=== PATIENT | male | born 1960 | race Caucasian/White ===

== ENCOUNTER 2020-02-05 13:59 | Outpatient (CLI) | payer MEDICARE, MEDICAID, SELFPAY | END 2020-02-05 14:00 | disposition home or self-care (01) | PROVIDERS: Family Provider Physician Assistant Medical; PCP Physician Assistant Medical; Visit Provider Nurse Practitioner Family | DX: E11.621 Type 2 diabetes mellitus with foot ulcer (principal); L97.512 Non-pressure chronic ulcer of other part of right foot with fat layer exposed; E11.622 Type 2 diabetes mellitus with other skin ulcer; L97.322 Non-pressure chronic ulcer of left ankle with fat layer exposed | CPT/HCPCS: 11042; 87070; 87077; 87176; 87186; 87205; G0463 ==

== ENCOUNTER 2020-02-12 14:47 | Outpatient (CLI) | payer MEDICARE, MEDICAID, SELFPAY | END 2020-02-12 14:48 | disposition home or self-care (01) | LOC: WOUND 14:48 | PROVIDERS: Family Provider Physician Assistant Medical; PCP Physician Assistant Medical; Visit Provider Nurse Practitioner Family | DX: E11.621 Type 2 diabetes mellitus with foot ulcer (principal); L97.512 Non-pressure chronic ulcer of other part of right foot with fat layer exposed; E11.622 Type 2 diabetes mellitus with other skin ulcer; L97.322 Non-pressure chronic ulcer of left ankle with fat layer exposed | CPT/HCPCS: G0463 ==

== ENCOUNTER 2020-04-06 03:45 | Observation (INO) | payer MEDICARE, MEDICAID, SELFPAY ==
[2020-04-06] VITALS (47 sets, daily range): BP systolic 97–126; BP diastolic 56–72; PULSE 73–113; RESP 11–27; TEMP 36.6–37.1; O2SAT 86–96; BMI 34.9
--- NOTE | 2020-04-06 03:53 | W.ED.SOB ---
HPI - SOB/Dyspnea General: Chief Complaint: Shortness of Breath/Dyspnea Stated Complaint: SOB Time Seen by Provider: 04/06/20 03:47 Source: patient and EMS Mode of arrival: EMS Limitations: no limitations History of Present Illness: HPI Narrative: 59-year-old male who is here from [facility]. Patient accepted by hospitalist does recommend stopping to the ER for screening. Patient has a history of COPD and does have pneumonia. Patient was given breathing treatments there along with antibiotics. Patient states he felt improved after breathing treatments but is still requiring oxygen. He denies any chest pain. Associated symptoms: Deny abdominal pain, chest pain, fever(s), nausea or vomiting Review of Systems Const: Denies: fever(s), chills, body aches or change in appetite Eyes: Denies: blurry vision or eye discomfort ENMT: Denies: throat pain or dental pain Card: Denies: chest pain Resp: Reports: dyspnea and wheezing GI: Denies: abdominal pain, nausea, vomiting or diarrhea : Denies: dysuria Musc: Denies: neck pain or back pain Skin/Breast: Denies: rash Neuro: Denies: headache(s) Psych: Denies: depression Jose C/Lymph: Denies: easy bruising All/Imm: Denies: urticaria PFSH ED PFSH: Medical History (Updated 04/06/20 @ 04:04 by Shila Babin MD) Cervical vertebral fusion COPD (chronic obstructive pulmonary disease) Dyslipidemia Foot drop GERD (gastroesophageal reflux disease) Heart failure with preserved ejection fraction Hypertension Lymphedema Myocardial infarction Status post stent placement Obstructive sleep apnea Osteomyelitis Foot osteomyelitis with cellulitis treated with vancomycin Urethral stricture Surgical History (Updated 04/06/20 @ 03:58 by Jens Vang MD) H/O cardiac catheterization H/O shoulder surgery Previous back surgery S/P cystourethroscopy with dilation of urethral stricture Family History (Updated 04/06/20 @ 03:56 by Jens Vang MD) Other Hypertension Social History (Updated 04/06/20 @ 03:57 by Jens Vang MD) Alcohol intake: current Alcohol intake frequency: holidays/special occasions only Substance/Drug Use: never Household members: spouse Housing: House Physical Exam Const: COMMON NORMALS: no acute distress, patient oriented x3 and healthy appearing HENMT: COMMON NORMALS: normocephalic and atraumatic HEAD & SCALP: normocephalic and atraumatic Eye: COMMON NORMALS: Equal, round and reactive pupils present and EOMs intact bilaterally PUPIL: Yes Equal, round and reactive pupils present Neck/C-Spine: COMMON NORMALS: full ROM and supple Chest: COMMONS NORMALS: normal inspection of the chest and normal palpation of entire chest wall Resp: COMMON NORMALS: normal respiratory effort, No retractions and No use of accessory muscles AUSCULTATION: wheezes Cardio: COMMON NORMALS: regular rate, regular rhythm and No murmurs present (Cardio) RATE: regular rate RHYTHM: regular rhythm GI: COMMON NORMALS: Normal to inspection, nondistended, normoactive bowel sounds present, Soft to palpation, non-tender and no masses PALPATION: Yes Soft to palpation Extremity: COMMON NORMALS: normal to inspection and full ROM Neuro: COMMON NORMALS: patient oriented x3, moves all extremities and no focal motor deficits Psych: COMMON NORMALS: mental status grossly normal, Normal thought process present and cooperative THOUGHT PROCESS: Normal thought process present Skin: COMMON NORMALS: no rashes or lesions noted and no wounds GENERAL SKIN EXAM: no rashes or lesions noted Course Vital Signs: Vital signs: Vital Signs Temperature 97.9 F 04/06/20 03:46 Pulse Rate 84 04/06/20 03:46 Respiratory Rate 22 H 04/06/20 03:46 Blood Pressure 99/58 04/06/20 03:46 Pulse Oximetry 91 04/06/20 03:46 MDM - SOB/Dyspnea MDM Narrative: Medical decision making narrative: Luis E presents here from [facility] with a asthma exacerbation along with pneumonia likely. Patient seen by Dr. Canales down here and will admit. I evaluated patient he was able to wake and answer all my questions. He is on a facemask I will order an ABG at this time. ABG at [facility] done 4 hours ago showed CO2 in the 50s. 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
--- NOTE | 2020-04-06 03:54 | PM.HP ---
Providers/Chief Complaint Primary Care Provider: Eliud Barrera Chief Complaint: SOB History of Present Illness Luis E Mota is a 59 year old male who carries history of paraplegia secondary to spinal injury, chronic indwelling William catheter, COPD non-oxygen dependent, type 2 diabetes, [place], hypertension, presented to [place] [facility] for chief complaint of shortness of breath. Patient is stating that his shortness of breath has been gradually getting worse, at baseline he is wheelchair-bound, does not use oxygen at home, he did not tolerate CPAP which was prescribed for his obstructive sleep apnea, he has been compliant with his medications, no fever, nausea, vomiting, chest pain. His productive cough is chronic, he has not noticed increased frequency or volume of sputum production. He is bringing up white sputum. He has not been exposed to any sick person. Patient is endorsing orthopnea, PND, shortness of breath at rest. He is taking 40 to 60 mg of Lasix daily, he is endorsing constipation. In last 48 hours his shortness of breath has gotten worse. He was given Solu-Medrol by the EMS, diagnostic work-up at other facility revealed leukocytosis white count 27, he was requiring 4 to 5 L of oxygen, he was tachycardic, high d-dimer, hypokalemia, potassium was repleted, I requested CTA when ER physician called me for the transfer, CT result was negative for PE, did not show acute infiltrate, showed granulomas and nodule with emphysematous changes, EKG unremarkable, blood gas 7.30/57/30 2/93% Cloudy urine, patient denying any signs of UTI He was given Solu-Medrol, DuoNeb and was transferred to our facility for setting up home O2 for him At the time of evaluation in the ER at [facility], systolic blood pressure 118 mmHg, saturating well on 5 L nasal cannula, patient refused COVID testing, no active respiratory distress, patient is endorsing feeling better, blood gas reveals normal pH with chronic hypercarbia. Review of Systems Const: Reports: chills, body aches and fatigue; Denies: fever(s) Eyes: Denies: change in vision ENMT: Denies: throat pain Card: Reports: dyspnea on exertion and orthopnea; Denies: chest pain Resp: Reports: dyspnea and productive cough GI: Reports: constipation; Denies: abdominal pain, nausea or diarrhea : Denies: flank pain Musc: Denies: neck pain Skin/Breast: Reports: lesions Neuro: Reports: weakness in extremities; Denies: headache(s) Psych: Denies: anxiety Endo: Denies: polyuria Jose C/Lymph: Denies: easy bruising All/Imm: Denies: urticaria Medications/Allergies Allergies Allergy/AdvReac Type Severity Reaction Status Date / Time Influenza Virus Vaccines Allergy Unknown Verified 04/06/20 03:55 [email or web address] [From Myrbetriq] Allergy Unknown Verified 04/06/20 03:55 niacin Allergy Unknown Verified 04/06/20 03:55 PFSH Acute PFSH: Medical History Cervical vertebral fusion COPD (chronic obstructive pulmonary disease) Dyslipidemia Foot drop GERD (gastroesophageal reflux disease) Heart failure with preserved ejection fraction Hypertension Lymphedema Myocardial infarction Status post stent placement Obstructive sleep apnea Osteomyelitis Foot osteomyelitis with cellulitis treated with vancomycin Urethral stricture Surgical History H/O cardiac catheterization H/O shoulder surgery Previous back surgery S/P cystourethroscopy with dilation of urethral stricture Family History Other Hypertension Social History (Updated 04/06/20 @ 06:04 by Jens Vang MD) Smoking and tobacco status: current every day smoker cigarettes [ Other cigarette details: [id number] smoking history currently smoking half a pack a day ] Alcohol intake: current Alcohol intake frequency: holidays/special occasions only Substance/Drug Use: never Household members: spouse Housing: House Physical Exam Narrative: EXAM NARRATIVE: Patient was sleeping when I entered the room, upon awakening patient was able to give me above-mentioned detail Saturating well on 5 L nasal cannula, systolic blood pressure 118 mmHg No active respiratory distress currently on 5 L facemask S1, S2 no tachycardia Lower extremity nonpitting edema bilaterally Chronic indwelling William catheter draining concentrated yellow urine Abdomen soft nontender bowel sound present Irritable mood Chronic venous stasis dermatitis skin changes of lower extremity EOMI, PERRLA Patient is paraplegic A&P Assessment and plan (1) Shortness of breath: Status: Acute (2) Acute respiratory failure with hypoxia: Status: Acute (3) Hypokalemia: Status: Acute (4) Abnormal finding on urinalysis: Status: Acute (5) D-dimer, elevated: Status: Acute (6) Leukocytosis: Status: Acute Additional A&P Information Acute hypoxic with underlying chronic hypercarbic respiratory failure Patient is not septic His leukocytosis is secondary to Solu-Medrol usage Afebrile Patient refused COVID testing I believe this is gradually worsening of his underlying COPD due to active smoking, he would require oxygen at discharge Patient is noncompliant with his CPAP CTA at outside facility ruled out PE No active respiratory distress, currently saturating well on 5 L facemask, no infiltrate seen on CT imaging of lungs Chronic hypercarbic respiratory failure This is most likely secondary to obesity hypoventilation, patient is not compliant with his CPAP Because of his multiple comorbid condition he is also taking opioids which puts him at risk of decompensation of COPD Hypokalemia: Repleted Chronic indwelling William catheter: Patient is denying signs of UTI or however abnormal UA noted, I would not treat him with antibiotics at this, abnormal UA is due to chronic indwelling William catheter Constipation: Secondary to opioid usage, We will use enema and senna S Full code DVT prophylaxis Lovenox Cardiac/consistent carb diet Sliding scale for type 2 diabetes Attestations Medical Necessity Statement*: Anticipating discharge in less than 48 hours currently need home O2 set up Time Spent in Patient Care: (>than 50% of time spent in counselling and/or direct pt care on unit). 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
--- NOTE | 2020-04-06 04:01 | PC.NURSE ---
Patient refused the covid testing. Notified Dr. Babin.
[2020-04-06 04:39] LABS: ABG PCO2 55.6 mmHg (35-45); ABG PH Result 7.38 (7.35-7.45); Arterial Blood Gas Hematocrit 48.8 % (42-52); Base Excess ABG 5.4 mmol/L (-2.0-2.0); Blood Gas Allen Test Pos; Blood Gas Operator Identificat JB; Blood Gas Sample Site Radial, right; Blood Gas Sample Type Arterial; HCO3 ABG 32.5 mmol/L (22-26); Oxygen Device OXY MASK; PO2 ABG 68.1 mmHg (80.0-100.0)
--- NOTE | 2020-04-06 05:36 | PC.NURSE ---
Report called to Albina AHMADI on CSU. Hospitalist is in the ED room at this time but the patient will be transferred as soon as he finishes his evaluation.
[2020-04-06] MEDS: enoxaparin 40 mg/0.4 mL Syringe SUBCUT (06:38)
--- NOTE | 2020-04-06 06:41 | PC.NURSE ---
Patient arrived to the floor from the ED after report was received via phone. Patient is alert and oriented x4. Patient states that he is not able to walk or move his lower extremities due to a spinal cord injury, however he is able to move his upper extremities. Patient has a William from home. Patient has leg wraps on his lower legs from home that he would not allow me to take off for a skin assessment. Patient has been oriented to his room and has call light within reach. VSS. Patient is on 5 L oxymask currently. Will monitor.
[2020-04-06 07:17] LABS: Glucose Point of Care 217 mg/dL (70-110)
[2020-04-06] MEDS: FUROsemide 40 mg Tablet 60 MG PO ×2 (07:24→15:51)
[2020-04-06] MEDS: buPROPion XL (24 HR) 150 mg Tablet PO (08:36)
[2020-04-06] MEDS: spironolactone 25 mg Tablet PO (08:36)
[2020-04-06] MEDS: aspirin 81 mg EC Tablet PO (08:36)
[2020-04-06] MEDS: sennosides-docusate Tablet 1 TAB PO ×2 (08:36→17:24)
--- NOTE | 2020-04-06 08:40 | PC.NURSE ---
Dr. Delacruz at bedside discussing POC.
--- NOTE | 2020-04-06 09:06 | PC.NURSE ---
Dr. Delacruz gave verbal orders when bedside with the patient to obtain a sputum sample.
[2020-04-06] MEDS: HYDROcodone-acetaminophen 5-325 mg Tablet 1 TAB PO (09:39)
--- NOTE | 2020-04-06 10:36 | PC.NURSE ---
spoke with Dr patel with patient concerns that he wanted his home dose of tramadol for his pain instead of the hydrocondone that he has ordered PRN patient reports he gets constipation bad with the hydrocodone Instructions given to restart home dose of tramodol 50mg PO BID
[2020-04-06 11:10] LABS: Glucose Point of Care 228 mg/dL (70-110)
[2020-04-06] MEDS: TRAMadol 50 mg Tablet PO ×2 (11:17→21:02)
--- NOTE | 2020-04-06 11:41 | PC.NURSE ---
Patient complained of left testicular pain, signee looked at area and testicle is very swollen and hard. Dr. Delacruz notified
--- NOTE | 2020-04-06 12:19 | US_ITS ---
WS: [id number] SCROTAL ULTRASOUND EXAMINATION CLINICAL INFORMATION: Swelling COMPARISON: None. FINDINGS: TESTES Increased vascularity in the left epididymis and left testicle consistent with epididymoorchitis. Normal right testicle. Right testes size: 3.7 cm x 3.9 cm x 2.5 cm. Left testes size: 4.0 cm x 3.2 cm x 3.1 cm. EPIDIDYMIDES Right epididymis size: Not visualized. Left epididymitis size: 1.0 cm x 2.5 cm x 1.4 cm. HYDROCELE Small left hydrocele with septations. VARICOCELE None. OTHER FINDINGS None. US/US scrotum [id number] IMPRESSION: 1. Increased vascularity in the LEFT testicle and epididymis consistent with e pididymitis and orchitis. 2. Normal right testicle. 3. Complex small LEFT hydrocele
[2020-04-06] MEDS: albuterol 8 gm MDI 2 PUFF INHALATION (13:25)
--- NOTE | 2020-04-06 15:42 | P.PN_ITS ---
Subjective Subjective: Interval history: Patient reports that his breathing much improved. Denies chest pain or abdominal pain. Reports left scrotal pain for 3 days. Reports previous history of infection but on the right side long time ago which resolved with antibiotics. Scrotal ultrasound was performed which was suggestive of left-sided epididymitis and orchitis. Reports that he continues to have productive cough which is chronic for many years. He does not think it is worse in quantity or quality. He continues to smoke. He adamantly refused to have COVID-19 test as he thinks it is politically orchestrated event. Vitals/I&O/Wt Last Vital Signs Temp 97.9 F 04/06/20 14:32 Pulse 93 04/06/20 14:32 Resp 20 H 04/06/20 14:32 BP 109/58 04/06/20 14:32 Pulse Ox 94 04/06/20 14:32 04/06/20 04/06/20 04/06/20 06:59 14:59 22:59 Intake Total 600 / 600 Output Total 1600 / 1600 Balance -1000 / -1000 Weight last 48 hrs Weight 101.151 kg Physical Exam Const: COMMON NORMALS: no acute distress and patient oriented x3 Resp: COMMON NORMALS: normal respiratory effort OTHER: Coarse breath sounds throughout mostly upper airway transmitted Cardio: COMMON NORMALS: regular rate, regular rhythm and S2 normal heart sound present RATE: regular rate RHYTHM: regular rhythm HEART SOUNDS: S2 normal heart sound present OTHER: 3+ bilateral lower extremity edema. GI: COMMON NORMALS: Normal to inspection, nondistended, normoactive bowel sounds present, Soft to palpation and non-tender PALPATION: Yes Soft to palpation Neuro: COMMON NORMALS: patient oriented x3 OTHER: Patient has paraplegia. Barely can move his lower extremities. A&P Assessment and plan (1) Shortness of breath: Status: Acute (2) Acute respiratory failure with hypoxia: Status: Acute (3) Hypokalemia: Status: Acute (4) Abnormal finding on urinalysis: Status: Acute (5) D-dimer, elevated: Status: Acute (6) Leukocytosis: Status: Acute (7) Orchitis and epididymitis: Present on admission. Likely related to chronic William catheter. We may need to consider suprapubic catheter down the road. Status: Acute Additional A&P Information Acute hypoxic with underlying chronic hypercarbic respiratory failure Patient is not septic His leukocytosis is secondary to Solu-Medrol usage Afebrile Patient refused COVID testing I believe this is gradually worsening of his underlying COPD due to active smoking, he would require oxygen at discharge Patient is noncompliant with his CPAP CTA at outside facility ruled out PE No active respiratory distress, currently saturating well on 5 L facemask, no infiltrate seen on CT imaging of lungs Chronic hypercarbic respiratory failure This is most likely secondary to obesity hypoventilation, patient is not compliant with his CPAP Because of his multiple comorbid condition he is also taking opioids which puts him at risk of decompensation of COPD Hypokalemia: Repleted Chronic indwelling William catheter: Patient is denying signs of UTI or however abnormal UA noted, I would not treat him with antibiotics at this, abnormal UA is due to chronic indwelling William catheter Constipation: Secondary to opioid usage, We will use enema and senna S Full code DVT prophylaxis Lovenox Cardiac/consistent carb diet Sliding scale for type 2 diabetes PLAN: Continue breathing treatments and add Advair and Levaquin. This should treat orchitis as well as prevent pneumonia. We will obtain sputum culture and Gram stain. Because patient refuses to have COVID-19 checked he will not be treated with nebulizer and he understands that. I had extensive discussion of more than 3 minutes with patient regarding importance of smoking cessation. Patient voiced understanding and reports that he will try quitting. Reports that pharmacologic help does not work. 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
[2020-04-06] MEDS: levofloxacin-dextrose 5 % 750 MG/150 ML PREMIX 100 MG IV (15:51)
[2020-04-06 16:10] LABS: Glucose Point of Care 171 mg/dL (70-110)
[2020-04-06] MEDS: sodium chloride 0.9% 250 ML IV (17:56)
--- NOTE | 2020-04-06 17:57 | PC.NURSE ---
Patient reports episodes of constipation, which is nothing unusual for himself, and states he takes 4 senna at home. Will notify provider.
[2020-04-06 20:11] LABS: Glucose Point of Care 126 mg/dL (70-110)
[2020-04-06] MEDS: atorvastatin 40 mg Tablet 20 MG PO (21:03)
[2020-04-07] VITALS (21 sets, daily range): BP systolic 106–118; BP diastolic 57–69; PULSE 67–88; RESP 1–26; TEMP 36.7–37.2; O2SAT 88–97
[2020-04-07] MEDS: lidocaine 2% viscous 15 ML, aluminum-mag hydrox-simethicon 30 ML, sucralfate oral liq 1 GM PO (02:42)
[2020-04-07 03:57] LABS: Basophils % 0.1 %; Eosinophils % 0.1 %; Hematocrit 43.5 % (42.0-52.0); Hemoglobin 13.9 g/dL (11.7-16.6); Lymphocytes # 1.9 10^3/uL (0.8-4.8); Lymphocytes % 9.5 %; Mean Corpuscular Hemoglobin 29.1 pg (28.0-34.0); Mean Corpuscular Volume 91.2 fL (80-94); Mean Platelet Volume 11.4 fL (7.4-10.4); Monocytes % 9.8 %; Neutrophils # 16.06 10^3/uL (1.8-7.7); Neutrophils % 79.9 %; Nucleated Red Blood Cells % 0 %; Platelet Count 199 10^3/cmm (130-400); Red Blood Count 4.77 10^6/uL (4.1-5.3); Red Cell Distribution Width 15.3 % (12.1-15.1); White Blood Count 20.1 10^3/uL (4.0-10.0)
[2020-04-07 04:22] LABS: Alanine Aminotransferase 38 U/L (0-41); Albumin Level 3.5 g/dL (3.5-5.2); Alkaline Phosphatase 114 IU/L (40-130); Anion Gap 8.6 (5-19); Aspartate Amino Transferase 28 U/L (0-40); Blood Urea Nitrogen 14 mg/dL (8-23); Carbon Dioxide 34 mmol/L (22-29); Chloride 99 mmol/L (98-107); Globulin 3.2 g/dL (1.3-4.6); Glomerular Filtration Rate 114.6 mL/min (90-130); Glucose 139 mg/dL (65-115); Magnesium 2.1 mg/dL (1.7-2.3); Osmolality Calculated 284 mOsm/kg (285-295); Potassium 3.6 mmol/L (3.5-5.1); Sodium 138 mmol/L (136-145); Total Bilirubin 0.3 mg/dL (0.15-1.2); Total Protein 6.7 g/dL (6.6-8.7)
[2020-04-07] MEDS: enoxaparin 40 mg/0.4 mL Syringe SUBCUT (05:41)
[2020-04-07 06:23] LABS: Glucose Point of Care 116 mg/dL (70-110)
--- NOTE | 2020-04-07 06:40 | PC.NURSE ---
Shift Events: Remains in Covid precautions. AO x 4. Complaints of pain x 1. Good urine output. On 5 liters oxymask. VSS.
[2020-04-07] MEDS: FUROsemide 40 mg Tablet 60 MG PO (08:19)
[2020-04-07] MEDS: spironolactone 25 mg Tablet PO (08:19)
[2020-04-07] MEDS: buPROPion XL (24 HR) 150 mg Tablet PO (08:19)
[2020-04-07] MEDS: sennosides-docusate Tablet 1 TAB PO (08:19)
[2020-04-07] MEDS: aspirin 81 mg EC Tablet PO (08:20)
[2020-04-07] MEDS: albuterol 8 gm MDI 2 PUFF INHALATION (09:54)
[2020-04-07 11:27] LABS: Glucose Point of Care 152 mg/dL (70-110)
--- NOTE | 2020-04-07 12:36 | PM.DCS ---
Discharge Providers Date of Admission: 04/06/20 03:59 Date of Discharge: April 07, 2020 Attending Provider at Admission: Jens Vang MD Attending Provider at Discharge: Nikita Delacruz MD Primary Care Provider: Eliud Barrera Diagnoses at Discharge Discharge Diagnosis (1) Shortness of breath: Status: Acute (2) Acute respiratory failure with hypoxia: Status: Acute (3) Hypokalemia: Status: Acute (4) Abnormal finding on urinalysis: Status: Acute (5) D-dimer, elevated: Status: Acute (6) Leukocytosis: Status: Acute (7) Orchitis and epididymitis: Status: Acute (8) COPD (chronic obstructive pulmonary disease): Status: Acute Problem details: Possibly with mild exacerbation. Present on admission Reason for Visit Reason for Visit: SOB Hospital Course Discharge Summary: Patient with lifelong smoking presented with shortness of breath and had evidence of hypoxia. He appears to have chronic CO2 retention due to his advanced underlying COPD. I am suspected that the patient qualified for oxygen previously but was not using. Patient reports that he is why he is on oxygen at home. He was treated with steroids and respiratory treatments and gradually improved and this morning reports that his breathing is at baseline. Patient refused to be checked for COVID-19. He was found to have orchitis/epididymitis and started on Levaquin. This morning he reports that his left scrotal pain improved. He has no overlying erythema. He will be continued on Levaquin for total of 10 days. His white blood cell count is elevated which I think is likely related to steroids as patient clinically much improved. Patient wants to go home and I think it is safe for patient to be dismissed after home O2 evaluation. I had extensive discussion regarding importance of smoking cessation especially with use of oxygen. Patient voiced understanding and reports that he will be able to quit on his own. He thinks he can do without pharmacological help. This morning patient denies any chest pain or abdominal pain. He is on Lasix and this will be continued. Outpatient follow-up with primary care physician and urology service will be requested. I think patient would benefit from suprapubic catheter placement instead of William catheter. Outpatient follow-up with pulmonary service will also be requested. Physical Exam Const: COMMON NORMALS: no acute distress and patient oriented x3 Resp: COMMON NORMALS: normal respiratory effort and clear to auscultation bilaterally (Much improved air movement throughout.) AUSCULTATION: clear to auscultation bilaterally (Much improved air movement throughout.) Cardio: COMMON NORMALS: regular rate, regular rhythm and S2 normal heart sound present RATE: regular rate RHYTHM: regular rhythm HEART SOUNDS: S2 normal heart sound present OTHER: 2-3+ lower extremity edema GI: COMMON NORMALS: Normal to inspection, nondistended, normoactive bowel sounds present, Soft to palpation and non-tender PALPATION: Yes Soft to palpation Neuro: COMMON NORMALS: patient oriented x3 and no focal motor deficits Discharge Data Data Completed and Pending: Completed Studies During Hospitalization Category Date Time Status US scrotum 52304 Stat Ultrasound 04/06/20 12:19 Completed Pending at discharge Category Date Time Status Complete Blood Co unt w/Auto AM LABS Lab 04/08/20 04:00 Ordered Complete Blood Co unt w/Auto AM LABS Lab 04/09/20 04:00 Ordered Comprehensive Met abolic Panel AM LA BS Lab 04/08/20 04:00 Ordered Comprehensive Met abolic Panel AM LA BS Lab 04/09/20 04:00 Ordered Magnesium AM LABS Lab 04/08/20 04:00 Ordered Magnesium AM LABS Lab 04/09/20 04:00 Ordered SARS Covid-2 Anti gen Routine Lab 04/06/20 03:52 Ordered Sputum Culture Ro utine Lab 04/06/20 10:35 Received Sputum Culture an d Gram Stain Noemii ne Lab 04/06/20 15:38 Uncollected Labs from last 24 hours 04/07/20 04/07/20 04/07/20 10:38 06:19 03:40 WBC RBC Hgb Hct MCV MCH MCHC RDW Plt Count MPV Neut % (Auto) Lymph % (Auto) [place] % (Auto) Eos % (Auto) Baso % (Auto) Neut # (Auto) Lymph # (Auto) [place] # (Auto) Eos # (Auto) Baso # (Auto) Nucleated RBC % (a uto) Nucleated RBCs # Sodium 138 Potassium 3.6 Chloride 99 Carbon Dioxide 34 H Anion Gap 8.6 BUN 14 Creatinine 0.7 GFR Calculation 114.6 Glucose 139 H POC Glucose 152 116 Calculated Osmolal ity 284 L Calcium 9.0 Magnesium 2.1 Total Bilirubin 0.3 AST 28 ALT 38 Alkaline Phosphata se 114 Total Protein 6.7 Albumin 3.5 Globulin 3.2 04/07/20 04/06/20 04/06/20 03:40 20:07 16:03 WBC 20.1 H RBC 4.77 Hgb 13.9 Hct 43.5 MCV 91.2 MCH 29.1 MCHC 32.0 RDW 15.3 H Plt Count 199 MPV 11.4 H Neut % (Auto) 79.9 Lymph % (Auto) 9.5 Woodford % (Auto) 9.8 Eos % (Auto) 0.1 Baso % (Auto) 0.1 Neut # (Auto) 16.06 H Lymph # (Auto) 1.9 [place] # (Auto) 2.0 H Eos # (Auto) 0.0 Baso # (Auto) 0.0 Nucleated RBC % (a uto) 0 Nucleated RBCs # 0.0 Sodium Potassium Chloride Carbon Dioxide Anion Gap BUN Creatinine GFR Calculation Glucose POC Glucose 126 171 Calculated Osmolal ity Calcium Magnesium Total Bilirubin AST ALT Alkaline Phosphata se Total Protein Albumin Globulin Vitals: Last Vital Signs Temp 98.0 F 04/07/20 10:42 Pulse 78 04/07/20 10:42 Resp 18 04/07/20 10:42 BP 106/57 04/07/20 10:42 Pulse Ox 93 04/07/20 10:42 Discharge Plan Discharge Patient Disposition: Home Condition: Stable Prescriptions: New sennosides-docusate sodium 8.6-50 mg Tablet 1 tab PO BID PRN (Reason: constipation) Qty: 30 RF: 0 albuterol sulfate 90 mcg/actuation Hfa Aerosol Inhaler 2 puff inhalation Q4H.RESPIRATORY PRN (Reason: Shortness Of Breath) Qty: 1 RF: 0 Spiriva with HandiHaler 18 mcg Capsule, W/Inhalation Device 18 mcg inhalation DAILY.RESPIRATORY Qty: 1 RF: 0 Levaquin 500 mg tablet 500 mg PO Q24H 8 Days Qty: 8 RF: 0 Continued furosemide 40 mg Tablet 60 mg PO BID RF: 0 aspirin 81 mg Tablet,Delayed Release (Dr/Ec) 81 mg PO DAILY RF: 0 tramadol 50 mg Tablet 50 mg PO BID PRN (Reason: Pain) RF: 0 spironolactone 25 mg Tablet 25 mg PO DAILY RF: 0 simvastatin 40 mg Tablet 40 mg PO QPM RF: 0 metformin 1,000 mg Tablet 1,000 mg PO BID RF: 0 ezetimibe 10 mg Tablet 10 mg PO BEDTIME RF: 0 Dulera 100-5 mcg/actuation Hfa Aerosol Inhaler 2 puff INHALATION BID RF: 0 Discharge Orders: Discharge Order (Routine); Ordered 04/07/20 Ordered By: Nikita Delacruz Other Ambulatory Orders: Complete Blood Count w/Auto (Routine) Timeframe: 1 Week Location: Determined by Patient Ordered By: Nikita Delacruz Referrals: Darren Crowe MD [Physician] - 4-7 days Eliud Barrera [Primary Care Provider] - 4-7 days (YOU WILL HAVE A FOLLOW UP APPOINTMENT WITH DADA ANDERSON AT [facility] ON SundayMarch AT 11:00 AM. IF YOU HAVE ANY QUESTIONS PLEASE CALL [phone]) Discharge Diet: Advance as tolerated Discharge Activity: Increase activity as tolerated Patient Instructions: Albuterol (By breathing), Laxative, Stimulant (By mouth), Levofloxacin (By mouth), Tiotropium (By breathing) Activity Restrictions/Additional Instructions: Please call your doctor or present to emergency department if your condition worsens or you develop diarrhea, lightheadedness, fatigue or see blood in your stool or black stool. Please follow-up with your urologist early as possible to follow-up on orchitis/epididymitis and to discuss suprapubic catheter placement instead of William catheter. Please discuss with your doctor if you cannot quit smoking as we have discussed and require pharmacological help. Discharge Attestations Time Spent in Discharge Care*: greater than 30 min Quality Metrics Clinical Quality Measures During this hospital stay, did patient experience: None Coding Level of Care Code Acute Batching Operator for 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 Diagnoses Shortness of breath R06.02 Acute respiratory failure with hypoxia J96.01 Hypokalemia E87.6 Abnormal finding on urinalysis R82.90 D-dimer, elevated R79.89 Leukocytosis D72.829 Orchitis and epididymitis N45.3 COPD (chronic obstructive pulmonary disease) J44.9
[2020-04-07] MEDS: TRAMadol 50 mg Tablet PO (13:16)
--- NOTE | 2020-04-09 09:27 | PC.RESP ---
SMOKING CESSATION AND PULMONARY REHAB INFORMATION SENT TO PATIENT.
== END 2020-04-07 17:10 | disposition home or self-care (01) ==
LOC: ER 04:04 → CSU 07:23
PROVIDERS: Admitting Provider Internal Medicine; Emergency Provider Emergency Medicine; PCP Physician Assistant Medical; Visit Provider Internal Medicine
DX: J96.01 Acute respiratory failure with hypoxia (principal); E87.6 Hypokalemia; R82.90 Unspecified abnormal findings in urine; R79.89 Other specified abnormal findings of blood chemistry; D72.829 Elevated white blood cell count, unspecified; N45.3 Epididymo-orchitis; K59.03 Drug induced constipation; T40.2X5A Adverse effect of other opioids, initial encounter; J44.1 Chronic obstructive pulmonary disease with (acute) exacerbation; J96.12 Chronic respiratory failure with hypercapnia; N43.3 Hydrocele, unspecified; F17.210 Nicotine dependence, cigarettes, uncomplicated; Z82.49 Family history of ischemic heart disease and other diseases of the circulatory system
CPT/HCPCS: 12345; 36415; 36416; 76870; 80053; 82803; 82962; 83735; 85025; 87070; 94640; 96372; 99281; 99285; G0378; J1650; J1815; J1956; J3535; J7050

== ENCOUNTER 2020-05-06 09:28 | Outpatient (CLI) | payer MEDICARE, MEDICAID, SELFPAY ==
--- NOTE | 2020-05-06 09:34 | CT_ITS ---
WS: [id number] LDCT LUNG CANCER SCREENING TECHNIQUE: Noncontrast CT of the chest with coronal and sagittal reformatted images. CLINICAL INFORMATION: HX OF TOBACCO USE COMPARISON: CTA chest November 04, 2019 DLP: 56.65 mGy.cm DIvol: 1.[address] scans at [facility] use at least one of these dose optimization techniques: automat ed exposure control; mA and/or kV adjustment per patient size (includes targeted exams where dose is matched to clinical indication); or iterative reconstruction. FINDINGS: A few calcified granulomas. Mild chronic emphysematous changes. No acute pulmonary infiltrates. Subse gmental atelectasis and fibrosis in the right lower lobe and right middle lobe. Fibrosis in the lingu la. Long-term stability since 2011 of several subcentimeter noncalcified pulmonary nodules in both erik ngs. Several calcified partially calcified granulomas. A few noncalcified pulmonary nodules in the right lower lobe measuring 4-5 mm obscured by pneumonia i n 2011. These are stable since April 05, 2020 Mild aortic calcification. Coronary calcification. No mediastinal or hilar lymphadenopathy. No axilla ry lymphadenopathy. Normal GE junction. Adrenal glands are normal. Normal visualized thoracic spine. CT/CT lung screening [id number] IMPRESSION: LUNG-RADS: 3-Probably Benign FOLLOW UP: 6 Month LDCT
== END 2020-05-06 09:29 | disposition home or self-care (01) ==
LOC: CT 09:30
PROVIDERS: PCP Physician Assistant Medical; Visit Provider Internal Medicine Pulmonary Disease
DX: Z12.2 Encounter for screening for malignant neoplasm of respiratory organs (principal); Z87.891 Personal history of nicotine dependence
CPT/HCPCS: G0297

== ENCOUNTER 2020-07-01 14:16 | Outpatient (CLI) | payer MEDICARE, MEDICAID, SELFPAY | END 2020-07-01 14:17 | disposition home or self-care (01) | LOC: WOUND 14:17 | PROVIDERS: PCP Physician Assistant Medical; Visit Provider Nurse Practitioner Family | DX: E11.622 Type 2 diabetes mellitus with other skin ulcer (principal); L97.812 Non-pressure chronic ulcer of other part of right lower leg with fat layer exposed | CPT/HCPCS: 11042; G0463 ==

== ENCOUNTER 2020-07-07 09:49 | Outpatient (CLI) | payer MEDICARE, MEDICAID, SELFPAY | END 2020-07-07 09:50 | disposition home or self-care (01) | LOC: WOUND 09:50 | PROVIDERS: PCP Physician Assistant Medical; Visit Provider Nurse Practitioner Family | DX: E11.622 Type 2 diabetes mellitus with other skin ulcer (principal); L97.822 Non-pressure chronic ulcer of other part of left lower leg with fat layer exposed; L97.812 Non-pressure chronic ulcer of other part of right lower leg with fat layer exposed | CPT/HCPCS: 11042 ==

== ENCOUNTER 2020-07-15 15:05 | Outpatient (CLI) | payer MEDICARE, MEDICAID, SELFPAY | END 2020-07-15 15:06 | disposition home or self-care (01) | LOC: WOUND 15:06 | PROVIDERS: PCP Physician Assistant Medical; Visit Provider Thoracic Surgery (Cardiothoracic Vascular Surgery) | DX: E11.622 Type 2 diabetes mellitus with other skin ulcer (principal); L97.812 Non-pressure chronic ulcer of other part of right lower leg with fat layer exposed | CPT/HCPCS: 11042 ==

== ENCOUNTER 2020-07-22 15:19 | Outpatient (CLI) | payer MEDICARE, MEDICAID, SELFPAY | END 2020-07-22 15:20 | disposition home or self-care (01) | LOC: WOUND 15:21 | PROVIDERS: PCP Physician Assistant Medical; Visit Provider Nurse Practitioner Family | DX: E11.622 Type 2 diabetes mellitus with other skin ulcer (principal); L97.812 Non-pressure chronic ulcer of other part of right lower leg with fat layer exposed | CPT/HCPCS: 11042 ==

== ENCOUNTER 2020-07-29 14:40 | Outpatient (CLI) | payer MEDICARE, MEDICAID, SELFPAY | END 2020-07-29 14:41 | disposition home or self-care (01) | LOC: WOUND 14:41 | PROVIDERS: PCP Physician Assistant Medical; Visit Provider Thoracic Surgery (Cardiothoracic Vascular Surgery) | DX: E11.622 Type 2 diabetes mellitus with other skin ulcer (principal); L97.812 Non-pressure chronic ulcer of other part of right lower leg with fat layer exposed | CPT/HCPCS: 11042 ==

== ENCOUNTER 2020-08-26 13:49 | Outpatient (CLI) | payer MEDICARE, MEDICAID, SELFPAY | END 2020-08-26 13:50 | disposition home or self-care (01) | LOC: WOUND 13:52 | PROVIDERS: PCP Physician Assistant Medical; Visit Provider Thoracic Surgery (Cardiothoracic Vascular Surgery) | DX: E11.622 Type 2 diabetes mellitus with other skin ulcer (principal); L97.812 Non-pressure chronic ulcer of other part of right lower leg with fat layer exposed | CPT/HCPCS: 11042 ==

== ENCOUNTER 2020-09-06 14:05 | Outpatient (CLI) | payer MEDICARE, MEDICAID, SELFPAY | END 2020-09-06 14:06 | disposition home or self-care (01) | PROVIDERS: PCP Physician Assistant Medical; Visit Provider Thoracic Surgery (Cardiothoracic Vascular Surgery) | DX: E11.622 Type 2 diabetes mellitus with other skin ulcer (principal); L97.912 Non-pressure chronic ulcer of unspecified part of right lower leg with fat layer exposed | CPT/HCPCS: 11042; A6545; L3260 ==

== ENCOUNTER 2020-09-13 14:58 | Outpatient (CLI) | payer MEDICARE, MEDICAID, SELFPAY | END 2020-09-13 14:59 | disposition home or self-care (01) | LOC: WOUND 14:59 | PROVIDERS: PCP Physician Assistant Medical; Visit Provider Thoracic Surgery (Cardiothoracic Vascular Surgery) | DX: E11.622 Type 2 diabetes mellitus with other skin ulcer (principal); L97.812 Non-pressure chronic ulcer of other part of right lower leg with fat layer exposed | CPT/HCPCS: 11042 ==

== ENCOUNTER 2020-10-12 12:00 | Outpatient (CLI) | payer MEDICARE, MEDICAID, SELFPAY | END 2020-10-12 12:01 | disposition home or self-care (01) | LOC: WOUND 12:01 | PROVIDERS: PCP Physician Assistant Medical; Visit Provider Thoracic Surgery (Cardiothoracic Vascular Surgery) | DX: E11.622 Type 2 diabetes mellitus with other skin ulcer (principal); L97.812 Non-pressure chronic ulcer of other part of right lower leg with fat layer exposed | CPT/HCPCS: 11042; 97597 ==

== ENCOUNTER 2020-10-26 10:47 | Outpatient (CLI) | payer MEDICARE, MEDICAID, SELFPAY | END 2020-10-26 10:48 | disposition home or self-care (01) | LOC: WOUND 10:49 | PROVIDERS: PCP Physician Assistant Medical; Visit Provider Thoracic Surgery (Cardiothoracic Vascular Surgery) | DX: E11.622 Type 2 diabetes mellitus with other skin ulcer (principal); L97.812 Non-pressure chronic ulcer of other part of right lower leg with fat layer exposed | CPT/HCPCS: 11042 ==

== ENCOUNTER → 2021-07-12 14:28 | Outpatient (BNVA) | payer MEDICARE, MEDICAID, SELFPAY | PROVIDERS: PCP Registered Nurse; Visit Provider Registered Nurse | DX: H10.9 Unspecified conjunctivitis (principal); J34.89 Other specified disorders of nose and nasal sinuses | CPT/HCPCS: 87070 ==

== ENCOUNTER → 2021-07-13 08:32 | Outpatient (BNVA) | payer MEDICARE, MEDICAID, SELFPAY | PROVIDERS: PCP Registered Nurse; Visit Provider Registered Nurse | DX: I10 Essential (primary) hypertension (principal); R21 Rash and other nonspecific skin eruption | CPT/HCPCS: 85025; 85651; 86038; 86140 ==

== ENCOUNTER → 2021-09-02 00:01 | Outpatient (BNVA) | payer MEDICARE, MEDICAID, SELFPAY | PROVIDERS: PCP Registered Nurse; Visit Provider Registered Nurse | DX: Z11.52 Encounter for screening for COVID-19 (principal) | CPT/HCPCS: 87635 ==

== ENCOUNTER → 2022-05-16 14:42 | Outpatient (BNVA) | payer MEDICARE, MEDICAID, SELFPAY | PROVIDERS: PCP Registered Nurse; Referring Provider Registered Nurse; Visit Provider Physician Assistant | DX: M47.812 Spondylosis without myelopathy or radiculopathy, cervical region (principal); G82.20 Paraplegia, unspecified; Z98.1 Arthrodesis status | CPT/HCPCS: 72040; 99203; 99204 ==

== ENCOUNTER → 2023-04-10 15:20 | Outpatient (BNVA) | payer BC, MEDICAID, SELFPAY | PROVIDERS: PCP Registered Nurse; Visit Provider Registered Nurse | DX: H93.90 Unspecified disorder of ear, unspecified ear (principal); J02.0 Streptococcal pharyngitis | CPT/HCPCS: 87880 ==

== ENCOUNTER 2023-05-08 11:42 | Day surgery (SDC) | payer BC, MEDICAID, SELFPAY ==
[2023-05-07 10:21] VITALS: BMI 36.0
[2023-05-08 12:08] VITALS: BMI 36.0
--- NOTE | 2023-05-08 12:59 | ECG_ITS ---
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 Measurements Intervals Sebastian Rate: 73 P: 67 IL: 156 QRS: -72 QRSD: 165 T: 57 QT: 433 QTc: 479 Interpretive Statements SINUS RHYTHM RIGHT BUNDLE BRANCH BLOCK [120+ ms QRS DURATION, UPRIGHT V1, 40+ ms S IN I/aVL/V4/V5/V6] LEFT ANTERIOR FASCICULAR BLOCK [QRS AXIS <= -45, QR IN I, RS IN II] POSSIBLE ANTERIOR MYOCARDIAL INFARCTION , OF INDETERMINATE AGE [30 ms Q WAVE IN V3/V4, OR R < 0.2 mV IN V4] Compared to ECG 04/17/2017 14:06:00 Right bundle-branch block now present Left anterior fascicular block now present Myocardial infarct finding now present Intraventricular conduction delay no longer present Electronically Signed On 05-08-2023 21:16:28 CDT by Harmony Weber M.D. [id number]
[2023-05-08 13:03] LABS: Basophils # 0.1 10^3/uL (0.0-0.1); Basophils % 0.5 %; Eosinophils # 0.4 10^3/uL (0.0-0.8); Eosinophils % 4.2 %; Hematocrit 47.3 % (37-53); Lymphocytes # 1.7 10^3/uL (0.8-4.8); Lymphocytes % 17.1 %; Mean Corpuscular Hemoglobin 30.7 pg (27-33); Mean Corpuscular Volume 90.1 fl (82-101); Mean Platelet Volume 10.3 fL (7.4-10.4); Monocytes # 1.1 10^3/uL (0.2-0.9); Monocytes % 10.6 %; Neutrophils # 6.68 10^3/uL (1.8-7.7); Neutrophils % 67.4 %; Nucleated Red Blood Cells % 0 %; Platelet Count 264 10^3/cmm (157-399); Red Blood Count 5.25 10^6/uL (3.85-5.65); Red Cell Distribution Width 14.2 % (12.1-15.1); White Blood Count 9.92 10^3/uL (3.29-11.43)
[2023-05-08 13:15] LABS: Alanine Aminotransferase 18 U/L (0-41); Albumin Level 3.9 g/dL (3.5-5.2); Alkaline Phosphatase 110 U/L (40-130); Anion Gap 14.4 (5-19); Aspartate Amino Transferase 14 U/L (0-40); Blood Urea Nitrogen 9 mg/dL (8-23); Calcium 9.1 mg/dL (8.5-10.5); Carbon Dioxide 31 mmol/L (22-29); Chloride 96 mmol/L (98-107); Globulin 3.9 g/dL (1.3-4.6); Glomerular Filtration Rate 97.3 mL/min (90-130); Glucose 115 mg/dL (65-115); Osmolality Calculated 286 mOsm/kg (285-295); Potassium 3.4 mmol/L (3.5-5.1); Sodium 138 mmol/L (136-145); Total Bilirubin 0.4 mg/dL (0.15-1.2); Total Protein 7.8 g/dL (6.6-8.7)
--- NOTE | 2023-05-08 13:39 | ANES.PREANE2 ---
Pre-Anesthetic Assessment Height/Weight: Height 1.7 m Weight 104.326 kg O2 Del Method O2 Flow Rate Nasal Cannula 2 05/08/23 12:08 05/08/23 12:08 Preop Diagnosis: Supraglottic/epiglottis exophytic lesion Operation Date: 05/08/23 13:15 Proposed Procedures p Laryngoscopy,direct,w/biopsy,w/frozen section-98273,J38.7(Not Applicable) - Justin Mcfarland MD Was Beta Marely taken within 24 hours: N/A Was Clonidine taken within 24 hours: N/A Last intake: Intake Last Liquid Date 05/07/23 Last Liquid Time 22:00 Last Solid Date 05/07/23 Last Solid Time 22:00 Social Tobacco Exam alert, oriented x 3 and regular rate & rhythm Diminished lung sounds Airway Submandibular: within normal limits Cervical ROM: Other Mallampati: Class III Comments: Comments: Edentulous History/ROS No significant history except as noted and No significant complaints Pulmonary Chronic Obstructive Pulmonary Disease and Sleep Apnea Home O2 CV/HEM Coronary Artery Disease cardiac stent many years ago - restenosed, but reportedly has sufficient collateral circulation GI Gastroesophageal Reflux Disease [facility] Hx c-spine fusion Neuropsych Paraplegia Anesthetic Plan ASA status: 3 Anesthesia: General Risk of > 500 ml blood loss (7ml/kg in children): No Other Pertinent Information Instructed to bring full O2 tank with him for the ride home following surgery. Medications/Allergies Home Medications Medication Instructions Recorded Confirmed Last Taken Type aspirin 81 mg tablet,delayed 81 mg PO DAILY 04/06/20 05/07/23 Unknown History release furosemide 40 mg tablet 60 mg PO BID 04/06/20 05/08/23 05/08/23 History tramadol 50 mg tablet 50 mg PO BID PRN Pain 04/06/20 05/08/23 05/08/23 History albuterol sulfate 90 mcg/actuation 2 puff inhalation Q4H.RESPIRATORY 04/07/20 05/07/23 05/07/23 Rx aerosol inhaler PRN Shortness Of Breath #1 g budesonide 0.5 mg/2 mL suspension 0.5 mg (2 mL) inhalation BID #60 mL 05/24/20 05/07/23 Unknown Rx for nebulization ipratropium 0.5 mg-albuterol 3 mg 3 ml inhalation Q4H PRN wheezing 05/24/20 05/07/23 Unknown Rx (2.5 mg base)/3 mL nebulization #90 mL soln budesonide 32 mcg/actuation nasal 2 spray intranasal BID #8.43 mL 07/12/21 05/07/23 Unknown Rx spray (Rhinocort Allergy) mupirocin 2 % topical ointment 1 applic topical BID 10 days #15 09/01/21 05/07/23 Unknown Rx grams cyclobenzaprine 5 mg tablet 5 mg PO TID PRN muscle spasm #30 03/30/22 05/07/23 Unknown Rx tabs diclofenac sodium 1 % topical gel 2 g topical QID #100 grams 03/30/22 05/07/23 Unknown Rx (Voltaren Arthritis Pain) diclofenac sodium 75 mg 75 mg PO BID PRN pain #60 tabs 05/16/22 05/07/23 Unknown Rx tablet,delayed release Allergies Allergy/AdvReac Type Severity Reaction Status Date / Time doxycycline Allergy Intermediate RASH/SWELLI Verified 05/07/23 10:16 NG adhesive tape Allergy ALGY-Bliste Verified 05/08/23 12:52 r clindamycin Allergy ALGY-Hives Verified 05/07/23 10:16 Influenza Virus Vaccines Allergy Unknown Verified 05/07/23 10:16 [email or web address] [From Myrbetriq] Allergy Unknown Verified 05/07/23 10:16 niacin Allergy Unknown Verified 05/07/23 10:16 [facility] Anesthesia Medical History Acute non-recurrent pansinusitis Cervical vertebral fusion Chronic hypertrophic rhinitis COPD (chronic obstructive pulmonary disease) COVID-19 Dyslipidemia Foot drop GERD (gastroesophageal reflux disease) Heart failure with preserved ejection fraction Hypertension Hypokalemia Lymphedema Malar rash Myocardial infarction Status post stent placement Obstructive sleep apnea Orchitis and epididymitis Osteomyelitis Foot osteomyelitis with cellulitis treated with vancomycin Urethral stricture Surgical History H/O cardiac catheterization H/O shoulder surgery Previous back surgery S/P cystourethroscopy with dilation of urethral stricture Family History Other Hypertension Social History Smoking and tobacco status: current every day smoker Quit status (tobacco): has quit using tobacco Year quit tobacco: 2020 - 1.5 PPD x 40 Years Second hand smoke exposure: No Smoking risk assessment/counseling performed?: Yes Alcohol intake: current Alcohol intake frequency: holidays/special occasions only Substance/Drug Use: never Caregiver/support person: Yes Lives independently: Yes Household members: spouse Housing: House Marital status: Current occupational status: disabled Do you think of yourself as: Straight/Heterosexual Current gender identity: Male Data Anesthesia 05/08/23 12:30 05/08/23 12:30 Short CBC 05/08/23 Range/Units 12:30 WBC 9.92 (3.29-11.43) 10^3/uL Hgb 16.10 (11.27-16.99) g/dL Hct 47.3 (37-53) % MCV 90.1 (82-101) fl Plt Count 264 (157-399) 10^3/cmm Neut % (Auto) 67.4 % Neut # (Auto) 6.68 (1.8-7.7) 10^3/uL BMP 05/08/23 12:30 Sodium 138 Potassium 3.4 L Chloride 96 L Carbon Dioxide 31 H BUN 9 Creatinine 0.8 Glucose 115 Calcium 9.1 Liver Function 05/08/23 Range/Units 12:30 Total Bilirubin 0.4 (0.15-1.2) mg/dL AST 14 (0-40) U/L ALT 18 (0-41) U/L Alkaline Phosphatase 110 (40-130) U/L Albumin 3.9 (3.5-5.2) g/dL Cardiac Studies: No Data to Display
== END 2023-05-08 13:26 | disposition home or self-care (01) ==
LOC: OR 11:45
PROVIDERS: Student in an Organized Health Care Education/Training Program; PCP Family Medicine; Visit Provider Otolaryngology
PROC: 0CJS8ZZ Inspection of Larynx, Via Natural or Artificial Opening Endoscopic (ICD-10-PCS; principal; 2023-05-08 13:05)
DX: Z01.818 Encounter for other preprocedural examination (principal)
CPT/HCPCS: 36415; 80053; 85025; 93005

== ENCOUNTER 2023-05-24 06:59 | Day surgery (SDC) | payer BC, MEDICAID, SELFPAY ==
[2023-05-23 10:42] VITALS: BMI 34.4
[2023-05-24] VITALS (10 sets, daily range): BP systolic 94–138; BP diastolic 55–92; PULSE 68–90; RESP 12–20; TEMP 36.1–36.2; O2SAT 90–98
[2023-05-24] MEDS: sodium chloride 0.9% 1,000 ML 30 ML IV (07:47)
[2023-05-24] MEDS: ipratropium 0.5 mg/2.5 mL Neb INHALATION (07:53)
[2023-05-24] MEDS: albuterol 2.5 mg/3 mL Neb INHALATION (07:53)
--- NOTE | 2023-05-24 08:00 | ANES.PREANE2 ---
Pre-Anesthetic Assessment Height/Weight: Height 1.7 m Weight 99.79 kg Temp Pulse Resp BP Pulse Ox O2 Del Method O2 Flow Rate 97.1 F L 82 17 94/55 90 Nasal Cannula 2 05/24/23 07:15 05/24/23 07:57 05/24/23 07:45 05/24/23 07:15 05/24/23 07:45 05/24/23 07:45 05/24/23 07:45 Preop Diagnosis: Supraglottic epiglottic lesion Operation Date: 05/24/23 08:35 Proposed Procedures p laryngoscopy,direct,w/biopsy,w/frozen section-76623,J38.7(Not Applicable) - Justin Mcfarland MD Familial anesthetic complications: none Was Beta Marely taken within 24 hours: N/A Was Clonidine taken within 24 hours: N/A Last intake: Intake Last Liquid Date 05/23/23 Last Liquid Time 21:00 Last Solid Date 05/23/23 Last Solid Time 21:00 Social Tobacco and No alcohol Exam alert, oriented x 3 and regular rate & rhythm Rhonchi/wheezing Airway Submandibular: within normal limits Cervical ROM: within normal limits Mallampati: Class II Comments: Comments: edentulous Pulmonary Chronic Obstructive Pulmonary Disease and Sleep Apnea CV/HEM Coronary Artery Disease, Hypertension and Myocardial Infarction GI Gastroesophageal Reflux Disease Neuropsych hemiplegia (wheelchair) Anesthetic Plan ASA status: 3 Anesthesia: General Medications/Allergies Home Medications Medication Instructions Recorded Confirmed Last Taken Type aspirin 81 mg tablet,delayed 81 mg PO DAILY 04/06/20 05/24/23 05/23/23 History release furosemide 40 mg tablet 60 mg PO BID 04/06/20 05/24/23 05/23/23 History tramadol 50 mg tablet 50 mg PO BID PRN Pain 04/06/20 05/24/23 05/23/23 History albuterol sulfate 90 mcg/actuation 2 puff inhalation Q4H.RESPIRATORY 04/07/20 05/24/23 05/24/23 Rx aerosol inhaler PRN Shortness Of Breath #1 g budesonide 0.5 mg/2 mL suspension 0.5 mg (2 mL) inhalation BID #60 mL 05/24/20 05/24/23 05/23/23 Rx for nebulization ipratropium 0.5 mg-albuterol 3 mg 3 ml inhalation Q4H PRN wheezing 05/24/20 05/07/23 Unknown Rx (2.5 mg base)/3 mL nebulization #90 mL soln budesonide 32 mcg/actuation nasal 2 spray intranasal BID #8.43 mL 07/12/21 05/07/23 Unknown Rx spray (Rhinocort Allergy) mupirocin 2 % topical ointment 1 applic topical BID 10 days #15 09/01/21 05/24/23 Unknown Rx grams cyclobenzaprine 5 mg tablet 5 mg PO TID PRN muscle spasm #30 03/30/22 05/24/23 Unknown Rx tabs diclofenac sodium 1 % topical gel 2 g topical QID #100 grams 03/30/22 05/07/23 Unknown Rx (Voltaren Arthritis Pain) diclofenac sodium 75 mg 75 mg PO BID PRN pain #60 tabs 05/16/22 05/07/23 Unknown Rx tablet,delayed release Allergies Allergy/AdvReac Type Severity Reaction Status Date / Time doxycycline Allergy Intermediate RASH/SWELLI Verified 05/07/23 10:16 NG adhesive tape Allergy ALGY-Bliste Verified 05/08/23 12:52 r clindamycin Allergy ALGY-Hives Verified 05/07/23 10:16 Influenza Virus Vaccines Allergy Unknown Verified 05/07/23 10:16 [email or web address] [From Myrbetriq] Allergy Unknown Verified 05/07/23 10:16 niacin Allergy Unknown Verified 05/07/23 10:16 Current Medications Generic Name Dose Route Start Last Admin Trade Name Freq PRN Reason Stop Dose Admin Sodium Chloride 1,000 mls @ 30 mls/hr 05/24/23 07:15 05/24/23 07:47 Sodium Chloride 0.9% IV 05/25/23 07:14 30 mls/hr .Q24H RUPERT Administration PFSH Anesthesia Medical History Acute non-recurrent pansinusitis Cervical vertebral fusion Chronic hypertrophic rhinitis COPD (chronic obstructive pulmonary disease) COVID-19 Dyslipidemia Foot drop GERD (gastroesophageal reflux disease) Heart failure with preserved ejection fraction Hypertension Hypokalemia Lymphedema Malar rash Myocardial infarction Status post stent placement Obstructive sleep apnea Orchitis and epididymitis Osteomyelitis Foot osteomyelitis with cellulitis treated with vancomycin Urethral stricture Surgical History H/O cardiac catheterization H/O shoulder surgery Previous back surgery S/P cystourethroscopy with dilation of urethral stricture Family History Other Hypertension Social History Smoking and tobacco/nicotine status: current every day tobacco/nicotine user Quit status (tobacco/nicotine): has quit using Year quit tobacco: 2020 - 1.5 PPD x 40 Years Second hand smoke exposure: No Alcohol intake: current Alcohol intake frequency: holidays/special occasions only Substance/Drug Use: never Caregiver/support person: Yes Lives independently: Yes Household members: spouse Housing: House Marital status: Current occupational status: disabled Do you think of yourself as: Straight/Heterosexual Current gender identity: Male Data Anesthesia Cardiac Studies: No Data to Display
--- NOTE | 2023-05-24 08:10 | W.PM.OPSUD ---
Surgery/Procedure H&P Update DATE OF PROCEDURE: May 24, 2023 DATE H&P PERFORMED: 04/30/23 H&P UPDATE INFORMATION: I have reviewed H&P completed within last 30 days, I have examined patient prior to procedure and No changes to prior documentation CHANGES TO PREVIOUS DOCUMENTATION: No changes PREOP DIAGNOSIS: Supraglottic epiglottic lesion PRIMARY INDICATION FOR PROCEDURE: Supraglottic laryngeal surface of the epiglottis lesion PLANNED PROCEDURE: Operation Date: 05/24/23 08:35 Proposed Procedures p laryngoscopy,direct,w/biopsy,w/frozen section-54232,J38.7(Not Applicable) - Justin Mcfarland MD
[2023-05-24] MEDS: ceFAZolin 2,000 MG in sodium chloride 0.9% (plus) 50 ML 100 MG IV (08:28)
--- NOTE | 2023-05-24 09:15 | P.OP_ITS ---
Operative Report Date of procedure: May 24, 2023 Pre-op diagnosis: Left laryngeal surface of epiglottis lesion Post-op diagnosis: Same Post-op findings: White appearing lesion with exophytic growth extending from false vocal cord up to near the edge of the AE fold extending from the arytenoid superiorly lesion does not extend to true vocal cord grossly and does not extend to the anterior commissure. It does not cross midline on the epiglottis petiole area. Procedure done: Direct suspension microscopic laryngoscopy with biopsies of laryngeal surface of epiglottic lesions. Implants: Implants Specimens removed/disposition: Multiple small biopsies of left laryngeal surface of epiglottis lesion near false vocal cord. Second specimen laryngeal surface of epiglottic lesion near AE fold. Pathology: Same Surgeon: Justin Mcfarland MD Anesthesia: General Estimated blood loss: 10 mL Complications: No complications encountered Findings: Findings of an exophytic growth extending from the false cords to near the AE fold on the left side of the laryngeal surface of the epiglottis. This exophytic growth showed erythematous irregular tissue underneath and a white thick coating which could represent either eschar or necrotic tissue covering all of the exophytic tissue. Brief History: 62-year-old male patient who is a smoker and with hoarseness and soreness in the throat underwent flexible laryngoscopy which revealed an exophytic growth on the left side of the laryngeal surface of the epiglottis extending above the level of the true cords and extending to near the AE fold superiorly. It did not cross the surface midline at the petiole and the true vocal cords were not affected. Normal movement was noted. No subglottic extension identified. Patient being brought to the operating room at this time to undergo direct suspension microscopic laryngoscopy and biopsies as warranted. The procedure it s risks and complications have been explained in detail. The risks include bleeding infection numbness scarring swelling bruising sore throat voice change need for additional treatment as this is a diagnostic procedure only and more serious risks associated with anesthesia. With these things understood informed consent was granted and witnessed. Procedure: Description of procedure: The patient was placed on the operating table in the supine position. Adequate general endotracheal tube anesthesia was obtained. A timeout was accomplished identifying the patient date of plan procedure allergies fire risk and medications given. With all in agreement the procedure continued. The table was rotated 90 degrees. His eyes were taped shut. A head drape was applied. A tooth guard was placed over his upper dentition. An anterior commissure laryngoscope was then inserted to the base of tongue area. Suctioning was accomplished of thick secretions. Then I advanced this to the area on the laryngeal surface of the epiglottis. Immediately there was a large white mass covering almost the entire left side of the inner surface of the area epiglottic fold. It did not cross the midline. It extended down to the false vocal cord. It did not seem to grossly affect the true cord. It did extend to the arytenoid. Biopsies were taken with small cup forceps of the area around the false cord first. Superficial and deeper biopsies were taken. Then the same was done superiorly at the superiormost aspect of the exophytic growth near the superior aspect of the AE fold. After suctioning the area 2% Xylocaine was sprayed to the larynx to help reduce discomfort and keep coughing down to a minimum. Then excess was suctioned clean after few minutes. The hypopharynx and nasopharynx were suctioned clean as well. Tooth guard was removed. Head drape and tape were removed. Patient was placed into a neutral position and patient was returned to anesthesia for wake-up and extubation. The patient tolerated the procedure well had an estimated blood loss of 10 mL and arrived in recovery in stable condition.
--- NOTE | 2023-05-24 12:49 | ANE.PACU2 ---
Inpatient post-anesthesia follow up: Airway intact: Yes Vital signs: Temperature 97 F Pulse Rate 73 Respiratory Rate 20 Blood Pressure 116/73 Pulse Oximetry 93 Oxygen Delivery Me thod Nasal Cannula Oxygen Flow Rate 4 Fraction of Inspir ed Oxygen Hydration adequate: Yes Nausea and vomiting: No Pain level: 2 Mental status: Baseline
== END 2023-05-24 10:38 | disposition home or self-care (01) ==
PROVIDERS: PCP Family Medicine; Visit Provider Otolaryngology
PROC: 0CJS8ZZ Inspection of Larynx, Via Natural or Artificial Opening Endoscopic (ICD-10-PCS; CPT 31536; principal; 2023-05-24 08:25)
DX: C32.1 Malignant neoplasm of supraglottis (principal); J44.9 Chronic obstructive pulmonary disease, unspecified; G47.30 Sleep apnea, unspecified; I25.10 Atherosclerotic heart disease of native coronary artery without angina pectoris; I25.2 Old myocardial infarction; K21.9 Gastro-esophageal reflux disease without esophagitis; G81.90 Hemiplegia, unspecified affecting unspecified side; Z99.3 Dependence on wheelchair; Z79.82 Long term (current) use of aspirin; E78.5 Hyperlipidemia, unspecified; I11.0 Hypertensive heart disease with heart failure; I50.9 Heart failure, unspecified; F17.210 Nicotine dependence, cigarettes, uncomplicated
CPT/HCPCS: 31536; 88305; 88307; 88342; 94640; J0690; J1100; J2405; J2704; J3010; J7030; J7613; J7644

== ENCOUNTER 2023-06-05 21:04 | Observation (INO) | payer MEDICARE, MEDICAID, SELFPAY ==
[2023-06-05] VITALS (8 sets, daily range): BP systolic 128–140; BP diastolic 62–84; PULSE 85–93; RESP 17–21; TEMP 36.8–36.9; O2SAT 91–94; BMI 34.4
--- NOTE | 2023-06-05 21:10 | XRR_ITS ---
PROCEDURE INFORMATION: Exam: XR Chest Exam date and time: 06/05/2023 9:21 PM Age: 62 years old Clinical indication: Shortness of breath; Prior surgery; Surgery date: 6+ months; Surgery type: Cardiac stents; Additional info: SOB TECHNIQUE: Imaging protocol: Radiologic exam of the chest. Views: 1 view. COMPARISON: CT lung screening [id number] 05/06/2020 9:59 AM FINDINGS: Lungs: Lungs are hyperinflated. Clear parenchyma. Pleural spaces: No pleural effusion. No pneumothorax. Heart/Mediastinum: Cardiac silhouette is normal in size for technique. Bones/joints: Age appropriate. XR/XR chest 1V portable [id number] IMPRESSION: Hyperinflated but clear lungs. No other acute cardiopulmonary abnormality.
--- NOTE | 2023-06-05 21:14 | W.ED.SOB ---
HPI - SOB/Dyspnea General: Chief Complaint: Shortness of Breath/Dyspnea Stated Complaint: SOB Time Seen by Provider: 06/05/23 21:05 Source: patient Mode of arrival: ambulatory Limitations: no limitations History of Present Illness: HPI Narrative: 62-year-old male history of COPD states he had increasing shortness of breath over the last week. States its gotten much worse tonight. He states he typically only has to wear oxygen at night his abdomen wearing it during the day he is currently on 4 L which he states he does not wear any oxygen cary awake typically. He did receive a breathing treatment Solu-Medrol in route by EMS some slight improvement he had increased swelling to his lower extremities no known history of CHF he denies any chest pain or fever Associated symptoms: Deny abdominal pain, chest pain, fever(s), nausea or vomiting Review of Systems Const: Denies: fever(s), chills, body aches or change in appetite ENMT: Denies: throat pain or dental pain Card: Denies: chest pain Resp: Reports: dyspnea GI: Denies: abdominal pain, nausea, vomiting or diarrhea Musc: Reports: extremity swelling; Denies: neck pain or back pain Skin/Breast: Denies: rash Neuro: Denies: headache(s) PFSH ED PFSH: Medical History Acute non-recurrent pansinusitis Cervical vertebral fusion Chronic hypertrophic rhinitis COPD (chronic obstructive pulmonary disease) COVID-19 Dyslipidemia Foot drop GERD (gastroesophageal reflux disease) Heart failure with preserved ejection fraction Hypertension Hypokalemia Lymphedema Malar rash Myocardial infarction Status post stent placement Obstructive sleep apnea Orchitis and epididymitis Osteomyelitis Foot osteomyelitis with cellulitis treated with vancomycin Urethral stricture Surgical History H/O cardiac catheterization H/O shoulder surgery Previous back surgery S/P cystourethroscopy with dilation of urethral stricture Family History Other Hypertension Social History Smoking and tobacco/nicotine status: current every day tobacco/nicotine user Quit status (tobacco/nicotine): has quit using Year quit tobacco: 2020 - 1.5 PPD x 40 Years Second hand smoke exposure: No Alcohol intake: current Alcohol intake frequency: holidays/special occasions only Substance/Drug Use: never Caregiver/support person: Yes Lives independently: Yes Household members: spouse Housing: House Marital status: Current occupational status: disabled Do you think of yourself as: Straight/Heterosexual Current gender identity: Male Physical Exam Const: COMMON NORMALS: patient oriented x3 GENERAL APPEARANCE: in distress and ill appearing HENMT: COMMON NORMALS: normocephalic and atraumatic HEAD & SCALP: normocephalic and atraumatic Eye: COMMON NORMALS: Equal, round and reactive pupils present and EOMs intact bilaterally PUPIL: Yes Equal, round and reactive pupils present Neck/C-Spine: COMMON NORMALS: full ROM and supple Chest: COMMONS NORMALS: normal inspection of the chest and normal palpation of entire chest wall Resp: COMMON NORMALS: No retractions and No use of accessory muscles EFFORT & INSPECTION: Yes tachypneic, Yes respiratory distress and Yes audible wheezes Cardio: COMMON NORMALS: regular rate, regular rhythm and No murmurs present (Cardio) RATE: regular rate RHYTHM: regular rhythm GI: COMMON NORMALS: Normal to inspection, nondistended, normoactive bowel sounds present, Soft to palpation, non-tender and no masses PALPATION: Yes Soft to palpation Extremity: COMMON NORMALS: full ROM NARRATIVE EXTREMITY EXAM: 2+ edema Neuro: COMMON NORMALS: patient oriented x3, moves all extremities and no focal motor deficits Psych: COMMON NORMALS: mental status grossly normal, Normal thought process present and cooperative THOUGHT PROCESS: Normal thought process present Skin: COMMON NORMALS: no rashes or lesions noted and no wounds GENERAL SKIN EXAM: no rashes or lesions noted Course Vital Signs: Vital signs: Vital Signs Temperature 98.2 F 06/05/23 21:05 Pulse Rate 89 06/05/23 21:41 Respiratory Rate 21 H 06/05/23 21:41 Blood Pressure 135/80 06/05/23 21:41 Pulse Oximetry 91 06/05/23 21:41 Oxygen Delivery Me thod Nasal Cannula 06/05/23 21:41 Oxygen Flow Rate 4 06/05/23 21:41 MDM - SOB/Dyspnea Medical Decision Making Patient presents here with COPD exacerbation he has been hypoxic here requiring 4 L oxygen he had some slight improvement after breathing treatments x-ray shows no pneumonia BNP is normal spoke to hospitalist will admit at this time. Medical Records I reviewed the patient's medical records. Lab Data I reviewed the patient's lab results. 06/05/23 21:20 06/05/23 21:20 Labs/Radiology: Radiology Impressions Chest X-Ray 06/05/23 21:10 IMPRESSION: Hyperinflated but clear lungs. No other acute cardiopulmonary abnormality. Laboratory Results WBC 11.41 10^3/uL (3.29-11.43) 06/05/23 21:20 RBC 5.13 10^6/uL (3.85-5.65) 06/05/23 21:20 Hgb 15.40 g/dL (11.27-16.99) 06/05/23 21:20 Hct 48.0 % (37-53) 06/05/23 21:20 MCV 93.6 fl (82-101) 06/05/23 21:20 MCH 30.0 pg (27-33) 06/05/23 21:20 MCHC 32.1 g/dL (30-55) 06/05/23 21:20 RDW 13.7 % (12.1-15.1) 06/05/23 21:20 Plt Count 237 10^3/cmm (157-399) 06/05/23 21:20 MPV 10.8 fL (7.4-10.4) H 06/05/23 21:20 Neut % (Auto) 62.8 % 06/05/23 21:20 Lymph % (Auto) 18.3 % 06/05/23 21:20 [place] % (Auto) 9.9 % 06/05/23 21:20 Eos % (Auto) 8.2 % 06/05/23 21:20 Baso % (Auto) 0.5 % 06/05/23 21:20 Neut # (Auto) 7.17 10^3/uL (1.8-7.7) 06/05/23 21:20 Lymph # (Auto) 2.1 10^3/uL (0.8-4.8) 06/05/23 21:20 [place] # (Auto) 1.1 10^3/uL (0.2-0.9) H 06/05/23 21:20 Eos # (Auto) 0.9 10^3/uL (0.0-0.8) H 06/05/23 21:20 Baso # (Auto) 0.1 10^3/uL (0.0-0.1) 06/05/23 21:20 Nucleated RBC % (auto) 0 % 06/05/23 21:20 Nucleated RBCs # 0.0 /100WBC 06/05/23 21:20 PT 13.10 SECONDS (12.1-14.9) 06/05/23 21:20 INR 0.96 (0.8-1.2) 06/05/23 21:20 Specimen Type Arterial 06/05/23 21:25 Sample Site Radial, left 06/05/23 21:25 ABG pH 7.39 (7.35-7.45) 06/05/23 21:25 ABG pCO2 55.0 mmHg (35-45) H 06/05/23 21:25 ABG pO2 79.5 mmHg (80.0-100.0) L 06/05/23 21:25 ABG HCO3 33.5 mmol/L (22-26) H 06/05/23 21:25 ABG Base Excess 6.6 mmol/L (-2.0-2.0) H 06/05/23 21:25 [place] Test Pos 06/05/23 21:25 Hematocrit 48.1 % (42-52) 06/05/23 21:25 O2 Delivery Device Nc 06/05/23 21:25 O2 Liters/Min 4.0 % 06/05/23 21:25 Mixing Plant Operator ID [email or web address] 06/05/23 21:25 Sodium 140 mmol/L (136-145) 06/05/23 21:20 Potassium 4.0 mmol/L (3.5-5.1) 06/05/23 21:20 Chloride 97 mmol/L (98-107) L 06/05/23 21:20 Carbon Dioxide 34 mmol/L (22-29) H 06/05/23 21:20 Anion Gap 13.0 (5-19) 06/05/23 21:20 BUN 8 mg/dL (8-23) 06/05/23 21:20 Creatinine 0.8 mg/dL (0.7-1.2) 06/05/23 21:20 GFR Calculation 97.3 mL/min (90-130) 06/05/23 21:20 Glucose 104 mg/dL (65-115) 06/05/23 21:20 Calculated Osmolality 289 mOsm/kg (285-295) 06/05/23 21:20 Calcium 9.6 mg/dL (8.5-10.5) 06/05/23 21:20 Total Bilirubin 0.5 mg/dL (0.15-1.2) 06/05/23 21:20 AST 25 U/L (0-40) 06/05/23 21:20 ALT 21 U/L (0-41) 06/05/23 21:20 Alkaline Phosphatase 115 U/L (40-130) 06/05/23 21:20 NT-Pro-B Natriuret Pep 171 pg/mL (0-125) H 06/05/23 21:20 Total Protein 7.9 g/dL (6.6-8.7) 06/05/23 21:20 Albumin 4.3 g/dL (3.5-5.2) 06/05/23 21:20 Globulin 3.6 g/dL (1.3-4.6) 06/05/23 21:20 All radiology interpretation(s) finalized by discharge Discharge Plan Discharge Patient Disposition: Admitted As Inpatient Clinical Impression: Asthma exacerbation in COPD, Hypoxia Condition: Stable Prescriptions: No Action budesonide 0.5 mg/2 mL suspension for nebulization 0.5 mg INHALATION BID Qty: 60 3RF ipratropium-albuterol 0.5 mg-3 mg(2.5 mg base)/3 mL solution for nebulization 3 ml INHALATION Q4H PRN (Reason: wheezing) Qty: 90 3RF mupirocin 2 % ointment 1 applic topical BID 10 Days Qty: 15 0RF budesonide [Rhinocort Allergy] 32 mcg/actuation spray,non-aerosol 2 spray intranasal BID Qty: 8.43 0RF Rx Instructions: administer into each nostril failed flonase cyclobenzaprine 5 mg tablet 5 mg PO TID PRN (Reason: muscle spasm) Qty: 30 2RF diclofenac sodium [Voltaren Arthritis Pain] 1 % gel 2 g topical QID Qty: 100 3RF Rx Instructions: apply to areas of tenderness on neck diclofenac sodium 75 mg tablet,delayed release (DR/EC) 75 mg PO BID PRN (Reason: pain) Qty: 180 1RF furosemide 40 mg Tablet 60 mg PO BID aspirin 81 mg Tablet,Delayed Release (Dr/Ec) 81 mg PO DAILY tramadol 50 mg Tablet 50 mg PO BID PRN (Reason: Pain) albuterol sulfate 90 mcg/actuation Hfa Aerosol Inhaler 2 puff inhalation Q4H.RESPIRATORY PRN (Reason: Shortness Of Breath) Qty: 1 0RF Referrals: Katie Siu MD [Primary Care Provider] - Coding Level of Care Code ED [employer] 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
[2023-06-05] MEDS: albuterol 2.5 mg/3 mL Neb INHALATION (21:26)
[2023-06-05 21:31] LABS: Basophils # 0.1 10^3/uL (0.0-0.1); Basophils % 0.5 %; Eosinophils # 0.9 10^3/uL (0.0-0.8); Eosinophils % 8.2 %; Lymphocytes # 2.1 10^3/uL (0.8-4.8); Lymphocytes % 18.3 %; Mean Corpuscular HGB Conc 32.1 g/dL (30-55); Mean Corpuscular Volume 93.6 fl (82-101); Mean Platelet Volume 10.8 fL (7.4-10.4); Monocytes # 1.1 10^3/uL (0.2-0.9); Monocytes % 9.9 %; Neutrophils # 7.17 10^3/uL (1.8-7.7); Neutrophils % 62.8 %; Nucleated Red Blood Cells % 0 %; Platelet Count 237 10^3/cmm (157-399); Red Blood Count 5.13 10^6/uL (3.85-5.65); Red Cell Distribution Width 13.7 % (12.1-15.1); White Blood Count 11.41 10^3/uL (3.29-11.43)
[2023-06-05 21:38] LABS: INR 0.96 (0.8-1.2)
[2023-06-05 21:39] LABS: ABG PH Result 7.39 (7.35-7.45); Arterial Blood Gas Hematocrit 48.1 % (42-52); Base Excess ABG 6.6 mmol/L (-2.0-2.0); Blood Gas Allen Test Pos; Blood Gas Sample Site Radial, left; Blood Gas Sample Type Arterial; HCO3 ABG 33.5 mmol/L (22-26); Oxygen Device NC; PO2 ABG 79.5 mmHg (80.0-100.0)
--- NOTE | 2023-06-05 21:44 | PC.NURSE ---
Patient refused COVID swab. Provider notified.
[2023-06-05 21:52] LABS: Alanine Aminotransferase 21 U/L (0-41); Albumin Level 4.3 g/dL (3.5-5.2); Alkaline Phosphatase 115 U/L (40-130); Aspartate Amino Transferase 25 U/L (0-40); Blood Urea Nitrogen 8 mg/dL (8-23); Calcium 9.6 mg/dL (8.5-10.5); Carbon Dioxide 34 mmol/L (22-29); Chloride 97 mmol/L (98-107); Creatinine Clr Calc Pharmacy 104.9961; Globulin 3.6 g/dL (1.3-4.6); Glomerular Filtration Rate 97.3 mL/min (90-130); Glucose 104 mg/dL (65-115); NT Pro B Type Natriuretic Pept 171 pg/mL (0-125); Osmolality Calculated 289 mOsm/kg (285-295); Sodium 140 mmol/L (136-145); Total Bilirubin 0.5 mg/dL (0.15-1.2); Total Protein 7.9 g/dL (6.6-8.7)
--- NOTE | 2023-06-05 22:40 | P.HP_ITS ---
Providers/Chief Complaint Admitting Physician: Jaron Mohamud Primary Care Provider: Katie Siu MD Chief Complaint: SOB History of Present Illness Pleasant 62-year-old gentleman with history of COPD, normally on oxygen only at night, has a nebulizer at home which he has been using, but over the last 5-6 days has been progressively getting more short of breath, increased cough productive of clear sputum, his legs have also been swollen. He does have history of congestive heart failure, leg swelling is unchanged. He has been taking his Lasix. He is nonambulatory at baseline, uses a wheelchair. Has a suprapubic catheter. He does have several pressure ulcers on his bottom. In ER on presentation he was found dyspneic, with tachypnea, hypoxic, requiring 4 L of oxygen by nasal cannula. PO2 55 on ABG. Chest x-ray with hyperinflated but clear lungs. NT proBNP 171. She reports she was also recently diagnosed with cancer of his throat after a tissue sample was obtained by ENT on 05/24. He denies choking up on food or drink, although states that his throat gets dry. Review of Systems Const: Denies: fever(s), chills, body aches or malaise ENMT: Denies: throat pain Card: Denies: chest pain, edema, pre-syncope or dyspnea on exertion Resp: Denies: dyspnea, productive cough, change in phlegm color or hemoptysis GI: Denies: abdominal pain, nausea, vomiting, diarrhea, constipation, hematochezia or melena : Denies: flank pain, difficulty urinating, urinary frequency or hematuria Musc: Denies: back pain, joint swelling or joint redness Skin/Breast: Denies: rash or new lesions Neuro: Denies: headache(s), numbness in extremities, weakness in extremities, dizziness, confusion or seizure-like activity Medications/Allergies Home Medications Medication Instructions Recorded Confirmed Last Taken Type aspirin 81 mg tablet,delayed 81 mg PO DAILY 04/06/20 06/04/23 05/23/23 History release furosemide 40 mg tablet 60 mg PO BID 04/06/20 06/04/23 05/23/23 History tramadol 50 mg tablet 50 mg PO BID PRN Pain 04/06/20 06/04/23 05/23/23 History albuterol sulfate 90 mcg/actuation 2 puff inhalation Q4H.RESPIRATORY 04/07/20 06/04/23 05/24/23 Rx aerosol inhaler PRN Shortness Of Breath #1 g budesonide 0.5 mg/2 mL suspension 0.5 mg (2 mL) inhalation BID #60 mL 05/24/20 06/04/23 05/23/23 Rx for nebulization ipratropium 0.5 mg-albuterol 3 mg 3 ml inhalation Q4H PRN wheezing 05/24/20 06/04/23 Unknown Rx (2.5 mg base)/3 mL nebulization #90 mL soln budesonide 32 mcg/actuation nasal 2 spray intranasal BID #8.43 mL 07/12/21 06/04/23 Unknown Rx spray (Rhinocort Allergy) mupirocin 2 % topical ointment 1 applic topical BID 10 days #15 09/01/21 06/04/23 Unknown Rx grams cyclobenzaprine 5 mg tablet 5 mg PO TID PRN muscle spasm #30 03/30/22 06/04/23 Unknown Rx tabs diclofenac sodium 1 % topical gel 2 g topical QID #100 grams 03/30/22 06/04/23 Unknown Rx (Voltaren Arthritis Pain) diclofenac sodium 75 mg 75 mg PO BID PRN pain #180 tabs 05/24/23 06/04/23 Unknown Rx tablet,delayed release Allergies Allergy/AdvReac Type Severity Reaction Status Date / Time doxycycline Allergy Intermediate RASH/SWELLI Verified 06/05/23 21:14 NG adhesive tape Allergy ALGY-Bliste Verified 06/05/23 21:14 r clindamycin Allergy ALGY-Hives Verified 06/05/23 21:14 Influenza Virus Vaccines Allergy Unknown Verified 06/05/23 21:14 [email or web address] [From [email or web address]] Allergy Unknown Verified 06/05/23 21:14 niacin Allergy Unknown Verified 06/05/23 21:14 PFSH Acute PFSH: Medical History Acute non-recurrent pansinusitis Cervical vertebral fusion Chronic hypertrophic rhinitis COPD (chronic obstructive pulmonary disease) COVID-19 Dyslipidemia Foot drop GERD (gastroesophageal reflux disease) Heart failure with preserved ejection fraction Hypertension Hypokalemia Lymphedema Malar rash Myocardial infarction Status post stent placement Obstructive sleep apnea Orchitis and epididymitis Osteomyelitis Foot osteomyelitis with cellulitis treated with vancomycin Urethral stricture Surgical History H/O cardiac catheterization H/O shoulder surgery Previous back surgery S/P cystourethroscopy with dilation of urethral stricture Family History Other Hypertension Social History Smoking and tobacco/nicotine status: current every day tobacco/nicotine user Quit status (tobacco/nicotine): has quit using Year quit tobacco: 2020 - 1.5 PPD x 40 Years Second hand smoke exposure: No Alcohol intake: current Alcohol intake frequency: holidays/special occasions only Substance/Drug Use: never Caregiver/support person: Yes Lives independently: Yes Household members: spouse Housing: House Marital status: Current occupational status: disabled Do you think of yourself as: Straight/Heterosexual Current gender identity: Male Vitals/I&O/Wt Last Vital Signs Temp 98.2 F 06/05/23 21:05 Pulse 89 06/05/23 21:41 Resp 21 H 06/05/23 21:41 BP 135/80 06/05/23 21:41 Pulse Ox 91 06/05/23 21:41 O2 Del Method Nasal Cannula 06/05/23 21:41 O2 Flow Rate 4 06/05/23 21:41 Weight last 48 hrs Weight 99.79 kg Physical Exam Const: COMMON NORMALS: patient oriented x3 and alert GENERAL APPEARANCE: cooperative ORIENTATION/CONSCIOUSNESS: Yes awake HENMT: COMMON NORMALS: oropharynx normal Neck/C-Spine: COMMON NORMALS: no JVD Resp: AUSCULTATION: wheezes and diminished lung sounds Cardio: COMMON NORMALS: no JVD, regular rhythm, S1 normal heart sound present, S2 normal heart sound present and No murmurs present (Cardio) RHYTHM: regular rhythm HEART SOUNDS: S1 normal heart sound present and S2 normal heart sound present GI: COMMON NORMALS: Normal to inspection, nondistended, normoactive bowel sounds present, Soft to palpation and non-tender PALPATION: Yes Soft to palpation : OTHER: SP catheter Extremity: COMMON NORMALS: no joint enlargement GENERAL: Yes edema (3+ BL LE) Neuro: COMMON NORMALS: patient oriented x3 and moves all extremities SENSORIUM/ORIENTATION: Yes alert Skin: COMMON NORMALS: no rashes or lesions noted GENERAL SKIN EXAM: no rashes or lesions noted Data 06/05/23 21:20 06/05/23 21:20 A&P Assessment and plan (1) Respiratory failure with hypoxia: Acute respiratory failure with hypoxia, requiring 4 L of oxygen by nasal cannula normally only uses oxygen as needed at night. Reviewed ABG. With dyspnea, tachypnea, cough productive of clear sputum. No pneumonia on chest x-ray. Hyperinflation noted. Diminished air entry, wheezing on exam. Reviewed CBC, without leukocytosis. Lower extremity edema but appears to be chronic, although does have history of CHF, current symptoms, NT proBNP on review appeared to suggest he does not have concomitant CHF exacerbation. Discussed with ER physician, ER documentation reviewed. Continue oxygen support. Discussed with him we will give empiric antibiotic for now, he will provide a sputum sample for culture. Declines swab for viral testing. Maintain empiric isolation. IV steroid. Continue breathing treatments. Expectorant. Flutter valve. Antitussive as needed. At risk of hyperglycemia, hypertension, PUD with IV steroid. Monitor blood glucose. Continue consistent carbohydrate diet which she has been trying to keep with at home. As she appears to also be on NSAID at home will for now add PPI. She had a recent laryngeal/epiglottic biopsy of a mass which came back as squamous cell cancer, will be referred for radiation treatment on review of ENT notes. She denies dysphagia with food or drink. He is trying to quit smoking. (2) COPD exacerbation: As above. (3) Leg swelling: Reviewed BNP. Symptomatically and with BNP not suggestive of decompensated CHF. Leg swelling appears to be chronic component, although does have history of diastolic CHF. Monitor symptoms. Continue home Lasix. (4) Smoker: Discussed smoking cessation with him for 4 minutes. He states that he is aware of need to quit. Has been trying to cut down. Discussed with him nicotine supplementation, but states that all it does is give him nausea. Declines at this time. Continue to encourage cessation. 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 Status post biopsy on 05/24. On assessment found to rather not a candidate for extensive surgical intervention, will be referred to radiation oncology. Monitor for any signs of aspiration. He denies aspiration with food and drink. Aspiration precautions. (6) Pressure ulcer: Continue wound care for right-sided buttock pressure ulcer. Add protein supplements to meals. Plan HTN: Monitor blood pressures Hx HFpEF: Currently not in exacerbation. Monitor. CAD, status post tenting Suprapubic catheter Nonambulatory at baseline, uses wheelchair Requesting to confirm home medications. Please reconcile once available. Attestations Medical Necessity Statement*: Place in observation for additional assessment and management of acute respiratory failure with hypoxia, COPD exacerbation and gentleman with above comorbidities. Diagnoses Respiratory failure with hypoxia J96.91 COPD exacerbation J44.1 Leg swelling M79.89 Smoker F17.200 Primary squamous cell carcinoma of throat C14.0 Pressure ulcer L89.90
[2023-06-06] VITALS (12 sets, daily range): BP systolic 119–154; BP diastolic 55–78; PULSE 71–94; RESP 16–20; TEMP 36.5–36.9; O2SAT 87–95
[2023-06-06] MEDS: methylPREDNISolone sod succ 40 MG in water for injection-sterile 1 ML 12 MG IVP ×4 (00:44→17:55)
[2023-06-06] MEDS: cefTRIAXone 1,000 MG in sodium chloride 0.9% (plus) 50 ML 100 MG IV (00:45)
--- NOTE | 2023-06-06 01:04 | CTR_ITS ---
PROCEDURE INFORMATION: Exam: CT Pelvis With Contrast Exam date and time: 06/06/2023 2:58 AM Age: 62 years old Clinical indication: Other: Sacral pressure ulcer w possible abscess TECHNIQUE: Imaging protocol: Computed tomography of the pelvis with contrast. Radiation optimization: All CT scans at this facility use at least one of these dose optimization techniques: automated exposure control; mA and/or kV adjustment per patient size (includes targeted exams where dose is matched to clinical indication); or iterative reconstruction. Contrast material: OMNI 350; Contrast volume: 80 ml; Contrast route: INTRAVENOUS (IV); REPORTING DATA: Count of CT and Cardiac NM exams in prior 12 months: This patient has received 0 known CTs and 0 known cardiac nuclear medicine studies in the 12 months prior to the current study. COMPARISON: US scrotum [id number] 04/06/2020 12:54 PM RADIATION DOSE METRICS: Total DLP (mGy-cm): 462.96 FINDINGS: Tubes, catheters and devices: Catheterized urinary bladder. Stomach and bowel: Visualized small bowel and colon are unremarkable. Appendix: No evidence of appendicitis. Intraperitoneal space: Unremarkable. No free air. No significant fluid collection. Vasculature: Partly visualized abdominal aortic ectasia measures up to 2.5 cm AP dimension. Lymph nodes: Unremarkable. No enlarged lymph nodes. Urinary bladder: Catheterized and decompressed. Reproductive: Normal as visualized. Bones/joints: There is sclerosis and remodeling of the coccyx. A discrete fluid collection is not evident, but tiny collection may be beneath the threshold of detection on CT. Lower lumbar degenerative disc and facet disease noted with neural foraminal stenosis on the right at L5-S1. Mild bilateral sacroiliac osteoarthritis. Mild bilateral hip arthropathy. Soft tissues: There is subcutaneous edema in the buttocks. In the midline, there is cutaneous thickening. A tiny subcutaneous gas bubble is noted adjacent to the sacrococcygeal junction. Discrete fluid collection is not appreciated. CT/CT pelvis w con* [id number] IMPRESSION: 1. Exam demonstrates cutaneous thickening overlying the sacrum with a tiny subcutaneous gas bubble compatible with decubitus ulcer. No convincing abscess. No acute appearing bony destructive change. 2. Right neural foraminal stenosis at L5-S1.
[2023-06-06] MEDS: ipratropium-albuterol 3 mL Neb INHALATION ×4 (02:55→20:03)
[2023-06-06] MEDS: iohexol 350 mg/mL 500 mL Btl (per mL) IV (03:45)
[2023-06-06 05:48] LABS: Basophils % 0.1 %; Eosinophils % 0.1 %; Hematocrit 45.9 % (37-53); Lymphocytes # 0.5 10^3/uL (0.8-4.8); Lymphocytes % 5.6 %; Mean Corpuscular HGB Conc 32.5 g/dL (30-55); Mean Corpuscular Hemoglobin 30.3 pg (27-33); Mean Corpuscular Volume 93.5 fl (82-101); Mean Platelet Volume 10.4 fL (7.4-10.4); Monocytes # 0.1 10^3/uL (0.2-0.9); Monocytes % 0.7 %; Neutrophils # 7.68 10^3/uL (1.8-7.7); Neutrophils % 93.1 %; Nucleated Red Blood Cells % 0 %; Platelet Count 232 10^3/cmm (157-399); Red Blood Count 4.91 10^6/uL (3.85-5.65); Red Cell Distribution Width 13.6 % (12.1-15.1); White Blood Count 8.25 10^3/uL (3.29-11.43)
[2023-06-06 06:13] LABS: Anion Gap 13.1 (5-19); Blood Urea Nitrogen 9 mg/dL (8-23); Calcium 9.1 mg/dL (8.5-10.5); Carbon Dioxide 33 mmol/L (22-29); Chloride 97 mmol/L (98-107); Creatinine Clr Calc Pharmacy 104.9961; Glomerular Filtration Rate 97.3 mL/min (90-130); Glucose 172 mg/dL (65-115); Osmolality Calculated 291 mOsm/kg (285-295); Potassium 4.1 mmol/L (3.5-5.1); Sodium 139 mmol/L (136-145)
[2023-06-06] MEDS: aspirin 81 mg EC Tablet PO (08:56)
[2023-06-06] MEDS: pantoprazole DR 40 mg Tablet PO (08:56)
[2023-06-06] MEDS: guaiFENesin 600 mg Tablet PO ×2 (08:56→17:56)
[2023-06-06] MEDS: FUROsemide 40 mg Tablet 60 MG PO ×2 (08:56→17:56)
--- NOTE | 2023-06-06 09:20 | PC.PHAR ---
Addendum entered by Brook Hong 06/06/23 10:54: medications verified by pts son over the phone Original Note: trying to reach pts contacts to complete med rec
--- NOTE | 2023-06-06 11:03 | PC.CHAP ---
Pastoral Care Encounter/Spiritual Assessment Type of Contact [] Declined paid search marketing analyst visit [] Patient/Family/Request visit [] Outpatient visit [] Follow-up visit [] Physician referral [] Code/Alert [x] Routine visit [] Staff referral [] Actively dying [] Patient sleeping [] Family support [] [] Out of room [] Palliative care [] [] Receiving care in room [] Pre-surgical visit [] Trauma [] Long length of stay [] ICU visit [] Other: Relational/Emotional Strength [] Patient feels connected with others/family/visitors/staff [] Distress [] Loneliness/isolation [] Abandonment Spirituality of Patient [] Person of Adry [] Attends Yarsani of their Adry [] Believes in Prayer [] Reads Bible or Catholic materials [] There are Spiritual issues to be addressed Solutions Market Consultant Interventions [x] Prayer [] Active listening [] Non-anxious presence [] Spiritual/emotional support [] Crisis/trauma care [] Spiritual counseling [] Bereavement support [] Provided bereavement packet [] Provided Bible/devotional materials [] Provided toy/stuffed animal, coloring book to patient or family member [] Provided Communion [] Anointing/[place] [] Salvation [] Completed spiritual assessment [] Other: Impact on Illness or Injury [] Angry [] Fearful [] Anxious [] Often cries [] Exhaustion [] Unable to work [] Unable to attend roman catholic [] Unable to walk/stand [] Unable to read [] Unable to drive [] Unable to eat/drink [] Unable to sleep [] Unable to be with family [] Patient intubated [] Other: Summary Time spent with patient 10 min
--- NOTE | 2023-06-06 18:10 | P.PN_ITS ---
Subjective Subjective: Patient states his breathing is better. He is concerned about his wounds on his buttocks. And he has a dry mouth and some discomfort after the biopsy to his throat. Vitals/I&O/Wt Last Vital Signs Temp 98.1 F 06/06/23 12:00 Pulse 78 06/06/23 15:55 Resp 18 06/06/23 15:55 BP 134/63 06/06/23 15:55 Pulse Ox 92 06/06/23 15:55 O2 Del Method Nasal Cannula 06/06/23 15:55 O2 Flow Rate 4 06/06/23 13:28 06/06/23 06/06/23 06/06/23 06:59 14:59 22:59 Intake Total 52 / 52 481 / 481 240 / 721 Output Total 1600 / 1600 800 / 800 550 / 1350 Balance -1548 / -1548 -319 / -319 -310 / -629 Weight last 48 hrs Weight 99.79 kg Physical Exam Narrative: Patient seen lying in bed on his left side. He is wearing oxygen and is in no acute distress although he appears chronically ill. Neuro: Alert and oriented x3 nonfocal. Heart: Regular normal S1-S2 without murmurs clicks gallops or rubs Lungs: Diminished breath sounds throughout with significant expiratory wheezing and prolonged expiratory phase. Abdomen obese soft nontender nondistended positive bowel sounds Extremities bilateral 1-2+ pitting edema to knees with overall erythema and more edema in the feet. As per prior physician this is chronic. Buttocks have bandages covering the wounds today. Data 06/06/23 05:35 06/06/23 05:35 A&P Assessment and plan (1) Respiratory failure with hypoxia: Acute respiratory failure with hypoxia, requiring 4 L of oxygen by nasal cannula normally only uses oxygen as needed at night. No pneumonia on chest x-ray. Most likely acute on chronic respiratory failure. Continue antibiotics as, IV steroid, breathing treatments, Expectorant, Flutter valve. Antitussive as needed. (2) COPD exacerbation: As above. (3) Leg swelling: Reviewed BNP. Symptomatically and with BNP not suggestive of decompensated CHF. Leg swelling appears to be chronic component, although does have history of diastolic CHF. Monitor symptoms. Continue home Lasix. (4) Smoker: Patient tells me that he will not smoke again. 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 Status post biopsy on 05/24. On assessment found to rather not a candidate for extensive surgical intervention, will be referred to radiation oncology. Biotene spray for a dry mouth/throat (6) Pressure ulcer: Continue wound care for right-sided buttock pressure ulcer. Add protein supplements to meals. We will obtained wound care consult. Patient states he is not able to transport frequently to wound care Plan HTN: Monitor blood pressures Hx HFpEF: Currently not in exacerbation. Monitor. CAD, status post tenting Suprapubic catheter Nonambulatory at baseline, uses wheelchair . Attestations Medical Necessity Statement*: Place in observation for additional assessment and management of acute respiratory failure with hypoxia, COPD exacerbation and gentleman with above comorbidities. Coding Level of Care Code Acute Code for [facility] Diagnoses Respiratory failure with hypoxia J96.91 COPD exacerbation J44.1 Leg swelling M79.89 Smoker F17.200 Primary squamous cell carcinoma of throat C14.0 Pressure ulcer L89.90
[2023-06-06] MEDS: TRAMadol 50 mg Tablet PO (21:23)
[2023-06-06] MEDS: azithromycin 500 MG in sodium chloride 0.9% 250 ML 250 MG IV (21:29)
[2023-06-07] VITALS (13 sets, daily range): BP systolic 113–167; BP diastolic 63–73; PULSE 61–92; RESP 16–21; TEMP 36.6–36.8; O2SAT 92–97
[2023-06-07] MEDS: cefTRIAXone 1,000 MG in sodium chloride 0.9% (plus) 50 ML 100 MG IV ×2 (00:01→23:28)
[2023-06-07] MEDS: heparin 5,000 unit/mL INJ 1 mL 5000 UNIT SUBCUT ×3 (00:02→23:18)
[2023-06-07] MEDS: ipratropium-albuterol 3 mL Neb INHALATION ×5 (03:00→21:02)
[2023-06-07] MEDS: methylPREDNISolone sod succ 40 MG in water for injection-sterile 1 ML 12 MG IVP ×3 (03:17→19:42)
[2023-06-07 05:52] LABS: Basophils % 0.1 %; Hematocrit 43.5 % (37-53); Lymphocytes # 0.7 10^3/uL (0.8-4.8); Lymphocytes % 6.7 %; Mean Corpuscular HGB Conc 32.9 g/dL (30-55); Mean Corpuscular Hemoglobin 30.6 pg (27-33); Mean Corpuscular Volume 92.9 fl (82-101); Mean Platelet Volume 10.5 fL (7.4-10.4); Monocytes # 0.6 10^3/uL (0.2-0.9); Monocytes % 6.3 %; Neutrophils # 8.76 10^3/uL (1.8-7.7); Neutrophils % 86.6 %; Nucleated Red Blood Cells % 0 %; Platelet Count 222 10^3/cmm (157-399); Red Blood Count 4.68 10^6/uL (3.85-5.65); Red Cell Distribution Width 13.8 % (12.1-15.1); White Blood Count 10.12 10^3/uL (3.29-11.43)
[2023-06-07 06:10] LABS: Blood Urea Nitrogen 14 mg/dL (8-23); Calcium 9.1 mg/dL (8.5-10.5); Carbon Dioxide 34 mmol/L (22-29); Chloride 99 mmol/L (98-107); Glomerular Filtration Rate 113.5 mL/min (90-130); Glucose 180 mg/dL (65-115); Osmolality Calculated 295 mOsm/kg (285-295); Sodium 140 mmol/L (136-145)
--- NOTE | 2023-06-07 07:40 | PM.CONSULT ---
Providers/Reason For Consult Consulting Physician/Specialty*: Taisha Gallego, APPOINTMENT SETTER-/ Wound Care Reason for Consult*: Gluteal and sacral wound Requesting Physician: Homar Lennon DO Attending Physician: Homar Lennon DO Primary Care Provider: Katie Siu MD History of Present Illness History of Present Illness Luis E Mota is a 62 year old male presents today with wound to the sacrum and right gluteal fold. He was admitted on 06/05/2023 for asthma exacerbation and COPD. Medical history includes primary squamous cell carcinoma of throat, chronic suprapubic catheter, spinal cord injury, nicotine dependence and previous gluteal wounds. Mr. Mota reports he wears 4L NC at baseline. Today he is at 5L NC. Mr. Mota reports he obtained his spinal cord injury after a fall in 2005 which left him wheelchair bound. He reports the sacral and gluteal fold wound have been present for one week. Today he reports pain with his wounds when he is laying directly on them and reports the pressure is relieved with offloading. Assessment of the wounds today revealed a sacral wound measuring 2.0x1.0x0.5cm. There is slight maceration to the periwound. The right gluteal fold wound measures 4.0x2.0x0.2cm. There is a scant amount of slough to the wound beds. No curette debridement performed. There is minimal erythema to the periwounds. I do not appreciate any odor to either wound at this time. I recommend cleansing both wounds with saline daily, with wet to dry BID dressing changes to the sacral wound with quarter inch plain Nu Gauze and saline. I recommend Hydrofera Blue daily dressing changes to the right gluteal fold wound. May cover both wounds with Optifoam/silicone bordered gauze. Mr. Mota's wounds are fairly superficial and stable. I do not feel any wound cultures or imaging is needed at this time, however if the wounds worsen a wound culture would be reasonable. I have encouraged Mr. Mota to offload as much as possible, turning every two hours. We also discussed the importance and link of smoking cessation with wound healing. He verbalized understanding. I appreciate the opportunity to consult with this patient. Review of Systems Const: Denies: fever(s), chills, body aches or malaise ENMT: Denies: throat pain Card: Denies: chest pain, edema, pre-syncope or dyspnea on exertion Resp: Denies: dyspnea, productive cough, change in phlegm color or hemoptysis GI: Denies: abdominal pain, nausea, vomiting, diarrhea, constipation, hematochezia or melena : Denies: flank pain, difficulty urinating, urinary frequency or hematuria Musc: Denies: back pain, joint swelling or joint redness Skin/Breast: Denies: rash or new lesions Neuro: Denies: headache(s), numbness in extremities, weakness in extremities, dizziness, confusion or seizure-like activity Medications/Allergies Home Medications Medication Instructions Recorded Confirmed Last Taken Type aspirin 81 mg tablet,delayed 81 mg PO DAILY 04/06/20 06/06/23 05/23/23 History release furosemide 40 mg tablet 60 mg PO BID 04/06/20 06/06/23 05/23/23 History tramadol 50 mg tablet 50 mg PO BID PRN Pain 04/06/20 06/06/23 05/23/23 History albuterol sulfate 90 mcg/actuation 2 puff inhalation Q4H.RESPIRATORY 04/07/20 06/06/23 05/24/23 Rx aerosol inhaler PRN Shortness Of Breath #1 g budesonide 0.5 mg/2 mL suspension 0.5 mg (2 mL) inhalation BID #60 mL 05/24/20 06/06/23 05/23/23 Rx for nebulization ipratropium 0.5 mg-albuterol 3 mg 3 ml inhalation Q4H PRN wheezing 05/24/20 06/06/23 Unknown Rx (2.5 mg base)/3 mL nebulization #90 mL soln budesonide 32 mcg/actuation nasal 2 spray intranasal BID #8.43 mL 07/12/21 06/06/23 Unknown Rx spray (Rhinocort Allergy) diclofenac sodium 75 mg 75 mg PO BID PRN pain #180 tabs 05/24/23 06/06/23 Unknown Rx tablet,delayed release enalapril maleate 2.5 mg tablet 2.5 mg PO DAILY 06/06/23 06/06/23 Unknown History Allergies Allergy/AdvReac Type Severity Reaction Status Date / Time doxycycline Allergy Intermediate RASH/SWELLI Verified 06/05/23 21:14 NG adhesive tape Allergy ALGY-Bliste Verified 06/05/23 21:14 r clindamycin Allergy ALGY-Hives Verified 06/05/23 21:14 Influenza Virus Vaccines Allergy Unknown Verified 06/05/23 21:14 [email or web address] [From Myrbetriq] Allergy Unknown Verified 06/05/23 21:14 niacin Allergy Unknown Verified 06/05/23 21:14 Current Medications Generic Name Dose Route Start Last Admin Trade Name Freq PRN Reason Stop Dose Admin Albuterol/Ipratropium 3 ml 06/06/23 02:00 06/07/23 03:00 Ipratropium-Albuterol 3 Ml Neb INHALATION 06/07/23 08:00 3 ml Q6H.RESP RUPERT Administration Aspirin 81 mg 06/06/23 09:00 06/06/23 08:56 Aspirin 81 Mg Ec Tablet PO 81 mg DAILY RUPERT Administration Furosemide 60 mg 06/06/23 09:00 06/06/23 17:56 Furosemide 40 Mg Tablet PO 60 mg BID RUPERT Administration Guaifenesin 600 mg 06/06/23 09:00 06/06/23 17:56 Guaifenesin 600 Mg Tablet PO 600 mg BID RUPERT Administration Heparin Sodium (Porcine) 5,000 unit 06/05/23 23:35 06/07/23 00:02 Heparin 5,000 Unit/Ml Inj 1 Ml SUBCUT 5,000 unit Q12H RUPERT Administration Ceftriaxone Sodium 1,000 mg/ 50 mls @ 100 mls/hr 06/06/23 00:00 06/07/23 00:43 Sodium Chloride IV Infused Q24H RUPERT Infusion Protocol Methylprednisolone Sodium 1 mls @ 12 mls/hr 06/07/23 02:00 06/07/23 03:23 Succinate 40 mg/ Sterile Water IVP Infused Q8H RUPERT Infusion Azithromycin 500 mg/ Sodium 250 mls @ 250 mls/hr 06/06/23 18:30 06/07/23 00:01 Chloride IV Infused Q24H RUPERT Infusion Protocol Pantoprazole Sodium 40 mg 06/06/23 09:00 06/06/23 08:[address] 40 Mg Tablet PO 40 mg DAILY RUPERT Administration Tramadol HCl 50 mg 06/06/23 19:22 06/06/23 21:23 Tramadol 50 Mg Tablet PO 50 mg BID PRN Administration MODERATE PAIN PFSH Acute PFSH: Medical History Acute non-recurrent pansinusitis Cervical vertebral fusion Chronic hypertrophic rhinitis COPD (chronic obstructive pulmonary disease) COVID-19 Dyslipidemia Foot drop GERD (gastroesophageal reflux disease) Heart failure with preserved ejection fraction Hypertension Hypokalemia Lymphedema Malar rash Myocardial infarction Status post stent placement Obstructive sleep apnea Orchitis and epididymitis Osteomyelitis Foot osteomyelitis with cellulitis treated with vancomycin Urethral stricture Surgical History H/O cardiac catheterization H/O shoulder surgery Previous back surgery S/P cystourethroscopy with dilation of urethral stricture Family History Other Hypertension Social History Smoking and tobacco/nicotine status: current every day tobacco/nicotine user Quit status (tobacco/nicotine): has quit using Year quit tobacco: 2020 - 1.5 PPD x 40 Years Second hand smoke exposure: No Alcohol intake: current Alcohol intake frequency: holidays/special occasions only Substance/Drug Use: never Caregiver/support person: Yes Lives independently: Yes Household members: spouse Housing: House Marital status: Current occupational status: disabled Do you think of yourself as: Straight/Heterosexual Current gender identity: Male Vitals/I&O/Wt Last Vital Signs Temp 98.3 F 06/07/23 07:17 Pulse 61 06/07/23 07:17 Resp 16 06/07/23 07:17 BP 125/67 06/07/23 07:17 Pulse Ox 93 06/07/23 07:17 O2 Del Method Nasal Cannula 06/07/23 07:17 O2 Flow Rate 5 06/07/23 03:00 06/06/23 06/07/23 06/07/23 22:59 06:59 14:59 Intake Total 241 / 722 301 / 1023 Output Total 2150 / 2950 900 / 3850 Balance -1909 / -2228 -599 / -2827 Weight last 48 hrs Weight 99.79 kg Physical Exam Narrative: Patient seen lying in bed on his left side. 5L NC continuous and is in no acute distress. Neuro: Alert and oriented x3 nonfocal. Heart: Regular normal S1-S2 without murmurs clicks gallops or rubs Lungs: Diminished breath sounds throughout with significant expiratory wheezing and prolonged expiratory phase. Abdomen: obese soft nontender nondistended positive bowel sounds Extremities bilateral 1-2+ pitting edema to knees with overall erythema and more edema in the feet. As per prior physician this is chronic. Stage 3 pressure ulcers to Right gluteal fold and sacrum. Data 06/07/23 05:40 06/07/23 05:40 A&P Assessment and plan (1) Pressure ulcer of right buttock, stage 3: Right gluteal fold pressure ulcer, Stage 3: 4.0x2.0x0.2cm , Scant amount of slough to the wound bed with erythema to the periwound. Daily dressing changes and PRN if soiled: Cleanse with saline. Apply hydrofera blue to the wound bed and cover with 4x4 optifoam (comfort bordered gauze). (2) Gluteal pain: Offloading: Turn every two hours. (3) Pressure ulcer of sacral region, stage 3: Sacrum pressure ulcer, Stage 3: 2.0x1.0x0.5cm, scant amount of slough to the wound bed with mild erythema to the periwound. Daily dressing changes and PRN if soiled: Cleanse with saline. Apply Wet to dry with quarter inch nu gauze and saline to the wound bed and cover with 4x4 optifoam (comfort bordered gauze), twice daily. Consult Attestations Medical Necessity Statement: Requires hospitalization for Asthma exacerbation in COPD. Time Spent in Patient Care: 16 - 35 minutes (>than 50% of time spent in counselling and/or direct pt care on unit). 30 minutes Coding Level of Care Code 85485 Diagnoses Pressure ulcer of right buttock, stage 3 L89.313 Gluteal pain M79.18 Pressure ulcer of sacral region, stage 3 L89.153 Time Spent (min) 30 Wound Orders Wound Number 1: Pressure ulcer to Sacrum, stage 3 Does Wound require Debridement?: No Duration: 14 Days Dressing change frequency: Twice Daily Wound Cleansing: Saline Primary Wound Care Dressing: Wet to dry with Plain Quarter inch Nu gauze Secondary Wound Care Dressing: Optifoam Bathing/Showering/Hygiene: May shower without wound dressing Off-Loading: Turn and reposition every 2 hours Wound Number 2: Pressure ulcer to Right gluteal fold, stage 3 Does Wound require Debridement?: No Duration: 14 Days Dressing change frequency: Daily Wound Cleansing: Saline Primary Wound Care Dressing: Hydrofera Blue Secondary Wound Care Dressing: Optifoam 4x4 Bathing/Showering/Hygiene: May shower without wound dressing Off-Loading: Turn and reposition every 2 hours
[2023-06-07] MEDS: aspirin 81 mg EC Tablet PO (09:56)
[2023-06-07] MEDS: FUROsemide 40 mg Tablet 60 MG PO ×2 (09:56→17:29)
[2023-06-07] MEDS: guaiFENesin 600 mg Tablet PO ×2 (09:56→17:29)
[2023-06-07] MEDS: pantoprazole DR 40 mg Tablet PO (09:56)
[2023-06-07] MEDS: TRAMadol 50 mg Tablet PO (09:58)
--- NOTE | 2023-06-07 13:37 | USCV_ITS ---
Luis E Mota Age: 62 Gender: M : 1960 Exam Date: 06/07/2023 14:29 Ordering Phys: Homar Lennon DO Technologist: Leighton Dos Santos Exam Location: [facility] [place]ication: chest pain BP: 134 / 75 HR: 77 Rhythm: Sinus Technical Quality: Adequate MEASUREMENTS (Male / Female) Normal Values 2D ECHO LV Diastolic Diameter PLAX 4.6 cm 4.2 - 5.9 / 3.9 - 5.3 cm LV Systolic Diameter PLAX 2.6 cm IVS Diastolic Thickness 0.9 cm 0.6 - 1.0 / 0.6 - 0.9 cm IVS Systolic Thickness 1.9 cm LVPW Diastolic Thickness 1.3 cm 0.6 - 1.0 / 0.6 - 0.9 cm LVPW Systolic Thickness 1.5 cm LV Ejection Fraction 2D Teich 73.9 % LV Ejection Fraction MOD 2C 44.0 % LV Ejection Fraction 2C AL 44.7 % LA Diameter 4.0 cm M-MODE Aortic Annulus Diameter 3.6 cm LA Ao Ratio MM 1.1 MV E Point Septal Separation 1.6 cm DOPPLER AV Peak Velocity 129.0 cm/s LVOT Peak Velocity 125.0 cm/s MV Area PHT 3.7 cm squared Mitral E to A Ratio 1.1 MV E' Velocity 70.0 cm/s Mitral E to MV E' Ratio 10.8 Mitral E to LV E' Lateral Ratio 9.9 Mitral E to LV E' Septal Ratio 12.0 TR Peak Velocity 133.3 cm/s TR Peak Gradient 7.1 mmHg TV Peak E Velocity 100.0 cm/s Right Atrial Pressure 3.0 mmHg Pulmonary Artery Systolic Pressu 10.1 mmHg RV Acceleration Time 0.1 s FINDINGS Left Ventricle Normal left ventricular size, systolic function and wall thickness, with no regional wall motion abnormalities. Left ventricular ejection fraction is estimated at 65 %. Normal diastolic function. Right Ventricle Normal right ventricular size and systolic function. Right ventricular systolic pressure 10.3 mmHg. Right Atrium Normal right atrial size. Left Atrium Normal left atrial size. Mitral Valve Structurally normal mitral valve. No mitral valve stenosis. No mitral valve regurgitation. Aortic Valve Probably trileaflet aortic valve. No aortic valve stenosis. No aortic valve regurgitation. Tricuspid Valve Structurally normal tricuspid valve. Trace tricuspid valve regurgitation. Pulmonic Valve Pulmonic valve not well visualized. Pericardium No pericardial effusion. Aorta Normal size aortic root and proximal ascending aorta. IVC Inferior vena cava not visualized. CONCLUSIONS 1. This is a technically difficult study. Optison was used per protocol. 2. Normal left ventricular size, systolic function and wall thickness, with no regional wall motion abnormalities. Left ventricular ejection fraction is estimated at 65 %. Normal diastolic function. 3. No significant valvular abnormality. 4. No prior similar studies to compare. Diamond Serrato MD (Electronically Signed) Final Date: 07 June 2023 17:05 S
--- NOTE | 2023-06-07 17:01 | PM.PN ---
Subjective Subjective: 06/05/2023: Patient admitted for acute on chronic exacerbation of COPD. Patient chronically on 2 L oxygen. He was requiring 5 L in the ED. he was placed on steroids nebs and Rocephin initially. 06/06/2023:. Patient was feeling better. Added Zithromax for atypical coverage and COPD exacerbation. Started to wean IV steroids. Continued pulmonary toilet. He was feeling slightly better. 06/07/2023. Wound care consult for 2 buttock wounds. Patient not feeling much better. Echocardiogram ordered. Very dry mouth due to laryngeal biopsy recently. Vitals/I&O/Wt Last Vital Signs Temp 98.3 F 06/07/23 15:33 Pulse 84 06/07/23 15:33 Resp 21 H 06/07/23 15:33 BP 124/63 06/07/23 15:33 Pulse Ox 96 06/07/23 15:14 O2 Del Method Nasal Cannula 06/07/23 15:14 O2 Flow Rate 4 06/07/23 15:14 06/07/23 06/07/23 06/07/23 06:59 14:59 22:59 Intake Total 301 / 1023 241 / 241 Output Total 900 / 3850 900 / 900 Balance -599 / -2827 -659 / -659 Weight last 48 hrs Weight 99.79 kg Physical Exam Narrative: Patient seen lying in bed on his left side. He is wearing 4 L oxygen and is in no acute distress although he appears chronically ill. Heart: Regular normal S1-S2 without murmurs clicks gallops or rubs Lungs: Diminished breath sounds throughout with less expiratory wheezes and better aeration. Remains with prolonged expiratory phase. Abdomen obese soft nontender nondistended positive bowel sounds Extremities bilateral 1-2+ pitting edema to knees with overall erythema and more edema in the feet. Data 06/07/23 05:40 06/07/23 05:40 A&P Assessment and plan (1) Respiratory failure with hypoxia: Acute respiratory failure with hypoxia, requiring 4 L of oxygen by nasal cannula normally only uses 2 L. Treated as acute on chronic COPD No pneumonia on chest x-ray on admission. Continue Zithromax and ceftriaxone, IV steroids although weaning, breathing treatments, Expectorant, Flutter valve. Antitussive as needed. (2) COPD exacerbation: As above. (3) Leg swelling: Reviewed BNP. Symptomatically and just high BNP not suggestive of decompensated CHF. Leg swelling appears to be chronic component, although does have history of diastolic CHF. Will order echocardiogram no previous exam was found. (4) Smoker: Patient tells me that he will not smoke again. 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 Status post biopsy on 05/24. On assessment found to rather not a candidate for extensive surgical intervention, will be referred to radiation oncology. Biotene spray and throat lozenges for a dry mouth/throat (6) Pressure ulcer: Appreciate wound care consult. Orders per wound care. Plan HTN: Monitor blood pressures Hx HFpEF: Currently not in exacerbation. Monitor. CAD, status post tenting Suprapubic catheter Nonambulatory at baseline, uses wheelchair . Attestations Medical Necessity Statement*: Patient's care is expected to cross 2 midnights. He is a full admission. He requires continued hospitalization due to increased oxygenation requirements and subjective complaints of shortness of breath. A work-up will entail an echocardiogram to check for heart failure. Coding Level of Care Code Acute Code for [facility] Diagnoses Respiratory failure with hypoxia J96.91 COPD exacerbation J44.1 Leg swelling M79.89 Smoker F17.200 Primary squamous cell carcinoma of throat C14.0 Pressure ulcer L89.90
[2023-06-07] MEDS: acetaminophen 325 mg Tablet 650 MG PO (18:03)
[2023-06-07] MEDS: budesonide 0.5 mg/2 mL Neb INHALATION (21:02)
[2023-06-07] MEDS: azithromycin 500 MG in sodium chloride 0.9% 250 ML 250 MG IV (21:18)
[2023-06-08] VITALS (10 sets, daily range): BP systolic 147–153; BP diastolic 68–75; PULSE 68–83; RESP 15–18; TEMP 36.6–37; O2SAT 86–96
[2023-06-08] MEDS: ipratropium-albuterol 3 mL Neb INHALATION ×4 (03:58→10:59)
[2023-06-08] MEDS: budesonide 0.5 mg/2 mL Neb INHALATION (07:30)
--- NOTE | 2023-06-08 07:43 | P.PN_ITS ---
Subjective Subjective: Mr. Mota reports he had no events overnight. He is on 3L NC. He reports today he wears 2L NC at home. Wounds to sacrum and right gluteal fold are stable. Daily dressing changes performed. I discussed with Mr. Mota the benefit of coming to wound care after discharge for weekly debridement to advance his wound healing. Mr. Mota reported he can't afford the cost of transportation. He reports his is capable of helping with wound care and dressing changes as she has in the past with previous pressure ulcers. In the event Mr. Mota is able to find transportation, I do feel he would benefit from visiting the wound care outpatient service to maximize his healing process. Medications: Reviewed: Yes Vitals/I&O/Wt Last Vital Signs Temp 98.6 F 06/08/23 03:19 Pulse 78 06/08/23 04:00 Resp 17 06/08/23 04:00 BP 153/75 06/08/23 03:19 Pulse Ox 96 06/08/23 04:00 O2 Del Method Nasal Cannula 06/08/23 04:00 O2 Flow Rate 3 06/08/23 04:00 06/07/23 06/08/23 06/08/23 22:59 06:59 14:59 Intake Total 241 / 482 540 / 1022 Output Total 1300 / 2200 1200 / 3400 Balance -1059 / -1718 -660 / -2378 Physical Exam Narrative: Patient seen lying in bed on his left side. He is wearing 4 L oxygen and is in no acute distress although he appears chronically ill. Heart: Regular normal S1-S2 without murmurs clicks gallops or rubs Lungs: Diminished breath sounds throughout with less expiratory wheezes and better aeration. Remains with prolonged expiratory phase. Abdomen obese soft nontender nondistended positive bowel sounds Extremities bilateral 1-2+ pitting edema to knees with overall erythema and more edema in the feet. Sacral wound, pressure ulcer stage 3 and right gluteal fold wound, pressure ulcer stage 3 Data 06/07/23 05:40 06/07/23 05:40 A&P Assessment and plan (1) Pressure ulcer of right buttock, stage 3: Right gluteal fold pressure ulcer, Stage 3: 4.0x2.0x0.2cm , Scant amount of slough to the wound bed with erythema to the periwound. Daily dressing changes and PRN if soiled: Cleanse with saline. Apply hydrofera blue to the wound bed and cover with 4x4 optifoam (comfort bordered gauze). (2) Gluteal pain: Offloading: Turn every two hours. (3) Pressure ulcer of sacral region, stage 3: Sacrum pressure ulcer, Stage 3: 2.0x1.0x0.5cm, scant amount of slough to the wound bed with mild erythema to the periwound. Daily dressing changes and PRN if soiled: Cleanse with saline. Apply Wet to dry with quarter inch nu gauze and saline to the wound bed and cover with 4x4 optifoam (comfort bordered gauze), twice daily. Attestations Medical Necessity Statement*: Patient's care is expected to cross 2 midnights. He is a full admission. He requires continued hospitalization due to increased oxygenation requirements and subjective complaints of shortness of breath. A work-up will entail an echocardiogram to check for heart failure. Time Spent in Patient Care: 16 - 35 minutes (>than 50% of time spent in counselling and/or direct pt care on unit) . 16 minutes Coding Level of Care Code 60321 Diagnoses Pressure ulcer of right buttock, stage 3 L89.313 Gluteal pain M79.18 Pressure ulcer of sacral region, stage 3 L89.153 Time Spent (min) 16
[2023-06-08] MEDS: FUROsemide 40 mg Tablet 60 MG PO (08:49)
[2023-06-08] MEDS: lisinopril 5 mg Tablet PO (08:51)
[2023-06-08] MEDS: guaiFENesin 600 mg Tablet PO (08:51)
[2023-06-08] MEDS: methylPREDNISolone sod succ 40 MG in water for injection-sterile 1 ML IVP (08:52)
[2023-06-08] MEDS: aspirin 81 mg EC Tablet PO (08:52)
[2023-06-08] MEDS: pantoprazole DR 40 mg Tablet PO (08:52)
--- NOTE | 2023-06-08 09:31 | PC.NURSE ---
addendum to Yari Castañeda's wound care assessment made on 06/07/23 at 1350. Wound is a stage three on the sacrum and the buttock and was mistakenly documented as a stage 2 in the note section.
[2023-06-08] MEDS: TRAMadol 50 mg Tablet PO (09:44)
--- NOTE | 2023-06-08 09:58 | P.DS_ITS ---
Discharge Providers Date of Admission: 06/05/23 23:23 Date of Discharge: June 08, 2023 Attending Provider at Admission: Jaron Mohamud Attending Provider at Discharge: Homar Lennon DO Primary Care Provider: Katie Siu MD Diagnoses at Discharge Discharge Diagnosis (1) Pressure ulcer of right buttock, stage 3: Status: Acute (2) Gluteal pain: Status: Acute (3) Pressure ulcer of sacral region, stage 3: Status: Acute Reason for Visit Reason for Visit: SOB Brief History: Admitted for acute on chronic exacerbation of COPD. Hospital Course Hospital Course 06/05/2023: Patient admitted for acute on chronic exacerbation of COPD.? Patient chronically on 2 L oxygen.? He was requiring 5 L in the ED. he was placed on steroids nebs and Rocephin initially. 06/06/2023:.? Patient was feeling better.? Added Zithromax for atypical coverage and COPD exacerbation.? Started to wean IV steroids.? Continued pulmonary toilet.? He was feeling slightly better.?06/07/2023.? Wound care consult for 2 buttock wounds.? Patient not feeling much better.? Echocardiogram ordered.? Very dry mouth due to laryngeal biopsy recently.? 06/08/2023. Patient now at 3 L nasal cannula. He is feeling better. He is wheezing however he has better aeration. Long time spent counseling with tobacco cessation and encouraging his and other family members not to smoke around him. Unfortunately he said this probably would not happen. He was also educated on how to clean the house of tobacco residue. He will have home health services for wound care and RN to assist with wound care and assessment of his lungs. Note echocardiogram was done and no congestive heart failure was found. No significant valvular abnormality Physical Exam Narrative: Patient seen lying in bed on his left side. He is wearing 4 L oxygen and is in no acute distress although he appears chronically ill. Heart: Regular normal S1-S2 without murmurs clicks gallops or rubs Lungs: Diminished breath sounds throughout with less expiratory wheezes and better aeration. Remains with prolonged expiratory phase. Abdomen obese soft nontender nondistended positive bowel sounds Extremities bilateral 1-2+ pitting edema to knees with overall erythema and more edema in the feet. Discharge Data Studies Completed and Pending Completed Studies During Hospitalization Category Date Time Status CT pelvis w con* [id number] Routine Cat Scan 06/06/23 01:04 Completed XR chest 1V portable [id number] Stat Exams 06/05/23 21:10 Completed CV. echo wo/w contrast [id number] Routine Ultrasound 06/07/23 13:37 Completed Pending at discharge Category Date Time Status Sputum Culture and Gram Stain Routine Lab 06/05/23 23:35 Uncollected Radiology Impressions Chest X-Ray 06/05/23 21:10 IMPRESSION: Hyperinflated but clear lungs. No other acute cardiopulmonary abnormality. Pelvis CT 06/06/23 01:04 IMPRESSION: 1. Exam demonstrates cutaneous thickening overlying the sacrum with a tiny subcutaneous gas bubble compatible with decubitus ulcer. No convincing abscess. No acute appearing bony destructive change. 2. Right neural foraminal stenosis at L5-S1. Laboratory Results WBC 10.12 10^3/uL (3.29-11.43) 06/07/23 05:40 RBC 4.68 10^6/uL (3.85-5.65) 06/07/23 05:40 Hgb 14.30 g/dL (11.27-16.99) 06/07/23 05:40 Hct 43.5 % (37-53) 06/07/23 05:40 MCV 92.9 fl (82-101) 06/07/23 05:40 MCH 30.6 pg (27-33) 06/07/23 05:40 MCHC 32.9 g/dL (30-55) 06/07/23 05:40 RDW 13.8 % (12.1-15.1) 06/07/23 05:40 Plt Count 222 10^3/cmm (157-399) 06/07/23 05:40 MPV 10.5 fL (7.4-10.4) H 06/07/23 05:40 Neut % (Auto) 86.6 % 06/07/23 05:40 Lymph % (Auto) 6.7 % 06/07/23 05:40 [place] % (Auto) 6.3 % 06/07/23 05:40 Eos % (Auto) 0.0 % 06/07/23 05:40 Baso % (Auto) 0.1 % 06/07/23 05:40 Neut # (Auto) 8.76 10^3/uL (1.8-7.7) H 06/07/23 05:40 Lymph # (Auto) 0.7 10^3/uL (0.8-4.8) L 06/07/23 05:40 [place] # (Auto) 0.6 10^3/uL (0.2-0.9) 06/07/23 05:40 Eos # (Auto) 0.0 10^3/uL (0.0-0.8) 06/07/23 05:40 Baso # (Auto) 0.0 10^3/uL (0.0-0.1) 06/07/23 05:40 Nucleated RBC % (auto) 0 % 06/07/23 05:40 Nucleated RBCs # 0.0 /100WBC 06/07/23 05:40 PT 13.10 SECONDS (12.1-14.9) 06/05/23 21:20 INR 0.96 (0.8-1.2) 06/05/23 21:20 Specimen Type Arterial 06/05/23 21:25 Sample Site Radial, left 06/05/23 21:25 ABG pH 7.39 (7.35-7.45) 06/05/23 21:25 ABG pCO2 55.0 mmHg (35-45) H 06/05/23 21:25 ABG pO2 79.5 mmHg (80.0-100.0) L 06/05/23 21:25 ABG HCO3 33.5 mmol/L (22-26) H 06/05/23 21:25 ABG Base Excess 6.6 mmol/L (-2.0-2.0) H 06/05/23 21:25 Keon Test Pos 06/05/23 21:25 Hematocrit 48.1 % (42-52) 06/05/23 21:25 O2 Delivery Device Nc 06/05/23 21:25 O2 Liters/Min 4.0 % 06/05/23 21:25 Edge Grinder Machine ID [id number] 06/05/23 21:25 Sodium 140 mmol/L (136-145) 06/07/23 05:40 Potassium 4.0 mmol/L (3.5-5.1) 06/07/23 05:40 Chloride 99 mmol/L (98-107) 06/07/23 05:40 Carbon Dioxide 34 mmol/L (22-29) H 06/07/23 05:40 Anion Gap 11.0 (5-19) 06/07/23 05:40 BUN 14 mg/dL (8-23) 06/07/23 05:40 Creatinine 0.7 mg/dL (0.7-1.2) 06/07/23 05:40 GFR Calculation 113.5 mL/min (90-130) 06/07/23 05:40 Glucose 180 mg/dL (65-115) H 06/07/23 05:40 Calculated Osmolality 295 mOsm/kg (285-295) 06/07/23 05:40 Calcium 9.1 mg/dL (8.5-10.5) 06/07/23 05:40 Total Bilirubin 0.5 mg/dL (0.15-1.2) 06/05/23 21:20 AST 25 U/L (0-40) 06/05/23 21:20 ALT 21 U/L (0-41) 06/05/23 21:20 Alkaline Phosphatase 115 U/L (40-130) 06/05/23 21:20 NT-Pro-B Natriuret Pep 171 pg/mL (0-125) H 06/05/23 21:20 Total Protein 7.9 g/dL (6.6-8.7) 06/05/23 21:20 Albumin 4.3 g/dL (3.5-5.2) 06/05/23 21:20 Globulin 3.6 g/dL (1.3-4.6) 06/05/23 21:20 Additional Data from Hospital Stay Echocardiogram.CONCLUSIONS ?1.? This is a technically difficult study.? Optison was used per ?protocol. ?2.? Normal left ventricular size, systolic function and wall ?thickness, with no regional wall motion abnormalities. Left ?ventricular ejection fraction is estimated at 65 %. Normal ?diastolic function. ?3.? No significant valvular abnormality. ?4.? No prior similar studies to compare. Vitals Last Vital Signs Temp 97.9 F 06/08/23 08:00 Pulse 73 06/08/23 08:00 Resp 16 06/08/23 08:00 BP 147/68 06/08/23 08:00 Pulse Ox 95 06/08/23 08:00 O2 Del Method Nasal Cannula 06/08/23 08:00 O2 Flow Rate 3 06/08/23 07:30 Discharge Plan Discharge Patient Disposition: Home Health Service Condition: Stable Prescriptions: New azithromycin [Zithromax] 500 mg tablet 500 mg PO DAILY 5 Days Qty: 5 0RF famotidine [Pepcid] 20 mg tablet 20 mg PO BID Qty: 30 5RF Rx Instructions: due to senior care steroid use prednisone 10 mg tablet See Rx Instructions .ROUTE .COMPLEX Qty: 100 0RF Rx Instructions: 4 tabs qam for 1 week, 2 tabs qam for 1 week, then 1 tab daily bupropion HCl (smoking deter) 150 mg tablet extended release 12 hr 150 mg PO DAILY Qty: 30 5RF Rx Instructions: for smoking cessation Continued budesonide 0.5 mg/2 mL suspension for nebulization 0.5 mg INHALATION BID Qty: 60 3RF ipratropium-albuterol 0.5 mg-3 mg(2.5 mg base)/3 mL solution for nebulization 3 ml INHALATION Q4H PRN (Reason: wheezing) Qty: 90 3RF budesonide [Rhinocort Allergy] 32 mcg/actuation spray,non-aerosol 2 spray intranasal BID Qty: 8.43 0RF Rx Instructions: administer into each nostril failed flonase diclofenac sodium 75 mg tablet,delayed release (DR/EC) 75 mg PO BID PRN (Reason: pain) Qty: 180 1RF furosemide 40 mg Tablet 60 mg PO BID aspirin 81 mg Tablet,Delayed Release (Dr/Ec) 81 mg PO DAILY tramadol 50 mg Tablet 50 mg PO BID PRN (Reason: Pain) albuterol sulfate 90 mcg/actuation Hfa Aerosol Inhaler 2 puff inhalation Q4H.RESPIRATORY PRN (Reason: Shortness Of Breath) Qty: 1 0RF enalapril maleate 2.5 mg tablet 2.5 mg PO DAILY Discharge Orders: Discharge Order (Routine); Ordered 06/08/23 Ordered By: Homar Lennon Referrals: [facility] [Other] (If need assistance w/ transportation or gas reimbursement to doctors visits you can call this number. You do need to contact them 3-5 days in advance to arrange the transportation.) [facility] Care ([facility]) [Outside] Katie Siu MD [Primary Care Provider] - 06/13/23 10:00 am (Please fax d/c summary when available. ) Discharge Diet: Low Salt and Low Cholesterol Discharge Activity: Increase activity as tolerated Patient Instructions: How to Stop Smoking (DC), Cigarette Smoking and Your Health (GEN) Discharge Attestations Time Spent in Discharge Care*: less than 30 min Quality Metrics Clinical Quality Measures [ No reported AMI, CVA or VTE this stay] Coding Level of Care Code Acute Code for Chg Fwd Diagnoses Pressure ulcer of right buttock, stage 3 L89.313 Gluteal pain M79.18 Pressure ulcer of sacral region, stage 3 L89.153
--- NOTE | 2023-06-08 10:13 | PC.SOCIAL ---
IMM Update pg 2 of IMM not updated @ this time as patient is currently in observation status.
== END 2023-06-08 11:45 | disposition home health service (06) ==
LOC: ER 22:26 → MEDSURG 22:51
PROVIDERS: Admitting Provider Internal Medicine; Emergency Provider Emergency Medicine; PCP Family Medicine; Visit Provider Internal Medicine
DX: L89.313 Pressure ulcer of right buttock, stage 3 (principal); M79.18 Myalgia, other site; L89.153 Pressure ulcer of sacral region, stage 3; J44.1 Chronic obstructive pulmonary disease with (acute) exacerbation; Z99.81 Dependence on supplemental oxygen; I11.0 Hypertensive heart disease with heart failure; I50.30 Unspecified diastolic (congestive) heart failure; J96.91 Respiratory failure, unspecified with hypoxia; M79.89 Other specified soft tissue disorders; C14.0 Malignant neoplasm of pharynx, unspecified; Z99.3 Dependence on wheelchair; Z95.5 Presence of coronary angioplasty implant and graft; Z86.16 Personal history of COVID-19; E78.5 Hyperlipidemia, unspecified; G47.33 Obstructive sleep apnea (adult) (pediatric); I25.2 Old myocardial infarction; F17.200 Nicotine dependence, unspecified, uncomplicated; I25.10 Atherosclerotic heart disease of native coronary artery without angina pectoris; Z79.82 Long term (current) use of aspirin
CPT/HCPCS: 36415; 36600; 71045; 72193; 80048; 80053; 82803; 83880; 85025; 85610; 94640; 94664; 94760; 96365; 96372; 96375; 96376; 99232; 99252; 99285; C8929; G0378; J0456; J0696; J1644; J2920; J7050; J7613; J7626; Q9967

== ENCOUNTER 2023-06-19 09:45 | Oncology outpatient (recurring) (ONCR) | payer MEDICARE, MEDICAID, SELFPAY ==
--- NOTE | 2023-06-13 14:07 | N.ONRAD NP_ITS ---
Radiation Oncology New Patient Visit Patient: Luis E Mota MR#: [id number] : 1960> Age: 62> Sex: Male> Dictated by: Dr. Adriana Santamaria Date of Service: 06/13/2023 Referring Physician(s) : Dr Montalvo ENT Diagnosis: C32.1 - malignant neoplasm of larynx, unspecified, Diagnosed 05/24/2023 (active). Radiotherapy to date: Summary > No prior radiation therapy. Chief Complaint / History of Present Illness: Patient is seen today in consultation after dealing with a sore throat for 2 to 3 months. He says that he had tried some home remedies for this and sought medical attention. He was subsequently referred to ear nose and throat who performed a scope on 05/24/2023. At that time he was found to have a mass that was exophytic on the left laryngeal surface of the epiglottis and the false vocal cord as well as the left inner aryepiglottic fold. It did not appear to involve the true vocal cords. Multiple biopsies were taken which were positive for squamous cell carcinoma. Since that time he was referred to radiation oncology but ended up in the hospital with an exacerbation of COPD. He was rescheduled to his appointment today. He is here today to discuss radiation for squamous cell carcinoma of the supraglottic larynx. Work-up and staging are currently pending. Current Medications: albuterol sulfate 90 mcg/actuation 2 puffs inhalation Q4H.RESPIRATORY PRN aspirin 81 mg PO DAILY budesonide 32 mcg/actuation (Rhinocort Allergy) 2 sprays intranasal BID budesonide 0.5 mg (2 mL) inhalation BID cyclobenzaprine 5 mg PO TID PRN diclofenac sodium 1% (Voltaren Arthritis Pain) 2 grams topical QID diclofenac sodium 75 mg PO BID PRN furosemide 60 mg PO Allergies: doxycycline Allergy RASH/SWELLING adhesive tape Allergy ALGY-Blister clindamycin Allergy ALGY-Hives Influenza Virus Vaccines Allergy Unknown mirabegron unknown niacin Allergy Unknown Medical History: No history of collagen vascular disease. No previous radiation therapy. PFSH: Medical History Acute non-recurrent pansinusitis Cervical vertebral fusion Chronic hypertrophic rhinitis COPD (chronic obstructive pulmonary disease) COVID-19 Dyslipidemia Foot drop GERD (gastroesophageal reflux disease) Heart failure with preserved ejection fraction Hypertension Hypokalemia Lymphedema Malar rash Myocardial infarction Status post stent placement Obstructive sleep apnea Orchitis and epididymitis Osteomyelitis Foot osteomyelitis with cellulitis treated with vancomycin Urethral stricture Surgical History H/O cardiac catheterization H/O shoulder surgery Previous back surgery S/P cystourethroscopy with dilation of urethral stricture Family History Other Hypertension Social History Smoking and tobacco/nicotine status: current every day tobacco/nicotine user Quit status (tobacco/nicotine): has quit using Year quit tobacco: 2020 - 1.5 PPD x 40 Years Second hand smoke exposure: No Alcohol intake: current Alcohol intake frequency: holidays/special occasions only Substance/Drug Use: never Caregiver/support person: Yes Lives independently: Yes Household members: spouse Housing: House Marital status: Current occupational status: disabled Vital Signs: Performed on 06/13/2023 1:20 PM Exam: General: Alert and oriented x3. Patient is wheelchair-bound. HEENT: Normocephalic atraumatic. Pupils are equal, sclera clear. Extraocular muscles intact. Oral cavity reveals the tongue to be quite erythematous with no signs of thrush. No lesions or ulcerations were noted in the oral cavity. He is a dentulous. His neck is supple without palpable adenopathy. His sternocleidomastoid muscles are fairly thick and it is possible that he has adenopathy beneath these. Lungs: Respiratory rate was regular nonlabored. Patient is wearing his oxygen currently. Cardiovascular: Regular rate and rhythm Abdomen: Moderately protuberant and android pattern. Extremities: His lower extremities show chronic vascular changes with thickened skin which is erythematous. His toenails are dry and thickened. He has no socks or shoes on. Neurological: Alert and oriented x3. Gait was untested, speech is intact. He has no hoarseness. Skin: As above BMI - 34.457 kg/m2 (high), Height - 67 in, Weight - 220 lbs, Temperature - 97.2 f, Pulse - 69 /min, Respiration - 18 /min, O2 Sat - 89 % (low), Pain - 0, Fatigue - 0 and BP - 94/ 63 mm(hg)(/low). Pathology: Invasive moderately to poorly differentiated squamous of carcinoma involving full-thickness and the majority of the biopsy fragments. Fragments were taken from the left laryngeal surface of the epiglottis and false vocal cord as well as the left inner aryepiglottic fold. Plan: Patient is 63-year-old gentleman with newly diagnosed squamous cell carcinoma of the supraglottic larynx. We spoke today about the findings of the scope and the biopsy. I reviewed with him at this point we need to proceed with additional evaluation. We will order a PET scan and get him an appointment with medical oncology. We talked about until we have the PET scan we really cannot delineate a complete plan. We do know that secondary to his overall clinical status he is not a surgical candidate. We did talk about how the radiation would definitely play a role in his care. I reviewed with him the simulation process, the daily treatment regiment, the risks and side effects both acute and long-term. He verbalized understanding at this point time. He understands that we will meet again and review his PET scan results and he will also meet with medical oncology to discuss whether he is a candidate for combined modality therapy. We reviewed today how if his PET scan does not show significant disease we can perhaps just do the radiation alone. He was hoping for that as apparently he watched his mother go through chemotherapy. At this point I will get his PET scan ordered and a referral made to medical oncology and once these have been completed we will make sure getting back in time to initiate the planning and coordinate his care. Signed by: 06/13/2023 2:05:02 PM <<Signature on File>> Time spent with patient: CPT Code: CPT Code:
== END 2023-07-12 23:59 | disposition home or self-care (01) ==
PROVIDERS: PCP Family Medicine; Referring Provider Otolaryngology; Visit Provider Radiology Radiation Oncology
DX: C32.1 Malignant neoplasm of supraglottis (principal); Z79.899 Other long term (current) drug therapy
CPT/HCPCS: 36415; 99024; 99205

== ENCOUNTER → 2023-06-27 13:02 | Outpatient (BNVA) | payer MEDICARE, MEDICAID, SELFPAY | PROVIDERS: PCP Family Medicine; Visit Provider Thoracic Surgery (Cardiothoracic Vascular Surgery) | DX: I96 Gangrene, not elsewhere classified (principal); L89.153 Pressure ulcer of sacral region, stage 3; L89.312 Pressure ulcer of right buttock, stage 2 | CPT/HCPCS: 11042; 97597; 99213; A6210; A6212; A6251 ==

== ENCOUNTER 2023-07-24 14:15 | Outpatient (CLI) | payer MEDICARE, MEDICAID, SELFPAY ==
--- NOTE | 2023-07-24 11:00 | PETR_ITS ---
PROCEDURE INFORMATION: Exam: PET/CT Skull Base to Mid-thigh Exam date and time: 07/24/2023 11:59 AM Age: 63 years old Clinical indication: Condition or disease; Primary cancer: Cancer of epiglotis; Initial oncological staging assessment; Additional info: Cancer of epiglottis, PT can't lay flat. Need pet in the next week or two LABS AND CLINICAL REPORTS: Glucose: 103 mg/dl Treatment strategy for malignancy (PET staging): Initial Staging (PI) TECHNIQUE: Imaging protocol: Following at least four-hour fasting and following the injection of radiopharmaceutical, low dose CT images were obtained. Then, PET images were obtained. Attenuation corrected images were constructed using the CT scan. Fused images of PET and CT were reviewed. The standardized uptake values (SUV) reported below are maximum values within a region of interest, expressed in gm/ml. Exam includes orbital meatal line to mid-thigh. Radiopharmaceutical: 13.28 mCi F-18 FDG (Fluorodeoxyglucose), IV. Time of imaging post radiopharmaceutical administration: 1 hour Injection site: Right wrist COMPARISON: CT pelvis w con* [id number] 06/06/2023 2:58 AM FINDINGS: Brain: Visualized brain has normal physiologic uptake. Pharynx: No abnormal uptake. Larynx: Focus of increased uptake of 5.4 SUV in the left supraglottic region on axial image 51. Lungs, pleura and trachea: No abnormal uptake. Mild paraseptal emphysema in the upper lobes. Bilateral calcified granulomas in the lungs measuring up to 7 mm in the right lung and 5 mm in the left lung. No pleural effusion. Heart: Normal physiologic uptake. There is no cardiomegaly. Mild coronary artery calcification is present. There is no pericardial effusion. Mediastinal space: No abnormal uptake. Calcification within normal size left hilar lymph node in keeping with exposure to granulomatous disease. Liver: No abnormal uptake. Gallbladder and bile ducts: No abnormal uptake. No calcified gallstones. Pancreas: No abnormal uptake. Spleen: No abnormal uptake. No splenomegaly. Adrenal glands: No abnormal uptake. No nodules. Kidneys and ureters: Normal physiologic uptake. No hydronephrosis. 3.8 cm simple cyst medially in the midpole of the right kidney. Stomach and bowel: No abnormal uptake. Intraperitoneal and retroperitoneal spaces: No abnormal uptake. No ascites. Urinary bladder: Normal physiologic uptake. William catheter is in place. Reproductive: No abnormal uptake. The prostate is mildly enlarged. Vasculature: No abnormal uptake. Lymph nodes: No abnormal uptake. No lymphadenopathy in the head, neck, chest, abdomen, pelvis, and extremities. Bones/joints: No abnormal uptake in the visualized axial and appendicular skeleton. Status post C6-C7 fusion with anterior internal fixation. Soft tissues: Non masslike increased uptake of 5.2 SUV within the right lateral pterygoid muscle on axial image 21 is probably benign. There is benign linear intramuscular uptake posteriorly in the right shoulder. PET/PET skulltothi INITIAL [id number] IMPRESSION: Focus of increased uptake of 5.4 SUV in the left supraglottic region of the larynx for correlation with the known location of the primary malignancy. The epiglottis appears unremarkable. No FDG avid lymphadenopathy in the neck. No evidence of distant FDG avid metastatic disease.
== END 2023-07-24 14:16 | disposition home or self-care (01) ==
LOC: RAD 14:16
PROVIDERS: PCP Nurse Practitioner Family; Visit Provider Internal Medicine
DX: C32.1 Malignant neoplasm of supraglottis (principal)
CPT/HCPCS: 78815; A9552

== ENCOUNTER → 2023-07-26 10:52 | Outpatient (BNVA) | payer MEDICARE, MEDICAID, SELFPAY | PROVIDERS: PCP Nurse Practitioner Family; Visit Provider Nurse Practitioner Family | DX: I96 Gangrene, not elsewhere classified (principal); L89.153 Pressure ulcer of sacral region, stage 3; L89.312 Pressure ulcer of right buttock, stage 2 | CPT/HCPCS: 11042; A6210; A6212 ×2 ==

== ENCOUNTER 2023-08-08 10:12 | Oncology outpatient (recurring) (ONCR) | payer MEDICARE, MEDICAID, SELFPAY ==
--- NOTE | 2023-08-02 14:51 | ONCRAD EPV_ITS ---
Radiation Oncology Established Patient Visit Patient: Nakul Kimbrough [id number] : 1960> Age: 63> Sex: Male> Dictated by: Jose Radford Date of Service: 08/02/2023 Referring Physician(s) : Diagnosis: C32.9 - Malignant neoplasm of larynx, unspecified, Diagnosed 05/24/2023 (Active) St I(T1 N0 M0) squamous cell carcinoma of the left supraglottic larynx. Radiotherapy to Date: none Current History: He returns now to review staging PET/CT done 07/25/2023. Living alone with and son living nearby. Still smoking ??? ppd. In wheelchair due to traumatic paralysis following a fall at home 2005. Has chronic indwelling William PET/CT 07/25/2023 focal uptake in left proximal supraglottic larynx sparing the epiglottis. No adenopathy. No distant metastatic disease. Two tiny indeterminate lung nodules. Current Medications: See initial progress note Vital Signs: Performed on 08/02/2023 2:00 PM BMI - 34.457 kg/m2 (high), Height - 67 in, Weight - 220 lbs, Temperature - 97.6 f, Pulse - 64 /min, Respiration - 16 /min, O2 Sat - 95 % (low), Pain - 4, Fatigue - 0 and BP - 114/ 64 mm(hg)(/low). Physical Exam: alert in NAD. Good voice quality. Elderly appearing for age. Edentuous. In wheelchair. Legs in protective boots. Indwelling catheter in place. Performance Status: 1 - 2 Lab: None pending. Pathology: Primary, c32.9 - malignant neoplasm of larynx, unspecified, Diagnosed 05/24/2023 (active). Imaging: See HPI Impression: St I(T1 N0 M0) squamous cell carcinoma of the left proximal supraglottic larynx. Small volume primary disease. No adenopathy. Patient has significant co-morbidities. Recommend primary radiation alone. As it is in the surpaglottis, I do recommend prophylactic coverage of cervical major regions. Plan in 70 Gy to primary lesion and concurrently 56 Gy to neck regions in 35 fractions of treatment. Discussed critical need of smoking cessation with both patient and his son. Also discussed with Dr. Monroe. Signed by: 08/02/2023 2:50:04 PM <<Signature on File>> Time spent with patient: CPT Code: CPT Code:
== END 2023-08-12 23:59 | disposition home or self-care (01) ==
PROVIDERS: PCP Nurse Practitioner Family; Referring Provider Otolaryngology; Visit Provider Specialist
DX: C32.1 Malignant neoplasm of supraglottis (principal); Z51.0 Encounter for antineoplastic radiation therapy
CPT/HCPCS: 77300; 77301; 77334; 77338; 99024; 99214

== ENCOUNTER 2023-08-09 14:06 | Outpatient (CLI) | payer MEDICARE, MEDICAID, SELFPAY ==
--- NOTE | 2023-08-09 14:10 | XRR_ITS ---
PROCEDURE INFORMATION: Exam: XR Right Foot Exam date and time: 08/09/2023 2:15 PM Age: 63 years old Clinical indication: Condition or disease; Other: Type 2 diabetes mellitus with foot ulcer; Prior surgery; Surgery date: 6+ months; Surgery type: Not specified; Additional info: E11.621 - type 2 diabetes mellitus with foot ulcer TECHNIQUE: Imaging protocol: Radiologic exam of the right foot. Views: 3 or more views. COMPARISON: No relevant prior studies available. FINDINGS: Bones/joints: Bones are diffusely osteopenic. Alignment is normal. Moderate osteoarthritis at the 1st and 5th MTP joints. Mild diffuse interphalangeal osteoarthritis. No discrete bone erosion. There is a nondisplaced, possibly healing fracture of the proximal 5th phalanx. Soft tissues: A dermal ulcer is faintly visible medial to the 1st metatarsophalangeal joint. There is diffuse soft tissue edema in the midfoot and medial forefoot. XR/XR foot RT min 3V* [id number] IMPRESSION: 1. Soft tissue edema and dermal ulcer in the medial forefoot. No bone erosion to suggest osteomyelitis. 2. Severe diffuse osteopenia. 3. Nondisplaced age-indeterminate 5th proximal phalangeal fracture.
== END 2023-08-09 14:07 | disposition home or self-care (01) ==
LOC: RAD 14:07
PROVIDERS: PCP Nurse Practitioner Family; Visit Provider Nurse Practitioner Family
DX: E11.621 Type 2 diabetes mellitus with foot ulcer (principal); E11.52 Type 2 diabetes mellitus with diabetic peripheral angiopathy with gangrene; L97.514 Non-pressure chronic ulcer of other part of right foot with necrosis of bone; L89.312 Pressure ulcer of right buttock, stage 2; L89.153 Pressure ulcer of sacral region, stage 3; M85.871 Other specified disorders of bone density and structure, right ankle and foot; S92.514A Nondisplaced fracture of proximal phalanx of right lesser toe(s), initial encounter for closed fracture; X58.XXXA Exposure to other specified factors, initial encounter
CPT/HCPCS: 11042; 11044; 73630; 97597; 99212; A6210

== ENCOUNTER → 2023-08-16 08:21 | Outpatient (BNVA) | payer MEDICARE, MEDICAID, SELFPAY | PROVIDERS: PCP Nurse Practitioner Family; Visit Provider Nurse Practitioner Family | DX: E11.621 Type 2 diabetes mellitus with foot ulcer (principal); E11.52 Type 2 diabetes mellitus with diabetic peripheral angiopathy with gangrene; L97.511 Non-pressure chronic ulcer of other part of right foot limited to breakdown of skin; L89.153 Pressure ulcer of sacral region, stage 3; L89.312 Pressure ulcer of right buttock, stage 2 | CPT/HCPCS: 87070; 87176; 87205; 97597; 97598; 99213; A6210 ==

== ENCOUNTER 2023-08-31 10:49 | Oncology outpatient (recurring) (ONCR) | payer MEDICARE, MEDICAID, SELFPAY ==
--- NOTE | 2023-08-30 13:50 | ONCRAD TMN_ITS ---
Radiation Oncology Weekly Treatment Management Patient: Luis E Mota MR#: [id number] : 1960 Attending Physician: Dr. Adriana Santamaria Date of Service: 08/30/2023 Fractions: 3 out of 35 Referring Physician(s) : Diagnosis: C32.9 - Malignant neoplasm of larynx, unspecified, Diagnosed 05/24/2023 (Active) Radiotherapy to date: Course: Head Neck 23n24, Treatment Site: HN 70/63/56Gy, Ref. ID: [id number], Energy: 6X, Dose/Fx (cGy): 200, #Fx: 3 / 35, Dose Correction (cGy): 0, Total Dose (cGy): 600, Start Date: 08/22/2023, Elapsed Days: 8 Reason for visit: The patient is being seen today as part of their regularly scheduled weekly on treatment visits to assess for acute toxicities from radiotherapy. Review of Systems: Subjectively today he has noticed no real changes with his throat. He is having increasing difficulty with new and progressive decubitus ulcers. He has an appointment immediately after this 1 with wound care. Vital Signs: Performed on 08/30/2023 1:16 PM BMI - 34.457 kg/m2 (high), Height - 67 in, Weight - 220 lbs, Temperature - 97.3 f, Pulse - 85 /min, Respiration - 20 /min, O2 Sat - 96 %, Pain - 7, Fatigue - 7 and BP - 132/ 88 mm(hg). Physical Exam: Oral cavity is without changes Imaging: Radiation therapy imaging related to accurate target localization (i.e. KV, MV and CBCT) was reviewed. Appropriate changes, if any, were made to ensure treatment accuracy. Plan: Continue with treatments as planned. He did ask for medication today to help with the pain from his ulcers. He also has significant neuropathy. Will try the gabapentin to see if this will help manage all of those symptoms. I have sent a prescription to [facility] for 300 mg twice a day. Signed by: Dr. Adriana Santamaria 08/30/2023 1:49:31 PM
== END 2023-09-12 23:59 | disposition home or self-care (01) ==
PROVIDERS: PCP Nurse Practitioner Family; Referring Provider Otolaryngology; Visit Provider Radiology Radiation Oncology
DX: C32.1 Malignant neoplasm of supraglottis (principal); Z51.0 Encounter for antineoplastic radiation therapy
CPT/HCPCS: 11042; 11045; 77386; 97597; 97602; A6212 ×2; A6220; A6446

== ENCOUNTER 2023-10-05 11:34 | Oncology outpatient (recurring) (ONCR) | payer MEDICARE, MEDICAID, SELFPAY ==
--- NOTE | 2023-09-19 15:10 | ONCRAD TMN_ITS ---
Radiation Oncology Weekly Treatment Management Patient: Luis E Mota MR#: [id number] : 1960 Attending Physician: Dr. Adriana Santamaria Date of Service: 09/19/2023 Fractions: 6 out of planned 35 Referring Physician(s) : Justin Mcfarland Diagnosis: C32.9 - Malignant neoplasm of larynx, unspecified, Diagnosed 05/24/2023 (Active) Radiotherapy to date: Course: Head Neck 23n24, Treatment Site: HN 70/63/56Gy, Ref. ID: [id number], Energy: 6X, Dose/Fx (cGy): 200, #Fx: 6 / 35, Dose Correction (cGy): 0, Total Dose (cGy): 1,200, Start Date: 08/22/2023, Elapsed Days: 28 Reason for visit: The patient is being seen today as part of their regularly scheduled weekly on treatment visits to assess for acute toxicities from radiotherapy. Review of Systems: Patient said his throat has remained sore. He still eating regular foods however Vital Signs: Performed on 09/19/2023 2:15 PM BMI - 34.457 kg/m2 (high), Height - 67 in, Weight - 220 lbs, Temperature - 97.3 f, Pulse - 95 /min, Respiration - 20 /min, O2 Sat - 93 % (low), Pain - 4, Fatigue - 5 and BP - 117/ 59 mm(hg)(/low). Physical Exam: On exam his neck is supple without palpable masses. Skin is without changes Imaging: Radiation therapy imaging related to accurate target localization (i.e. KV, MV and CBCT) was reviewed. Appropriate changes, if any, were made to ensure treatment accuracy. Plan: Will continue with his treatments as planned. He will have wound care tomorrow. I have asked him to continue to come every day until we are finished with his treatment. Signed by: Dr. Adriana Santamaria 09/19/2023 3:09:39 PM
[2023-09-25] MEDS: sodium chloride 0.9% 1,000 ML 999 ML IV (16:32)
[2023-09-25 16:41] LABS: Basophils % 0.3 %; Eosinophils # 0.2 10^3/uL (0.0-0.8); Eosinophils % 1.6 %; Hematocrit 46.4 % (37-53); Lymphocytes # 1.3 10^3/uL (0.8-4.8); Lymphocytes % 14.4 %; Mean Corpuscular HGB Conc 33.4 g/dL (30-55); Mean Corpuscular Hemoglobin 31.6 pg (27-33); Mean Corpuscular Volume 94.5 fl (82-101); Mean Platelet Volume 9.8 fL (7.4-10.4); Monocytes # 0.9 10^3/uL (0.2-0.9); Monocytes % 9.7 %; Neutrophils # 6.83 10^3/uL (1.8-7.7); Neutrophils % 73.6 %; Nucleated Red Blood Cells % 0 %; Platelet Count 320 10^3/cmm (157-399); Red Blood Count 4.91 10^6/uL (3.85-5.65); Red Cell Distribution Width 13.2 % (12.1-15.1); White Blood Count 9.29 10^3/uL (3.29-11.43)
[2023-09-25 17:03] LABS: Alanine Aminotransferase 13 U/L (0-41); Albumin Level 3.7 g/dL (3.5-5.2); Alkaline Phosphatase 101 U/L (40-130); Anion Gap 13.7 (5-19); Aspartate Amino Transferase 15 U/L (0-40); Blood Urea Nitrogen 11 mg/dL (8-23); Calcium 8.9 mg/dL (8.5-10.5); Carbon Dioxide 32 mmol/L (22-29); Chloride 92 mmol/L (98-107); Globulin 4.5 g/dL (1.3-4.6); Glomerular Filtration Rate 113.2 mL/min (90-130); Glucose 130 mg/dL (65-115); Osmolality Calculated 279 mOsm/kg (285-295); Potassium 3.7 mmol/L (3.5-5.1); Sodium 134 mmol/L (136-145); Total Bilirubin 0.2 mg/dL (0.15-1.2); Total Protein 8.2 g/dL (6.6-8.7)
[2023-09-25 17:18] VITALS: BP 129/71; PULSE 88; O2SAT 95
--- NOTE | 2023-09-26 15:54 | ONCRAD TMN_ITS ---
Radiation Oncology Weekly Treatment Management Patient: Nakul Kimbrough> MR#: [id number] : 1960> Attending Physician: Dr. Adriana Santamaria Date of Service: 09/25/2023 Fractions: 8 out of 35 Referring Physician(s) : Justin Mcfarland Diagnosis: C32.9 - Malignant neoplasm of larynx, unspecified, Diagnosed 05/24/2023 (Active) Radiotherapy to date: Course: Head Neck 23n24, Treatment Site: HN 70/63/56Gy, Ref. ID: [id number], Energy: 6X, Dose/Fx (cGy): 200, #Fx: 8 / 35, Dose Correction (cGy): 0, Total Dose Delivered (cGy): 1,600, Start Date: 08/22/2023, Elapsed Days: 34 Reason for visit: The patient is being seen today as part of their regularly scheduled weekly on treatment visits to assess for acute toxicities from radiotherapy. Review of Systems: Patient continues to have a sore throat. He is also feeling quite weak today. His blood pressure was low with 2 different readings. The best was 82/44. He has not been eating or drinking much at all. He is still having quite a bit of pain in the area of his decubitus ulcers. Vital Signs: Performed on 09/25/2023 3:38 PM BMI - 34.457 kg/m2 (high), Height - 67 in, Weight - 220 lbs, Temperature - 97.2 f, Pulse - 82 /min, Respiration - 18 /min, O2 Sat - 98 %, Pain - 7, Fatigue - 0 and BP - 82/ 44 mm(hg)(low). Physical Exam: On exam today he is quite pale and ashen in color. His skin is without changes in the radiated field. Imaging: Radiation therapy imaging related to accurate target localization (i.e. KV, MV and CBCT) was reviewed. Appropriate changes, if any, were made to ensure treatment accuracy. Plan: Secondary to has not eating or drinking very well and the fact that his blood pressure is low and his color is poor I have asked him to stay and get a liter of fluid to see if this will help him feel better. I will also order CBC and CHEM panel. Will otherwise try and continue with his treatments tomorrow. Signed by: Dr. Adriana Santamaria 09/26/2023 8:00:42 AM
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
[2023-10-02] MEDS: sodium chloride 0.9% 1,000 ML 999 ML IV (16:00)
[2023-10-02 16:55] VITALS: BP 103/67; PULSE 66; RESP 16; TEMP 36.2; O2SAT 97
== END 2023-10-05 23:59 | disposition home or self-care (01) ==
PROVIDERS: Radiology Radiation Oncology; PCP Nurse Practitioner Family; Referring Provider Otolaryngology; Visit Provider Radiology Radiation Oncology
DX: Z51.0 Encounter for antineoplastic radiation therapy (principal); C32.1 Malignant neoplasm of supraglottis
CPT/HCPCS: 77336; 77386; 80053; 85025; 96360; 97597; 97598; 99024; A6219; J7030

== ENCOUNTER 2023-10-11 14:02 | Oncology outpatient (recurring) (ONCR) | payer MEDICARE, MEDICAID, SELFPAY ==
--- NOTE | 2023-10-09 15:26 | ONCRAD TMN_ITS ---
Radiation Oncology Weekly Treatment Management Patient: Luis E Mota MR#: [id number] : 1960 Attending Physician: Dr. Adriana Santamaria Date of Service: 10/09/2023 Fractions: 16 out of 35 Referring Physician(s) : Justin Mcfarland M.D. Diagnosis: C32.9 - Malignant neoplasm of larynx, unspecified, Diagnosed 05/24/2023 (Active) Radiotherapy to date: Course: Head Neck 23n24, Treatment Site: HN 70/63/56Gy, Ref. ID: [id number], Energy: 6X, Dose/Fx (cGy): 200, #Fx: 16 / 35, Dose Correction (cGy): 0, Total Dose Delivered (cGy): 3,200, Start Date: 08/22/2023, Elapsed Days: 48 Reason for visit: The patient is being seen today as part of their regularly scheduled weekly on treatment visits to assess for acute toxicities from radiotherapy. Review of Systems: Patient continues to have a sore throat although it is a little bit better today. Vital Signs: Performed on 10/09/2023 2:53 PM BMI - 27.409 kg/m2 (high), Height - 67 in, Weight - 175 lbs, Temperature - 98 f, Pulse - 82 /min, Respiration - 16 /min, O2 Sat - 96 %, Pain - 4, Fatigue - 6 and BP - 83/ 61 mm(hg)(low). Physical Exam: On examination his skin has become hyperpigmented and he has 2 areas that have peeled off and are dry. He has no real complaints in regards to his skin. Imaging: Radiation therapy imaging related to accurate target localization (i.e. KV, MV and CBCT) was reviewed. Appropriate changes, if any, were made to ensure treatment accuracy. Plan: Will continue with his treatments as planned. He did have questions about an x-ray of his foot and according to the computer he was supposed to have an ultrasound of his lower extremity at noon today. I have asked him to call Dr. Jenkins and let him know that he missed that appointment. Signed by: Dr. Adriana Santamaria 10/09/2023 3:25:22 PM
== END 2023-10-11 23:59 | disposition home or self-care (01) ==
PROVIDERS: PCP Nurse Practitioner Family; Referring Provider Otolaryngology; Visit Provider Radiology Radiation Oncology
DX: Z51.0 Encounter for antineoplastic radiation therapy (principal); C32.1 Malignant neoplasm of supraglottis
CPT/HCPCS: 77336; 77386; 97597; 99024

== ENCOUNTER 2023-10-14 18:25 | Emergency (ER) | payer MEDICARE, MEDICAID, SELFPAY ==
[2023-10-14 18:34] VITALS: BP 113/70; PULSE 92; RESP 16; TEMP 37.4; O2SAT 95; BMI 27.3
--- NOTE | 2023-10-14 18:46 | USR_ITS ---
PROCEDURE INFORMATION: Exam: US Duplex Right Lower Extremity Arteries Or Arterial Bypass Grafts Exam date and time: 10/14/2023 6:04 PM Age: 63 years old Clinical indication: Other: Ulcer TECHNIQUE: Imaging protocol: Right Real-time duplex scan of the arteries or arterial bypass grafts of the right lower extremity with 2-D singh scale, color Doppler flow and spectral waveform analysis. Images documented and saved. COMPARISON: US [id number] [id number] 04/06/2020 12:54 PM FINDINGS: Right common femoral artery: Monophasic waveform. No systolic velocity elevation is seen to indicate hemodynamically significant stenosis. No occlusion. Right superficial femoral artery: Monophasic waveform. No systolic velocity elevation is seen to indicate hemodynamically significant stenosis. No occlusion. Right popliteal artery: Monophasic waveform. No systolic velocity elevation is seen to indicate hemodynamically significant stenosis. No occlusion. Decreased systolic velocity or flow otherwise. Right calf/foot arteries: Monophasic arterial waveform noted within the posterior tibial and dorsalis pedis arteries. No systolic velocity elevation is seen to indicate hemodynamically significant stenosis. No occlusion. Decreased systolic velocity or flow posterior tibial artery. Soft tissues: No hematoma or collection. Other findings: JEAN CARLOS on the right is 0.53. US/[place] [id number] IMPRESSION: 1. JEAN CARLOS on the right of 0.53 suggesting severe runoff disease. 2. Diffuse abnormal monophasic waveforms throughout the right lower extremity also suggesting significant or severe runoff disease. 3. No systolic velocity elevation to indicate hemodynamically significant focal stenosis within the femoral or popliteal arteries. No occlusion.
--- NOTE | 2023-10-14 18:46 | XRR_ITS ---
PROCEDURE INFORMATION: Exam: XR Chest Exam date and time: 10/14/2023 7:18 PM Age: 63 years old Clinical indication: Shortness of breath; Patient HX: SOB; Low BP; Ulcerative wounds to buttocks/lower extremities; HX throat cancer TECHNIQUE: Imaging protocol: Radiologic exam of the chest. Views: 1 view. COMPARISON: CR (CHEST, ) 06/05/2023 9:21 PM FINDINGS: Lungs: Hyperinflation without focal infiltrate or consolidation. A few small benign calcified granulomas again noted. Pleural spaces: No pleural effusion or pneumothorax. Heart/Mediastinum: Unremarkable. No cardiomegaly. Bones/joints: Visualized osseous structures show no acute abnormality. Postsurgical hardware lower cervical spine. XR/XR chest 1V portable [id number] IMPRESSION: Hyperinflation, as noted with prior exam. No acute findings.
--- NOTE | 2023-10-14 18:48 | ED_ITS ---
HPI - Wound/Laceration 2 General: Chief Complaint: Wound/Laceration Stated Complaint: sob bp low pressure ulcers on bottom Time Seen by Provider: 10/14/23 18:39 Source: patient Mode of arrival: ambulatory Limitations: no limitations History of Present Illness: 63-year-old male history of COPD is also had history of pressure ulcers to his buttocks and right great toe he states that over the last 2 to 3 days he has been having some shortness of breath he states he is also had low blood pressures at home his blood pressure here is 130/81. He has had a low-grade fever. He denies any fevers at home patient does see wound care but has missed appointments. He is on any antibiotics currently. Associated symptoms: Reports fever(s); Denies chills, nausea or vomiting Review of Systems 2 Const: Reports: fever(s); Denies: chills ENMT: Denies: throat pain or dental pain Card: Denies: chest pain Resp: Reports: dyspnea GI: Denies: abdominal pain, nausea, vomiting or diarrhea Musc: Reports: extremity pain; Denies: neck pain or back pain Skin/Breast: Denies: rash Neuro: Denies: headache(s) PFSH ED 2 PFSH: Medical History Malignant neoplasm of supraglottis Cancer, epiglottis Gluteal pain COPD exacerbation Supraglottic lesion Epiglottic lesion Laryngeal cancer Leg swelling Asthma exacerbation in COPD Pressure ulcer Chronic hypertrophic rhinitis COVID-19 Malar rash Acute non-recurrent pansinusitis Orchitis and epididymitis Hypokalemia Urethral stricture Osteomyelitis Foot osteomyelitis with cellulitis treated with vancomycin GERD (gastroesophageal reflux disease) Obstructive sleep apnea COPD (chronic obstructive pulmonary disease) Cervical vertebral fusion Myocardial infarction Status post stent placement Foot drop Heart failure with preserved ejection fraction Lymphedema Dyslipidemia Hypertension Surgical History S/P cystourethroscopy with dilation of urethral stricture Previous back surgery H/O cardiac catheterization H/O shoulder surgery Family History Other Hypertension Social History Smoking and tobacco/nicotine status: current every day tobacco/nicotine user Quit status (tobacco/nicotine): has quit using Year quit tobacco: 2020 - 1.5 PPD x 40 Years Second hand smoke exposure: No Alcohol intake: current Alcohol intake frequency: holidays/special occasions only Substance/Drug Use: never Caregiver/support person: Yes Lives independently: Yes Household members: spouse Housing: House Marital status: Current occupational status: disabled Do you think of yourself as: Straight/Heterosexual Current gender identity: Male Physical Exam 2 Const: COMMON NORMALS: no acute distress, patient oriented x3 and healthy appearing HENMT: COMMON NORMALS: normocephalic and atraumatic HEAD & SCALP: n ormocephalic and atraumatic Neck/C-Spine: COMMON NORMALS: full ROM and supple Chest: COMMONS NORMALS: normal inspection of the chest Resp: COMMON NORMALS: normal respiratory effort, No retractions, No use of accessory muscles and clear to auscultation bilaterally AUSCULTATION: clear to auscultation bilaterally Cardio: COMMON NORMALS: regular rate, regular rhythm and No murmurs present (Cardio) RATE: regular rate RHYTHM: regular rhythm GI: COMMON NORMALS: Normal to inspection, nondistended, normoactive bowel sounds present, Soft to palpation, non-tender and no masses PALPATION: Yes Soft to palpation Extremity: COMMON NORMALS: negative for normal to inspection NARRATIVE EXTREMITY EXAM: Got a ulcer to right great toe Neuro: COMMON NORMALS: patient oriented x3, moves all extremities and no focal motor deficits Psych: COMMON NORMALS: mental status grossly normal, Normal thought process present and cooperative THOUGHT PROCESS: Normal thought process present Skin: NARRATIVE SKIN EXAM: Decub ulcers to buttocks Course 2 Vital Signs: Vital signs: Vital Signs Temperature 99.3 F 10/14/23 18:34 Pulse Rate 92 10/14/23 18:34 Respiratory Rate 16 10/14/23 18:34 Blood Pressure 113/70 10/14/23 18:34 Pulse Oximetry 95 10/14/23 18:34 Oxygen Delivery Me thod Room Air 10/14/23 18:34 MDM - Wound/Laceration Medical Decision Making Patient presents here does have a ulcer to his right foot no severe cellulitis he had a low-grade fever we will start him on Bactrim he has no foul-smelling no signs of osteo his white count here is normal did get an ultrasound he does have peripheral vascular disease no acute leg occlusion or signs of ischemia currently on he has follow-up with the livestock producer on Sunday and is to follow-up as scheduled return if worsening. Medical Records I reviewed the patient's medical records. Lab Data I reviewed the patient's lab results. 10/14/23 18:50 10/14/23 18:50 Radiology Impressions Chest X-Ray 10/14/23 18:46 IMPRESSION: Hyperinflation, as noted with prior exam. No acute findings. Duplex Scan Lower Extremity Artery 10/14/23 18:46 IMPRESSION: 1. JEAN CARLOS on the right of 0.53 suggesting severe runoff disease. 2. Diffuse abnormal monophasic waveforms throughout the right lower extremity also suggesting significant or severe runoff disease. 3. No systolic velocity elevation to indicate hemodynamically significant focal stenosis within the femoral or popliteal arteries. No occlusion. Laboratory Results WBC 7.78 10^3/uL (3.29-11.43) 10/14/23 18:50 RBC 4.62 10^6/uL (3.85-5.65) 10/14/23 18:50 Hgb 14.50 g/dL (11.27-16.99) 10/14/23 18:50 Hct 43.2 % (37-53) 10/14/23 18:50 MCV 93.5 fl (82-101) 10/14/23 18:50 MCH 31.4 pg (27-33) 10/14/23 18:50 MCHC 33.6 g/dL (30-55) 10/14/23 18:50 RDW 12.8 % (12.1-15.1) 10/14/23 18:50 Plt Count 299 10^3/cmm (157-399) 10/14/23 18:50 MPV 9.7 fL (7.4-10.4) 10/14/23 18:50 Neut % (Auto) 77.1 % 10/14/23 18:50 Lymph % (Auto) 9.8 % 10/14/23 18:50 [place] % (Auto) 10.2 % 10/14/23 18:50 Eos % (Auto) 2.1 % 10/14/23 18:50 Baso % (Auto) 0.5 % 10/14/23 18:50 Neut # (Auto) 6.01 10^3/uL (1.8-7.7) 10/14/23 18:50 Lymph # (Auto) 0.8 10^3/uL (0.8-4.8) 10/14/23 18:50 [place] # (Auto) 0.8 10^3/uL (0.2-0.9) 10/14/23 18:50 Eos # (Auto) 0.2 10^3/uL (0.0-0.8) 10/14/23 18:50 Baso # (Auto) 0.0 10^3/uL (0.0-0.1) 10/14/23 18:50 Nucleated RBC % (auto) 0 % 10/14/23 18:50 Nucleated RBCs # 0.0 /100WBC 10/14/23 18:50 PT 12.80 SECONDS (12.1-14.9) 10/14/23 18:50 INR 0.93 (0.8-1.2) 10/14/23 18:50 Sodium 132 mmol/L (136-145) L 10/14/23 18:50 Potassium 3.6 mmol/L (3.5-5.1) 10/14/23 18:50 Chloride 94 mmol/L (98-107) L 10/14/23 18:50 Carbon Dioxide 29 mmol/L (22-29) 10/14/23 18:50 Anion Gap 12.6 (5-19) 10/14/23 18:50 BUN 12 mg/dL (8-23) 10/14/23 18:50 Creatinine 0.6 mg/dL (0.7-1.2) L 10/14/23 18:50 GFR Calculation 135.2 mL/min (90-130) H 10/14/23 18:50 Glucose 158 mg/dL (65-115) H 10/14/23 18:50 Calculated Osmolality 277 mOsm/kg (285-295) L 10/14/23 18:50 Lactic Acid 2.2 mmol/L (0.5-2.2) 10/14/23 18:50 Calcium 8.6 mg/dL (8.5-10.5) 10/14/23 18:50 Total Bilirubin 0.2 mg/dL (0.15-1.2) 10/14/23 18:50 AST 16 U/L (0-40) 10/14/23 18:50 ALT 13 U/L (0-41) 10/14/23 18:50 Alkaline Phosphatase 98 U/L (40-130) 10/14/23 18:50 NT-Pro-B Natriuret Pep 150 pg/mL (0-125) H 10/14/23 18:50 Total Protein 7.4 g/dL (6.6-8.7) 10/14/23 18:50 Albumin 3.2 g/dL (3.5-5.2) L 10/14/23 18:50 Globulin 4.2 g/dL (1.3-4.6) 10/14/23 18:50 XR interpretation done by ED provider, pending radiology final review EKG Data EKG 1: I personally reviewed and interpreted this EKG as follows: EKG interpretation date: 10/14/23 EKG interpretation time: 18:55 Interpretation: nsr hr [address] elevation qrs 159 qtc 453 Discharge Plan Discharge Patient Disposition: Home Clinical Impression: Pressure ulcer of sacral region, stage 3, Right foot ulcer Condition: Stable Prescriptions: New Bactrim DS 800-160 mg tablet 1 tab PO BID 10 Days Qty: 20 0RF No Action budesonide 0.5 mg/2 mL suspension for nebulization 0.5 mg INHALATION BID Qty: 60 3RF ipratropium-albuterol 0.5 mg-3 mg(2.5 mg base)/3 mL solution for nebulization 3 ml INHALATION Q4H PRN (Reason: wheezing) Qty: 90 3RF budesonide [Rhinocort Allergy] 32 mcg/actuation spray,non-aerosol 2 spray intranasal BID Qty: 8.43 0RF Rx Instructions: administer into each nostril failed flonase turmeric 400 mg capsule PO coenzyme Q10 [CoQ-10] 100 mg capsule 100 mg PO DAILY berberine-herbal comb no.18 Capsule PO HurriCaine 20 % aerosol,spray 1 applic mucous membrane TID PRN (Reason: mouth irritation) Qty: 57 3RF diclofenac sodium 75 mg tablet,delayed release (DR/EC) 75 mg PO BID PRN (Reason: pain) Qty: 180 1RF sodium chloride 0.9 % solution 1 irrig irrigation DAILY Qty: 500 3RF Rx Instructions: dampen gauze twice daily for wet to dry dressing changes as instructed. lidocaine HCl [Lidocaine Viscous] 2 % solution 1 applic mucous membrane QID PRN (Reason: mouth pain) 30 Days Qty: 300 0RF gabapentin 300 mg capsule 300 mg PO BID MDD 900 Qty: 60 0RF furosemide 40 mg Tablet 60 mg PO BID aspirin 81 mg Tablet,Delayed Release (Dr/Ec) 81 mg PO DAILY tramadol 50 mg Tablet 50 mg PO BID PRN (Reason: Pain) albuterol sulfate 90 mcg/actuation Hfa Aerosol Inhaler 2 puff inhalation Q4H.RESPIRATORY PRN (Reason: Shortness Of Breath) Qty: 1 0RF enalapril maleate 2.5 mg tablet 2.5 mg PO DAILY Pepcid 20 mg tablet 20 mg PO BID Qty: 30 5RF Rx Instructions: due to skilled nursing steroid use Discharge Orders: Discharge ED (Routine); Ordered 10/14/23 Ordered By: Shila Babin Referrals: Javier Trinidad DPM [Physician] - 1-3 days Anam Jenkins FNP [Primary Care Provider] - Discharge Diet: Advance as tolerated Discharge Activity: Resume usual activity Patient Instructions: Chronic Wounds (ED), Decubitus Ulcers Coding Level of Care Code ED Culinary Assistant for 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
--- NOTE | 2023-10-14 18:55 | ECG_ITS ---
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 Measurements Intervals [place] Rate: 66 P: 69 RI: 172 QRS: -77 QRSD: 159 T: 83 QT: 440 QTc: 462 Interpretive Statements SINUS RHYTHM LEFT AXIS DEVIATION [QRS AXIS < -30] INTRAVENTRICULAR CONDUCTION DELAY [130+ ms QRS DURATION] Compared to ECG 05/08/2023 12:59:08 Left-axis deviation now present Intraventricular conduction delay now present Right bundle-branch block no longer present Left anterior fascicular block no longer present Myocardial infarct finding no longer present Electronically Signed On 10-15-2023 8:47:38 [employer]ITY [employer] SALES REPRESENTATIVE by Jason Rivera M.D. [id number]
[2023-10-14 19:00] LABS: Basophils % 0.5 %; Eosinophils # 0.2 10^3/uL (0.0-0.8); Eosinophils % 2.1 %; Hematocrit 43.2 % (37-53); Lymphocytes # 0.8 10^3/uL (0.8-4.8); Lymphocytes % 9.8 %; Mean Corpuscular HGB Conc 33.6 g/dL (30-55); Mean Corpuscular Hemoglobin 31.4 pg (27-33); Mean Corpuscular Volume 93.5 fl (82-101); Mean Platelet Volume 9.7 fL (7.4-10.4); Monocytes # 0.8 10^3/uL (0.2-0.9); Monocytes % 10.2 %; Neutrophils # 6.01 10^3/uL (1.8-7.7); Neutrophils % 77.1 %; Nucleated Red Blood Cells % 0 %; Platelet Count 299 10^3/cmm (157-399); Red Blood Count 4.62 10^6/uL (3.85-5.65); Red Cell Distribution Width 12.8 % (12.1-15.1); White Blood Count 7.78 10^3/uL (3.29-11.43)
[2023-10-14 19:21] LABS: INR 0.93 (0.8-1.2)
[2023-10-14 19:28] LABS: Lactic Sepsis W/Reflex 2.2 mmol/L (0.5-2.2)
[2023-10-14 19:39] LABS: Alanine Aminotransferase 13 U/L (0-41); Albumin Level 3.2 g/dL (3.5-5.2); Alkaline Phosphatase 98 U/L (40-130); Anion Gap 12.6 (5-19); Aspartate Amino Transferase 16 U/L (0-40); Blood Urea Nitrogen 12 mg/dL (8-23); Calcium 8.6 mg/dL (8.5-10.5); Carbon Dioxide 29 mmol/L (22-29); Chloride 94 mmol/L (98-107); Creatinine Clr Calc Pharmacy 92.9839; Globulin 4.2 g/dL (1.3-4.6); Glomerular Filtration Rate 135.2 mL/min (90-130); Glucose 158 mg/dL (65-115); NT Pro B Type Natriuretic Pept 150 pg/mL (0-125); Osmolality Calculated 277 mOsm/kg (285-295); Potassium 3.6 mmol/L (3.5-5.1); Sodium 132 mmol/L (136-145); Total Bilirubin 0.2 mg/dL (0.15-1.2); Total Protein 7.4 g/dL (6.6-8.7)
[2023-10-14 20:45] LABS: Reflex Lactate Order REFLEX LACTIC ORDERD
[2023-10-14 21:11] VITALS: BP 113/70; PULSE 92; RESP 16; TEMP 37.4; O2SAT 95
[2023-10-14] MEDS: sulfamethoxazole-trimeth DS 160-800 mg Tablet 1 TAB PO (21:28)
== END 2023-10-14 21:28 | disposition home or self-care (01) ==
PROVIDERS: Emergency Provider Emergency Medicine; PCP Nurse Practitioner Family
DX: L89.153 Pressure ulcer of sacral region, stage 3 (principal); L97.519 Non-pressure chronic ulcer of other part of right foot with unspecified severity; I73.9 Peripheral vascular disease, unspecified; Z79.82 Long term (current) use of aspirin; Z72.0 Tobacco use; Z85.21 Personal history of malignant neoplasm of larynx; J44.9 Chronic obstructive pulmonary disease, unspecified; I25.2 Old myocardial infarction; E78.5 Hyperlipidemia, unspecified; I10 Essential (primary) hypertension
CPT/HCPCS: 36415; 71045; 80053; 83605; 83880; 85025; 85610; 87040; 93005; 93926; 99285

== ENCOUNTER 2023-10-29 09:37 | Outpatient (CLI) | payer MEDICARE, MEDICAID, SELFPAY ==
--- NOTE | 2023-10-29 10:00 | CT_ITS ---
WS: [id number] CT ANGIOGRAPHY OF THE ABDOMINAL AORTA WITH RUNOFF TO THE ANKLES HISTORY: PAD, ischemic ulcer TECHNIQUE: Arterial injection is performed during imaging to evaluate the aorta and runoff vessels to the ankles. MIP and volume rendering imaging has also been performed. All images are reviewed. All C T scans at [facility] use at least one of these dose optimization techniques: automated exposu re control; mA and/or kV adjustment per patient size (includes targeted exams where dose is matched t o clinical indication); or iterative reconstruction. Contrast: Omnipaque 350; 100 mL IV. DLP: 1532.23 mGy.cm COMPARISON: None available. Abdominal aorta: Mild atherosclerotic plaque. Increasing plaque towards the bifurcation. Mildly ectat ic aorta. Not aneurysmal. Normal celiac axis and SMA. Normal renal arteries. ERMA is patent. RIGHT lower extremity arterial evaluation: High-grade stenosis origin RIGHT common iliac artery. Calc ified plaque and thrombus. Slight post stenotic dilatation. Plaque continues into the internal and ex ternal iliac arteries. Femoral artery and the deep profunda are intact. Superficial femoral artery wi th increasing plaque through Asher's canal. There is a focal occlusion distal Asher's canal near th e popliteal artery with reconstitution in the mid popliteal artery. Small caliber three-vessel runoff to the ankle. Very small and intermittently visualized peroneal artery. LEFT lower extremity arterial evaluation: LEFT common iliac artery, internal and external iliac arter ies demonstrate mild atherosclerosis but no high-grade stenosis. Femoral artery, profunda and SFA are patent. 50% stenosis proximal SFA. 50% stenosis in the distal SFA. Small caliber three-vessel runoff to the ankle. Intermittently visualized peroneal artery. Lung bases are clear. Benign calcified granuloma or RIGHT lung base. Small hiatal hernia. Liver and s pleen are negative. Gallbladder is negative. Mild LEFT adrenal hyperplasia. No mass. Normal pancreas. RIGHT renal cyst. No renal obstruction. No solid mass. No GI tract obstruction. No ascites. No adeno massiel. Mild diastases rectus. William catheter present in a nondistended urinary bladder. IMPRESSION: 1. Very high-grade stenosis involving the origin of the RIGHT common iliac artery. 2. Complete occlusion distal RIGHT SFA with reconstitution in the popliteal artery. 3. Small caliber three-vessel runoff to the ankles. The peroneal arteries are poorly visualized in t he mid to distal lower extremities. 4. LEFT SFA multifocal stenoses near 50%.
[2023-10-29] MEDS: iohexol 350 mg/mL 500 mL Btl (per mL) IV (10:33)
== END 2023-10-29 09:38 | disposition home or self-care (01) ==
LOC: RAD 09:37
PROVIDERS: PCP Nurse Practitioner Family; Visit Provider Podiatrist Foot & Ankle Surgery
DX: I70.203 Unspecified atherosclerosis of native arteries of extremities, bilateral legs (principal); I70.92 Chronic total occlusion of artery of the extremities; L98.499 Non-pressure chronic ulcer of skin of other sites with unspecified severity
CPT/HCPCS: 75635; Q9967

== ENCOUNTER 2023-11-08 13:35 | Oncology outpatient (recurring) (ONCR) | payer MEDICARE, MEDICAID, SELFPAY ==
--- NOTE | 2023-10-16 13:36 | ONCRAD TMN_ITS ---
Radiation Oncology Weekly Treatment Management Patient: Nakul Kimbrough> MR#: [id number] : 1960> Attending Physician: Dr. Adriana Santamaria Date of Service: 10/16/2023 Fractions: 20 out of 35 Referring Physician(s) : Justin Mcfarland Diagnosis: C32.9 - Malignant neoplasm of larynx, unspecified, Diagnosed 05/24/2023 (Active) Radiotherapy to date: Course: Head Neck 23n24, Treatment Site: HN 70/63/56Gy, Ref. ID: [id number], Energy: 6X, Dose/Fx (cGy): 200, #Fx: 20 / 35, Dose Correction (cGy): 0, Total Dose Delivered (cGy): 4,000, Start Date: 08/22/2023, Elapsed Days: 55 Reason for visit: The patient is being seen today as part of their regularly scheduled weekly on treatment visits to assess for acute toxicities from radiotherapy. Review of Systems: Patient is doing fairly well today. His throat is still sore. His skin is becoming a little more irritated. He did undergo evaluation today and he will be getting additional studies done for vascular work on his lower extremities Vital Signs: Performed on 10/16/2023 12:44 PM BMI - 27.409 kg/m2 (high), Height - 67 in, Weight - 175 lbs, Temperature - 97.3 f, Pulse - 74 /min, Respiration - 18 /min, O2 Sat - 90 % (low), Pain - 7, Fatigue - 0 and BP - 97/ 58 mm(hg)(/low). Physical Exam: On examination the skin is dry and hyperpigmented areas. He has several small areas that are less than 2 mm in size that have dried and peeled Imaging: Radiation therapy imaging related to accurate target localization (i.e. KV, MV and CBCT) was reviewed. Appropriate changes, if any, were made to ensure treatment accuracy. Plan: At this time of asked him to use cortisone cream during the day and his triple antibiotic ointment at night or he will even try coconut oil. Signed by: Dr. Adriana Santamaria 10/16/2023 1:33:54 PM
--- NOTE | 2023-10-23 12:25 | ONCRAD TMN_ITS ---
Radiation Oncology Weekly Treatment Management Patient: Luis E Mota MR#: [id number] : 1960 Attending Physician: Edy Lindsay Date of Service: 10/23/2023 Referring Physician(s) : Justin Mcfarland Diagnosis: C32.9 - Malignant neoplasm of larynx, unspecified, Diagnosed 05/24/2023 (Active) Radiotherapy to date: Course: Head Neck 23n24, Treatment Site: HN 70/63/56Gy, Ref. ID: [id number], Energy: 6X, Dose/Fx (cGy): 200, #Fx: 23 / 35, Dose Correction (cGy): 0, Total Dose Delivered (cGy): 4,600, Start Date: 08/22/2023, Elapsed Days: 62 Reason for visit: The patient is being seen today as part of their regularly scheduled weekly on treatment visits to assess for acute toxicities from radiotherapy. Review of Systems: Patient has been using Magic mouthwash and reports that his throat is slightly improved. He is using castor oil on the skin of his neck. He reports overall he is sleeping well. He has been receiving wound care to his lower extremities but indicates he has been discharged from the clinic. Vital Signs: Performed on 10/23/2023 11:37 AM BMI - 27.409 kg/m2 (high), Height - 67 in, Weight - 175 lbs, Temperature - 96.5 f, Pulse - 62 /min, Respiration - 18 /min, O2 Sat - 96 %, Pain - 4, Fatigue - 0 and BP - 82/ 36 mm(hg)(low). Physical Exam: Alert and oriented male appearing his stated age. Speech intact. Tongue and uvula midline and mobile. Skin of the neck is intact with erythema but no moist desquamation. He is ambulatory by motorized chair. Imaging: Radiation therapy imaging related to accurate target localization (i.e. KV, MV and CBCT) was reviewed. Appropriate changes, if any, were made to ensure treatment accuracy. Plan: Patient has been instructed to check to see if he has additional refills on his Magic mouth wash. He has been encouraged to continue with his liquid consumption. Plan to continue prescribed treatment. Signed by: Edy Lindsay 10/23/2023 12:25:14 PM
--- NOTE | 2023-10-30 16:28 | ONCRAD TMN_ITS ---
Radiation Oncology Weekly Treatment Management Patient: Luis E Mota MR#: [id number] : 1960 Attending Physician: Jose Radford Date of Service: 10/30/2023 Referring Physician(s) : Justin Mcfarland Diagnosis: C32.9 - Malignant neoplasm of larynx, unspecified, Diagnosed 05/24/2023 (Active) Radiotherapy to date: Course: Head Neck 23n24, Treatment Site: HN 70/63/56Gy, Ref. ID: [id number], Energy: 6X, Dose/Fx (cGy): 200, #Fx: 26 / 35, Dose Correction (cGy): 0, Total Dose Delivered (cGy): 5,200, Start Date: 08/22/2023, Elapsed Days: 69 Reason for visit: The patient is being seen today as part of their regularly scheduled weekly on treatment visits to assess for acute toxicities from radiotherapy. Review of Systems: Swallowing is rough. He uses magic mouthwash. Still smoking 4 cigs a day. No longer going to wound clinic as they were only offering debridement. Now looking forward to stent or surgery to improve peripheral vascular disease which may aid in healing. Vital Signs: Performed on 10/30/2023 1:50 PM BMI - 27.409 kg/m2 (high), Height - 67 in, Weight - 175 lbs, Temperature - 97.0 f, Pulse - 75 /min, Respiration - 16 /min, O2 Sat - 97 %, Pain - 6, Fatigue - 4 and BP - 104/ 61 mm(hg)(/low). Physical Exam: Hoarse voice. Tanning of necks and some erythema without desquamation. Imaging: Radiation therapy imaging related to accurate target localization (i.e. KV, MV and CBCT) was reviewed. Appropriate changes, if any, were made to ensure treatment accuracy. Plan: Signed by: Jose Radford 10/30/2023 4:27:06 PM
[2023-11-07] MEDS: sodium chloride 0.9% 1,000 ML 999 ML IV (15:08)
--- NOTE | 2023-11-07 16:03 | ONCRAD TMN_ITS ---
Radiation Oncology Weekly Treatment Management Patient: Luis E Mota MR#: [id number] : 1960 Attending Physician: Dr. Adriana Santamaria Date of Service: 11/07/2023 Referring Physician(s) : Justin Mcfarland M.D. Diagnosis: C32.9 - Malignant neoplasm of larynx, unspecified, Diagnosed 05/24/2023 (Active) Radiotherapy to date: Course: Head Neck 23n24, Treatment Site: HN 70/63/56Gy, Ref. ID: [id number], Energy: 6X, Dose/Fx (cGy): 200, #Fx: 30 / 35, Dose Correction (cGy): 0, Total Dose Delivered (cGy): 6,000, Start Date: 08/22/2023, Elapsed Days: 77 Reason for visit: The patient is being seen today as part of their regularly scheduled weekly on treatment visits to assess for acute toxicities from radiotherapy. Review of Systems: Patient has continued to have dryness of his skin. He has several areas of scabbed over and peeled. On oral examination he has severe mucositis across his soft palate and tonsillar areas. Vital Signs: Performed on 11/07/2023 3:45 PM BMI - 25.999 kg/m2 (high), Height - 67 in, Weight - 166 lbs, Temperature - 97.1 f, Pulse - 61 /min, Respiration - 16 /min, O2 Sat - 97 %, Pain - 4, Fatigue - 7 and BP - 79/ 50 mm(hg)(low). Physical Exam: He seems weaker today. He is slouching in his wheelchair. 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 His skin tense over his hand when he is pinched. Imaging: Radiation therapy imaging related to accurate target localization (i.e. KV, MV and CBCT) was reviewed. Appropriate changes, if any, were made to ensure treatment accuracy. Plan: He has agreed to have a liter of fluid today. We only have 4 more days of treatment. Will need to support him through the next week with additional IV fluid. Signed by: Dr. Adriana Santamaria 11/07/2023 4:01:54 PM
[2023-11-07 16:52] VITALS: BP 100/54; PULSE 71; RESP 16; TEMP 36.8; O2SAT 95
== END 2023-11-08 23:59 | disposition home or self-care (01) ==
PROVIDERS: PCP Nurse Practitioner Family; Referring Provider Otolaryngology; Visit Provider Radiology Radiation Oncology
DX: Z51.0 Encounter for antineoplastic radiation therapy (principal); C32.1 Malignant neoplasm of supraglottis; E11.621 Type 2 diabetes mellitus with foot ulcer; L97.512 Non-pressure chronic ulcer of other part of right foot with fat layer exposed; I73.9 Peripheral vascular disease, unspecified
CPT/HCPCS: 77336; 77386; 96360; 97597; 99024; 99203; 99213; A6219; A6446; J7030

== ENCOUNTER 2023-11-15 13:50 | Oncology outpatient (recurring) (ONCR) | payer MEDICARE, MEDICAID, SELFPAY ==
--- NOTE | 2023-11-13 14:52 | ONCRAD TMN_ITS ---
Radiation Oncology Weekly Treatment Management Patient: Luis E Mota MR#: [id number] : 1960 Attending Physician: Dr. 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 ID: [id number], Energy: 6X, Dose/Fx (cGy): 200, #Fx: 33 / 35, Dose Correction (cGy): 0, Total Dose Delivered (cGy): 6,600, Start Date: 08/22/2023, Elapsed Days: 83 Reason for visit: The patient is being seen today as part of their regularly scheduled weekly on treatment visits to assess for acute toxicities from radiotherapy. Review of Systems: Patient continues to have a sore throat but he is actually been able to eat soft foods Vital Signs: Performed on 11/13/2023 2:21 PM BMI - 25.999 kg/m2 (high), Height - 67 in, Weight - 166 lbs, Temperature - 96.2 f, Pulse - 65 /min, Respiration - 16 /min, O2 Sat - 96 %, Pain - 6, Fatigue - 8 and BP - 71/ 40 mm(hg)(low). Physical Exam: His skin is very dry and hyperpigmented. Oral cavity reveals mucositis throughout Imaging: Radiation therapy imaging related to accurate target localization (i.e. KV, MV and CBCT) was reviewed. Appropriate changes, if any, were made to ensure treatment accuracy. Plan: Will continue with his treatments. He only has 2 treatments remaining. At that point we will have him come back for at least a month or 2 so that he can continue to heal. Will plan for a PET scan in 12 weeks. Signed by: Dr. Adriana Santamaria 11/13/2023 2:51:03 PM
--- NOTE | 2023-11-20 08:36 | N.ONRD TS_ITS ---
Radiation Oncology Treatment Summary Patient: Luis E Mota MR#: [id number] : 1960 Age: 63 Sex: Male Dictated by: Dr. Adriana Santamaria Date of Service: 11/15/2023 Referring Physician(s) : Justin Mcfarland Diagnosis: C32.9 - Malignant neoplasm of larynx, unspecified, Diagnosed 05/24/2023 (Active) Radiotherapy to Date: Course: Head Neck 23n24, Treatment Site: HN 70/63/56Gy, Ref. ID: [id number], Energy: 6X, Dose/Fx (cGy): 200, #Fx: 35 / 35, Dose Correction (cGy): 0, Total Dose Delivered (cGy): 7,000, Start Date: 08/22/2023, End Date: 11/15/2023, Elapsed Days: 85 Clinical Summary: Patient was able to complete his radiation therapy. His treatment was very protracted with multiple breaks. All of the breaks were due to his other comorbidities. He was dealing with a nonhealing ulcer on his foot during the whole course of his treatment. He essentially had 35 treatments over a total elapsed days of 85. He experienced the normal toxicity with hyperpigmentation and dryness of his skin. He developed mucositis across his palate. The adenopathy in his neck decreased during the course of his treatment. He was told many times during his treatment that he needed to come on a regular basis. Plan: End of treatment today. Continue on the above medication until the skin reaction resolves. Follow up in one month. Signed by: Dr. Adriana Santamaria>11/20/2023 8:34:56 AM <<Signature on File>>
== END 2023-12-11 23:59 | disposition home or self-care (01) ==
PROVIDERS: PCP Nurse Practitioner Family; Referring Provider Otolaryngology; Visit Provider Radiology Radiation Oncology
DX: Z51.0 Encounter for antineoplastic radiation therapy (principal); C32.1 Malignant neoplasm of supraglottis
CPT/HCPCS: 77386; 99024; 99213

== ENCOUNTER → 2023-11-27 13:52 | Outpatient (BNVA) | payer MEDICARE, MEDICAID, SELFPAY | PROVIDERS: PCP Nurse Practitioner Family; Visit Provider Podiatrist Foot & Ankle Surgery | DX: I73.9 Peripheral vascular disease, unspecified (principal); L97.512 Non-pressure chronic ulcer of other part of right foot with fat layer exposed | CPT/HCPCS: 99213 ==

== ENCOUNTER 2023-12-20 14:46 | Oncology outpatient (recurring) (ONCR) | payer MEDICARE, MEDICAID, SELFPAY ==
--- NOTE | 2023-12-20 16:01 | ONCRAD EPV_ITS ---
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 Radiotherapy to Date: Course: Head Neck 23n24, Treatment Site: HN 70/63/56Gy, Ref. ID: [id number], Energy: 6X, Dose/Fx (cGy): 200, #Fx: 35 / 35, Dose Correction (cGy): 0, Total Dose Delivered (cGy): 7,000, Start Date: 08/22/2023, End Date: 11/15/2023, Elapsed Days: 85 Current History: He has no throat pain now. With hard swallowing or cough it rises to 5 on 10 scale of throat pain. Hoarseness improved. On same pain meds. Still smoking ??? ppd. He has CV procedure planned for PVD in [place] 12/26/2023. He just had podiatry look at right foot wound which is bandaged. Nothing yet tastes good. No PEG installed. Still has some dizziness fro low BP. 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 Current Medications: Allergies: Current Complaints / Review of Systems: . Vital Signs: Performed on 12/20/2023 2:53 PM BMI - 25.999 kg/m2 (high), Height - 67 in, Weight - 166 lbs, Temperature - 96.7 f, Pulse - 72 /min, Respiration - 16 /min, O2 Sat - 97 %, Pain - 0, Fatigue - 5 and BP - 96/ 52 mm(hg)(/low). Physical Exam: General: Alert and oriented x 3. No acute distress. Voice good. Oral cavity clear. No cervical adenopathy. Atrophic skin changes in both legs , right distal leg bandaged. Performance Status: 2 - 3 Lab: None pending. Pathology: Primary, c32.9 - malignant neoplasm of larynx, unspecified, Diagnosed 05/24/2023 (active) . Impression: Good partial recovery from acute radiation toxicity. Begged him to quit smoking. FU with neck CT in three months. Signed by: 12/20/2023 4:00:51 PM <<Signature on File>> Time spent with patient: CPT Code: CPT Code:
--- NOTE | 2024-01-17 08:33 | ONCRAD EPV_ITS ---
Radiation Oncology Established Patient Visit Patient: Nakul Kimbrough [id number] : 1960> Age: 63> Sex: Male> Dictated by: Dr. Adriana Santamaria Date of Service: 01/16/2024 Referring Physician(s) : Justin Mcfarland Diagnosis: C32.9 - Malignant neoplasm of larynx, unspecified, Diagnosed 05/24/2023 (Active) Radiotherapy to Date: Course: Head Neck 23n24, Treatment Site: HN 70/63/56Gy, Ref. ID: [id number], Energy: 6X, Dose/Fx (cGy): 200, #Fx: 35 / 35, Dose Correction (cGy): 0, Total Dose Delivered (cGy): 7,000, Start Date: 08/22/2023, End Date: 11/15/2023, Elapsed Days: 85 Current History: Patient stopped by today without an appointment. We have scheduled him for a PET scan next week. Both he and I have suspicions that his cancer has returned. Is been 2 months since we completed treatment and his throat is becoming more sore and his lymph node is swelling again. Current Medications: Allergies: Current Complaints / Review of Systems: . Vital Signs: Performed on 01/16/2024 2:39 PM BMI - 27.409 kg/m2 (high), Height - 67 in, Weight - 175 lbs, Temperature - 97.5 f, Pulse - 90 /min, Respiration - 18 /min, O2 Sat - 93 % (low), Pain - 5, Fatigue - 0 and BP - 120/ 72 mm(hg). . Performance Status: 60 Lab: None pending. Pathology: Primary, c32.9 - malignant neoplasm of larynx, unspecified, Diagnosed 05/24/2023 (active) . Imaging: See HPI Impression: Squamous cell carcinoma of the larynx now 2 months out from treatment Plan: We talked at length today about pain management. I will send oxycodone to her pharmacy use we can pick that up on his way out. We talked about how the pain is getting worse when it should be either getting better or gone. We also talked about what options would be left if the PET scan returns is being positive. They are willing to travel to [place] to visit with a ENT surgeon. We also talked about another option would be chemotherapy which she would have to meet with medical oncology again to discuss this if this would be an option. At this point we will get his pain under control get his PET scan and then have him return so we can go over that and if need be refer him to the appropriate physicians. Signed by: 01/17/2024 8:32:04 AM <<Signature on File>> Time spent with patient: 20 CPT Code: CPT Code:
== END 2024-01-11 23:59 | disposition home or self-care (01) ==
PROVIDERS: PCP Nurse Practitioner Family; Referring Provider Otolaryngology; Visit Provider Radiology Radiation Oncology
DX: Z51.89 Encounter for other specified aftercare; I73.9 Peripheral vascular disease, unspecified; L97.512 Non-pressure chronic ulcer of other part of right foot with fat layer exposed; C32.9 Malignant neoplasm of larynx, unspecified; Z92.3 Personal history of irradiation
CPT/HCPCS: 99024; 99213

== ENCOUNTER → 2023-12-31 14:41 | Outpatient (BNVA) | payer MEDICARE, MEDICAID, SELFPAY | PROVIDERS: PCP Nurse Practitioner Family; Visit Provider Podiatrist Foot & Ankle Surgery | DX: Z51.89 Encounter for other specified aftercare; I73.9 Peripheral vascular disease, unspecified; L97.512 Non-pressure chronic ulcer of other part of right foot with fat layer exposed | CPT/HCPCS: 99214 ==

== ENCOUNTER 2024-01-09 10:01 | Day surgery (SDC) | payer MEDICARE, MEDICAID, SELFPAY ==
[2024-01-09] VITALS (12 sets, daily range): BP systolic 77–157; BP diastolic 47–86; PULSE 57–88; RESP 12–20; TEMP 36.7–37.1; O2SAT 92–98; BMI 27.3
--- NOTE | 2024-01-09 10:50 | P.ANESASSM_ITS ---
Pre-Anesthetic Assessment Height/Weight: Height 1.7 m Preop Diagnosis: Gangrene Operation Date: 01/09/24 11:40 Proposed Procedures p Ray Resection Partial Ray Resection/Right partial first ray resection(Right) - Javier Trinidad DPM s Fillet Toe Flap(Right) - Javier Trinidad DPM Familial anesthetic complications: None Was Beta Marely taken within 24 hours: N/A Was Clonidine taken within 24 hours: N/A Last intake: > 8 hrs Social Tobacco and No alcohol Exam alert, oriented x 3, clear to auscultation bilaterally and regular rate & rhythm Airway Mallampati: Class IV Dentition: other (no teeth) Comments: Comments: ENT operative note 06/04 - White appearing lesion with exophytic growth extending from false vocal cord up to near the edge of the AE fold extending from the arytenoid superiorly lesion does not extend to true vocal cord grossly and does not extend to the anterior commissure. It does not cross midline on the epiglottis petiole area. Anesthesia note - Grade 2 airway with MAC 3.5 hx epiglottic cancer now s/p radiation states he was intubated for peripheral vacular procedure in [place] last week and still has sore throat, wasn't told he was difficult to intubate CV/HEM Peripheral Vascular Disease Anesthetic Plan ASA status: 4 Anesthesia: General Risk of > 500 ml blood loss (7ml/kg in children): No Medications/Allergies Home Medications Medication Instructions Recorded Confirmed Last Taken Type aspirin 81 mg tablet,delayed 81 mg PO DAILY 04/06/20 01/09/24 05/23/23 History release furosemide 40 mg tablet 60 mg PO BID 04/06/20 01/08/24 01/08/24 History albuterol sulfate 90 mcg/actuation 2 puff inhalation Q4H.RESPIRATORY 04/07/20 01/09/24 01/09/24 Rx aerosol inhaler PRN Shortness Of Breath #1 g ipratropium 0.5 mg-albuterol 3 mg 3 ml inhalation Q4H PRN wheezing 05/24/20 01/09/24 01/09/24 Rx (2.5 mg base)/3 mL nebulization #90 mL soln diclofenac sodium 75 mg 75 mg PO BID PRN pain #180 tabs 05/24/23 01/09/24 01/08/24 Rx tablet,delayed release gabapentin 300 mg capsule 300 mg PO BID neuropathy pain #60 10/02/23 01/09/24 01/08/24 Rx caps turmeric 400 mg capsule 400 mg PO DAILY 10/11/23 01/09/24 01/08/24 History prevalon boot #1 ea 10/23/23 12/31/23 Unknown Rx collagenase clostridium histo. 250 1 applic topical DAILY #15 grams 11/08/23 01/09/24 Unknown Rx unit/gram topical ointment (Santyl) 4 x 4 Gauze, Adaptic, Kerlix and #1 ea 11/09/23 12/31/23 Unknown Rx Tape cephalexin 500 mg capsule 500 mg PO TID 7 days #21 caps 11/22/23 01/09/24 01/08/24 Rx tramadol 50 mg tablet 50 mg PO BID PRN Pain #60 tabs 11/28/23 01/09/24 01/08/24 Rx clopidogrel 75 mg tablet 75 mg PO DAILY 01/08/24 01/08/24 01/08/24 History linezolid 600 mg tablet 600 mg PO BID 01/08/24 01/08/24 01/08/24 History rifampin 300 mg capsule 300 mg PO DAILY 01/08/24 01/08/24 01/08/24 History Allergies Allergy/AdvReac Type Severity Reaction Status Date / Time doxycycline Allergy Intermediate RASH/SWELLI Verified 01/09/24 10:33 NG adhesive tape Allergy ALGY-Bliste Verified 01/09/24 10:33 r clindamycin Allergy ALGY-Hives Verified 01/09/24 10:33 Influenza Virus Vaccines Allergy Unknown Verified 01/09/24 10:33 [email or web address] [From Myrbetriq] Allergy Unknown Verified 01/09/24 10:33 niacin Allergy Unknown Verified 01/09/24 10:33 [facility] Anesthesia Medical History Malignant neoplasm of supraglottis Cancer, epiglottis Gluteal pain COPD exacerbation Supraglottic lesion Epiglottic lesion Laryngeal cancer Leg swelling Asthma exacerbation in COPD Pressure ulcer Chronic hypertrophic rhinitis COVID-19 Malar rash Acute non-recurrent pansinusitis Orchitis and epididymitis Hypokalemia Urethral stricture Osteomyelitis Foot osteomyelitis with cellulitis treated with vancomycin GERD (gastroesophageal reflux disease) Obstructive sleep apnea COPD (chronic obstructive pulmonary disease) Cervical vertebral fusion Myocardial infarction Status post stent placement Foot drop Heart failure with preserved ejection fraction Lymphedema Dyslipidemia Hypertension Surgical History S/P cystourethroscopy with dilation of urethral stricture Previous back surgery H/O cardiac catheterization H/O shoulder surgery Family History Other Hypertension Social History Smoking and tobacco/nicotine status: current every day tobacco/nicotine user Quit status (tobacco/nicotine): has quit using Year quit tobacco: 2020 - 1.5 PPD x 40 Years Second hand smoke exposure: No Alcohol intake: current Alcohol intake frequency: holidays/special occasions only Substance/Drug Use: never Caregiver/support person: Yes Lives independently: Yes Household members: spouse Housing: House Marital status: Current occupational status: disabled Do you think of yourself as: Straight/Heterosexual Current gender identity: Male Data Anesthesia Cardiac Studies: Echocardiogram 06/07/23
[2024-01-09] MEDS: sodium chloride 0.9% 1,000 ML 30 ML IV (11:30)
[2024-01-09] MEDS: acetaminophen 1,000 MG/100 ML PIGGYBACK 400 MG IV (11:30)
[2024-01-09] MEDS: gabapentin 300 mg Capsule PO (11:31)
--- NOTE | 2024-01-09 11:46 | P.HPUD_ITS ---
Surgery/Procedure H&P Update DATE OF PROCEDURE: January 09, 2024 DATE H&P PERFORMED: 12/31/23 H&P UPDATE INFORMATION: I have reviewed H&P completed within last 30 days, I have examined patient prior to procedure, No changes to prior documentation and H&P is in [facility] EMR on date indicated PREOP DIAGNOSIS: Gangrene PLANNED PROCEDURE: Operation Date: 01/09/24 11:40 Proposed Procedures p Ray Resection Partial Ray Resection/Right partial first ray resection(Right) - Javier Trinidad DPM s Fillet Toe Flap(Right) - Javier Trinidad DPM
[2024-01-09] MEDS: ceFAZolin 2,000 MG in sodium chloride 0.9% (plus) 50 ML 100 MG IV (12:04)
[2024-01-09] MEDS: BUPivacaine 0.5% INJ 30 mL INJECTION (12:32)
--- NOTE | 2024-01-09 13:10 | W.PM.BPON ---
Date of procedure: 01/09/2024 Surgeon name: Dr. Javier Trinidad D.P.M. Spring Assembler(s) name(s): Ramila Procedure(s) performed: Partial first ray resection right foot and fillet of toe flap Description of findings: Degenerative changes of hallux and first metatarsal head Estimated blood loss: 10 cc Tourniquet time: No tourniquet used Specimen(s) removed: Right hallux Post-operative diagnosis: Osteomyelitis
--- NOTE | 2024-01-09 22:02 | P.OP_ITS ---
Operative Report Date of procedure: January 09, 2024 Pre-op diagnosis: Gangrene, osteomyelitis right foot Post-op diagnosis: Same Post-op findings: Degenerative changes of first metatarsal consistent with osteomyelitis Procedure done: 1. Partial first ray resection right foot CPT 94727 2. Filleted toe flap right foot CPT 92495 Implants: None Specimens removed/disposition: Right first metatarsal and right hallux sent to pathology as surgical specimen. 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 Status post revascularization to right lower extremity.. The patient has had the afor ementioned chief complaint for some time. Conservative treatment measures have been attempted and the patient has opted for surgical intervention at this time. A lengthy discussion regarding the procedure, including risks and complications has been had with the patient and is noted in the recent clinic note. Written and verbal consent have been obtained. All patient questions have been answered to the patient?s satisfaction. No written or verbal guarantees have been given or implied. The patient has been NPO since midnight. The history has been reviewed and the history and physical is current. The signed consent was confirmed and placed in the patient chart. Patient imaging has been reviewed and is consistent with the diagnosis. Under mild sedation, the patient was brought into the operating room and placed on the table in the supine position. IV antibiotics were given by the anesthesia team as preoperative surgical prophylaxis. IV sedation was then performed by the anesthesiateam. A local field block was performed using 0.5% Marcaine plain. No tourniquet was used. Patient underwent standard prep using paint and scrub Betadine. Standard draping was then performed to the right lower extremity. The following procedure was then performed. Attention was directed to the right foot where a large ischemic full-thickness ulceration was noted to be overlying the first metatarsal. #15 blade was used to excise the margins of the wound. This incision was carried down full- thickness to the level of first metatarsal. Dissection was carried out to expose the first metatarsal distally as well as the proximal and distal phalanges of the hallux. The lateral aspect of the hallux was preserved and the phalanges as well as first metatarsal were dissected free from soft tissues. Sagittal bone saw was then used to resect to the first metatarsal. The first metatarsal, proximal phalanx and distal phalanx were dissected free from the operative field and sent as surgical specimen. The site was then irrigated with copious amounts sterile saline. The lateral aspect of the hallux was then flapped down medially to close a portion of the soft tissue defect. This was sutured in using 2-0 Prolene. The remaining tissue appeared healthy and viable in nature. Site was irrigated with copious amounts of sterile saline. No abscess formation was visualized. Remaining metatarsal bone appeared healthy and viable. Using 2-0 Prolene in retention suture fashion the amputation site was closed. Hemostasis was achieved prior to closure as well via electrocautery. The amputation site was then dressed with Xeroform, 4 x 4 gauze, Kerlix, Jorge. Patient was placed in a postop shoe. The patient tolerated the procedure and anesthesia well and without complication. The patient was transported from the operating room to the recovery room with vital signs stable and vascular status intact to all digits of the right foot. The patient was given both written and verbal instructions to remain nonweightbearing to the operative extremity, to keep dressings/splint clean, dry and intact and to take pain medication as directed. The patient will follow-up in the outpatient setting at their scheduled appointment. The patient was discharged with my personal number and was instructed to call if any questions or issues should arise. They were discharged home once anesthesia criteria was met.
== END 2024-01-09 14:29 | disposition home or self-care (01) ==
PROVIDERS: PCP Nurse Practitioner Family; Visit Provider Podiatrist Foot & Ankle Surgery
PROC: (CPT 28810; principal; 2024-01-09 11:30)
PROC: (CPT 14350; 2024-01-09 11:30)
DX: I96 Gangrene, not elsewhere classified (principal); M86.8X7 Other osteomyelitis, ankle and foot; J44.9 Chronic obstructive pulmonary disease, unspecified; K21.9 Gastro-esophageal reflux disease without esophagitis; G47.33 Obstructive sleep apnea (adult) (pediatric); I25.2 Old myocardial infarction; Z98.1 Arthrodesis status; I11.0 Hypertensive heart disease with heart failure; I50.30 Unspecified diastolic (congestive) heart failure; E78.5 Hyperlipidemia, unspecified; F17.200 Nicotine dependence, unspecified, uncomplicated
CPT/HCPCS: 14350; 28810; 87070; 87075; 87077; 87186; 87205; 88305; 88311; J0131; J0690; J2704; J3010; J3490; J7030; L3260

== ENCOUNTER 2024-01-22 11:50 | Oncology outpatient (recurring) (ONCR) | payer MEDICARE, MEDICAID, SELFPAY ==
--- NOTE | 2024-01-22 12:00 | PETR_ITS ---
PROCEDURE INFORMATION: Exam: PET/CT Skull Base to Mid-thigh Exam date and time: 01/22/2024 12:17 PM Age: 63 years old Clinical indication: Pain: New throat pain; Prior surgery; Surgery date: 6+ months; Surgery type: Heart sent; Patient HX: Malignant neoplasm of supraglottis, ; additional info: PT has new throat pain LABS AND CLINICAL REPORTS: Glucose: 91 mg/dl Treatment strategy for malignancy (PET staging): Restaging (PS) TECHNIQUE: Imaging protocol: Following at least four-hour fasting and following the injection of radiopharmaceutical, low dose CT images were obtained. Then, PET images were obtained. Attenuation corrected images were constructed using the CT scan. Fused images of PET and CT were reviewed. The standardized uptake values (SUV) reported below are maximum values within a region of interest, expressed in gm/ml. Exam includes orbital meatal line to mid-thigh. Radiopharmaceutical: 13 mCi F-18 FDG (Fluorodeoxyglucose), IV. Time of imaging post radiopharmaceutical administration: 1 hour Injection site: Left hand COMPARISON: PT PET skulltothigh INITIAL [id number] 07/24/2023 11:59 AM FINDINGS: Brain: Visualized brain has normal physiologic uptake. Pharynx: No abnormal uptake. Larynx: Diffusely increased uptake of 5.2 SUV in the supraglottic area is more prominent on the left side where there is soft tissue fullness, mild thickening of the left aryepiglottic fold, obliteration of the left pyriform sinus. On the prior exam this area measured 5.4 SUV. Lungs, pleura and trachea: No abnormal uptake. Stable calcified and noncalcified lung nodule suggestive of benign granulomas with no new findings. Stable mild paraseptal emphysema in the upper lungs. No pleural effusion. Heart: Normal physiologic uptake. There is no cardiomegaly. Mild coronary artery calcification is present. There is no pericardial effusion. Mediastinal space: No abnormal uptake. Liver: No abnormal uptake. Gallbladder and bile ducts: No abnormal uptake. No calcified gallstones. Pancreas: No abnormal uptake. Spleen: No abnormal uptake. The spleen is normal in size with punctate calcified granulomas. Adrenal glands: No abnormal uptake. No nodules. Kidneys and ureters: Normal physiologic uptake. No hydronephrosis. Stable 3.7 cm simple cyst medially in the midpole of the right kidney. Stomach and bowel: No abnormal uptake. No abnormal dilatation of the bowel to suggest obstruction. Moderate amount of stool in the entire length of the colon for clinical correlation with constipation. Intraperitoneal and retroperitoneal spaces: No abnormal uptake. No ascites. Urinary bladder: Normal physiologic uptake. The bladder is empty drained by William catheter. Reproductive: No abnormal uptake. Vasculature: No abnormal uptake. No aortic aneurysm. New stents in bilateral common iliac arteries. Lymph nodes: No abnormal uptake. No lymphadenopathy in the head, neck, chest, abdomen, pelvis, and extremities. Skeleton: No abnormal uptake in the visualized axial and appendicular skeleton. Soft tissues: New air containing elongated wound in place of coccyx with peripheral intense uptake of 7.9 SUV suggestive of benign inflammatory finding for correlation with history of decubitus ulcer/debridement intervention. [id number] IMPRESSION: In comparison with prior exam on 07/24/2023: 1. Increased uptake in the left supraglottic area persists currently measuring 5.2 SUV, previously 5.4 SUV. Persistent malignancy cannot be excluded. Again there is no FDG avid lymphadenopathy in the neck and no evidence of distant FDG avid metastatic disease. 2. There is new absence of coccyx with peripherally FDG avid air- containing wound suggestive of benign inflammatory finding for correlation with history of decubitus ulcer/debridement.
== END 2024-02-10 23:59 | disposition home or self-care (01) ==
LOC: RAD 11:50 → ONCMED 01-23 06:40
PROVIDERS: PCP Nurse Practitioner Family; Referring Provider Otolaryngology; Visit Provider Radiology Radiation Oncology
DX: C32.1 Malignant neoplasm of supraglottis
CPT/HCPCS: 78815; 99024; A9552

== ENCOUNTER → 2024-01-23 14:09 | Outpatient (BNVA) | payer MEDICARE, MEDICAID, SELFPAY | PROVIDERS: PCP Nurse Practitioner Family; Visit Provider Podiatrist Foot & Ankle Surgery | DX: Z98.890 Other specified postprocedural states (principal); Z51.89 Encounter for other specified aftercare; I73.9 Peripheral vascular disease, unspecified; L98.499 Non-pressure chronic ulcer of skin of other sites with unspecified severity | CPT/HCPCS: 99024 ==

== ENCOUNTER → 2024-01-30 14:00 | Outpatient (BNVA) | payer MEDICARE, MEDICAID, SELFPAY | PROVIDERS: PCP Nurse Practitioner Family; Visit Provider Podiatrist Foot & Ankle Surgery | DX: Z98.890 Other specified postprocedural states (principal); I73.9 Peripheral vascular disease, unspecified; Z51.89 Encounter for other specified aftercare; L97.319 Non-pressure chronic ulcer of right ankle with unspecified severity | CPT/HCPCS: 99024 ==

== ENCOUNTER → 2024-03-04 08:00 | Outpatient (BNVA) | payer MEDICARE, MEDICAID, SELFPAY | PROVIDERS: PCP Nurse Practitioner Family; Visit Provider Podiatrist Foot & Ankle Surgery | DX: Z51.89 Encounter for other specified aftercare (principal); Z98.890 Other specified postprocedural states; I73.9 Peripheral vascular disease, unspecified; L97.412 Non-pressure chronic ulcer of right heel and midfoot with fat layer exposed | CPT/HCPCS: 11042 ==

== ENCOUNTER 2024-03-09 17:23 | Emergency (ER) | payer MEDICARE, MEDICAID, SELFPAY ==
[2024-03-09] VITALS (8 sets, daily range): BP systolic 83–147; BP diastolic 58–88; PULSE 63–93; RESP 18–20; TEMP 37.1; O2SAT 93–98
--- NOTE | 2024-03-09 18:32 | ED_ITS ---
HPI - Male Genitourinary 2 General: Chief complaint: Urogenital-Male Stated complaint: clogged bueno Time Seen by Provider: 03/09/24 18:31 History of Present Illness: 63-year-old male patient with chronic in dwelling Bueno catheter comes in tonight due to cloudy urine from his catheter bag. Patient also reports some discomfort and chills. Patient appears nontoxic. Patient appears chronically ill. Patient has a history of throat cancer, prostate issues, COPD, peripheral neuropathy, chronic back pain. Review of Systems 2 General: Reports: 10 or more systems reviewed and unremarkable except in HPI and below PFSH ED 2 PFSH: Medical History Malignant neoplasm of supraglottis Cancer, epiglottis Gluteal pain COPD exacerbation Supraglottic lesion Epiglottic lesion Laryngeal cancer Leg swelling Asthma exacerbation in COPD Pressure ulcer Chronic hypertrophic rhinitis COVID-19 Malar rash Acute non-recurrent pansinusitis Orchitis and epididymitis Hypokalemia Urethral stricture Osteomyelitis Foot osteomyelitis with cellulitis treated with vancomycin GERD (gastroesophageal reflux disease) Obstructive sleep apnea COPD (chronic obstructive pulmonary disease) Cervical vertebral fusion Myocardial infarction Status post stent placement Foot drop Heart failure with preserved ejection fraction Lymphedema Dyslipidemia Hypertension Surgical History S/P cystourethroscopy with dilation of urethral stricture Previous back surgery H/O cardiac catheterization H/O shoulder surgery Family History Other Hypertension Social History Smoking and tobacco/nicotine status: never used tobacco/nicotine Quit status (tobacco/nicotine): has quit using Year quit tobacco: 2020 - 1.5 PPD x 40 Years Second hand smoke exposure: No Alcohol intake: current Alcohol intake frequency: holidays/special occasions only Substance/Drug Use: never Caregiver/support person: Yes Lives independently: Yes Household members: spouse Housing: House Marital status: Current occupational status: disabled Do you think of yourself as: Straight/Heterosexual Current gender identity: Male Physical Exam 2 Const: COMMON NORMALS: alert HENMT: COMMON NORMALS: normocephalic HEAD & SCALP: normocephalic Neck/C-Spine: COMMON NORMALS: full ROM Resp: COMMON NORMALS: normal respiratory effort and clear to auscultation bilaterally AUSCULTATION: clear to auscultation bilaterally Cardio: COMMON NORMALS: regular rate and regular rhythm RATE: regular rate RHYTHM: regular rhythm GI: COMMON NORMALS: non-tender Back/Pelvis: COMMON NORMALS: thoracic and lumbar spine normal to inspection Extremity: NARRATIVE EXTREMITY EXAM: Missing great toe right foot Neuro: SENSORIUM/ORIENTATION: Yes alert Skin: COMMON NORMALS: turgor normal GENERAL SKIN EXAM: turgor normal Course 2 Vital Signs: Vital signs: Vital Signs Temperature 98.7 F 03/09/24 17:56 Pulse Rate 93 03/09/24 19:29 Respiratory Rate 20 H 03/09/24 19:29 Blood Pressure 83/58 03/09/24 19:29 Pulse Oximetry 98 03/09/24 19:29 Oxygen Delivery Me thod Room Air 03/09/24 19:29 MDM - Male Medical Decision Making 63-year-old male patient comes in today for concerns of abnormal urine draining from Bueno catheter. Patient appears nontoxic. Patient appears no acute distress. Respirations are even lungs are clear to auscultation. Skin is warm and dry. Abdomen soft nontender. Differential diagnosis includes but not limited to malingering, urinary tract infection, Bueno catheter obstruction, dehydration. CBC was unremarkable. CMP was unremarkable. Urinalysis noted some leukocyte esterases, elevated white blood cell, and increased sediment and urine bacteria. This was collected on the fresh cath. Will send for culture. Patient be started on Macrobid with recommendations to drink plenty of water and fluids. Urine cleared after a 500 bolus of fluids. Patient reports understanding of care plan need for follow-up or return to the ER for worsening symptoms. Lab Data 03/09/24 19:04 03/09/24 19:04 Laboratory Results WBC 9.14 10^3/uL (3.29-11.43) 03/09/24 19:04 RBC 4.87 10^6/uL (3.85-5.65) 03/09/24 19:04 Hgb 15.60 g/dL (11.27-16.99) 03/09/24 19:04 Hct 47.4 % (37-53) 03/09/24 19:04 MCV 97.3 fl (82-101) 03/09/24 19:04 MCH 32.0 pg (27-33) 03/09/24 19:04 MCHC 32.9 g/dL (30-55) 03/09/24 19:04 RDW 14.6 % (12.1-15.1) 03/09/24 19:04 Plt Count 265 10^3/cmm (157-399) 03/09/24 19:04 MPV 10.6 fL (7.4-10.4) H 03/09/24 19:04 Neut % (Auto) 71.7 % 03/09/24 19:04 Lymph % (Auto) 12.6 % 03/09/24 19:04 [place] % (Auto) 11.1 % 03/09/24 19:04 Eos % (Auto) 3.9 % 03/09/24 19:04 Baso % (Auto) 0.5 % 03/09/24 19:04 Neut # (Auto) 6.55 10^3/uL (1.8-7.7) 03/09/24 19:04 Lymph # (Auto) 1.2 10^3/uL (0.8-4.8) 03/09/24 19:04 [place] # (Auto) 1.0 10^3/uL (0.2-0.9) H 03/09/24 19:04 Eos # (Auto) 0.4 10^3/uL (0.0-0.8) 03/09/24 19:04 Baso # (Auto) 0.1 10^3/uL (0.0-0.1) 03/09/24 19:04 Nucleated RBC % (auto) 0 % 03/09/24 19:04 Nucleated RBCs # 0.0 /100WBC 03/09/24 19:04 Sodium 135 mmol/L (136-145) L 03/09/24 19:04 Potassium 3.7 mmol/L (3.5-5.1) 03/09/24 19:04 Chloride 94 mmol/L (98-107) L 03/09/24 19:04 Carbon Dioxide 26 mmol/L (22-29) 03/09/24 19:04 Anion Gap 18.7 (5-19) 03/09/24 19:04 BUN 14 mg/dL (8-23) 03/09/24 19:04 Creatinine 0.6 mg/dL (0.7-1.2) L 03/09/24 19:04 GFR Calculation 135.2 mL/min (90-130) H 03/09/24 19:04 Glucose 103 mg/dL (65-115) 03/09/24 19:04 Calculated Osmolality 281 mOsm/kg (285-295) L 03/09/24 19:04 Calcium 9.5 mg/dL (8.5-10.5) 03/09/24 19:04 Urine Color Yellow (Yellow) 03/09/24 19:30 Urine Appearance Cloudy (CLEAR) A 03/09/24 19:30 Urine pH 9 (5-7) H 03/09/24 19:30 Ur Specific [place] 1.010 (1.005-1.030) 03/09/24 19:30 Urine Protein Trace (Negative) 03/09/24 19:30 Urine Glucose (UA) Norm (Normal) 03/09/24 19:30 Urine Ketones Negative (Negative) 03/09/24 19:30 Urine Blood 2+ (Negative) H 03/09/24 19:30 Urine Nitrate Negative (Negative) 03/09/24 19:30 Urine Bilirubin Neg (Negative) 03/09/24 19:30 Urine Urobilinogen Neg mg/dL (Negative) 03/09/24 19:30 Ur Leukocyte Esterase 2+ (Negative) H 03/09/24 19:30 Urine RBC 5-10 /hpf (0-2) H 03/09/24 19:30 Urine WBC 25-40 /hpf (0-5) H 03/09/24 19:30 Ur Squamous Epith Cells 3-5 /hpf (0-5) 03/09/24 19:30 Triple Phos Crystals 5-10 /hpf H 03/09/24 19:30 Amorphous Sediment Not Reportable 03/09/24 19:30 Urine Bacteria 3+ /hpf (NONE) H 03/09/24 19:30 Hyaline Casts 0-4 /lpf H 03/09/24 19:30 No radiology studies performed this visit Discharge Plan Discharge Patient Disposition: Home Clinical Impression: Catheter-associated urinary tract infection Qualifiers: Indwelling urinary catheter type: indwelling urethral catheter Encounter type: initial encounter Qualified Code(s): T83.511A - Infection and inflammatory reaction due to indwelling urethral catheter, initial encounter Condition: Stable Prescriptions: New Macrobid 100 mg capsule 100 mg PO BID 7 Days Qty: 14 0RF Rx Instructions: must administer with a meal/food No Action ipratropium-albuterol 0.5 mg-3 mg(2.5 mg base)/3 mL solution for nebulization 3 ml INHALATION Q4H PRN (Reason: wheezing) Qty: 90 3RF turmeric 400 mg capsule 400 mg PO DAILY alprazolam 0.25 mg tablet 0.25 mg PO BID PRN (Reason: anxiety) Qty: 45 2RF cyclobenzaprine 5 mg tablet 5 mg PO TID PRN (Reason: muscle spasm) Qty: 30 2RF diclofenac sodium 75 mg tablet,delayed release (DR/EC) 75 mg PO BID PRN (Reason: pain) Qty: 180 1RF (DME) prevalon boot See Rx Instructions .Route .MEDSUPPLY Qty: 1 0RF Rx Instructions: As directed to HOME gabapentin 300 mg capsule 300 mg PO BID MDD 900 Qty: 60 0RF Santyl 250 unit/gram ointment 1 applic topical DAILY Qty: 15 0RF (DME) 4 x 4 Gauze, Adaptic, Kerlix and Tape See Rx Instructions .Route .MEDSUPPLY Qty: 1 0RF Rx Instructions: As directed by Home: Need medical supplies listed above for daily dressing changes need 30 day supply for up to 6 months tramadol 50 mg tablet 50 mg PO BID PRN (Reason: Pain) Qty: 60 3RF (DME) electric w/c See Rx Instructions .Route .MEDSUPPLY Qty: 1 0RF Rx Instructions: [facility] oxycodone 10 mg tablet 10 mg PO TID PRN (Reason: pain/recurrent cancer) 21 Days Qty: 60 0RF lidocaine HCl [Lidocaine Viscous] 2 % solution 5 ml mucous membrane QID PRN (Reason: pain) Qty: 100 3RF Rx Instructions: add Maalox 100ml and benadryl 100ml to make mouthwash, swish and swallow furosemide 40 mg Tablet 60 mg PO BID aspirin 81 mg Tablet,Delayed Release (Dr/Ec) 81 mg PO DAILY albuterol sulfate 90 mcg/actuation Hfa Aerosol Inhaler 2 puff inhalation Q4H.RESPIRATORY PRN (Reason: Shortness Of Breath) Qty: 1 0RF clopidogrel 75 mg tablet 75 mg PO DAILY rifampin 300 mg capsule 300 mg PO DAILY linezolid 600 mg tablet 600 mg PO BID hydrocodone-acetaminophen 5-325 mg tablet 1 tab PO Q6H PRN (Reason: pain) Qty: 20 0RF Discharge Orders: Discharge ED (Routine); Ordered 03/09/24 Ordered By: Michael Gore Referrals: Anam Jenkins FNP [Primary Care Provider] - Discharge Diet: Usual diet Discharge Activity: Increase activity as tolerated Patient Instructions: Catheter-associated Urinary Tract Infection (ED) Activity Restrictions/Additional Instructions: Take antibiotics as directed. Drink plenty of water and fluids. Follow-up with primary care in 3 to 5 days for recheck Coding Level of Care Code ED Complaint Investigations Officer for 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
[2024-03-09] MEDS: sodium chloride 0.9% 500 ML 999 ML IV (19:25)
[2024-03-09 19:34] LABS: Basophils # 0.1 10^3/uL (0.0-0.1); Basophils % 0.5 %; Eosinophils # 0.4 10^3/uL (0.0-0.8); Eosinophils % 3.9 %; Hematocrit 47.4 % (37-53); Lymphocytes # 1.2 10^3/uL (0.8-4.8); Lymphocytes % 12.6 %; Mean Corpuscular HGB Conc 32.9 g/dL (30-55); Mean Corpuscular Volume 97.3 fl (82-101); Mean Platelet Volume 10.6 fL (7.4-10.4); Monocytes % 11.1 %; Neutrophils # 6.55 10^3/uL (1.8-7.7); Neutrophils % 71.7 %; Nucleated Red Blood Cells % 0 %; Platelet Count 265 10^3/cmm (157-399); Red Blood Count 4.87 10^6/uL (3.85-5.65); Red Cell Distribution Width 14.6 % (12.1-15.1); White Blood Count 9.14 10^3/uL (3.29-11.43)
[2024-03-09 19:52] LABS: Anion Gap 18.7 (5-19); Blood Urea Nitrogen 14 mg/dL (8-23); Calcium 9.5 mg/dL (8.5-10.5); Carbon Dioxide 26 mmol/L (22-29); Chloride 94 mmol/L (98-107); Creatinine Clr Calc Pharmacy 92.9839; Glomerular Filtration Rate 135.2 mL/min (90-130); Glucose 103 mg/dL (65-115); Osmolality Calculated 281 mOsm/kg (285-295); Potassium 3.7 mmol/L (3.5-5.1); Sodium 135 mmol/L (136-145)
[2024-03-09 20:24] LABS: Bacteria Urine 3+ /hpf; Hyaline Casts Urine 0-4 /lpf; WBC Urine 25-40 /hpf (0-5)
[2024-03-09 20:25] LABS: Add Urine Culture? Yes
[2024-03-09] MEDS: nitrofurantoin SR (BID) 100 mg Capsule PO (22:45)
[2024-03-12 14:17] LABS: Bilirubin Urine Neg (Negative); Blood Urine Neg (Negative); Glucose Urine UA Norm (Normal); Ketones Urine Negative (Negative); Nitrate Urine Positive (Negative); Protein Urine Neg (Negative); Urine Appearance Cloudy (CLEAR); Urine Color Yellow (Yellow); Urobilinogen Urine Norm (Negative); pH Urine 9 (5-7)
[2024-03-12 14:18] LABS: Add Urine Microscopic? YES; Leukocyte Esterase Urine 2+ (Negative)
== END 2024-03-09 22:52 | disposition home or self-care (01) ==
PROVIDERS: Emergency Provider Nurse Practitioner Family; PCP Nurse Practitioner Family
DX: T83.511A Infection and inflammatory reaction due to indwelling urethral catheter, initial encounter (principal); Y73.1 Therapeutic (nonsurgical) and rehabilitative gastroenterology and urology devices associated with adverse incidents; Z79.02 Long term (current) use of antithrombotics/antiplatelets; Z79.82 Long term (current) use of aspirin; Z87.891 Personal history of nicotine dependence; Z85.21 Personal history of malignant neoplasm of larynx; Z85.810 Personal history of malignant neoplasm of tongue; J44.9 Chronic obstructive pulmonary disease, unspecified; I25.2 Old myocardial infarction; E78.5 Hyperlipidemia, unspecified; I11.0 Hypertensive heart disease with heart failure; I50.30 Unspecified diastolic (congestive) heart failure
CPT/HCPCS: 36415; 80048; 81001; 85025; 87077; 87086; 87186; 99284; J7040

== ENCOUNTER 2024-03-21 12:18 | Oncology outpatient (recurring) (ONCR) | payer MEDICARE, MEDICAID, SELFPAY ==
--- NOTE | 2024-03-21 12:30 | CTR_ITS ---
PROCEDURE INFORMATION: Exam: CT Neck With Contrast Exam date and time: 03/21/2024 1:06 PM Age: 63 years old Clinical indication: Condition or disease; Prior surgery; Surgery date: 6+ months; Surgery type: Cervical fusion; Patient HX: Throat cancer, 4 month radiation f/u; Additional info: 4 months post treatment TECHNIQUE: Imaging protocol: Computed tomography of the neck with contrast. Radiation optimization: All CT scans at this facility use at least one of these dose optimization techniques: automated exposure control; mA and/or kV adjustment per patient size (includes targeted exams where dose is matched to clinical indication); or iterative reconstruction. Contrast material: OMNI 350; Contrast volume: 80 ml; Contrast route: INTRAVENOUS (IV); COMPARISON: PT PET skull to thigh SUBS [id number] 01/22/2024 12:17 PM RADIATION DOSE METRICS: Total DLP (mGy-cm): 186.55 FINDINGS: Salivary glands: Normal. Glands are normal in size. Pharynx: Unremarkable. No significant tonsillar enlargement. Prevertebral and retropharyngeal spaces: Unremarkable. Larynx: There is asymmetric increased thickness of the left side of the epiglottis (series 3, image 79) with contiguous asymmetric left-sided soft tissue thickening along the left supraglottis and glottis (series 3, images 86 through 98). There is contiguous thickening of the left epiglottis. Compared with the prior PET scan, there is soft tissue thickening of the right glottis and supraglottic region as well to a lesser degree. Thyroid: No significant thyroid pathology. Trachea: Visualized trachea is unremarkable. Lungs: Paraseptal emphysema is present in the visualized upper lungs. Evidence of old granulomatous disease also seen. Lymph nodes: No evidence of lymphadenopathy. Vasculature: Major vascular structures are widely patent. Bones/joints: Marked degenerative change present in the spine. Prior ACDF at C6-C7. Soft tissues: Unremarkable. No significant soft tissue swelling. CT/CT neck w con* [id number] IMPRESSION: Asymmetric soft tissue thickening of the left glottic, supraglottic and epiglottic region as described above lesser degree of thickening on the right. No evidence of lymphadenopathy.
[2024-03-21] MEDS: iohexol 350 mg/mL 500 mL Btl (per mL) IV (13:45)
== END 2024-04-12 23:59 | disposition home or self-care (01) ==
LOC: RAD 12:19 → ONCMED 03-27 10:54
PROVIDERS: PCP Nurse Practitioner Family; Referring Provider Otolaryngology; Visit Provider Radiology Radiation Oncology
DX: I73.9 Peripheral vascular disease, unspecified (principal); L97.312 Non-pressure chronic ulcer of right ankle with fat layer exposed; Z98.890 Other specified postprocedural states
CPT/HCPCS: 11042; 70491; Q9967

== ENCOUNTER → 2024-03-28 09:30 | Outpatient (BNVA) | payer MEDICARE, MEDICAID, SELFPAY | PROVIDERS: PCP Nurse Practitioner Family; Visit Provider Podiatrist Foot & Ankle Surgery | DX: Z51.89 Encounter for other specified aftercare (principal); Z98.890 Other specified postprocedural states; I73.9 Peripheral vascular disease, unspecified; L97.312 Non-pressure chronic ulcer of right ankle with fat layer exposed | CPT/HCPCS: 11042 ==

== ENCOUNTER 2024-11-09 11:54 | Emergency (ER) | payer MEDICARE, MEDICAID, SELFPAY ==
[2024-11-09 11:56] VITALS: BP 142/75; PULSE 78; RESP 17; TEMP 36.6; O2SAT 95; BMI 24.3
--- NOTE | 2024-11-09 12:05 | W.ED.GENADLT ---
HPI - General Adult General: Chief complaint: General Medical Stated complaint: dislodged peg tube Time Seen by Provider: 11/09/24 11:56 History of Present Illness: 64-year-old man who has PEG tube dependence who presents to the emergency room by [facility] ambulance with concerns for his PEG tube leaking around the tube. [facility] reports that the [facility] stated that they want him brought here because they have been to [place] the previous 2 days and nothing was done. They claim to have no knowledge that we do not have gastroenterology and that we are currently on surgical divert. Tube is in place and appears functional but does have significant leakage around it. Related Data Home Medications ?Medication ?Instructions ?Recorded ?Confirmed aspirin 81 mg tablet,delayed 81 mg PO DAILY 04/06/20 03/28/24 release furosemide 40 mg tablet 60 mg PO BID 04/06/20 03/28/24 turmeric 400 mg capsule 400 mg PO DAILY 10/11/23 03/28/24 clopidogrel 75 mg tablet 75 mg PO DAILY 01/08/24 03/28/24 linezolid 600 mg tablet 600 mg PO BID 01/08/24 03/28/24 rifampin 300 mg capsule 300 mg PO DAILY 01/08/24 03/28/24 Previous Rx's ?Medication ?Instructions ?Recorded albuterol sulfate 90 mcg/actuation 2 puff inhalation Q4H.RESPIRATORY 04/07/20 aerosol inhaler PRN Shortness Of Breath #1 g ipratropium 0.5 mg-albuterol 3 mg 3 ml inhalation Q4H PRN wheezing 05/24/20 (2.5 mg base)/3 mL nebulization #90 mL soln diclofenac sodium 75 mg 75 mg PO BID PRN pain #180 tabs 05/24/23 tablet,delayed release gabapentin 300 mg capsule 300 mg PO BID neuropathy pain #60 10/02/23 caps prevalon boot #1 ea 10/23/23 collagenase clostridium histo. 250 1 applic topical DAILY #15 grams 11/08/23 unit/gram topical ointment (Santyl) 4 x 4 Gauze, Adaptic, Kerlix and #1 ea 11/09/23 Tape hydrocodone 5 mg-acetaminophen 325 1 tab PO Q6H PRN pain #20 tabs 01/09/24 mg tablet alprazolam 0.25 mg tablet 0.25 mg PO BID PRN anxiety #45 tabs 01/10/24 cyclobenzaprine 5 mg tablet 5 mg PO TID PRN muscle spasm #30 01/10/24 tabs electric w/c #1 ea 01/15/24 oxycodone 10 mg tablet 10 mg PO TID PRN pain/recurrent 01/16/24 cancer 3 weeks #60 tabs lidocaine HCl 2 % mucosal solution 5 ml mucous membrane QID PRN pain 02/18/24 (Lidocaine Viscous) #100 mL cephalexin 500 mg capsule 500 mg PO TID 7 days #21 caps 03/20/24 lidocaine HCl 4 % laryngotracheal 2.5 ml Transtracheal Q2H PRN 03/20/24 solution gargle and spit #100 mL miscellaneous medical supply 1 ea miscellaneous ONCE #100 ea 03/20/24 (Hurricaine [place] Extension Tube) tramadol 50 mg tablet 50 mg PO BID PRN Pain #60 tabs 03/24/24 Allergies Allergy/AdvReac Type Severity Reaction Status Date / Time doxycycline Allergy Intermediate RASH/SWELLI Verified 03/28/24 09:31 NG adhesive tape Allergy ALGY-Bliste Verified 03/28/24 09:31 r clindamycin Allergy ALGY-Hives Verified 03/28/24 09:31 Influenza Virus Vaccines Allergy Unknown Verified 03/28/24 09:31 [email or web address] (From Myrbetriq) Allergy Unknown Verified 03/28/24 09:31 niacin Allergy Unknown Verified 03/28/24 09:31 Review of Systems General: Reports: ROS unobtainable due to medical condition PFSH ED PFSH: Medical History Malignant neoplasm of supraglottis Cancer, epiglottis Gluteal pain COPD exacerbation Supraglottic lesion Epiglottic lesion Laryngeal cancer Leg swelling Asthma exacerbation in COPD Pressure ulcer Chronic hypertrophic rhinitis COVID-19 Malar rash Acute non-recurrent pansinusitis Orchitis and epididymitis Hypokalemia Urethral stricture Osteomyelitis Foot osteomyelitis with cellulitis treated with vancomycin GERD (gastroesophageal reflux disease) Obstructive sleep apnea COPD (chronic obstructive pulmonary disease) Cervical vertebral fusion Myocardial infarction Status post stent placement Foot drop Heart failure with preserved ejection fraction Lymphedema Dyslipidemia Hypertension Surgical History S/P cystourethroscopy with dilation of urethral stricture Previous back surgery H/O cardiac catheterization H/O shoulder surgery Family History Other Hypertension Social History Smoking and tobacco/nicotine status: never used tobacco/nicotine Quit status (tobacco/nicotine): has quit using Year quit tobacco: 2020 - 1.5 PPD x 40 Years Second hand smoke exposure: No Alcohol intake: current Alcohol intake frequency: holidays/special occasions only Substance/Drug Use: never Caregiver/support person: Yes Lives independently: Yes Household members: spouse Housing: House Marital status: Current occupational status: disabled Do you think of yourself as: Straight/Heterosexual Current gender identity: Male Physical Exam Narrative: EXAM NARRATIVE: General: Alert, no acute distress. Skin: warm and dry Head: Normocephalic Neck: Trachea midline Eye: Extraocular movements are intact. Ears, nose, mouth and throat: Oral mucosa moist Respiratory: Respirations are non-labored Gastrointestinal: There is a PEG tube in place. It does have some leakage around it but appears functional. Neurological: Alert Psychiatric: Cooperative Course Vital Signs: Vital signs: Vital Signs Temperature 97.9 F 11/09/24 11:56 Pulse Rate 78 11/09/24 11:56 Respiratory Rate 17 11/09/24 11:56 Blood Pressure 142/75 11/09/24 11:56 Pulse Oximetry 95 11/09/24 11:56 Oxygen Delivery Me thod Room Air 11/09/24 11:56 MDM - General Adult Medical Decision Making This problem does need dealt with in the next day or so but tube appears functional. We do not have subspecialties necessary to deal with a malfunctioning tube. It is in place and so I am not going to take it out and replace it. He needs evaluation either by gastroenterology or surgery or whoever placed the tube originally. Assessment and plan: PEG tube malfunction - Discharged home - Discussed plan with patient. Answered any questions. - Evaluation and treatment of this problem were appropriate in the emergency setting. No radiology studies performed this visit Discharge Plan Discharge Patient Disposition: Home Clinical Impression: Leaking PEG tube Condition: Stable Prescriptions: No Action ipratropium-albuterol 0.5 mg-3 mg(2.5 mg base)/3 mL solution for nebulization 3 ml INHALATION Q4H PRN (Reason: wheezing) Qty: 90 3RF turmeric 400 mg capsule 400 mg PO DAILY alprazolam 0.25 mg tablet 0.25 mg PO BID PRN (Reason: anxiety) Qty: 45 2RF cyclobenzaprine 5 mg tablet 5 mg PO TID PRN (Reason: muscle spasm) Qty: 30 2RF diclofenac sodium 75 mg tablet,delayed release (DR/EC) 75 mg PO BID PRN (Reason: pain) Qty: 180 1RF (DME) prevalon boot See Rx Instructions .Route .MEDSUPPLY Qty: 1 0RF Rx Instructions: As directed to HOME cephalexin 500 mg capsule 500 mg PO TID 7 Days Qty: 21 0RF Hurricaine [place] Misc 1 ea miscellaneous ONCE Qty: 100 0RF lidocaine HCl 4 % solution 2.5 ml Transtracheal Q2H PRN (Reason: gargle and spit) Qty: 100 3RF Rx Instructions: gargle and spit gabapentin 300 mg capsule 300 mg PO BID MDD 900 Qty: 60 0RF Santyl 250 unit/gram ointment 1 applic topical DAILY Qty: 15 0RF (DME) 4 x 4 Gauze, Adaptic, Kerlix and Tape See Rx Instructions .Route .MEDSUPPLY Qty: 1 0RF Rx Instructions: As directed by Home: Need medical supplies listed above for daily dressing changes need 30 day supply for up to 6 months (DME) electric w/c See Rx Instructions .Route .MEDSUPPLY Qty: 1 0RF Rx Instructions: [facility] oxycodone 10 mg tablet 10 mg PO TID PRN (Reason: pain/recurrent cancer) 21 Days Qty: 60 0RF lidocaine HCl [Lidocaine Viscous] 2 % solution 5 ml mucous membrane QID PRN (Reason: pain) Qty: 100 3RF Rx Instructions: add Maalox 100ml and benadryl 100ml to make mouthwash, swish and swallow tramadol 50 mg tablet 50 mg PO BID PRN (Reason: Pain) Qty: 60 3RF furosemide 40 mg Tablet 60 mg PO BID aspirin 81 mg Tablet,Delayed Release (Dr/Ec) 81 mg PO DAILY albuterol sulfate 90 mcg/actuation Hfa Aerosol Inhaler 2 puff inhalation Q4H.RESPIRATORY PRN (Reason: Shortness Of Breath) Qty: 1 0RF clopidogrel 75 mg tablet 75 mg PO DAILY rifampin 300 mg capsule 300 mg PO DAILY linezolid 600 mg tablet 600 mg PO BID hydrocodone-acetaminophen 5-325 mg tablet 1 tab PO Q6H PRN (Reason: pain) Qty: 20 0RF Discharge Orders: Discharge ED (Routine); Ordered 11/09/24 Ordered By: Khalida Boswell Referrals: Eliud Jenkins FNP [Primary Care Provider] - Discharge Activity: Increase activity as tolerated Patient Instructions: How to Use and Care for Your PEG Tube (DC), Opioid Safety, Pain Management Activity Restrictions/Additional Instructions: [facility] for general surgery or gastroenterology. This problem of leaking needs to be addressed by either a surgeon or stone carriage operator. It does not need done emergently but urgently. Please seek care at another facility that has the appropriate subspecialties to assist with this problem. [facility]. Please realize this is an emergency room and that we are providing you with a medical screening exam and this may not be complete and all inclusive of all the testing and or work up that you may need to determine your ailment or severity of your illness. You have been screened and evaluated and felt safe for discharge. Health conditions do change or evolve sometimes and as such it is important that you follow up with your Primary Doctor to be re checked, 3-5 days is a general good time frame for follow up. You are always welcome to return to the ED for re assessment if your symptoms are worsening or you have new concerns Print Language: Tristanian Coding Level of Care Code ED Marketing Proposal Specialist for 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
--- NOTE | 2024-11-09 12:18 | PC.NURSE ---
PT DAUGHTER AND ALF NOTIFIED OF NOT HAVING GI OR GENERAL SURGERY HERE AT THIS TIME. FACILITY AND DAUGHTER NOTIFIED THAT THE ER HAS DONE EVERYTHING THEY CAN AT THIS TIME AND THAT HE WOULD NEED TO FOLLOW UP WITH A GI SPECIALIST OR GENERAL SURGERY BUT THAT THE TRANSFER WAS NOT DEEMED EMERGENT AT THIS TIME. BOTH FAMILY AND ALF VERBALIZED UNDERSTANDING OF INFORMATION.
--- NOTE | 2024-11-09 12:33 | XRR_ITS ---
PROCEDURE INFORMATION: Exam: XR Abdomen Exam date and time: 11/09/2024 12:46 PM Age: 64 years old Clinical indication: Device placement; Gi device; Peg tube; Peg/j-tube placement confirmation; Additional info: J-tube placement confirmation; 15ml gastro via j tube followed by 15ml normal saline to clear line alg TECHNIQUE: Imaging protocol: Radiologic exam of the abdomen. Views: Frontal supine view of the abdomen. 1 View. COMPARISON: PT PET skull to thigh [id number] [id number] 01/22/2024 12:17 PM FINDINGS: Tubes, catheters and devices: 15 mL of Gastrografin were administered via the J-tube and AP supine abdomen was obtained. Contrast is seen within the J-tube and duodenal bulb and 2nd portion of the duodenum. No extravasation is seen. Note is made of oral contrast throughout the colon from a previous study. Nonspecific bowel gas pattern. Gastrointestinal tract: See Tubes, catheters and devices finding. Intraperitoneal space: No indication of free air. Vasculature: Vascular stents within the bilateral proximal common iliac arteries around the aortic bifurcation. Bones/joints: Visualized osseous structures show no acute abnormality. XR/XR abdomen 1V* [id number] IMPRESSION: 1. Peg tube/J-tube tip appears at the level of the duodenal bulb post 15 mL Gastrografin administration through the tube, with demonstration of Gastrografin contrast within the duodenal bulb and 2nd portion of the duodenum. No extravasation is seen. 2. Old residual oral contrast throughout the colon from a prior study.
--- NOTE | 2024-11-09 12:50 | PC.PHAR ---
Addendum entered by Gayathri Headley 11/09/24 13:29: Transition to [facility] Removed from chart : Albuterol HFA 2puffs q4h prn, Alprazsolam 0.25mg bid prn Aspirin 81mg daily Clopidogrel 75mg daily, Diclofenac Sod. 75mg bid prn Furosemide 40mg bid Crete 5-325 1q6h prn Ipratropium-albuterol 0.5mg-3mg 3ml q4h prn Lidocaine 4% Abby Lidocaine 2% Abby Linezolind 600mg bid Rifampin 300mg daily Santyl Oint Tramadol 50mg bid prn Turmeric 400mg daily Original Note: Pt is from [facility] [phone].
--- NOTE | 2024-11-09 13:05 | PC.NURSE ---
PEG TUBE REDRESSED AND SECURED BY THIS NURSE AND DR. SUN.
[2024-11-09 13:25] VITALS: BP 118/70; PULSE 75; O2SAT 92
[2024-11-09 19:00] VITALS: BP 126/56; PULSE 77; O2SAT 94
[2024-11-09] MEDS: morphine 10 mg/0.5 mL oral liq UD 5 MG J-TUBE (20:15)
[2024-11-09] MEDS: cyclobenzaprine 10 mg Tablet J-TUBE (20:15)
[2024-11-09 20:25] VITALS: BP 117/65; PULSE 80; O2SAT 93
[2024-11-09 22:00] VITALS: BP 138/63; PULSE 78; RESP 18; O2SAT 93
[2024-11-10 00:38] VITALS: BP 123/73; PULSE 76; RESP 16; O2SAT 92
== END 2024-11-10 00:41 | disposition home or self-care (01) ==
PROVIDERS: Emergency Provider Emergency Medicine; PCP Nurse Practitioner Family
DX: T85.638A Leakage of other specified internal prosthetic devices, implants and grafts, initial encounter (principal); Z79.82 Long term (current) use of aspirin; Z79.02 Long term (current) use of antithrombotics/antiplatelets; Z87.891 Personal history of nicotine dependence; J44.9 Chronic obstructive pulmonary disease, unspecified; E78.5 Hyperlipidemia, unspecified; I11.0 Hypertensive heart disease with heart failure; I50.30 Unspecified diastolic (congestive) heart failure; C32.1 Malignant neoplasm of supraglottis; X58.XXXA Exposure to other specified factors, initial encounter
CPT/HCPCS: 74018; 94799; 99283; J9999; Q9963

== ENCOUNTER 2024-11-13 14:06 | Emergency (ER) | payer MEDICARE, MEDICAID, SELFPAY ==
[2024-11-13] VITALS (12 sets, daily range): BP systolic 81–187; BP diastolic 52–120; PULSE 80–113; RESP 16–21; TEMP 36.7; O2SAT 90–99; BMI 24.1
--- NOTE | 2024-11-13 14:29 | W.ED.WOUNDLC ---
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 Patient has a PEG tube in place as well there is been some drainage around the PEG tube there is a concern for infection he has a chronic indwelling William and has multiple chronic decubiti of the sacrum and of the right hip. These are tunneling he has been being seen by wound care clinic evidently had a wound VAC on up until he was sent here today. The intermediate was concerned that he had an infection around his PEG tube. Patient communicates by typing answers on his phone. Related Data Home Medications ?Medication ?Instructions ?Recorded ?Confirmed acetaminophen 325 mg tablet 650 mg PO QID PRN Pain 11/09/24 11/13/24 bisacodyl 10 mg rectal suppository 10 mg MN DAILY PRN Constipation 11/09/24 11/13/24 budesonide 0.5 mg/2 mL suspension 0.5 mg inhalation BID PRN Wheezing 11/09/24 11/13/24 for nebulization chlorhexidine gluconate 0.12 % 15 ml buccal TID 11/09/24 11/13/24 mouthwash cyclobenzaprine 10 mg tablet 10 mg PO Q8H PRN Muscle Spasm 11/09/24 11/13/24 enoxaparin 40 mg/0.4 mL 40 mg SUBCUT DAILY 11/09/24 11/13/24 subcutaneous syringe olopatadine 0.1 % eye drops 1 drp ophthalmic (eye) BID PRN 11/09/24 11/13/24 allergic conjunctivitis polyethylene glycol 3350 17 17 g PO DAILY 11/09/24 11/13/24 gram/dose oral powder (Miralax) polyvinyl alcohol-povidone (PF) 2 drp ophthalmic (eye) QID PRN Dry 11/09/24 11/13/24 1.4 %-0.6 % eye drops in a Eyes dropperette gabapentin 600 mg tablet 600 mg PO Q6H 11/13/24 11/13/24 oxycodone 10 mg tablet 10 mg PO Q6H PRN Pain 11/13/24 11/13/24 simethicone 40 mg/0.6 mL oral See Rx Instructions .Route .COMPLEX 11/13/24 11/13/24 drops,suspension Previous Rx's ?Medication ?Instructions ?Recorded levofloxacin 750 mg tablet 750 mg PO DAILY 7 days #7 tabs 11/13/24 Allergies Allergy/AdvReac Type Severity Reaction Status Date / Time doxycycline Allergy Intermediate RASH/SWELLI Verified 03/28/24 09:31 NG adhesive tape Allergy ALGY-Bliste Verified 03/28/24 09:31 r clindamycin Allergy ALGY-Hives Verified 03/28/24 09:31 Influenza Virus Vaccines Allergy Unknown Verified 03/28/24 09:31 [email or web address] (From Myrbetriq) Allergy Unknown Verified 03/28/24 09:31 niacin Allergy Unknown Verified 03/28/24 09:31 [facility] PFSH: Medical History Malignant neoplasm of supraglottis Cancer, epiglottis Gluteal pain COPD exacerbation Supraglottic lesion Epiglottic lesion Laryngeal cancer Leg swelling Asthma exacerbation in COPD Pressure ulcer Chronic hypertrophic rhinitis COVID-19 Malar rash Acute non-recurrent pansinusitis Orchitis and epididymitis Hypokalemia Urethral stricture Osteomyelitis Foot osteomyelitis with cellulitis treated with vancomycin GERD (gastroesophageal reflux disease) Obstructive sleep apnea COPD (chronic obstructive pulmonary disease) Cervical vertebral fusion Myocardial infarction Status post stent placement Foot drop Heart failure with preserved ejection fraction Lymphedema Dyslipidemia Hypertension Surgical History S/P cystourethroscopy with dilation of urethral stricture Previous back surgery H/O cardiac catheterization H/O shoulder surgery Family History Other Hypertension Social History Smoking and tobacco/nicotine status: never used tobacco/nicotine Quit status (tobacco/nicotine): has quit using Year quit tobacco: 2020 - 1.5 PPD x 40 Years Second hand smoke exposure: No Alcohol intake: current Alcohol intake frequency: holidays/special occasions only Substance/Drug Use: never Caregiver/support person: Yes Lives independently: Yes Household members: spouse Housing: House Marital status: Current occupational status: disabled Do you think of yourself as: Straight/Heterosexual Current gender identity: Male Physical Exam Const: GENERAL APPEARANCE: cooperative ORIENTATION/CONSCIOUSNESS: Yes awake HENMT: COMMON NORMALS: normocephalic, atraumatic and hearing grossly normal bilaterally HEAD & SCALP: normocephalic and atraumatic Resp: COMMON NORMALS: normal respiratory effort, No retractions, No use of accessory muscles and clear to auscultation bilaterally AUSCULTATION: clear to auscultation bilaterally Cardio: COMMON NORMALS: regular rate, regular rhythm and No murmurs present (Cardio) RATE: regular rate RHYTHM: regular rhythm GI: COMMON NORMALS: Soft to palpation and No hepatosplenomegaly present AUSCULTATION: Yes normoactive bowel sounds PALPATION: Yes Soft to palpation, No Tenderness to palpation present (GI), No Guarding due to palpation present (GI) and Yes No hepatosplenomegaly present OTHER: The stoma of the PEG tube does not appear to be infected there is no purulent drainage there is some mucousy white drainage around it that appears to be gastric contents I suspect it may be is Jevity it is not purulent in nature with palpation and not able to express any purulence. The tube itself is quite loose the bulb is within the stomach but is not tight against the gastric portion of the stoma. Extremity: COMMON NORMALS: normal to inspection, capillary refill normal, no clubbing, cyanosis or edema, no calf tenderness and no pedal edema Skin: COMMON NORMALS: no rashes or lesions noted GENERAL SKIN EXAM: no rashes or lesions noted Course Vital Signs: Vital signs: Vital Signs Temperature 98.0 F 11/13/24 14:09 Pulse Rate 82 11/13/24 16:24 Respiratory Rate 16 11/13/24 16:40 Blood Pressure 122/77 11/13/24 16:24 Pulse Oximetry 97 11/13/24 16:40 Oxygen Delivery Me thod Trach Collar 11/13/24 15:30 Oxygen Flow Rate 6 11/13/24 15:30 MDM - Wound/Laceration Medical Decision Making Does not believe he has not infection around the stoma. The material around the stoma appears to have been gastric contents leaking out. There is no sign of infection on the CT his white count is slightly elevated but we did note a left lower lobe pneumonia as well as a cystitis. His vital signs are otherwise stable and his oxygen is normal on his usual 6 L. There is a potential that some of these changes at the left base are chronic. We are culturing the urine. Will start him on Levaquin 750 daily he should have a follow-up chest x-ray in approximately 10 days. Will adjust antibiotics based on urine culture results. At this time he has no emergent condition can safely be return to the intermediate. Lab Data 11/13/24 14:56 11/13/24 14:56 Radiology Impressions Abdomen/Pelvis CT 11/13/24 14:39 IMPRESSION: 1. Gastric wall thickening is likely exaggerated by underdistention. Mild gastritis not excluded. 2. Percutaneous gastrostomy tube well positioned within the distal stomach. 3. Sacral decubitus ulcer with erosion of portions of the sacrum and coccyx, likely chronic osteomyelitis. 4. Left basilar consolidation worrisome for pneumonia. Recommend imaging follow-up after clinical treatment to document resolution as neoplasm is also not excluded. 5. Additional ancillary findings as above. COMMENTS: Consistent with the [place] [employer]'s Incidental Findings Committee white paper (J Am Jyoti Radiol 2018): Any incidental renal lesion less than 1 cm or classified as too small to characterize, or any incidental cystic renal lesion characterized as simple-appearing, is likely benign. No follow-up imaging is recommended for these lesions per consensus recommendations based on imaging criteria. Laboratory Results WBC 13.34 10^3/uL (3.29-11.43) H 11/13/24 14:56 RBC 4.38 10^6/uL (3.85-5.65) 11/13/24 14:56 Hgb 12.60 g/dL (11.27-16.99) 11/13/24 14:56 Hct 40.3 % (37-53) 11/13/24 14:56 MCV 92.0 fl (82-101) 11/13/24 14:56 MCH 28.8 pg (27-33) 11/13/24 14:56 MCHC 31.3 g/dL (30-55) 11/13/24 14:56 RDW 14.6 % (12.1-15.1) 11/13/24 14:56 Plt Count 401 10^3/cmm (157-399) H 11/13/24 14:56 MPV 9.7 fL (7.4-10.4) 11/13/24 14:56 Neut % (Auto) 79.8 % 11/13/24 14:56 Lymph % (Auto) 5.7 % 11/13/24 14:56 Whitfield % (Auto) 9.1 % 11/13/24 14:56 Eos % (Auto) 4.7 % 11/13/24 14:56 Baso % (Auto) 0.4 % 11/13/24 14:56 Neut # (Auto) 10.64 10^3/uL (1.8-7.7) H 11/13/24 14:56 Lymph # (Auto) 0.8 10^3/uL (0.8-4.8) 11/13/24 14:56 Whitfield # (Auto) 1.2 10^3/uL (0.2-0.9) H 11/13/24 14:56 Eos # (Auto) 0.6 10^3/uL (0.0-0.8) 11/13/24 14:56 Baso # (Auto) 0.1 10^3/uL (0.0-0.1) 11/13/24 14:56 Nucleated RBC % (auto) 0 % 11/13/24 14:56 Nucleated RBCs # 0.0 /100WBC 11/13/24 14:56 Specimen Type Arterial 11/13/24 14:27 Sample Site Brachial, left 11/13/24 14:27 ABG pH 7.41 (7.35-7.45) 11/13/24 14:27 ABG pCO2 48.6 mmHg (35-45) H 11/13/24 14:27 ABG pO2 74.9 mmHg (80.0-100.0) L 11/13/24 14:27 ABG HCO3 31.0 mmol/L (22-26) H 11/13/24 14:27 ABG O2 Saturation 95.0 11/13/24 14:27 ABG Base Excess 5.4 mmol/L (-2.0-2.0) H 11/13/24 14:27 Keon Test Pos 11/13/24 14:27 A-a O2 Gradient 1.9 mmHg (5-10) L 11/13/24 14:27 Hematocrit 37.3 % (42-52) L 11/13/24 14:27 Hgb O2 Saturation 93.1 % (95-100) L 11/13/24 14:27 Carboxyhemoglobin 1.4 %THgb (0.4-20.1) 11/13/24 14:27 Methemoglobin 0.6 % (0.4-1.5) 11/13/24 14:27 Total Hemoglobin 12.2 g/dL (14-18) L 11/13/24 14:27 Sodium 138.0 mmol/L (131-143) 11/13/24 14:27 Potassium 3.7 mmol/L (3.5-5.0) 11/13/24 14:27 Glucose 121.0 mg/dL (70-115) H 11/13/24 14:27 Ionized Calcium 1.2 mmol/L (1.1-1.4) 11/13/24 14:27 O2 Delivery Device Trach collar 11/13/24 14:27 O2 Liters/Min 6.0 % 11/13/24 14:27 Associate Director Finance ID [employer] 11/13/24 14:27 Sodium 136 mmol/L (136-145) 11/13/24 14:56 Potassium 3.9 mmol/L (3.5-5.1) 11/13/24 14:56 Chloride 97 mmol/L (98-107) L 11/13/24 14:56 Carbon Dioxide 30 mmol/L (22-29) H 11/13/24 14:56 Anion Gap 12.9 (5-19) 11/13/24 14:56 BUN 14 mg/dL (8-23) 11/13/24 14:56 Creatinine 0.6 mg/dL (0.7-1.2) L 11/13/24 14:56 GFR Calculation 134.8 mL/min (90-130) H 11/13/24 14:56 Glucose 101 mg/dL (65-115) 11/13/24 14:56 Calculated Osmolality 283 mOsm/kg (285-295) L 11/13/24 14:56 Lactic Acid 1.1 mmol/L (0.5-2.2) 11/13/24 14:56 Calcium 9.2 mg/dL (8.5-10.5) 11/13/24 14:56 Total Bilirubin 0.2 mg/dL (0.15-1.2) 11/13/24 14:56 AST 9 U/L (0-40) 11/13/24 14:56 ALT 10 U/L (0-41) 11/13/24 14:56 Alkaline Phosphatase 159 U/L (40-130) H 11/13/24 14:56 Creatine Kinase 56 U/L (39-308) 11/13/24 14:56 Total Protein 8.2 g/dL (6.6-8.7) 11/13/24 14:56 Albumin 3.3 g/dL (3.5-5.2) L 11/13/24 14:56 Globulin 4.9 g/dL (1.3-4.6) H 11/13/24 14:56 Urine Color Dark yellow (Yellow) A 11/13/24 15:52 Urine Appearance Cloudy (CLEAR) A 11/13/24 15:52 Urine pH 5 (5-7) 11/13/24 15:52 Ur Specific Warren 1.020 (1.005-1.030) 11/13/24 15:52 Urine Protein 2+ (Negative) H 11/13/24 15:52 Urine Glucose (UA) Norm (Normal) 11/13/24 15:52 Urine Ketones Negative (Negative) 11/13/24 15:52 Urine Blood 3+ (Negative) H 11/13/24 15:52 Urine Nitrate Positive (Negative) A 11/13/24 15:52 Urine Bilirubin Neg (Negative) 11/13/24 15:52 Urine Urobilinogen 1 mg/dL (Negative) H 11/13/24 15:52 Ur Leukocyte Esterase 2+ (Negative) H 11/13/24 15:52 Urine RBC >100 /hpf (0-2) H 11/13/24 15:52 Urine WBC >100 /hpf (0-5) H 11/13/24 15:52 Ur Squamous Epith Cells 6-10 /hpf (0-5) 11/13/24 15:52 Amorphous Sediment Not Reportable 11/13/24 15:52 Urine Bacteria 4+ /hpf (NONE) H 11/13/24 15:52 Hyaline Casts 18.27 /lpf 11/13/24 15:52 All radiology interpretation(s) finalized by discharge Discharge Plan Discharge Patient Disposition: Home Clinical Impression: Left lower lobe pneumonia, Decubitus ulcer Condition: Stable Prescriptions: New levofloxacin 750 mg tablet 750 mg PO DAILY 7 Days Qty: 7 0RF No Action gabapentin 600 mg tablet 600 mg PO Q6H simethicone 40 mg/0.6 mL Drops,Suspension See Rx Instructions .ROUTE .COMPLEX Rx Instructions: TAKE 1.2 ML BY MOUTH 4 TIMES DAILY FOR GAS oxycodone 10 mg Tablet 10 mg PO Q6H PRN (Reason: Pain) cyclobenzaprine 10 mg tablet 10 mg PO Q8H PRN (Reason: Muscle Spasm) acetaminophen 325 mg Tablet 650 mg PO QID PRN (Reason: Pain) bisacodyl 10 mg Suppository 10 mg MN DAILY PRN (Reason: Constipation) olopatadine 0.1 % drops 1 drp ophthalmic (eye) BID PRN (Reason: allergic conjunctivitis) budesonide 0.5 mg/2 mL suspension for nebulization 0.5 mg inhalation BID PRN (Reason: Wheezing) polyethylene glycol 3350 [Miralax] 17 gram/dose Powder 17 g PO DAILY enoxaparin 40 mg/0.4 mL Syringe 40 mg SUBCUT DAILY polyvinyl alcohol-povidon(PF) 1.4-0.6 % Dropperette 2 drp OPHTHALMIC (EYE) QID PRN (Reason: Dry Eyes) chlorhexidine gluconate 0.12 % Mouthwash 15 ml BUCCAL TID Discharge Orders: Discharge ED (Routine); Ordered 11/13/24 Ordered By: Agus Blair Referrals: Eliud Jenkins FNP [Primary Care Provider] - Discharge Diet: Usual diet Discharge Activity: Resume usual activity Patient Instructions: Opioid Safety, Pain Management Activity Restrictions/Additional Instructions: Thank you for choosing [facility] for your healthcare needs today. It is very important that you follow up as instructed or that you return to the Emergency Department should you have concerns or if your condition changes or worsens in any way. You were seen in the emergency room for concerns regarding your PEG tube. There is no sign of infection on your PEG tube on the CAT scan that was done. No abscess or signs of cellulitis around the PEG tube either on physical exam or on the CAT scan. The PEG tube was loose and allowing gastric contents to come back around to the tube itself. On imaging there was signs of a left lower lobe pneumonia as well as a bladder infection. Recommend you start oral antibiotics the urine will be cultured. You should have a follow-up chest x-ray in 2 weeks. Print Language: Liberian Coding Level of Care Code ED Switch Engineer for 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
[2024-11-13 14:37] LABS: ABG PCO2 48.6 mmHg (35-45); ABG PH Result 7.41 (7.35-7.45); Alveolar-Arterial Oxygen Gradi 1.9 mmHg (5-10); Arterial Blood Gas Hematocrit 37.3 % (42-52); Base Excess ABG 5.4 mmol/L (-2.0-2.0); Blood Gas Allen Test Pos; Blood Gas Operator Identificat WALCI; Blood Gas Sample Site Brachial, left; Blood Gas Sample Type Arterial; Carboxyhemoglobin 1.4 %THgb (0.4-20.1); HGB O2 Sat 93.1 % (95-100); Ionized Calcium Level - ABG 1.2 mmol/L (1.1-1.4); Methemoglobin 0.6 % (0.4-1.5); Oxygen Device TRACH COLLAR; PO2 ABG 74.9 mmHg (80.0-100.0); Potassium Level - ABG 3.7 mmol/L (3.5-5.0); Total Hemoglobin 12.2 g/dL (14-18)
--- NOTE | 2024-11-13 14:39 | CTR_ITS ---
PROCEDURE INFORMATION: Exam: CT Abdomen And Pelvis With Contrast Exam date and time: 11/13/2024 4:03 PM Age: 64 years old Clinical indication: Abdominal pain; Generalized; Prior surgery; Surgery date: 6+ months; Surgery type: Peg tube; Additional info: Abd pain TECHNIQUE: Imaging protocol: Computed tomography of the abdomen and pelvis with contrast. Radiation optimization: All CT scans at this facility use at least one of these dose optimization techniques: automated exposure control; mA and/or kV adjustment per patient size (includes targeted exams where dose is matched to clinical indication); or iterative reconstruction. Contrast material: OMNI 350; Contrast volume: 100 ml; Contrast route: INTRAVENOUS (IV); COMPARISON: PT PET skull to thigh SUBS [id number] 01/22/2024 12:17 PM RADIATION DOSE METRICS: Total DLP (mGy-cm): 550.65 FINDINGS: Tubes, catheters and devices: Percutaneous gastrostomy tube positioned within the distal gastric body. Lungs: Ill-defined consolidation partially imaged within the left lower lobe. Liver: Normal. No mass. Gallbladder and biliary ducts: Normal. No calcified stones. No ductal dilation. Pancreas: Normal. No ductal dilation. Spleen: Punctate splenic granulomas. Adrenal glands: Normal. No mass. Kidneys and ureters: Similar 3.8 cm right renal cortical cyst. Subcentimeter hypodensity in the left kidney is too small to characterize but likely represents a cyst. No hydronephrosis. Stomach and bowel: Hyperdense material throughout the colon may be from prior contrast administration or medication use. No evidence of bowel obstruction. Gastric wall thickening is likely exaggerated by underdistention. Appendix: No evidence of appendicitis. Intraperitoneal space: Unremarkable. No free air. No significant fluid collection. Vasculature: Small aorto bi-iliac stent graft appears patent. Mildly ectatic distal abdominal aorta measuring up to 2.7 cm in caliber. [id number] aortoiliac calcifications. Lymph nodes: Unremarkable. No enlarged lymph nodes. Urinary bladder: The urinary bladder is decompressed with a William catheter in place. Bladder wall thickening is likely exaggerated by underdistention. Reproductive: Unremarkable as visualized. Bones/joints: Mild osseous erosion along the distal aspect of the sacrum and coccyx. Degenerative changes of the visualized spine. Soft tissues: Sacral decubitus ulcer. Likely post-injection changes in the anterior abdominal wall. CT/CT abdomen pelvis w con* [id number] IMPRESSION: 1. Gastric wall thickening is likely exaggerated by underdistention. Mild gastritis not excluded. 2. Percutaneous gastrostomy tube well positioned within the distal stomach. 3. Sacral decubitus ulcer with erosion of portions of the sacrum and coccyx, likely chronic osteomyelitis. 4. Left basilar consolidation worrisome for pneumonia. Recommend imaging follow-up after clinical treatment to document resolution as neoplasm is also not excluded. 5. Additional ancillary findings as above. COMMENTS: Consistent with the [place] [employer]'s Incidental Findings Committee white paper (J Am Jyoti Radiol 2018): Any incidental renal lesion less than 1 cm or classified as too small to characterize, or any incidental cystic renal lesion characterized as simple-appearing, is likely benign. No follow-up imaging is recommended for these lesions per consensus recommendations based on imaging criteria.
--- NOTE | 2024-11-13 14:48 | PC.PHAR ---
PATIENT IS FROM [facility]
[2024-11-13 15:27] LABS: Basophils # 0.1 10^3/uL (0.0-0.1); Basophils % 0.4 %; Eosinophils # 0.6 10^3/uL (0.0-0.8); Eosinophils % 4.7 %; Hematocrit 40.3 % (37-53); Lymphocytes # 0.8 10^3/uL (0.8-4.8); Lymphocytes % 5.7 %; Mean Corpuscular HGB Conc 31.3 g/dL (30-55); Mean Corpuscular Hemoglobin 28.8 pg (27-33); Mean Platelet Volume 9.7 fL (7.4-10.4); Monocytes # 1.2 10^3/uL (0.2-0.9); Monocytes % 9.1 %; Neutrophils # 10.64 10^3/uL (1.8-7.7); Neutrophils % 79.8 %; Nucleated Red Blood Cells % 0 %; Platelet Count 401 10^3/cmm (157-399); Red Blood Count 4.38 10^6/uL (3.85-5.65); Red Cell Distribution Width 14.6 % (12.1-15.1); White Blood Count 13.34 10^3/uL (3.29-11.43)
[2024-11-13 15:45] LABS: Lactic Sepsis W/Reflex 1.1 mmol/L (0.5-2.2)
[2024-11-13 15:49] LABS: Alanine Aminotransferase 10 U/L (0-41); Albumin Level 3.3 g/dL (3.5-5.2); Alkaline Phosphatase 159 U/L (40-130); Anion Gap 12.9 (5-19); Aspartate Amino Transferase 9 U/L (0-40); Blood Urea Nitrogen 14 mg/dL (8-23); Calcium 9.2 mg/dL (8.5-10.5); Carbon Dioxide 30 mmol/L (22-29); Chloride 97 mmol/L (98-107); Creatine Phosphokinase 56 U/L (39-308); Creatinine Clr Calc Pharmacy 86.8488; Globulin 4.9 g/dL (1.3-4.6); Glomerular Filtration Rate 134.8 mL/min (90-130); Glucose 101 mg/dL (65-115); Osmolality Calculated 283 mOsm/kg (285-295); Potassium 3.9 mmol/L (3.5-5.1); Sodium 136 mmol/L (136-145); Total Bilirubin 0.2 mg/dL (0.15-1.2); Total Protein 8.2 g/dL (6.6-8.7)
[2024-11-13] MEDS: morphine 4 mg/mL SDV 1 mL IVP (16:40)
[2024-11-13] MEDS: orphenadrine 30 mg/mL Inj 2 mL 60 MG IVP (16:43)
[2024-11-13 17:18] LABS: Add Urine Microscopic? YES; Bacteria Urine 4+ /hpf; Bilirubin Urine Neg (Negative); Blood Urine 3+ (Negative); Glucose Urine UA Norm (Normal); Hyaline Casts Urine 18.27 /lpf; Ketones Urine Negative (Negative); Leukocyte Esterase Urine 2+ (Negative); Nitrate Urine Positive (Negative); Protein Urine 2+ (Negative); RBC Urine >100 /hpf (0-2); Urine Appearance Cloudy (CLEAR); Urine Color Dark Yellow (Yellow); Urobilinogen Urine 1 mg/dL (Negative); WBC Urine >100 /hpf (0-5); pH Urine 5 (5-7)
[2024-11-13 17:19] LABS: Add Urine Culture? Yes
--- NOTE | 2024-11-13 17:36 | XRR_ITS ---
PROCEDURE INFORMATION: Exam: XR Chest Exam date and time: 11/13/2024 5:39 PM Age: 64 years old Clinical indication: Cough; Prior surgery; Surgery date: 6+ months; Surgery type: Cardiac cath peg tube; Additional info: Dyspnea/cough TECHNIQUE: Imaging protocol: Radiologic exam of the chest. Views: 1 view. COMPARISON: 1. CR XR chest 1V portable [id number] 10/14/2023 7:[address] abdomen pelvis w con* [id number] 11/13/2024 4:03 PM FINDINGS: Tubes, catheters and devices: Surgical clips overlie the base of the neck bilaterally. Lungs: Patchy left basilar airspace disease, new from the prior radiograph. Calcified right lung granulomas. Pleural spaces: Unremarkable. No pleural effusion. No pneumothorax. Heart/Mediastinum: Unremarkable. No cardiomegaly. Bones/joints: ACDF hardware is noted. XR/XR chest 1V portable [id number] IMPRESSION: Left basilar airspace disease.
--- NOTE | 2024-11-13 18:41 | PC.NURSE ---
report called to [place] with kera hernández at 1815. pt made aware of dc plan and report. awaiting transport at this time.
[2024-11-13] MEDS: cloNIDine 0.1 mg Tablet PO (19:44)
--- NOTE | 2024-11-13 19:46 | PC.NURSE ---
Patient's blood pressure continued to trend upward. Patient denied symptoms such as chest pain, dizziness, or shortness of breath. Dr Boswell was notified of last charted vitals and verbal order for clonidine was given.
== END 2024-11-13 20:38 | disposition home or self-care (01) ==
PROVIDERS: Emergency Provider Family Medicine; PCP Nurse Practitioner Family
DX: J18.1 Lobar pneumonia, unspecified organism (principal); L89.219 Pressure ulcer of right hip, unspecified stage; Z85.89 Personal history of malignant neoplasm of other organs and systems; Z85.21 Personal history of malignant neoplasm of larynx; J44.9 Chronic obstructive pulmonary disease, unspecified; E78.5 Hyperlipidemia, unspecified; I11.0 Hypertensive heart disease with heart failure; I50.30 Unspecified diastolic (congestive) heart failure; Z93.1 Gastrostomy status
CPT/HCPCS: 36415; 36600; 71045; 74177; 80051; 80053; 81001; 82330; 82550; 82805; 83605; 85025; 87040; 87077; 87086; 87186; 94799; 96374; 96375; 99285; J2270; J2360; J9999

== ENCOUNTER 2024-11-14 16:55 | Emergency (ER) | payer MEDICARE, MEDICAID, SELFPAY ==
[2024-11-14] VITALS (16 sets, daily range): BP systolic 70–148; BP diastolic 48–95; PULSE 67–98; RESP 12–93; TEMP 36.6–36.7; O2SAT 90–98; BMI 24.1
--- NOTE | 2024-11-14 17:17 | XRR_ITS ---
PROCEDURE INFORMATION: Exam: XR Chest Exam date and time: 11/14/2024 6:05 PM Age: 64 years old Clinical indication: Other: Sepsis TECHNIQUE: Imaging protocol: Radiologic exam of the chest. Views: 1 view. COMPARISON: CR (CHEST, ) 10/14/2024 17:39 FINDINGS: Tubes, catheters and devices: Support devices: A tracheostomy tube is present and unchanged in relative positioning. Lungs: Monitoring leads overlie the chest. Hazy left central and lower lung infiltrate suspected. Calcified granuloma unchanged on the right. Pleural spaces: Unremarkable. No pleural effusion. No pneumothorax. Heart/Mediastinum: Unremarkable. No cardiomegaly. Bones/joints: Unremarkable. Other findings: Contrast is seen at the splenic flexure. Surgical clips are seen over the lower bilateral neck areas as well as a plate with screws over the C6-C7 level. XR/XR chest 1V portable [id number] IMPRESSION: 1. Significant improvement with respect to the left central and lower lung hazy infiltrate. 2. Clearing of the trace right central and lower lung infiltrate.
--- NOTE | 2024-11-14 17:18 | ED_ITS ---
HPI - General Adult 2 General: Chief complaint: General Medical Stated complaint: possible sepsis Source: patient Mode of arrival: EMS History of Present Illness: This patient who communicates by typing on his mobile phone presents to the emergency department from long-term care facility. There is a question whether he had symptoms suggested sepsis and therefore he was transported to the emergency department for further evaluation. He was in the emergency department yesterday and evaluated for drainage around his PEG tube and found to not have any evidence of significant infection although there was some concern whether he might have a pulmonary infection yesterday. 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 He also is nonambulatory. According to EMS records he apparently had low blood pressure prior to arrival. He denies any fevers or chills personally. He states he has not any body aches shortness of breath or other constitutional symptoms. Associated symptoms: Deny dyspnea, headache(s), rash, palpitations or vomiting Related Data Home Medications ?Medication ?Instructions ?Recorded ?Confirmed acetaminophen 325 mg tablet 650 mg PO QID PRN Pain 11/13/24 bisacodyl 10 mg rectal suppository 10 mg MN DAILY PRN Constipation 11/09/24 11/13/24 budesonide 0.5 mg/2 mL suspension 0.5 mg inhalation BI D PRN Wheezing 11/09/24 11/13/24 for nebulization chlorhexidine gluconate 0.12 % 15 ml buccal TID 11/13/24 mouthwash cyclobenzaprine 10 mg tablet 10 mg PO Q8H PRN Muscle S pasm 11/09/24 11/13/24 enoxaparin 40 mg/0.4 mL 40 mg SUBCUT DAILY 11/09/24 11/13/24 subcutaneous syringe olopatadine 0.1 % eye drops 1 drp ophthalmic (eye) BID PRN 11/09/24 11/13/24 allergic conjunctivitis polyethylene glycol 3350 17 17 g PO DAILY 11/09/2411/04 gram/dose oral powder (Miralax) polyvinyl alcohol-povidone (PF) 2 drp ophthalmic (eye) QID PRN Dry 11/09/24 11/13/24 1.4 %-0.6 % eye drops in a Eyes dropperette gabapentin 600 mg tablet 600 mg PO Q6H 11/13/2411/13 oxycodone 10 mg tablet 10 mg PO Q6H PRN Pain 11/13/24 simethicone 40 mg/0.6 mL oral See Rx Instructions .Rou te .COMPLEX 11/13/24 11/13/24 drops,suspension Previous Rx's ?Medication ?Instructions ?Recorded levofloxacin 750 mg tablet 750 mg PO DAILY 7 days #7 t abs 11/13/24 Allergies Allergy/AdvReac Type Severity Reaction Status Date / Time doxycycline Allergy Intermediate RASH/SWELLI Verified 03/28/24 09:31 NG adhesive tape Allergy ALGY-Bliste Verified 03/28/24 09:31 r clindamycin Allergy ALGY-Hives Verified 03/28/24 09:31 Influenza Virus Vaccines Allergy Unknown Verified 03/28/24 09:31 mirabegron (From Myrbetriq) Allergy Unknown Verified 03/28/24 09:31 niacin Allergy Unknown Verified 03/28/24 09:31 Review of Systems 2 Const: Denies: fever(s) or chills Eyes: Denies: change in vision Card: Denies: palpitations Resp: Denies: dyspnea GI: Denies: vomiting or diarrhea Musc: Reports: extremity pain Skin/Breast: Denies: rash Neuro: Denies: headache(s) PFSH ED 2 PFSH: Medical History Malignant neoplasm of supraglottis Cancer, epiglottis Gluteal pain COPD exacerbation Supraglottic lesion Epiglottic lesion Laryngeal cancer Leg swelling Asthma exacerbation in COPD Pressure ulcer Chronic hypertrophic rhinitis COVID-19 Malar rash Acute non-recurrent pansinusitis Orchitis and epididymitis Hypokalemia Urethral stricture Osteomyelitis Foot osteomyelitis with cellulitis treated with vancomycin GERD (gastroesophageal reflux disease) Obstructive sleep apnea COPD (chronic obstructive pulmonary disease) Cervical vertebral fusion Myocardial infarction Status post stent placement Foot drop Heart failure with preserved ejection fraction Lymphedema Dyslipidemia Hypertension Surgical History S/P cystourethroscopy with dilation of urethral stricture Previous back surgery H/O cardiac catheterization H/O shoulder surgery Family History Other Hypertension Social History Smoking and tobacco/nicotine status: never used tobacco/nicotine Quit status (tobacco/nicotine): has quit using Year quit tobacco: 2020 - 1.5 PPD x 40 Years Second hand smoke exposure: No Alcohol intake: current Alcohol intake frequency: holidays/special occasions only Substance/Drug Use: never Caregiver/support person: Yes Lives independently: Yes Household members: spouse Housing: House Marital status: Current occupational status: disabled Do you think of yourself as: Straight/Heterosexual Current gender identity: Male Physical Exam 2 Narrative: EXAM NARRATIVE: The patient appears to be alert and comfortable. He is noted to be interacting on his mobile phone prior to my communication and continue to communicate via his mobile phone by texting. Const: COMMON NORMALS: patient oriented x3 and alert GENERAL APPEARANCE: c ooperative and comfortable ORIENTATION/CONSCIOUSNESS: Yes oriented to person and Yes oriented to place HENMT: COMMON NORMALS: Normal nasal mucous membranes and turbinates present, moist oral mucous membranes and oropharynx normal NOSE: Normal nasal mucous membranes and turbinates present Eye: COMMON NORMALS: Equal, round and reactive pupils present, conjunctivae normal and no scleral icterus CONJUNCTIVA: Yes conjunctivae normal PUPIL: Yes Equal, round and reactive pupils present Neck/C-Spine: OTHER: Tracheostomy is present. There is no bleeding, drainage or erythema around his stoma. Chest: COMMONS NORMALS: normal inspection of the chest Resp: COMMON NORMALS: normal respiratory effort and No retractions A USCULTATION: crackles Cardio: COMMON NORMALS: regular rate, regular rhythm, No murmurs present (Cardio) and Peripheral pulses 2+ throughout RATE: regular rate RHYTHM: r egular rhythm PERIPHERAL PULSES: Peripheral pulses 2+ throughout GI: COMMON NORMALS: Soft to palpation and non-tender PALPATION: Yes Soft to palpation OTHER: He has a feeding tube present left upper quadrant. There is no drainage or erythema noted at this time. : BLADDER/KIDNEY EXAM: Yes catheter in place Back/Pelvis: COMMON NORMALS: no thoracic nor lumbar tenderness Extremity: NARRATIVE EXTREMITY EXAM: He has decreased muscle mass to both lower extremities. Neuro: COMMON NORMALS: patient oriented x3 and moves all extremities S ENSORIUM/ORIENTATION: Yes alert, Yes oriented to person and Yes oriented to place Psych: COMMON NORMALS: mental status grossly normal Skin: NARRATIVE SKIN EXAM: Skin breakdown noted over the sacral region. OTHER: He has a wound VAC over his right inferior gluteus sacral area. There is some surrounding erythema but no evidence of abscess etc. at this time. Course 2 Reevaluation(s): Reevaluation #1: Patient was reevaluated. He is up pressure when taken when I was in the room was 97 systolic and repeated again it was 105 systolic. His heart rate is in the 90s. His O2 sat is in the 95% range with his usual 4 L via Ventimask over his tracheostomy. Chest x-ray shows interval clearing. His urinalysis is still grossly abnormal however his lactate is 1.5. His white count slightly elevated from what it was 24 hours ago. He has received approximately 1500 mL of lactated Ringer's since departure from the [facility] and has had only approximately 200 mL of urine output as far as we can tell since arrival here. He received 2 g Rocephin IV piggyback and I think even though I do not feel that he is overwhelmingly septic at this time I think he is probably volume depleted and has some evidence of ongoing urinary tract infection and given the fact this is his second ED visit in the last 24 hours and gets reasonable for us to continue IV fluids can and monitor his response. Time: 19:19 Consultations: Consultation #1: Discussed with Dr. Guadarrama the hospitalist and we reviewed his his evaluation both yesterday and today and she agreed to place him in an inpatient status for further care. Time: 20:00 Vital Signs: Vital signs: Vital Signs Temperature 97.9 F 11/14/24 16:46 Pulse Rate 94 11/14/24 19:50 Respiratory Rate 14 11/14/24 19:50 Blood Pressure 148/81 11/14/24 19:50 Pulse Oximetry 98 11/14/24 19:50 Oxygen Delivery Me thod Room Air 11/14/24 18:25 MDM - General Adult Medical Decision Making This patient was transported to the emergency department as noted in the HPI from the [facility]. This is a second visit within 24 hours. He presents with concerns about sepsis expressed by the [facility] staff. His initial blood pressures by EMS were noted to be in the 70s and he received IV fluids and route. Upon arrival here his blood pressure was reevaluated. He was alert and interactive texting on his mobile device due to his tracheostomy. His clinical exam revealed some crackles at the lung bases a gastrostomy tube which did not appear to have any redness or drainage as well as a sacral pressure ulcer with a wound VAC that that has some mild erythema around the region. Workup ensued to ensure that there was no evidence of other potential causes of infection at the same time he was receiving IV fluids as well as monitoring. His laboratories did show a persistent leukocytosis but a lactate of 1.5 which was reassuring. His pressures did respond to IV fluids although his urine output did not match his intake there for likely reflecting a intravascular volume deficit. He was given empiric 2 g of Rocephin. He had cultures pending from his prior visit and additional cultures were obtained as well as COVID flu and RSV studies. He responded to IV fluids regarding his improvement in pressure and therefore pressors were not indicated at the time he was in the emergency department. He will be placed in an inpatient status as requested by the hospitalist team for additional IV fluids and additional monitoring and evaluation. Medical Records I reviewed the patient's medical records. Emergency department visit on 11/13/2024 records reviewed. Did have evidence of an abnormal urinalysis as well as potentially a pulmonary infiltrate. CT scan from yesterday was also reviewed. Lab Data I reviewed the patient's lab results. 11/14/24 17:55 11/14/24 17:55 Radiology Impressions Chest X-Ray 11/14/24 17:17 IMPRESSION: 1. Significant improvement with respect to the left central and lower lung hazy infiltrate. 2. Clearing of the trace right central and lower lung infiltrate. Laboratory Results WBC 15.06 10^3/uL (3.29-11.43) H 11/14/24 17:55 RBC 4.03 10^6/uL (3.85-5.65) 11/14/24 17:55 Hgb 11.60 g/dL (11.27-16.99) 11/14/24 17:55 Hct 36.2 % (37-53) L 11/14/24 17:55 MCV 89.8 fl (82-101) 11/14/24 17:55 MCH 28.8 pg (27-33) 11/14/24 17:55 MCHC 32.0 g/dL (30-55) 11/14/24 17:55 RDW 14.6 % (12.1-15.1) 11/14/24 17:55 Plt Count 412 10^3/cmm (157-399) H 11/14/24 17:55 MPV 9.3 fL (7.4-10.4) 11/14/24 17:55 Neut % (Auto) 85.4 % 11/14/24 17:55 Lymph % (Auto) 4.2 % 11/14/24 17:55 Shackelford % (Auto) 9.3 % 11/14/24 17:55 Eos % (Auto) 0.3 % 11/14/24 17:55 Baso % (Auto) 0.2 % 11/14/24 17:55 Neut # (Auto) 12.86 10^3/uL (1.8-7.7) H 11/14/24 17:55 Lymph # (Auto) 0.6 10^3/uL (0.8-4.8) L 11/14/24 17:55 Shackelford # (Auto) 1.4 10^3/uL (0.2-0.9) H 11/14/24 17:55 Eos # (Auto) 0.1 10^3/uL (0.0-0.8) 11/14/24 17:55 Baso # (Auto) 0.0 10^3/uL (0.0-0.1) 11/14/24 17:55 Nucleated RBC % (auto) 0 % 11/14/24 17:55 Nucleated RBCs # 0.0 /100WBC 11/14/24 17:55 Sodium 135 mmol/L (136-145) L 11/14/24 17:55 Potassium 4.6 mmol/L (3.5-5.1) 11/14/24 17:55 Chloride 98 mmol/L (98-107) 11/14/24 17:55 Carbon Dioxide 26 mmol/L (22-29) 11/14/24 17:55 Anion Gap 15.6 (5-19) 11/14/24 17:55 BUN 21 mg/dL (8-23) 11/14/24 17:55 Creatinine 0.9 mg/dL (0.7-1.2) 11/14/24 17:55 GFR Calculation 84.4 mL/min (90-130) L 11/14/24 17:55 Glucose 99 mg/dL (65-115) 11/14/24 17:55 Calculated Osmolality 283 mOsm/kg (285-295) L 11/14/24 17:55 Lactic Acid 1.5 mmol/L (0.5-2.2) 11/14/24 17:55 Calcium 8.7 mg/dL (8.5-10.5) 11/14/24 17:55 Magnesium 1.9 mg/dL (1.7-2.3) 11/14/24 17:55 Total Bilirubin 0.2 mg/dL (0.15-1.2) 11/14/24 17:55 AST 13 U/L (0-40) 11/14/24 17:55 ALT 9 U/L (0-41) 11/14/24 17:55 Alkaline Phosphatase 136 U/L (40-130) H 11/14/24 17:55 Total Protein 6.8 g/dL (6.6-8.7) 11/14/24 17:55 Albumin 2.6 g/dL (3.5-5.2) L 11/14/24 17:55 Globulin 4.2 g/dL (1.3-4.6) 11/14/24 17:55 TSH 1.80 uIU/mL (0.27-4.20) 11/14/24 17:55 Urine Color Yellow (Yellow) 11/14/24 17:35 Urine Appearance Cloudy (CLEAR) A 11/14/24 17:35 Urine pH 6 (5-7) 11/14/24 17:35 Ur Specific [place] 1.005 (1.005-1.030) 11/14/24 17:35 Urine Protein 2+ (Negative) A 11/14/24 17:35 Urine Glucose (UA) Norm (Normal) 11/14/24 17:35 Urine Ketones 1+ (Negative) H 11/14/24 17:35 Urine Blood 3+ (Negative) A 11/14/24 17:35 Urine Nitrate Negative (Negative) 11/14/24 17:35 Urine Bilirubin Neg (Negative) 11/14/24 17:35 Urine Urobilinogen Norm mg/dL (Negative) 11/14/24 17:35 Ur Leukocyte Esterase 2+ (Negative) A 11/14/24 17:35 Urine RBC >100 /hpf (0-2) H 11/14/24 17:35 Urine WBC >100 /hpf (0-5) H 11/14/24 17:35 Ur Squamous Epith Cells 0-5 /hpf (0-5) 11/14/24 17:35 Amorphous Sediment Not Reportable 11/14/24 17:35 Urine Bacteria 4+ /hpf (NONE) H 11/14/24 17:35 Hyaline Casts 2.46 /lpf 11/14/24 17:35 All radiology interpretation(s) finalized by discharge Discharge Plan Discharge Patient Disposition: Placed in Observation Clinical Impression: Urinary tract infection Qualifiers: Urinary tract infection type: catheter-associated UTI Indwelling urinary catheter type: indwelling urethral catheter Encounter type: sequela Qualified Code(s): T83.511S - Infection and inflammatory reaction due to indwelling urethral catheter, sequela Coding Level of Care Code ED [employer] for 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
[2024-11-14] MEDS: lactated ringers 1,000 ML 999 ML IV (17:21)
--- NOTE | 2024-11-14 17:42 | PC.NURSE ---
pt blood pressure 62/40 pt placedin trend. and iv bolis initated b/p up to 92/65 MD notified and request for US guided iv in a higher and larger vein. RN at bed side attempting at this time.
[2024-11-14 18:05] LABS: Basophils % 0.2 %; Eosinophils # 0.1 10^3/uL (0.0-0.8); Eosinophils % 0.3 %; Hematocrit 36.2 % (37-53); Lymphocytes # 0.6 10^3/uL (0.8-4.8); Lymphocytes % 4.2 %; Mean Corpuscular Hemoglobin 28.8 pg (27-33); Mean Corpuscular Volume 89.8 fl (82-101); Mean Platelet Volume 9.3 fL (7.4-10.4); Monocytes # 1.4 10^3/uL (0.2-0.9); Monocytes % 9.3 %; Neutrophils # 12.86 10^3/uL (1.8-7.7); Neutrophils % 85.4 %; Nucleated Red Blood Cells % 0 %; Platelet Count 412 10^3/cmm (157-399); Red Blood Count 4.03 10^6/uL (3.85-5.65); Red Cell Distribution Width 14.6 % (12.1-15.1); White Blood Count 15.06 10^3/uL (3.29-11.43)
[2024-11-14 18:30] LABS: Lactic Sepsis W/Reflex 1.5 mmol/L (0.5-2.2)
[2024-11-14 18:39] LABS: Bacteria Urine 4+ /hpf; Hyaline Casts Urine 2.46 /lpf; RBC Urine >100 /hpf (0-2); Squamous Epithelial Cell Urine 0-5 /hpf (0-5); WBC Urine >100 /hpf (0-5)
[2024-11-14 18:41] LABS: Alanine Aminotransferase 9 U/L (0-41); Albumin Level 2.6 g/dL (3.5-5.2); Alkaline Phosphatase 136 U/L (40-130); Anion Gap 15.6 (5-19); Aspartate Amino Transferase 13 U/L (0-40); Blood Urea Nitrogen 21 mg/dL (8-23); Calcium 8.7 mg/dL (8.5-10.5); Carbon Dioxide 26 mmol/L (22-29); Chloride 98 mmol/L (98-107); Creatinine Clr Calc Pharmacy 77.1989; Globulin 4.2 g/dL (1.3-4.6); Glomerular Filtration Rate 84.4 mL/min (90-130); Glucose 99 mg/dL (65-115); Magnesium 1.9 mg/dL (1.7-2.3); Osmolality Calculated 283 mOsm/kg (285-295); Potassium 4.6 mmol/L (3.5-5.1); Sodium 135 mmol/L (136-145); Total Bilirubin 0.2 mg/dL (0.15-1.2); Total Protein 6.8 g/dL (6.6-8.7)
[2024-11-14 18:48] LABS: Add Urine Culture? Yes; Add Urine Microscopic? YES; Bilirubin Urine Neg (Negative); Blood Urine 3+ (Negative); Glucose Urine UA Norm (Normal); Ketones Urine 1+ (Negative); Leukocyte Esterase Urine 2+ (Negative); Nitrate Urine Negative (Negative); Protein Urine 2+ (Negative); Specific Gravity, Urine 1.005 (1.005-1.030); Urine Appearance Cloudy (CLEAR); Urine Color Yellow (Yellow); Urobilinogen Urine Norm (Negative); pH Urine 6 (5-7)
[2024-11-14] MEDS: cefTRIAXone 2,000 mg SDV 2000 MG IVP (19:25)
--- NOTE | 2024-11-14 20:03 | P.HP_ITS ---
Providers/Chief Complaint 2 Admitting Physician: Antonette Calvo Primary Care Provider: Eliud Jenkins Chief Complaint: possible sepsis History of Present Illness Niece - Delores Andrade - [phone] Jose Koch (daughter) is the medical POA. 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 Johnston, hx of a C- spine fusion years before the spinal cord injury, COPD, MACIE not on CPAP since laryngectomy, CAD s/p stent >20yrs ago, who presents to the ED, on 11/14/2024, from [facility], for hypotension. Per patient's niece, patient was discharged to [place], but developed a pneumonia and was sent back to [facility] in [place] and discharged approximately 2 months ago to [facility] with a wound vac over his sacrum and R. gluteus. Patient's niece states that the patient's PEG tube has either been leaking or dislodged. Per anat the patient went to [facility] in [place], [place] on 11/07 for dislocation of the PEG tube on 11/07/2024. When he returned to the half-way, the tube feeds and meds leaked so he was sent back to [facility] that evening of 11/07. The tube dislodged again on 11/08, so he was sent back to [facility]. He returned back to the half-way at 2:33am on 11/09. He presented to [facility] ED on 11/09 with concern of leakage around the PEG tube, which was noted on exam. The ED physician communicated with surgery on-call at [facility], who said to expect some leakage. A gastrografin Xray was done which showed the PEG tube in place. The fluid from the bulb was then removed and the tube was advanced and the bulb re-inflated. The dressing was redone to decrease likelihood of dislodgement again. Per anat, the patient was sent here on 11/13/2024 from the half-way due to concerns for an infection because his PEG tube had green residue. He was noted to have a L. LL pneumonia on CXR. His CT abd/pelvis confirmed the LLL opacity concerning for a pneumonia vs neoplasm, sacrococcygeal chronic osteomyelitis, an a UA concerning for a UTI although the bueno catheter was not changed. He was given Levofloxacin and discharged to the half-way. He was sent back today for hypotension. He endorses low fever, malaise, wheezing at times. He denies chills, fatigue, CP, palpitations, SOB, coughing, GI sxs. In the ED, patient's vital signs were significant for a BP of 70/50s. He was given 2L NS bolus and 2g of IV Rocephin w/ minimal improvement. The night Hospitalist was called for admission. With SBP in the 70s, the patient was given another 2L NS bolus for a total of 4L and started on Vanc/Meropenem. With BP unimproving, Levophed was initiated. The patient's niece initially expressed her wishes for the patient to be transferred to [facility] before I admitted the patient. Furthermore, there were no ICU beds available at this time. I contacted [facility] and the patient was accepted, but placed on the waiting list. Review of Systems 2 Const: Reports: fever(s), fatigue and malaise; Denies: chills Eyes: Denies: change in vision ENMT: Denies: throat pain, ear or mastoid pain, ear discharge, nasal discharge or nasal congestion Card: Denies: chest pain, palpitations, lightheadedness, syncope or pre- syncope Resp: Reports: wheezing; Denies: dyspnea or productive cough GI: Reports: constipation (chronic ); Denies: abdominal pain, nausea, vomiting, diarrhea, hematochezia or melena : Reports: other (bueno catheter in place. ); Denies: hematuria Musc: Reports: joint pain (R. shoulder pain due to arthritis) and muscle cramps (legs and shoulder) Skin/Breast: Reports: sores (sacral and gluteal soreness) Psych: Denies: anxiety, depression, suicidal ideation or homicidal ideation Endo: Denies: cold intolerance or heat intolerance All/Imm: Denies: food intolerance Medications/Allergies Home Medications ?Medication ?Instructions ?Recorded ?Confirmed ?Last Taken ?Type acetaminophen 325 mg tablet 650 mg PO QID PRN Pain 11/13/24 11/13/24 History bisacodyl 10 mg rectal suppository 10 mg OH DAILY PRN Constipation 11/09/24 11/13/24 11/13/24 History budesonide 0.5 mg/2 mL suspension 0.5 mg inhalation BI D PRN Wheezing 11/09/24 11/13/24 11/13/24 History for nebulization chlorhexidine gluconate 0.12 % 15 ml buccal TID 11/13/24 11/13/24 History mouthwash cyclobenzaprine 10 mg tablet 10 mg PO Q8H PRN Muscle S pasm 11/09/24 11/13/24 11/13/24 History enoxaparin 40 mg/0.4 mL 40 mg SUBCUT DAILY 11/09/24 11/13/24 11/13/24 History subcutaneous syringe olopatadine 0.1 % eye drops 1 drp ophthalmic (eye) BID PRN 11/09/24 11/13/24 11/13/24 History allergic conjunctivitis polyethylene glycol 3350 17 17 g PO DAILY 11/09/2411/0411/13/24 History gram/dose oral powder (Miralax) polyvinyl alcohol-povidone (PF) 2 drp ophthalmic (eye) QID PRN Dry 11/09/24 11/13/24 11/13/24 History 1.4 %-0.6 % eye drops in a Eyes dropperette gabapentin 600 mg tablet 600 mg PO Q6H 11/13/2411/1311/13/24 History levofloxacin 750 mg tablet 750 mg PO DAILY 7 days #7 t abs 11/13/24 Unknown Rx oxycodone 10 mg tablet 10 mg PO Q6H PRN Pain 11/13/24 11/13/24 History simethicone 40 mg/0.6 mL oral See Rx Instructions .Rou te .COMPLEX 11/13/24 11/13/24 Unknown History drops,suspension Allergies Allergy/AdvReac Type Severity Reaction Status Date / Time doxycycline Allergy Intermediate RASH/SWELLI Verified 03/28/24 09:31 NG adhesive tape Allergy ALGY-Bliste Verified 03/28/24 09:31 r clindamycin Allergy ALGY-Hives Verified 03/28/24 09:31 Influenza Virus Vaccines Allergy Unknown Verified 03/28/24 09:31 [email or web address] (From Myrbetriq) Allergy Unknown Verified 03/28/24 09:31 niacin Allergy Unknown Verified 03/28/24 09:31 PFSH Acute 2 PFSH: Medical History Malignant neoplasm of supraglottis Cancer, epiglottis Gluteal pain COPD exacerbation Supraglottic lesion Epiglottic lesion Laryngeal cancer Leg swelling Asthma exacerbation in COPD Pressure ulcer Chronic hypertrophic rhinitis COVID-19 Malar rash Acute non-recurrent pansinusitis Orchitis and epididymitis Hypokalemia Urethral stricture Osteomyelitis Foot osteomyelitis with cellulitis treated with vancomycin GERD (gastroesophageal reflux disease) Obstructive sleep apnea COPD (chronic obstructive pulmonary disease) Cervical vertebral fusion Myocardial infarction Status post stent placement Foot drop Heart failure with preserved ejection fraction Lymphedema Dyslipidemia Hypertension Surgical History S/P cystourethroscopy with dilation of urethral stricture Previous back surgery H/O cardiac catheterization H/O shoulder surgery Family History Other Hypertension Social History Smoking and tobacco/nicotine status: never used tobacco/nicotine Quit status (tobacco/nicotine): has quit using Year quit tobacco: 2020 - 1.5 PPD x 40 Years Second hand smoke exposure: No Alcohol intake: current Alcohol intake frequency: holidays/special occasions only Substance/Drug Use: never Caregiver/support person: Yes Lives independently: Yes Household members: spouse Housing: House Marital status: Current occupational status: disabled Do you think of yourself as: Straight/Heterosexual Current gender identity: Male Vitals/I&O/Wt Last Vital Signs Temp 97.9 F 11/14/24 16:46 Pulse 94 11/14/24 19:50 Resp 14 11/14/24 19:50 BP 148/81 11/14/24 19:50 Pulse Ox 98 11/14/24 19:50 O2 Del Method Room Air 11/14/24 18:25 11/14/24 11/14/24 11/14/24 06:59 14:59 22:59 Intake Total 1000 / 1000 Balance 1000 / 1000 Weight last 48 hrs Weight 69.853 kg Data 11/14/24 17:55 11/14/24 17:55 Micro: Microbiology 11/14/24 17:55 Blood Culture - Preliminary Blood SPECIMEN COLLECTED A&P PDMP PDMP Reviewed: Not Reviewed Coding Level of Care Code Acute Code for Chg Fwd
[2024-11-14 20:17] LABS: Influenza A NEGATIVE (Negative); Influenza B NEGATIVE (Negative); Respiratory Syncytial Virus Ce NEGATIVE (Negative); SARS-CoV-2 PCR NEGATIVE (Negative)
--- NOTE | 2024-11-14 20:41 | PC.NURSE ---
Patient has been cleaned, sheets and gown changed, as well as William catheter changed per instruction of Dr Abernathy.
[2024-11-14] MEDS: sodium chloride 0.9% 1,000 ML 999 ML IV ×2 (20:56→21:58)
[2024-11-14 21:13] LABS: Bilirubin Urine Neg (Negative); Blood Urine 3+ (Negative); Glucose Urine UA Norm (Normal); Ketones Urine Negative (Negative); Leukocyte Esterase Urine 2+ (Negative); Nitrate Urine Positive (Negative); Protein Urine 1+ (Negative); Specific Gravity, Urine 1.005 (1.005-1.030); Urine Appearance Cloudy (CLEAR); Urine Color Yellow (Yellow); Urobilinogen Urine Norm (Negative); pH Urine 5 (5-7)
--- NOTE | 2024-11-14 21:13 | PHA.VACGOAL ---
Vancomycin Goal - Goal Vancomycin Indication:: Other - Therapy Day of therpy:: Day []of [] . Actual body weight (kg): 154 lb - Data Labs: WBC 15.06 10^3/uL (3.29-11.43) H 11/14/24 17:55 RBC 4.03 10^6/uL (3.85-5.65) 11/14/24 17:55 Hgb 11.60 g/dL (11.27-16.99) 11/14/24 17:55 Hct 36.2 % (37-53) L 11/14/24 17:55 MCV 89.8 fl (82-101) 11/14/24 17:55 MCH 28.8 pg (27-33) 11/14/24 17:55 MCHC 32.0 g/dL (30-55) 11/14/24 17:55 RDW 14.6 % (12.1-15.1) 11/14/24 17:55 Sodium 135 mmol/L (136-145) L 11/14/24 17:55 Potassium 4.6 mmol/L (3.5-5.1) 11/14/24 17:55 Chloride 98 mmol/L (98-107) 11/14/24 17:55 Carbon Dioxide 26 mmol/L (22-29) 11/14/24 17:55 Anion Gap 15.6 (5-19) 11/14/24 17:55 BUN 21 mg/dL (8-23) 11/14/24 17:55 Creatinine 0.9 mg/dL (0.7-1.2) 11/14/24 17:55 GFR Calculation 84.4 mL/min (90-130) L 11/14/24 17:55 Treatment plan:: new consult Regimen:: 1500 MG ONCE ORDERED BY PROVIDER 1000 MG Q12H FROM PHARMACY DOSING PROTOCOL TO START 12 HOURS AFTER 1500 MG DOSE POSSIBLE PEG TUBE INFECTION PHARMACY WILL MONITOR DAILY
[2024-11-14 21:14] LABS: Add Urine Microscopic? YES; Bacteria Urine 4+ /hpf; Hyaline Casts Urine 5.77 /lpf; RBC Urine 51-100 /hpf (0-2); Squamous Epithelial Cell Urine 0-5 /hpf (0-5); Universal Test for UA Present (0); WBC Urine >100 /hpf (0-5)
[2024-11-14 21:17] LABS: INR 1.08 (0.8-1.2)
[2024-11-14] MEDS: MEROPENEM 2,000 MG in sodium chloride 0.9% (plus) 50 ML 100 MG IV (21:17)
[2024-11-14] MEDS: vancomycin 1,500 MG/300 ML PIGGYBACK 200 MG IV (21:55)
--- NOTE | 2024-11-14 21:58 | PC.NURSE ---
Patient requested pain medication, muscle relaxers, and water. Patient at this time cannot have medication due to low blood pressure as seen in trending vitals. Patient is giving water at this time.
--- NOTE | 2024-11-14 21:59 | PC.NURSE ---
Range of motion exercises performed per request of patient due to muscle aching and spasms in his legs.
[2024-11-14] MEDS: norepinephrine 4 MG/250 ML BAG 30 MG IV (22:17)
--- NOTE | 2024-11-14 22:48 | P.CONIM_ITS ---
Providers/Reason For Consult 2 Consulting Physician/Specialty*: Antonette Calvo MD, Internal Medicine Reason for Consult*: Hypotension Requesting Physician: Dr. Abernathy Attending Physician: Antonette Calvo MD Primary Care Provider: Eliud Jenkins History of Present Illness History of Present Illness Nikam Andrade - [phone] Jose Koch (daughter) is the medical POA. History obtained from Niece Luis E Mota is a 64 year old male w/ paraplegic from the [facility] due to a spinal cord injury from a fall in 2005 w/ a chronic indwelling bueno catheter, laryngeal cancer s/p tracheostomy & PEG in 04/2024 at [facility], s/p radiation then laryngectomy in 05/2024 at [facility] by Dr. Johnston, hx of a C- spine fusion years before the spinal cord injury, COPD, MACIE not on CPAP since laryngectomy, CAD s/p stent >20yrs ago, who presents to the ED, on 11/14/2024, from [facility], for hypotension. Per patient's niece, patient was discharged to [place], but developed a pneumonia and was sent back to [facility] in [place] and discharged approximately 2 months ago to [facility] with a wound vac over his sacrum and R. gluteus. Patient's niece states that the patient's PEG tube has either been leaking or dislodged. Per niece the patient went to [facility] in [place], [place] on 11/07 for dislocation of the PEG tube on 11/07/2024. When he returned to the skilled nursing, the tube feeds and meds leaked so he was sent back to [facility] that evening of 11/07. The tube dislodged again on 11/08, so he was sent back to [facility]. He returned back to the skilled nursing at 2:33am on 11/09. He presented to [facility] ED on 11/09 with concern of leakage around the PEG tube, which was noted on exam. The ED physician communicated with surgery on-call at [facility], who said to expect some leakage. A gastrografin Xray was done which showed the PEG tube in place. The fluid from the bulb was then removed and the tube was advanced and the bulb re-inflated. The dressing was redone to decrease likelihood of dislodgement again. Per niece, the patient was sent here on 11/13/2024 from the skilled nursing due to concerns for an infection because his PEG tube had green residue. He was noted to have a L. LL pneumonia on CXR. His CT abd/pelvis confirmed the LLL opacity concerning for a pneumonia vs neoplasm, sacrococcygeal chronic osteomyelitis, an a UA concerning for a UTI although the bueno catheter was not changed. He was given Levofloxacin and discharged to the skilled nursing. He was sent back today for hypotension. He endorses low fever, malaise, wheezing at times. He denies chills, fatigue, CP, palpitations, SOB, coughing, GI sxs. In the ED, patient's vital signs were significant for a BP of 70/50s. He was given 2L NS bolus and 2g of IV Rocephin w/ minimal improvement. The night Hospitalist was called for admission. With SBP in the 70s, the patient was given another 2L NS bolus for a total of 4L and started on Vanc/Meropenem. With BP unimproving, Levophed was initiated. The patient's niece initially expressed her wishes for the patient to be transferred to [facility] before I admitted the patient. Furthermore, there were no ICU beds available at this time. I contacted [facility] and the patient was accepted, but placed on the waiting list. The patient has been accepted to [facility] under Dr. Bowden. Review of Systems 2 Const: Reports: fever(s), change in appetite and malaise; Denies: chills Eyes: Denies: change in vision ENMT: Denies: throat pain, ear or mastoid pain, ear discharge, nasal discharge or nasal congestion Resp: Denies: dyspnea, productive cough or wheezing GI: Reports: constipation; Denies: abdominal pain, nausea, vomiting, diarrhea, hematochezia or melena : Reports: other (chronic bueno); Denies: hematuria Musc: Reports: joint pain (chronic R. shoulde rpain due to arthritis. ) and muscle cramps (legs. ) Skin/Breast: Reports: sores (sacral and gluteus with wound vac in place) Neuro: Denies: headache(s) or dizziness Psych: Denies: anxiety, depression, suicidal ideation or homicidal ideation Endo: Denies: cold intolerance or heat intolerance Jose C/Lymph: Denies: easy bleeding All/Imm: Denies: food intolerance Medications/Allergies Home Medications ?Medication ?Instructions ?Recorded ?Confirmed ?Last Taken ?Type acetaminophen 325 mg tablet 650 mg PO QID PRN Pain 11/13/24 11/13/24 History bisacodyl 10 mg rectal suppository 10 mg SD DAILY PRN Constipation 11/09/24 11/13/24 11/13/24 History budesonide 0.5 mg/2 mL suspension 0.5 mg inhalation BI D PRN Wheezing 11/09/24 11/13/24 11/13/24 History for nebulization chlorhexidine gluconate 0.12 % 15 ml buccal TID 11/13/24 11/13/24 History mouthwash cyclobenzaprine 10 mg tablet 10 mg PO Q8H PRN Muscle S pasm 11/09/24 11/13/24 11/13/24 History enoxaparin 40 mg/0.4 mL 40 mg SUBCUT DAILY 11/09/24 11/13/24 11/13/24 History subcutaneous syringe olopatadine 0.1 % eye drops 1 drp ophthalmic (eye) BID PRN 11/09/24 11/13/24 11/13/24 History allergic conjunctivitis polyethylene glycol 3350 17 17 g PO DAILY 11/09/2411/0411/13/24 History gram/dose oral powder (Miralax) polyvinyl alcohol-povidone (PF) 2 drp ophthalmic (eye) QID PRN Dry 11/09/24 11/13/24 11/13/24 History 1.4 %-0.6 % eye drops in a Eyes dropperette gabapentin 600 mg tablet 600 mg PO Q6H 11/13/2411/1311/13/24 History levofloxacin 750 mg tablet 750 mg PO DAILY 7 days #7 t abs 11/13/24 Unknown Rx oxycodone 10 mg tablet 10 mg PO Q6H PRN Pain 11/13/24 11/13/24 History simethicone 40 mg/0.6 mL oral See Rx Instructions .Rou te .COMPLEX 11/13/24 11/13/24 Unknown History drops,suspension Allergies Allergy/AdvReac Type Severity Reaction Status Date / Time doxycycline Allergy Intermediate RASH/SWELLI Verified 03/28/24 09:31 NG adhesive tape Allergy ALGY-Bliste Verified 03/28/24 09:31 r clindamycin Allergy ALGY-Hives Verified 03/28/24 09:31 Influenza Virus Vaccines Allergy Unknown Verified 03/28/24 09:31 [email or web address] (From Myrbetriq) Allergy Unknown Verified 03/28/24 09:31 niacin Allergy Unknown Verified 03/28/24 09:31 Current Medications Generic Name Dose Route Start Last Admin Trade Name Freq PRN Reason Stop Dose Admin Meropenem 2,000 mg/ Sodium 50 mls @ 100 mls/hr 11/14/24 21:30 11/14/24 21:56 Chloride IV Infused Q8H RUPERT Infusion Norepinephrine Bitartrate 4 mg in 250 mls @ 0 mls/hr 11/14/24 22:15 11/14/24 22:26 Levophed IV 4 mcg/min .Q0M RUPERT 15 mls/hr Titration Protocol Per Protocol PFSH Acute 2 PFSH: Medical History Malignant neoplasm of supraglottis Cancer, epiglottis Gluteal pain COPD exacerbation Supraglottic lesion Epiglottic lesion Laryngeal cancer Leg swelling Asthma exacerbation in COPD Pressure ulcer Chronic hypertrophic rhinitis COVID-19 Malar rash Acute non-recurrent pansinusitis Orchitis and epididymitis Hypokalemia Urethral stricture Osteomyelitis Foot osteomyelitis with cellulitis treated with vancomycin GERD (gastroesophageal reflux disease) Obstructive sleep apnea COPD (chronic obstructive pulmonary disease) Cervical vertebral fusion Myocardial infarction Status post stent placement Foot drop Heart failure with preserved ejection fraction Lymphedema Dyslipidemia Hypertension Surgical History S/P cystourethroscopy with dilation of urethral stricture Previous back surgery H/O cardiac catheterization H/O shoulder surgery Family History Other Hypertension Social History Smoking and tobacco/nicotine status: never used tobacco/nicotine Quit status (tobacco/nicotine): has quit using Year quit tobacco: 2020 - 1.5 PPD x 40 Years Second hand smoke exposure: No Alcohol intake: current Alcohol intake frequency: holidays/special occasions only Substance/Drug Use: never Caregiver/support person: Yes Lives independently: Yes Household members: spouse Housing: House Marital status: Current occupational status: disabled Do you think of yourself as: Straight/Heterosexual Current gender identity: Male Vitals/I&O/Wt Last Vital Signs Temp 97.9 F 11/14/24 16:46 Pulse 88 11/14/24 22:31 Resp 17 11/14/24 22:31 BP 134/95 11/14/24 22:31 Pulse Ox 92 11/14/24 22:31 O2 Del Method Trach Collar 11/14/24 22:25 O2 Flow Rate 4 11/14/24 22:25 11/14/24 11/14/24 11/14/24 06:59 14:59 22:59 Intake Total 1054.0 / 1054.0 Balance 1054.0 / 1054.0 Weight last 48 hrs Weight 69.853 kg Physical Exam 2 Const: GENERAL APPEARANCE: cooperative, comfortable and ill appearing O RIENTATION/CONSCIOUSNESS: Yes awake, Yes oriented to person, Yes oriented to place and Yes oriented to time HENMT: COMMON NORMALS: normocephalic, atraumatic, external ears normal and Normal external nose present HEAD & SCALP: normocephalic and atraumatic N OSE: Normal external nose present EXTERNAL EAR: Yes external ears normal T HROAT: other Neck/C-Spine: GENERAL: Yes normal visual inspection and Yes tracheostomy present CAROTIDS: No normal carotid upstroke CERVICAL SPINE: Yes cervical ROM normal OTHER: Skin on L. cheek and mandible open. Lymph: OTHER: no cervical or supraclavicular LAD. Resp: OTHER: L. mid to lower lung field crackles. GI: OTHER: BS+, NT, ND, no guarding, no rebound tenderness, no hepatosplenomegaly. Extremity: GENERAL: No clubbing, No cyanosis and No edema Neuro: SENSORIUM/ORIENTATION: Yes oriented to person, Yes oriented to place and Yes oriented to time CRANIAL NERVES: No CN IX and CN X (glossopharyngeal/vagus) SENSORY EXAM: No sensory level loss detected M OTOR EXAM: Abnormal muscle tone present flaccid: right lower extremity and left lower extremity Psych: COMMON NORMALS: Normal thought process present APPEARANCE: Yes grossly normal ATTITUDE: Yes calm and Yes engaged ACTIVITY/MOTOR BEHAVIOR: Yes appropriate eye contact SPEECH: Yes Other speech symptoms (tracheostomy in place) MOOD & AFFECT: Yes euthymic mood THOUGHT PROCESS: Normal thought process present THOUGHT CONTENT: Yes Normal thought content present A TTENTION/CONCENTRATION: Yes attention grossly intact Skin: NARRATIVE SKIN EXAM: wound vac in place over sacrum and r. gluteus. Data 11/14/24 17:55 11/14/24 17:55 Micro: Microbiology 11/14/24 17:55 Blood Culture - Preliminary Blood SPECIMEN COLLECTED A&P Assessment and plan (1) Septic shock: (2) Catheter-associated urinary tract infection: Qualifiers: Encounter type: initial encounter Indwelling urinary catheter type: i ndwelling urethral catheter Qualified Code(s): T83.511A - Infection and inflammatory reaction due to indwelling urethral catheter, initial encounter; N39.0 - Urinary tract infection, site not specified (3) Chronic indwelling Bueno catheter: (4) Left lower lobe pneumonia: Plan Luis E Mota is a 64 year old male w/ [facility] due to a spinal cord injury from a fall in 2005 w/ a chronic indwelling bueno catheter, laryngeal cancer s/p tracheostomy & PEG in 04/2024 at [facility], s/p radiation then laryngectomy in 05/2024 at [facility] by Dr. Johnston, hx of a C- spine fusion years before the spinal cord injury, COPD, MACIE not on CPAP since laryngectomy, CAD s/p stent >20yrs ago, who presents to the ED, on 11/14/2024, from [facility], for hypotension. #Septic shock: Multiple sources of infection including L. lower lobe pneumonia vs neoplasm, PEG tube site, CAUTI, and chronic sacrococcygeal Osteomyelitis - s/p 4L total. On Levophed. On Meropenem and Vancomycin - F/u BCx done on 11/13/2024 and 11/14/2024. - F/u Sputum cx & UCx done on 11/14/2024 # L. lower lobe pneumonia vs neoplasm - See Septic shock section. #CAUTI - due to chronic indwelling bueno - See Septic shock section #Possible chronic sacrococcygeal Osteomyelitis - F/u ESR/CRP. Consider MRI. - See Septic Shock section #hx of Tracheostomy: #COPD: Not in exacerbation - on chronic 4L trach collar - continue # PEG leakage and a 1wk hx of dislocation - Consider Gen Surgery consult to evaluate PEG tube. - Consider Emission Specialist consult for tube feed recs. Chronic issues #COPD #MACIE not on CPAP since laryngectomy #CAD s/p1 stent >20yrs ago #HTN #HLD #hx of a C-spine fusion years before the spinal cord injury DVT ppx: Will need Lovenox GI ppx: Will need PPI Diet: NPO at this time. PDMP PDMP Reviewed: Not Reviewed Consult Attestations 2 Medical Necessity Statement: The patient is critically ill and needs admission to an ICU Critical Care Time: >90mins was spent at bedside obtaining a history from patient and family, examining the patient, reviewing labs, images, formulating a plan, actively managing patient and coordinating care. Actively managing patient includes being at bedside and ordering administration of fluid boluses, ordering vasopressors and broad spectrum antibiotics, calling multiple hospitals including, [facility] in [facility], [facility] and [facility] in [place], [place] Critical Care Time (min): 90 Coding Level of Care Code Critical Care >/= 30 minutes Critical care time (in minutes): 90 The high probability of a clinically significant, sudden or life threatening deterioration, as referenced in this documentation, required my full and direct attention, intervention and personal management. The critical care time shown is in addition to time spent performing any reported separately billable procedures and includes the following: [x] Data and vital sign review and interpretation [x ] Patient assessment, examination and intervention [x] Medication orders and management [x] Patient/Family updates as able [x] Care Coordination and Documentation. Diagnoses Septic shock A41.9; R65.21 Catheter-associated urinary tract infection T83.511A; N39.0 Encounter type: initial encounter Indwelling urinary catheter type: indwelling urethral catheter Chronic indwelling Bueno catheter Z97.8 Left lower lobe pneumonia J18.9
[2024-11-15] VITALS (9 sets, daily range): BP systolic 109–147; BP diastolic 60–89; PULSE 82–101; RESP 12–18; O2SAT 92–97
[2024-11-15 00:51] LABS: Erythrocyte Sedimentation Rate 128 mm/hr (0-10)
[2024-11-15 01:02] LABS: C Reactive Protein 305.8 mg/L (0.0-4.9)
--- NOTE | 2024-11-15 01:17 | PC.NURSE ---
Report called to Sharlene Mojica RN at [facility]. All questions and concerns were addressed at time of report.
[2024-11-15] MEDS: sodium chloride 0.9% 1,000 ML 75 ML IV (01:46)
--- NOTE | 2024-11-15 03:45 | PC.NURSE ---
Daughter Delores updated that patient left facility via [facility].
--- NOTE | 2024-11-17 12:03 | PC.NURSE ---
CALLED [facility] AND SPOKE WITH NURSE BRITTNEE, GAVE CRITICAL MRSA SPUTUM RESULT. VERBALIZED UNDERSTANDING.
== END 2024-11-15 03:49 | disposition still patient (30) ==
LOC: ER 20:38 → MEDSURG 20:49
PROVIDERS: Internal Medicine; Emergency Provider Emergency Medicine; PCP Nurse Practitioner Family
DX: T83.511S Infection and inflammatory reaction due to indwelling urethral catheter, sequela (principal); N39.0 Urinary tract infection, site not specified; X58.XXXS Exposure to other specified factors, sequela; Z87.891 Personal history of nicotine dependence; E78.5 Hyperlipidemia, unspecified; J44.9 Chronic obstructive pulmonary disease, unspecified; Z85.21 Personal history of malignant neoplasm of larynx; I11.0 Hypertensive heart disease with heart failure; I50.30 Unspecified diastolic (congestive) heart failure
CPT/HCPCS: 36415; 71045; 80053; 81001; 83605; 83735; 84443; 85025; 85610; 85651; 86140; 87040; 87070; 87077; 87086; 87186; 87205; 87637; 96365; 96366; 96367; 96375; 99285; J0696; J2185; J3370; J7030; J7120; J9999

== ENCOUNTER 2024-12-31 23:13 | Inpatient (IN) | payer MEDICARE, MEDICAID, SELFPAY ==
[2024-12-31 23:15] VITALS: BP 119/81; PULSE 115; RESP 20; O2SAT 97; BMI 25.0
[2024-12-31 23:22] VITALS: TEMP 37.6
--- NOTE | 2024-12-31 23:27 | ECG_ITS ---
[facility] Test Date: 2024-12-31 Pat Name: Luis E Mota Department: Room: Gender: Male Acting Manager: : 1960 Requested By: Moses Joshi Order Number: [id number] Chavez MD: Harmony Weber M.D. Measurements Intervals [place] Rate: 114 P: 71 OK: 160 QRS: -78 QRSD: 132 T: 38 QT: 343 QTc: 472 Interpretive Statements SINUS TACHYCARDIA POSSIBLE LEFT ATRIAL ENLARGEMENT [-0.1mV P-WAVE IN V1/V2] RIGHT BUNDLE BRANCH BLOCK [120+ ms QRS DURATION, UPRIGHT V1, 40+ ms S IN I/aVL/V4/V5/V6] LEFT ANTERIOR FASCICULAR BLOCK [QRS AXIS <= -45, QR IN I, RS IN II] POSSIBLE ANTEROSEPTAL MYOCARDIAL INFARCTION , OF INDETERMINATE AGE [30 ms Q WAVE IN V1-V4] Compared to ECG 10/14/2023 18:55:44 Right bundle-branch block now present Left anterior fascicular block now present.Myocardial infarct finding now present.Sinus rhythm no longer present.Left-axis deviation no longer present Intraventricular conduction delay no longer present Electronically Signed On 01-01-2025 18:07:01 CDT by Harmony Weber M.D. [email or web address]
[2024-12-31 23:32] VITALS: BP 82/50; PULSE 90; RESP 16; O2SAT 94
--- NOTE | 2024-12-31 23:32 | XRR_ITS ---
PROCEDURE INFORMATION: Exam: XR Chest Exam date and time: 01/01/2025 12:08 AM Age: 64 years old Clinical indication: Shortness of breath; Additional info: SOB TECHNIQUE: Imaging protocol: Radiologic exam of the chest. Views: 1 view. COMPARISON: CR XR chest 1V portable [id number] 11/14/2024 6:05 PM FINDINGS: Lungs: Stable subcentimeter calcified granulomas in the lateral right lung. No focal consolidation. Pleural spaces: No large pleural effusion. No distinct pneumothorax. Heart/Mediastinum: Cardiomediastinal silhouette is midline and stable in size. Bones/joints: Osseous structures are unchanged. Stable postprocedural changes of the neck and cervical spine. XR/XR chest 1V portable [id number] IMPRESSION: No acute cardiopulmonary findings.
[2024-12-31 23:42] VITALS: RESP 18; O2SAT 97
[2025-01-01] VITALS (11 sets, daily range): BP systolic 89–128; BP diastolic 59–99; PULSE 84–102; RESP 17–20; TEMP 36.8–37.2; O2SAT 92–97
--- NOTE | 2025-01-01 01:21 | ECG_ITS ---
[facility] Test Date: 2025-01-01 Pat Name: Luis E Mota Department: Room: Gender: Male Dentist Attendant: : 1960 Requested By: Moses Joshi Order Number: [id number] Scott MD: Harmony Weber M.D. Measurements Intervals [place] Rate: 101 P: 69 MD: 136 QRS: -77 QRSD: 140 T: 9 QT: 365 QTc: 474 Interpretive Statements SINUS TACHYCARDIA RIGHT BUNDLE BRANCH BLOCK [120+ ms QRS DURATION, UPRIGHT V1, 40+ ms S IN I/aVL/V4/V5/V6] LEFT ANTERIOR FASCICULAR BLOCK [QRS AXIS <= -45, QR IN I, RS IN II] POSSIBLE ANTEROSEPTAL MYOCARDIAL INFARCTION , OF INDETERMINATE AGE [30 ms Q WAVE IN V1-V4] Compared to ECG 12/31/2024 23:27:09 No significant changes Electronically Signed On 01-01-2025 18:20:47 CDT by Harmony eWber M.D. [email or web address]
--- NOTE | 2025-01-01 04:32 | W.ED.SOB ---
Documented by User: Moses Joshi DO 01/01/25 20:00 HPI - SOB/Dyspnea General: Chief Complaint: Shortness of Breath/Dyspnea Stated Complaint: SOB Time Seen by Provider: 12/31/24 23:31 History of Present Illness: HPI Narrative: 64-year-old male presents to the emergency department via EMS from his alf for evaluation of shortness of breath. Patient has been experiencing shortness of breath since yesterday morning. Per the alf he was in the low 80s on his 5 L baseline O2. He came to the emergency department on 10 L via simple mask over his trach. He did receive an albuterol treatment and route. He does not have any other major complaints at this time. Communication is difficult with him as a trach patient Related Data Home Medications ?Medication ?Instructions ?Recorded ?Confirmed acetaminophen 325 mg tablet 650 mg PO QID PRN Pain 11/09/24 01/01/25 bisacodyl 10 mg rectal suppository 10 mg CA DAILY PRN Constipation 11/09/24 01/01/25 budesonide 0.5 mg/2 mL suspension 0.5 mg inhalation BID PRN Wheezing 11/09/24 01/01/25 for nebulization chlorhexidine gluconate 0.12 % 15 ml buccal TID 11/09/24 01/01/25 mouthwash cyclobenzaprine 10 mg tablet 10 mg PO Q8H PRN Muscle Spasm 11/09/24 01/01/25 enoxaparin 40 mg/0.4 mL 40 mg SUBCUT DAILY 11/09/24 01/01/25 subcutaneous syringe olopatadine 0.1 % eye drops 1 drp ophthalmic (eye) BID PRN 11/09/24 01/01/25 allergic conjunctivitis polyethylene glycol 3350 17 17 g PO DAILY 11/09/24 01/01/25 gram/dose oral powder (Miralax) polyvinyl alcohol-povidone (PF) 2 drp ophthalmic (eye) QID PRN Dry 11/09/24 01/01/25 1.4 %-0.6 % eye drops in a Eyes dropperette gabapentin 600 mg tablet 600 mg PO Q6H 11/13/24 01/01/25 oxycodone 10 mg tablet 10 mg PO Q6H PRN Pain 11/13/24 01/01/25 simethicone 40 mg/0.6 mL oral See Rx Instructions .Route .COMPLEX 11/13/24 01/01/25 drops,suspension amino acids-protein 30 ea PO DAILY 01/01/25 01/01/25 hydrolysate-fiber 15 gram-100 kcal/30 mL liquid (Pro-Stat Renal Care) multivitamin with minerals-folic 1 tab PO DAILY 01/01/25 01/01/25 acid 400 mcg-lycopene 370 mcg tablet (One-A-Day Men's 50 Plus) nystatin 100,000 unit/gram topical 1 applic topical BID 01/01/25 01/01/25 cream ondansetron HCl 4 mg tablet 4 mg PO Q6H PRN Nausea And Vomiting 01/01/25 01/01/25 Allergies Allergy/AdvReac Type Severity Reaction Status Date / Time doxycycline Allergy Intermediate RASH/SWELLI Verified 03/28/24 09:31 NG adhesive tape Allergy ALGY-Bliste Verified 03/28/24 09:31 r clindamycin Allergy ALGY-Hives Verified 03/28/24 09:31 Influenza Virus Vaccines Allergy Unknown Verified 03/28/24 09:31 mirabegron (From Myrbetriq) Allergy Unknown Verified 03/28/24 09:31 niacin Allergy Unknown Verified 03/28/24 09:31 Review of Systems General: Reports: ROS unobtainable due to medical condition PFSH ED PFSH: Medical History Spinal cord injury After a fall Malignant neoplasm of supraglottis Cancer, epiglottis Gluteal pain COPD exacerbation Supraglottic lesion Epiglottic lesion Laryngeal cancer Leg swelling Asthma exacerbation in COPD Pressure ulcer Chronic hypertrophic rhinitis COVID-19 Malar rash Acute non-recurrent pansinusitis Orchitis and epididymitis Hypokalemia Urethral stricture Osteomyelitis Foot osteomyelitis with cellulitis treated with vancomycin GERD (gastroesophageal reflux disease) Obstructive sleep apnea COPD (chronic obstructive pulmonary disease) Cervical vertebral fusion Myocardial infarction Status post stent placement Foot drop Heart failure with preserved ejection fraction Lymphedema Dyslipidemia Hypertension Surgical History S/P cystourethroscopy with dilation of urethral stricture Previous back surgery H/O cardiac catheterization H/O shoulder surgery Family History Other Hypertension Social History Smoking and tobacco/nicotine status: former use of tobacco/nicotine Quit status (tobacco/nicotine): has quit using Year quit tobacco: 2020 - 1.5 PPD x 40 Years Second hand smoke exposure: No Alcohol intake: current Alcohol intake frequency: holidays/special occasions only Substance/Drug Use: never Caregiver/support person: Yes Lives independently: Yes Household members: spouse Housing: House Marital status: Current occupational status: disabled Do you think of yourself as: Straight/Heterosexual Current gender identity: Male Physical Exam Const: COMMON NORMALS: no acute distress, patient oriented x3, healthy appearing, alert and well nourished HENMT: COMMON NORMALS: normocephalic HEAD & SCALP: normocephalic Eye: COMMON NORMALS: EOMs intact bilaterally Neck/C-Spine: COMMON NORMALS: full ROM and supple Resp: COMMON NORMALS: normal respiratory effort, No retractions and clear to auscultation bilaterally AUSCULTATION: clear to auscultation bilaterally OTHER: Trach is in place and appears normal. Cardio: COMMON NORMALS: regular rate, regular rhythm, No gallops present (Cardio) and No murmurs present (Cardio) RATE: regular rate RHYTHM: regular rhythm GI: COMMON NORMALS: Soft to palpation and non-tender PALPATION: Yes Soft to palpation Extremity: GENERAL: Yes normal exam except as noted Neuro: COMMON NORMALS: patient oriented x3 SENSORIUM/ORIENTATION: Yes alert Skin: COMMON NORMALS: no rashes or lesions noted GENERAL SKIN EXAM: no rashes or lesions noted Course Vital Signs: Vital signs: Vital Signs Temperature 99.0 F 01/01/25 19:45 Pulse Rate 102 H 01/01/25 19:45 Respiratory Rate 17 01/01/25 19:45 Blood Pressure 101/62 01/01/25 19:45 Pulse Oximetry 92 01/01/25 19:45 Oxygen Delivery Me thod Trach Collar 01/01/25 19:45 Oxygen Flow Rate 3 01/01/25 16:00 MDM - SOB/Dyspnea Medical Decision Making 64-year-old male presents emergency department from nursing facility for evaluation of shortness of breath. Patient's physical exam was only significant for stage IV sacral ulcer and stage III gluteal ulcer. Patient did have a slightly elevated pulse rate while he was here. His pulmonary exam was globally normal. Elevated white count likely secondary to chronic pressure ulcers. Chest x-ray was negative for acute pulmonary findings. Turnover was given to Dr. Blair. Please see other document. Lab Data 01/01/25 04:26 01/01/25 11:18 Labs/Radiology: Radiology Impressions Chest X-Ray 12/31/24 23:32 IMPRESSION: No acute cardiopulmonary findings. Chest/Abdomen/Pelvis CT 01/01/25 10:46 IMPRESSION: 1. No evidence of pulmonary embolus. 2. Tracheostomy. 3. Sacral decubitus ulcer with evidence of prior partial sacral and coccyx resection. Chronic osteomyelitis in the distal tip of the underlying sacrum with sclerosis. No drainable fluid collections. This is stable in appearance compared to previous. 4. Diffuse bladder wall thickening with enhancement suspicious for cystitis. William catheter. 5. Mild bilateral hydronephrosis with pyelonephritis. Diffuse enhancement involving the renal pelvis and ureters bilaterally compatible with UTI/infection. 6. Mild thickening and enhancement of the sigmoid colon and rectum suspicious for colitis. 7. Trace pleural fluid. Laboratory Results WBC 14.27 10^3/uL (3.29-11.43) H 01/01/25 04:26 RBC 4.50 10^6/uL (3.85-5.65) 01/01/25 04:26 Hgb 12.80 g/dL (11.27-16.99) 01/01/25 04:26 Hct 40.7 % (37-53) 01/01/25 04:26 MCV 90.4 fl (82-101) 01/01/25 04:26 MCH 28.4 pg (27-33) 01/01/25 04:26 MCHC 31.4 g/dL (30-55) 01/01/25 04:26 RDW 15.9 % (12.1-15.1) H 01/01/25 04:26 Plt Count 384 10^3/cmm (157-399) 01/01/25 04:26 MPV 9.9 fL (7.4-10.4) 01/01/25 04:26 Neut % (Auto) 82.9 % 01/01/25 04:26 Lymph % (Auto) 5.9 % 01/01/25 04:26 [place] % (Auto) 10.4 % 01/01/25 04: Eos % (Auto) 0.1 % 01/01/25 04: Baso % (Auto) 0.4 % 01/01/25 04: Neut # (Auto) 11.83 10^3/uL (1.8-7.7) H 01/01/25 04: Lymph # (Auto) 0.8 10^3/uL (0.8-4.8) 01/01/25 04: [place] # (Auto) 1.5 10^3/uL (0.2-0.9) H 01/01/25 04: Eos # (Auto) 0.0 10^3/uL (0.0-0.8) 01/01/25 04: Baso # (Auto) 0.1 10^3/uL (0.0-0.1) 01/01/25 04: Nucleated RBC % (auto) 0 % 01/01/25 04: Nucleated RBCs # 0.0 /100WBC 01/01/25 04:26 Specimen Type Arterial 01/01/25 09:32 Sample Site Brachial, left 01/01/25 09:32 ABG pH 7.41 (7.35-7.45) 01/01/25 09:32 ABG pCO2 51.0 mmHg (35-45) H 01/01/25 09:32 ABG pO2 81.1 mmHg (80.0-100.0) 01/01/25 09:32 ABG PO2/FiO2 Ratio 225 01/01/25 09:32 ABG HCO3 32.0 mmol/L (22-26) H 01/01/25 09:32 ABG O2 Saturation 95.9 01/01/25 09:32 ABG Base Excess 6.0 mmol/L (-2.0-2.0) H 01/01/25 09:32 [place] Test N/a 01/01/25 09:32 A-a O2 Gradient 14.8 mmHg (5-10) H 01/01/25 09:32 Hematocrit 39.9 % (42-52) L 01/01/25 09:32 Hgb O2 Saturation 94.7 % (95-100) L 01/01/25 09:32 Carboxyhemoglobin 1.2 %THgb (0.4-20.1) 01/01/25 09:32 Methemoglobin 0.0 % (0.4-1.5) L 01/01/25 09:32 Total Hemoglobin 13.0 g/dL (14-18) L 01/01/25 09:32 Sodium 138.0 mmol/L (131-143) 01/01/25 09:32 Potassium 4.9 mmol/L (3.5-5.0) 01/01/25 09:32 Glucose 113.0 mg/dL (70-115) 01/01/25 09:32 Ionized Calcium 1.2 mmol/L (1.1-1.4) 01/01/25 09:32 O2 Delivery Device Oxy mask 01/01/25 09:32 O2 Liters/Min 4.0 % 01/01/25 09:32 FiO2 36.0 % 01/01/25 09:32 Merchandise Executive ID glc 01/01/25 09:32 Sodium 135 mmol/L (136-145) L 01/01/25 11:18 Potassium 4.4 mmol/L (3.5-5.1) 01/01/25 11:18 Chloride 96 mmol/L (98-107) L 01/01/25 11:18 Carbon Dioxide 30 mmol/L (22-29) H 01/01/25 11:18 Anion Gap 13.4 (5-19) 01/01/25 11:18 BUN 32 mg/dL (8-23) H 01/01/25 11:18 Creatinine 1.1 mg/dL (0.7-1.2) 01/01/25 11:18 GFR Calculation 67.0 mL/min (90-130) L 01/01/25 11:18 Glucose 109 mg/dL (65-115) 01/01/25 11:18 Calculated Osmolality 287 mOsm/kg (285-295) 01/01/25 11:18 Lactic Acid 1.6 mmol/L (0.5-2.2) 01/01/25 09:59 Calcium 8.6 mg/dL (8.5-10.5) 01/01/25 11:18 Total Bilirubin 0.5 mg/dL (0.15-1.2) 01/01/25 11:18 AST 15 U/L (0-40) 01/01/25 11:18 ALT 14 U/L (0-41) 01/01/25 11:18 Alkaline Phosphatase 162 U/L (40-130) H 01/01/25 11:18 Creatine Kinase 29 U/L (39-308) L 01/01/25 09:59 Troponin T Baseline 134 ng/L (0-15) H* 01/01/25 09:59 Troponin T 120 Minute 110.4 ng/L (0-15) H 01/01/25 11:18 Delta Troponin T -23.6 ABS# (0-10) L 01/01/25 11:18 Total Protein 7.3 g/dL (6.6-8.7) 01/01/25 11:18 Albumin 2.8 g/dL (3.5-5.2) L 01/01/25 11:18 Globulin 4.5 g/dL (1.3-4.6) 01/01/25 11:18 Urine Color [place] (Yellow) A 01/01/25 09:55 Urine Appearance Turbid (CLEAR) A 01/01/25 09:55 Urine pH 7.5 (5-7) 01/01/25 09:55 Ur Specific [place] 1.020 (1.005-1.030) 01/01/25 09:55 Urine Protein 3+ (Negative) A 01/01/25 09:55 Urine Glucose (UA) Negative (Normal) 01/01/25 09:55 Urine Ketones Negative (Negative) 01/01/25 09:55 Urine Blood 3+ (Negative) A 01/01/25 09:55 Urine Nitrate Positive (Negative) A 01/01/25 09:55 Urine Bilirubin 1+ (Negative) H 01/01/25 09:55 Urine Urobilinogen 1.0 mg/dL (Negative) 01/01/25 09:55 Ur Leukocyte Esterase 3+ (Negative) A 01/01/25 09:55 Urine RBC >100 /hpf (0-2) H 01/01/25 09:55 Urine WBC >100 /hpf (0-5) H 01/01/25 09:55 Ur Squamous Epith Cells 11-20 /hpf (0-5) H 01/01/25 09:55 Amorphous Sediment Not Reportable 01/01/25 09:55 Urine Bacteria 4+ /hpf (NONE) H 01/01/25 09:55 Hyaline Casts 111.73 /lpf 01/01/25 09:55 Influenza A (PCR) Negative (Negative) 01/01/25 05:50 Influenza Type B (PCR) Negative (Negative) 01/01/25 05:50 RSV (PCR) Negative (Negative) 01/01/25 05:50 SARS-CoV-2 (PCR) Negative (Negative) 01/01/25 05:50 Discharge Plan Discharge Patient Disposition: Admitted As Inpatient Admit Provider: Jaron Mohamud Clinical Impression: Shortness of breath, Pressure ulcer of sacral region, stage 3 Condition: Stable Discharge Diet: Advance as tolerated Discharge Activity: Resume usual activity Coding Level of Care Code ED Campus Director for Chg Fwd Documented by User: Agus Blair DO 01/01/25 12:39 HPI - SOB/Dyspnea General: Chief Complaint: Shortness of Breath/Dyspnea Stated Complaint: SOB Time Seen by Provider: 12/31/24 23:31 Related Data Home Medications ?Medication ?Instructions ?Recorded ?Confirmed acetaminophen 325 mg tablet 650 mg PO QID PRN Pain 11/09/24 01/01/25 bisacodyl 10 mg rectal suppository 10 mg CA DAILY PRN Constipation 11/09/24 01/01/25 budesonide 0.5 mg/2 mL suspension 0.5 mg inhalation BID PRN Wheezing 11/09/24 01/01/25 for nebulization chlorhexidine gluconate 0.12 % 15 ml buccal TID 11/09/24 01/01/25 mouthwash cyclobenzaprine 10 mg tablet 10 mg PO Q8H PRN Muscle Spasm 11/09/24 01/01/25 enoxaparin 40 mg/0.4 mL 40 mg SUBCUT DAILY 11/09/24 01/01/25 subcutaneous syringe olopatadine 0.1 % eye drops 1 drp ophthalmic (eye) BID PRN 11/09/24 01/01/25 allergic conjunctivitis polyethylene glycol 3350 17 17 g PO DAILY 11/09/24 01/01/25 gram/dose oral powder (Miralax) polyvinyl alcohol-povidone (PF) 2 drp ophthalmic (eye) QID PRN Dry 11/09/24 01/01/25 1.4 %-0.6 % eye drops in a Eyes dropperette gabapentin 600 mg tablet 600 mg PO Q6H 11/13/24 01/01/25 oxycodone 10 mg tablet 10 mg PO Q6H PRN Pain 11/13/24 01/01/25 simethicone 40 mg/0.6 mL oral See Rx Instructions .Route .COMPLEX 11/13/24 01/01/25 drops,suspension amino acids-protein 30 ea PO DAILY 01/01/25 01/01/25 hydrolysate-fiber 15 gram-100 kcal/30 mL liquid (Pro-Stat Renal Care) multivitamin with minerals-folic 1 tab PO DAILY 01/01/25 01/01/25 acid 400 mcg-lycopene 370 mcg tablet (One-A-Day Men's 50 Plus) nystatin 100,000 unit/gram topical 1 applic topical BID 01/01/25 01/01/25 cream ondansetron HCl 4 mg tablet 4 mg PO Q6H PRN Nausea And Vomiting 01/01/25 01/01/25 Allergies Allergy/AdvReac Type Severity Reaction Status Date / Time doxycycline Allergy Intermediate RASH/SWELLI Verified 03/28/24 09:31 NG adhesive tape Allergy ALGY-Bliste Verified 03/28/24 09:31 r clindamycin Allergy ALGY-Hives Verified 03/28/24 09:31 Influenza Virus Vaccines Allergy Unknown Verified 03/28/24 09:31 mirabegron (From Myrbetriq) Allergy Unknown Verified 03/28/24 09:31 niacin Allergy Unknown Verified 03/28/24 09:31 PFS ED PFSH: Medical History Spinal cord injury After a fall Malignant neoplasm of supraglottis Cancer, epiglottis Gluteal pain COPD exacerbation Supraglottic lesion Epiglottic lesion Laryngeal cancer Leg swelling Asthma exacerbation in COPD Pressure ulcer Chronic hypertrophic rhinitis COVID-19 Malar rash Acute non-recurrent pansinusitis Orchitis and epididymitis Hypokalemia Urethral stricture Osteomyelitis Foot osteomyelitis with cellulitis treated with vancomycin GERD (gastroesophageal reflux disease) Obstructive sleep apnea COPD (chronic obstructive pulmonary disease) Cervical vertebral fusion Myocardial infarction Status post stent placement Foot drop Heart failure with preserved ejection fraction Lymphedema Dyslipidemia Hypertension Surgical History S/P cystourethroscopy with dilation of urethral stricture Previous back surgery H/O cardiac catheterization H/O shoulder surgery Family History Other Hypertension Social History Smoking and tobacco/nicotine status: former use of tobacco/nicotine Quit status (tobacco/nicotine): has quit using Year quit tobacco: 2020 - 1.5 PPD x 40 Years Second hand smoke exposure: No Alcohol intake: current Alcohol intake frequency: holidays/special occasions only Substance/Drug Use: never Caregiver/support person: Yes Lives independently: Yes Household members: spouse Housing: House Marital status: Current occupational status: disabled Do you think of yourself as: Straight/Heterosexual Current gender identity: Male Physical Exam Skin: OTHER: Course Vital Signs: Vital signs: Vital Signs Temperature 99.0 F 01/01/25 19:45 Pulse Rate 102 H 01/01/25 19:45 Respiratory Rate 17 01/01/25 19:45 Blood Pressure 101/62 01/01/25 19:45 Pulse Oximetry 92 01/01/25 19:45 Oxygen Delivery Me thod Trach Collar 01/01/25 19:45 Oxygen Flow Rate 3 01/01/25 16:00 MDM - SOB/Dyspnea Medical Decision Making See other note same date. Note that pictures that I took are on this note the rest of my documentation is on the other note of the same date Lab Data 01/01/25 04:26 01/01/25 11:18 Labs/Radiology: Radiology Impressions Chest X-Ray 12/31/24 23:32 IMPRESSION: No acute cardiopulmonary findings. Chest/Abdomen/Pelvis CT 01/01/25 10:46 IMPRESSION: 1. No evidence of pulmonary embolus. 2. Tracheostomy. 3. Sacral decubitus ulcer with evidence of prior partial sacral and coccyx resection. Chronic osteomyelitis in the distal tip of the underlying sacrum with sclerosis. No drainable fluid collections. This is stable in appearance compared to previous. 4. Diffuse bladder wall thickening with enhancement suspicious for cystitis. William catheter. 5. Mild bilateral hydronephrosis with pyelonephritis. Diffuse enhancement involving the renal pelvis and ureters bilaterally compatible with UTI/infection. 6. Mild thickening and enhancement of the sigmoid colon and rectum suspicious for colitis. 7. Trace pleural fluid. Laboratory Results WBC 14.27 10^3/uL (3.29-11.43) H 01/01/25 04:26 RBC 4.50 10^6/uL (3.85-5.65) 01/01/25 04:26 Hgb 12.80 g/dL (11.27-16.99) 01/01/25 04: Hct 40.7 % (37-53) 01/01/25 04: MCV 90.4 fl (82-101) 01/01/25 04: MCH 28.4 pg (27-33) 01/01/25 04: MCHC 31.4 g/dL (30-55) 01/01/25 04: RDW 15.9 % (12.1-15.1) H 01/01/25 04:26 Plt Count 384 10^3/cmm (157-399) 01/01/25 04:26 MPV 9.9 fL (7.4-10.4) 01/01/25 04: Neut % (Auto) 82.9 % 01/01/25 04:26 Lymph % (Auto) 5.9 % 01/01/25 04:26 [place] % (Auto) 10.4 % 01/01/25 04:26 Eos % (Auto) 0.1 % 01/01/25 04:26 Baso % (Auto) 0.4 % 01/01/25 04:26 Neut # (Auto) 11.83 10^3/uL (1.8-7.7) H 01/01/25 04:26 Lymph # (Auto) 0.8 10^3/uL (0.8-4.8) 01/01/25 04:26 [place] # (Auto) 1.5 10^3/uL (0.2-0.9) H 01/01/25 04:26 Eos # (Auto) 0.0 10^3/uL (0.0-0.8) 01/01/25 04:26 Baso # (Auto) 0.1 10^3/uL (0.0-0.1) 01/01/25 04: Nucleated RBC % (auto) 0 % 01/01/25 04: Nucleated RBCs # 0.0 /100WBC 01/01/25 04:26 Specimen Type Arterial 01/01/25 09:32 Sample Site Brachial, left 01/01/25 09:32 ABG pH 7.41 (7.35-7.45) 01/01/25 09:32 ABG pCO2 51.0 mmHg (35-45) H 01/01/25 09:32 ABG pO2 81.1 mmHg (80.0-100.0) 01/01/25 09:32 ABG PO2/FiO2 Ratio 225 01/01/25 09:32 ABG HCO3 32.0 mmol/L (22-26) H 01/01/25 09:32 ABG O2 Saturation 95.9 01/01/25 09:32 ABG Base Excess 6.0 mmol/L (-2.0-2.0) H 01/01/25 09:32 [place] Test N/a 01/01/25 09:32 A-a O2 Gradient 14.8 mmHg (5-10) H 01/01/25 09:32 Hematocrit 39.9 % (42-52) L 01/01/25 09:32 Hgb O2 Saturation 94.7 % (95-100) L 01/01/25 09:32 Carboxyhemoglobin 1.2 %THgb (0.4-20.1) 01/01/25 09:32 Methemoglobin 0.0 % (0.4-1.5) L 01/01/25 09:32 Total Hemoglobin 13.0 g/dL (14-18) L 01/01/25 09:32 Sodium 138.0 mmol/L (131-143) 01/01/25 09:32 Potassium 4.9 mmol/L (3.5-5.0) 01/01/25 09:32 Glucose 113.0 mg/dL (70-115) 01/01/25 09:32 Ionized Calcium 1.2 mmol/L (1.1-1.4) 01/01/25 09:32 O2 Delivery Device Oxy mask 01/01/25 09:32 O2 Liters/Min 4.0 % 01/01/25 09:32 FiO2 36.0 % 01/01/25 09:32 Merchandise Executive ID glc 01/01/25 09:32 Sodium 135 mmol/L (136-145) L 01/01/25 11:18 Potassium 4.4 mmol/L (3.5-5.1) 01/01/25 11:18 Chloride 96 mmol/L (98-107) L 01/01/25 11:18 Carbon Dioxide 30 mmol/L (22-29) H 01/01/25 11:18 Anion Gap 13.4 (5-19) 01/01/25 11:18 BUN 32 mg/dL (8-23) H 01/01/25 11:18 Creatinine 1.1 mg/dL (0.7-1.2) 01/01/25 11:18 GFR Calculation 67.0 mL/min (90-130) L 01/01/25 11:18 Glucose 109 mg/dL (65-115) 01/01/25 11:18 Calculated Osmolality 287 mOsm/kg (285-295) 01/01/25 11:18 Lactic Acid 1.6 mmol/L (0.5-2.2) 01/01/25 09:59 Calcium 8.6 mg/dL (8.5-10.5) 01/01/25 11:18 Total Bilirubin 0.5 mg/dL (0.15-1.2) 01/01/25 11:18 AST 15 U/L (0-40) 01/01/25 11:18 ALT 14 U/L (0-41) 01/01/25 11:18 Alkaline Phosphatase 162 U/L (40-130) H 01/01/25 11:18 Creatine Kinase 29 U/L (39-308) L 01/01/25 09:59 Troponin T Baseline 134 ng/L (0-15) H* 01/01/25 09:59 Troponin T 120 Minute 110.4 ng/L (0-15) H 01/01/25 11:18 Delta Troponin T -23.6 ABS# (0-10) L 01/01/25 11:18 Total Protein 7.3 g/dL (6.6-8.7) 01/01/25 11:18 Albumin 2.8 g/dL (3.5-5.2) L 01/01/25 11:18 Globulin 4.5 g/dL (1.3-4.6) 01/01/25 11:18 Urine Color [place] (Yellow) A 01/01/25 09:55 Urine Appearance Turbid (CLEAR) A 01/01/25 09:55 Urine pH 7.5 (5-7) 01/01/25 09:55 Ur Specific [place] 1.020 (1.005-1.030) 01/01/25 09:55 Urine Protein 3+ (Negative) A 01/01/25 09:55 Urine Glucose (UA) Negative (Normal) 01/01/25 09:55 Urine Ketones Negative (Negative) 01/01/25 09:55 Urine Blood 3+ (Negative) A 01/01/25 09:55 Urine Nitrate Positive (Negative) A 01/01/25 09:55 Urine Bilirubin 1+ (Negative) H 01/01/25 09:55 Urine Urobilinogen 1.0 mg/dL (Negative) 01/01/25 09:55 Ur Leukocyte Esterase 3+ (Negative) A 01/01/25 09:55 Urine RBC >100 /hpf (0-2) H 01/01/25 09:55 Urine WBC >100 /hpf (0-5) H 01/01/25 09:55 Ur Squamous Epith Cells 11-20 /hpf (0-5) H 01/01/25 09:55 Amorphous Sediment Not Reportable 01/01/25 09:55 Urine Bacteria 4+ /hpf (NONE) H 01/01/25 09:55 Hyaline Casts 111.73 /lpf 01/01/25 09:55 Influenza A (PCR) Negative (Negative) 01/01/25 05:50 Influenza Type B (PCR) Negative (Negative) 01/01/25 05:50 RSV (PCR) Negative (Negative) 01/01/25 05:50 SARS-CoV-2 (PCR) Negative (Negative) 01/01/25 05:50 All radiology interpretation(s) finalized by discharge Discharge Plan Discharge Patient Disposition: Admitted As Inpatient Admit Provider: Jaron Mohamud Clinical Impression: Shortness of breath, Pressure ulcer of sacral region, stage 3 Condition: Stable Discharge Diet: Advance as tolerated Discharge Activity: Resume usual activity Coding Level of Care Code ED Campus Director for g Fwd
[2025-01-01 04:47] LABS: Basophils # 0.1 10^3/uL (0.0-0.1); Basophils % 0.4 %; Eosinophils % 0.1 %; Hematocrit 40.7 % (37-53); Lymphocytes # 0.8 10^3/uL (0.8-4.8); Lymphocytes % 5.9 %; Mean Corpuscular HGB Conc 31.4 g/dL (30-55); Mean Corpuscular Hemoglobin 28.4 pg (27-33); Mean Corpuscular Volume 90.4 fl (82-101); Mean Platelet Volume 9.9 fL (7.4-10.4); Monocytes # 1.5 10^3/uL (0.2-0.9); Monocytes % 10.4 %; Neutrophils # 11.83 10^3/uL (1.8-7.7); Neutrophils % 82.9 %; Nucleated Red Blood Cells % 0 %; Platelet Count 384 10^3/cmm (157-399); Red Cell Distribution Width 15.9 % (12.1-15.1); White Blood Count 14.27 10^3/uL (3.29-11.43)
[2025-01-01 05:04] LABS: Troponin(5th) Baseline 98 ng/L (0-15)
[2025-01-01 05:05] LABS: Alanine Aminotransferase 18 U/L (0-41); Albumin Level 2.8 g/dL (3.5-5.2); Alkaline Phosphatase 179 U/L (40-130); Aspartate Amino Transferase 19 U/L (0-40); Blood Urea Nitrogen 31 mg/dL (8-23); Calcium 9.3 mg/dL (8.5-10.5); Carbon Dioxide 26 mmol/L (22-29); Chloride 94 mmol/L (98-107); Creatinine Clr Calc Pharmacy 64.1801; Globulin 5.2 g/dL (1.3-4.6); Glucose 114 mg/dL (65-115); Osmolality Calculated 281 mOsm/kg (285-295); Sodium 132 mmol/L (136-145); Total Bilirubin 0.5 mg/dL (0.15-1.2)
[2025-01-01 05:06] LABS: Lactic Sepsis W/Reflex 1.1 mmol/L (0.5-2.2)
[2025-01-01 05:07] LABS: Anion Gap 17.2 (5-19); Potassium 5.2 mmol/L (3.5-5.1)
--- NOTE | 2025-01-01 05:33 | ECG_ITS ---
[employer] Test Date: 2025-01-01 Pat Name: Luis E Mota Department: Room: Gender: Male Sap Basis Consultant: : [id number] Requested By: Moses Joshi Order Number: [id number] Scott MD: Harmony Weber M.D. Measurements Intervals [place] Rate: 88 P: 67 NE: 160 QRS: -74 QRSD: 141 T: -18 QT: 393 QTc: 477 Interpretive Statements SINUS RHYTHM RIGHT BUNDLE BRANCH BLOCK [120+ ms QRS DURATION, UPRIGHT V1, 40+ ms S IN I/aVL/V4/V5/V6] LEFT ANTERIOR FASCICULAR BLOCK [QRS AXIS <= -45, QR IN I, RS IN II] POSSIBLE ANTEROSEPTAL MYOCARDIAL INFARCTION , OF INDETERMINATE AGE [30 ms Q WAVE IN V1-V4] Compared to ECG 01/01/2025 01:21:35 Sinus tachycardia no longer present Myocardial infarct finding still present Electronically Signed On 01-01-2025 18:19:31 CDT by Harmony Weber M.D. [email or web address]
[2025-01-01 06:31] LABS: Influenza A NEGATIVE (Negative); Influenza B NEGATIVE (Negative); Respiratory Syncytial Virus Ce NEGATIVE (Negative); SARS-CoV-2 PCR NEGATIVE (Negative)
--- NOTE | 2025-01-01 07:00 | PC.NURSE ---
ASSUMED CARE OF PT AT 0700 FROM [facility]URRIET[facility].
--- NOTE | 2025-01-01 09:25 | ECG_ITS ---
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 Measurements Intervals [place] Rate: 93 P: 73 [place]: 163 QRS: -75 QRSD: 136 T: 1 QT: 384 QTc: 479 Interpretive Statements SINUS RHYTHM POSSIBLE LEFT ATRIAL ENLARGEMENT [-0.1mV P-WAVE IN V1/V2] RIGHT BUNDLE BRANCH BLOCK [120+ ms QRS DURATION, UPRIGHT V1, 40+ ms S IN I/aVL/V4/V5/V6] LEFT ANTERIOR FASCICULAR BLOCK [QRS AXIS <= -45, QR IN I, RS IN II] POSSIBLE LEFT VENTRICULAR HYPERTROPHY [VOLTAGE CRITERIA PLUS LAE OR QRS WIDENING] POSSIBLE ANTERIOR MYOCARDIAL INFARCTION , OF INDETERMINATE AGE [30 ms Q WAVE IN V3/V4, OR R < 0.2 mV IN V4] Compared to ECG 01/01/2025 05:27:49 No significant changes Electronically Signed On 01-01-2025 18:03:33 CDT by Harmony Weber M.D. [email or web address]
[2025-01-01 09:44] LABS: ABG PH Result 7.41 (7.35-7.45); Alveolar-Arterial Oxygen Gradi 14.8 mmHg (5-10); Arterial Blood Gas Hematocrit 39.9 % (42-52); Blood Gas Operator Identificat glc; Blood Gas Sample Site Brachial, left; Blood Gas Sample Type Arterial; Carboxyhemoglobin 1.2 %THgb (0.4-20.1); HGB O2 Sat 94.7 % (95-100); Ionized Calcium Level - ABG 1.2 mmol/L (1.1-1.4); Oxygen Device OXY MASK; Oxygen Saturation ABG 95.9; PO2 ABG 81.1 mmHg (80.0-100.0); PO2 FiO2 Ratio Arterial Blood 225; Potassium Level - ABG 4.9 mmol/L (3.5-5.0)
[2025-01-01 10:10] LABS: Bilirubin Urine 1+ (Negative); Blood Urine 3+ (Negative); Glucose Urine UA Negative (Normal); Ketones Urine Negative (Negative); Leukocyte Esterase Urine 3+ (Negative); Nitrate Urine Positive (Negative); Protein Urine 3+ (Negative); Urine Appearance Turbid (CLEAR); pH Urine 7.5 (5-7)
[2025-01-01 10:13] LABS: Add Urine Microscopic? YES; Bacteria Urine 4+ /hpf; Hyaline Casts Urine 111.73 /lpf; RBC Urine >100 /hpf (0-2); WBC Urine >100 /hpf (0-5)
--- NOTE | 2025-01-01 10:19 | W.ED.SOB ---
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 When EMS arrived there is notified me that his blood pressure had decreased. Reviewing the chart we made the decision to reevaluate and canceled his discharge. EKG repeated does not show any acute changes similar to previous EKGs done earlier this year on 1. Reviewing his previous lab work he does have some leukocytosis he also had some very mild elevation in his potassium. Imaging done previously included chest x-ray which was read as not showing any acute changes. He denies any chest pain. Patient is unable to speak because of his previous laryngectomy. He is a mouth his words out or writes them. Initial troponin was 98-second troponin being drawn. Associated symptoms: Deny abdominal pain or chest pain Related Data Home Medications ?Medication ?Instructions ?Recorded ?Confirmed acetaminophen 325 mg tablet 650 mg PO QID PRN Pain 11/09/24 11/13/24 bisacodyl 10 mg rectal suppository 10 mg [place] DAILY PRN Constipation 11/09/24 11/13/24 budesonide 0.5 mg/2 mL suspension 0.5 mg inhalation BID PRN Wheezing 11/09/24 11/13/24 for nebulization chlorhexidine gluconate 0.12 % 15 ml buccal TID 11/09/24 11/13/24 mouthwash cyclobenzaprine 10 mg tablet 10 mg PO Q8H PRN Muscle Spasm 11/09/24 11/13/24 enoxaparin 40 mg/0.4 mL 40 mg SUBCUT DAILY 11/09/24 11/13/24 subcutaneous syringe olopatadine 0.1 % eye drops 1 drp ophthalmic (eye) BID PRN 11/09/24 11/13/24 allergic conjunctivitis polyethylene glycol 3350 17 17 g PO DAILY 11/09/24 11/13/24 gram/dose oral powder (Miralax) polyvinyl alcohol-povidone (PF) 2 drp ophthalmic (eye) QID PRN Dry 11/09/24 11/13/24 1.4 %-0.6 % eye drops in a Eyes dropperette gabapentin 600 mg tablet 600 mg PO Q6H 11/13/24 11/13/24 oxycodone 10 mg tablet 10 mg PO Q6H PRN Pain 11/13/24 11/13/24 simethicone 40 mg/0.6 mL oral See Rx Instructions .Route .COMPLEX 11/13/24 11/13/24 drops,suspension Allergies Allergy/AdvReac Type Severity Reaction Status Date / Time doxycycline Allergy Intermediate RASH/SWELLI Verified 03/28/24 09:31 NG adhesive tape Allergy ALGY-Bliste Verified 03/28/24 09:31 r clindamycin Allergy ALGY-Hives Verified 03/28/24 09:31 Influenza Virus Vaccines Allergy Unknown Verified 03/28/24 09:31 mirabegron (From Myrbetriq) Allergy Unknown Verified 03/28/24 09:31 niacin Allergy Unknown Verified 03/28/24 09:31 Review of Systems Card: Denies: chest pain GI: Denies: abdominal pain PFSH ED PFSH: Medical History Malignant neoplasm of supraglottis Cancer, epiglottis Gluteal pain COPD exacerbation Supraglottic lesion Epiglottic lesion Laryngeal cancer Leg swelling Asthma exacerbation in COPD Pressure ulcer Chronic hypertrophic rhinitis COVID-19 Malar rash Acute non-recurrent pansinusitis Orchitis and epididymitis Hypokalemia Urethral stricture Osteomyelitis Foot osteomyelitis with cellulitis treated with vancomycin GERD (gastroesophageal reflux disease) Obstructive sleep apnea COPD (chronic obstructive pulmonary disease) Cervical vertebral fusion Myocardial infarction Status post stent placement Foot drop Heart failure with preserved ejection fraction Lymphedema Dyslipidemia Hypertension Surgical History S/P cystourethroscopy with dilation of urethral stricture Previous back surgery H/O cardiac catheterization H/O shoulder surgery Family History Other Hypertension Social History Smoking and tobacco/nicotine status: never used tobacco/nicotine Quit status (tobacco/nicotine): has quit using Year quit tobacco: 2020 - 1.5 PPD x 40 Years Second hand smoke exposure: No Alcohol intake: current Alcohol intake frequency: holidays/special occasions only Substance/Drug Use: never Caregiver/support person: Yes Lives independently: Yes Household members: spouse Housing: House Marital status: Current occupational status: disabled Do you think of yourself as: Straight/Heterosexual Current gender identity: Male Physical Exam Const: GENERAL APPEARANCE: cooperative ORIENTATION/CONSCIOUSNESS: Yes awake HENMT: COMMON NORMALS: normocephalic, atraumatic and hearing grossly normal bilaterally HEAD & SCALP: normocephalic and atraumatic OTHER: Tracheostomy in place Resp: OTHER: Coarse breath sounds slight expiratory wheeze Cardio: COMMON NORMALS: regular rate, regular rhythm and No murmurs present (Cardio) RATE: regular rate RHYTHM: regular rhythm GI: COMMON NORMALS: Soft to palpation and No hepatosplenomegaly present AUSCULTATION: Yes normoactive bowel sounds PALPATION: Yes Soft to palpation, No Tenderness to palpation present (GI), No Guarding due to palpation present (GI) and Yes No hepatosplenomegaly present Extremity: COMMON NORMALS: normal to inspection, capillary refill normal, no clubbing, cyanosis or edema, no calf tenderness and no pedal edema Course Vital Signs: Vital signs: Vital Signs Temperature 99.7 F H 12/31/24 23:22 Pulse Rate 93 01/01/25 12:30 Respiratory Rate 18 12/31/24 23:42 Blood Pressure 115/71 01/01/25 12:30 Pulse Oximetry 95 01/01/25 12:30 Oxygen Delivery Me thod Room Air 01/01/25 12:30 Oxygen Flow Rate 5 01/01/25 08:56 MDM - SOB/Dyspnea Medical Decision Making White count with low-grade fever. He said chronic osteomyelitis in the sacrum. He has grown out MRSA in his sputum as well as resistant bacteria in his bladder. This likely due to the chronic William. Will admit start him on cefepime and vancomycin which should cover both of his issues with the bladder and with possible superinfection of the sacral wound. Pictures of the wound placed on chart there is no active drainage or signs of gangrenous tissue at this time vascular bed is debrided and appears good there is quite a bit of undermining. CTA done does not show pneumonia or PE does show signs of chronic osteomyelitis. Troponin trended up with a positive delta of 36 COVID prior to initial troponin done on the same day concerning for NSTEMI. (Initial troponin today was 98 at 426 AM. The second troponin had been canceled because the patient was discharged a second troponin was ordered when we reevaluated the patient and at 9:59 AM was 134 (patient has been started on heparin discussed with hospitalist orders written Medical Records I reviewed the patient's medical records. Lab Data I reviewed the patient's lab results. 01/01/25 04:26 01/01/25 11:18 Labs/Radiology: Radiology Impressions Chest X-Ray 12/31/24 23:32 IMPRESSION: No acute cardiopulmonary findings. Chest/Abdomen/Pelvis CT 01/01/25 10:46 IMPRESSION: 1. No evidence of pulmonary embolus. 2. Tracheostomy. 3. Sacral decubitus ulcer with evidence of prior partial sacral and coccyx resection. Chronic osteomyelitis in the distal tip of the underlying sacrum with sclerosis. No drainable fluid collections. This is stable in appearance compared to previous. 4. Diffuse bladder wall thickening with enhancement suspicious for cystitis. William catheter. 5. Mild bilateral hydronephrosis with pyelonephritis. Diffuse enhancement involving the renal pelvis and ureters bilaterally compatible with UTI/infection. 6. Mild thickening and enhancement of the sigmoid colon and rectum suspicious for colitis. 7. Trace pleural fluid. Laboratory Results WBC 14.27 10^3/uL (3.29-11.43) H 01/01/25 04:26 RBC 4.50 10^6/uL (3.85-5.65) 01/01/25 04:26 Hgb 12.80 g/dL (11.27-16.99) 01/01/25 04:26 Hct 40.7 % (37-53) 01/01/25 04:26 MCV 90.4 fl (82-101) 01/01/25 04:26 MCH 28.4 pg (27-33) 01/01/25 04:26 MCHC 31.4 g/dL (30-55) 01/01/25 04: RDW 15.9 % (12.1-15.1) H 01/01/25 04:26 Plt Count 384 10^3/cmm (157-399) 01/01/25 04:26 MPV 9.9 fL (7.4-10.4) 01/01/25 04:26 Neut % (Auto) 82.9 % 01/01/25 04:26 Lymph % (Auto) 5.9 % 01/01/25 04: [place] % (Auto) 10.4 % 01/01/25 04: Eos % (Auto) 0.1 % 01/01/25 04: Baso % (Auto) 0.4 % 01/01/25 04: Neut # (Auto) 11.83 10^3/uL (1.8-7.7) H 01/01/25 04: Lymph # (Auto) 0.8 10^3/uL (0.8-4.8) 01/01/25 04: [place] # (Auto) 1.5 10^3/uL (0.2-0.9) H 01/01/25 04: Eos # (Auto) 0.0 10^3/uL (0.0-0.8) 01/01/25 04: Baso # (Auto) 0.1 10^3/uL (0.0-0.1) 01/01/25 04: Nucleated RBC % (auto) 0 % 01/01/25 04: Nucleated RBCs # 0.0 /100WBC 01/01/25 04:26 Specimen Type Arterial 01/01/25 09:32 Sample Site Brachial, left 01/01/25 09:32 ABG pH 7.41 (7.35-7.45) 01/01/25 09:32 ABG pCO2 51.0 mmHg (35-45) H 01/01/25 09:32 ABG pO2 81.1 mmHg (80.0-100.0) 01/01/25 09:32 ABG PO2/FiO2 Ratio 225 01/01/25 09:32 ABG HCO3 32.0 mmol/L (22-26) H 01/01/25 09:32 ABG O2 Saturation 95.9 01/01/25 09:32 ABG Base Excess 6.0 mmol/L (-2.0-2.0) H 01/01/25 09:32 [place] Test N/a 01/01/25 09:32 A-a O2 Gradient 14.8 mmHg (5-10) H 01/01/25 09:32 Hematocrit 39.9 % (42-52) L 01/01/25 09:32 Hgb O2 Saturation 94.7 % (95-100) L 01/01/25 09:32 Carboxyhemoglobin 1.2 %THgb (0.4-20.1) 01/01/25 09:32 Methemoglobin 0.0 % (0.4-1.5) L 01/01/25 09:32 Total Hemoglobin 13.0 g/dL (14-18) L 01/01/25 09:32 Sodium 138.0 mmol/L (131-143) 01/01/25 09:32 Potassium 4.9 mmol/L (3.5-5.0) 01/01/25 09:32 Glucose 113.0 mg/dL (70-115) 01/01/25 09:32 Ionized Calcium 1.2 mmol/L (1.1-1.4) 01/01/25 09:32 O2 Delivery Device Oxy mask 01/01/25 09:32 O2 Liters/Min 4.0 % 01/01/25 09:32 FiO2 36.0 % 01/01/25 09:32 Pasteurizer ID glc 01/01/25 09:32 Sodium 135 mmol/L (136-145) L 01/01/25 11:18 Potassium 4.4 mmol/L (3.5-5.1) 01/01/25 11:18 Chloride 96 mmol/L (98-107) L 01/01/25 11:18 Carbon Dioxide 30 mmol/L (22-29) H 01/01/25 11:18 Anion Gap 13.4 (5-19) 01/01/25 11:18 BUN 32 mg/dL (8-23) H 01/01/25 11:18 Creatinine 1.1 mg/dL (0.7-1.2) 01/01/25 11:18 GFR Calculation 67.0 mL/min (90-130) L 01/01/25 11:18 Glucose 109 mg/dL (65-115) 01/01/25 11:18 Calculated Osmolality 287 mOsm/kg (285-295) 01/01/25 11:18 Lactic Acid 1.6 mmol/L (0.5-2.2) 01/01/25 09:59 Calcium 8.6 mg/dL (8.5-10.5) 01/01/25 11:18 Total Bilirubin 0.5 mg/dL (0.15-1.2) 01/01/25 11:18 AST 15 U/L (0-40) 01/01/25 11:18 ALT 14 U/L (0-41) 01/01/25 11:18 Alkaline Phosphatase 162 U/L (40-130) H 01/01/25 11:18 Creatine Kinase 29 U/L (39-308) L 01/01/25 09:59 Troponin T Baseline 134 ng/L (0-15) H* 01/01/25 09:59 Total Protein 7.3 g/dL (6.6-8.7) 01/01/25 11:18 Albumin 2.8 g/dL (3.5-5.2) L 01/01/25 11:18 Globulin 4.5 g/dL (1.3-4.6) 01/01/25 11:18 Urine Color [place] (Yellow) A 01/01/25 09:55 Urine Appearance Turbid (CLEAR) A 01/01/25 09:55 Urine pH 7.5 (5-7) 01/01/25 09:55 Ur Specific [place] 1.020 (1.005-1.030) 01/01/25 09:55 Urine Protein 3+ (Negative) A 01/01/25 09:55 Urine Glucose (UA) Negative (Normal) 01/01/25 09:55 Urine Ketones Negative (Negative) 01/01/25 09:55 Urine Blood 3+ (Negative) A 01/01/25 09:55 Urine Nitrate Positive (Negative) A 01/01/25 09:55 Urine Bilirubin 1+ (Negative) H 01/01/25 09:55 Urine Urobilinogen 1.0 mg/dL (Negative) 01/01/25 09:55 Ur Leukocyte Esterase 3+ (Negative) A 01/01/25 09:55 Urine RBC >100 /hpf (0-2) H 01/01/25 09:55 Urine WBC >100 /hpf (0-5) H 01/01/25 09:55 Ur Squamous Epith Cells 11-20 /hpf (0-5) H 01/01/25 09:55 Amorphous Sediment Not Reportable 01/01/25 09:55 Urine Bacteria 4+ /hpf (NONE) H 01/01/25 09:55 Hyaline Casts 111.73 /lpf 01/01/25 09:55 Influenza A (PCR) Negative (Negative) 01/01/25 05:50 Influenza Type B (PCR) Negative (Negative) 01/01/25 05:50 RSV (PCR) Negative (Negative) 01/01/25 05:50 SARS-CoV-2 (PCR) Negative (Negative) 01/01/25 05:50 All radiology interpretation(s) finalized by discharge Discharge Plan Discharge Patient Disposition: Admitted As Inpatient Clinical Impression: Shortness of breath, Pressure ulcer of sacral region, stage 3 Condition: Stable Discharge Diet: Advance as tolerated Discharge Activity: Resume usual activity Coding Level of Care Code ED Pocket Cutter for 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
[2025-01-01 10:27] LABS: Urine Color Orange (Yellow)
[2025-01-01 10:30] LABS: Add Urine Culture? Yes; UA Slide Review UA Slide Review Perf
[2025-01-01 10:36] LABS: Creatine Phosphokinase 29 U/L (39-308); Lactic Sepsis W/Reflex 1.6 mmol/L (0.5-2.2)
[2025-01-01 10:42] LABS: Troponin(5th) Baseline 134 ng/L (0-15)
--- NOTE | 2025-01-01 10:46 | CT_ITS ---
WS: [id number] CTA CHEST FOLLOWED BY ABDOMEN AND PELVIS TECHNIQUE: Noncontrast plus contrast enhanced CTA of the chest, abdomen, and pelvis with coronal and sagittal reformatted images and additional MIP Images. CLINICAL INFORMATION: dyspnea/hypotension - sacral ulcer COMPARISON: CT abdomen pelvis 11/13/2024 Jayce DLP: 1136.[address] scans at [facility] use at least one of these dose optimization techniques: automated exposure control; mA and/or kV adjustment per patient size (includes targeted exams where dose is matched to clinical indication); or iterative reconstruction. FINDINGS: Tracheostomy. Trace pleural fluid with subsegmental atelectasis in the lung bases. Chronic emphysematous changes. Small amount of pleural fluid along the LEFT fissure. Normal caliber thoracic aorta. Moderate aortic atheromatous disease. Small esophageal hiatal hernia. Proximal main pulmonary arteries are normal. Normal segmental and subsegmental pulmonary arteries. No evidence of pulmonary embolus. Fatty liver. Normal portal vein and splenic vein. Normal pancreatic parenchymal enhancement. Normal spleen. Small esophageal hiatal hernia. Gastric wall thickening compatible with gastritis and duodenitis. Duodenal wall thickening with enhancement. Gastrostomy tube. Celiac and SMA are patent. Bilateral iliac stents. William catheter. Diffuse bladder wall thickening with enhancement and surrounding induration suspicious for cystitis. Mild enhancement involving the sigmoid colon and rectum. Recommend correlation for colitis. Dense transverse colon and hepatic flexure constipation. Adrenal glands are normal. Stable RIGHT renal cyst. Bilateral urothelial enhancement involving the renal pelvis sees and ureters with heterogeneous renal parenchymal enhancement compatible with pyelonephritis. Mild bilateral hydronephrosis RIGHT greater than LEFT. Osteopenia. Sacral decubitus ulcer appears unchanged. No drainable abscess. CT/CT angio chest w abd pel w con IMPRESSION: 1. No evidence of pulmonary embolus. 2. Tracheostomy. 3. Sacral decubitus ulcer with evidence of prior partial sacral and coccyx res ection. Chronic osteomyelitis in the distal tip of the underlying sacrum with s clerosis. No drainable fluid collections. This is stable in appearance compared to previous. 4. Diffuse bladder wall thickening with enhancement suspicious for cystitis. F oley catheter. 5. Mild bilateral hydronephrosis with pyelonephritis. Diffuse enhancement invo lving the renal pelvis and ureters bilaterally compatible with UTI/infection. 6. Mild thickening and enhancement of the sigmoid colon and rectum suspicious for colitis. 7. Trace pleural fluid.
[2025-01-01] MEDS: sodium chloride 0.9% 2,177.25 ML 2177.25 ML IV (11:11)
--- NOTE | 2025-01-01 11:16 | PC.NURSE ---
patients sacral wound redressed with wet to dry dressing and covered with ABD dressing.
--- NOTE | 2025-01-01 11:17 | PC.NURSE ---
patients suicide assessment completed on this shift by this nurse.
--- NOTE | 2025-01-01 11:25 | ECG_ITS ---
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 Measurements Intervals [place] Rate: 91 P: 80 NV: 179 QRS: -69 QRSD: 150 T: 61 QT: 411 QTc: 508 Interpretive Statements SINUS RHYTHM POSSIBLE LEFT ATRIAL ENLARGEMENT [-0.1mV P-WAVE IN V1/V2] RIGHT BUNDLE BRANCH BLOCK [120+ ms QRS DURATION, UPRIGHT V1, 40+ ms S IN I/aVL/V4/V5/V6] LEFT ANTERIOR FASCICULAR BLOCK [QRS AXIS <= -45, QR IN I, RS IN II] POSSIBLE ANTEROSEPTAL MYOCARDIAL INFARCTION , OF INDETERMINATE AGE [30 ms Q WAVE IN V1-V4] Compared to ECG 01/01/2025 09:40:09 No significant changes Electronically Signed On 01-01-2025 18:18:31 CDT by Harmony Weber M.D. [email or web address] [id number]
[2025-01-01] MEDS: iohexol 350 mg/mL 500 mL Btl (per mL) IV (11:30)
[2025-01-01] MEDS: heparin 5,000 unit/mL INJ 1 mL IVP ×2 (12:06→21:23)
[2025-01-01] MEDS: heparin drip 25,000 UNIT/500 ML PREMIX 21 UNIT IV (12:07)
[2025-01-01 12:27] LABS: Alanine Aminotransferase 14 U/L (0-41); Albumin Level 2.8 g/dL (3.5-5.2); Alkaline Phosphatase 162 U/L (40-130); Anion Gap 13.4 (5-19); Aspartate Amino Transferase 15 U/L (0-40); Blood Urea Nitrogen 32 mg/dL (8-23); Calcium 8.6 mg/dL (8.5-10.5); Carbon Dioxide 30 mmol/L (22-29); Chloride 96 mmol/L (98-107); Creatinine Clr Calc Pharmacy 64.1801; Globulin 4.5 g/dL (1.3-4.6); Glucose 109 mg/dL (65-115); Osmolality Calculated 287 mOsm/kg (285-295); Potassium 4.4 mmol/L (3.5-5.1); Sodium 135 mmol/L (136-145); Total Bilirubin 0.5 mg/dL (0.15-1.2); Total Protein 7.3 g/dL (6.6-8.7)
[2025-01-01 12:38] LABS: Troponin 5 2HR 110.4 ng/L (0-15); Troponin 5 2HR Delta -23.6 ABS# (0-10)
[2025-01-01] MEDS: VANCOMYCIN ADD-Vantage 1,000 MG in 0.9% NaCl ADD-Vantage 250 ML 250 MG IV (14:01)
[2025-01-01] MEDS: cefepime 1,000 mg SDV 1000 MG IVP (14:04)
--- NOTE | 2025-01-01 14:09 | PC.NURSE ---
MEROPENUM CANCELLED, NOT ADMINISTERED (MAR WILL NOT ALLOW DOCUMENTATION OF NOT GIVEN)
--- NOTE | 2025-01-01 15:12 | ECG_ITS ---
[employer] Test Date: 2025-01-01 Pat Name: Luis E Mota Department: Room: 267 Gender: Male [employer]: : 1960 Requested By: Agus Martinez Order Number: [id number] Scott MD: Harmony Weber M.D. Measurements Intervals [place] Rate: 97 P: 79 SC: 178 QRS: -72 QRSD: 130 T: 30 QT: 383 QTc: 489 Interpretive Statements SINUS RHYTHM LEFT AXIS DEVIATION [QRS AXIS < -30] RIGHT BUNDLE BRANCH BLOCK [120+ ms QRS DURATION, UPRIGHT V1, 40+ ms S IN I/aVL/V4/V5/V6] MINIMAL VOLTAGE CRITERIA FOR LVH, CONSIDER NORMAL VARIANT [MEETS CRITERIA IN ONE OF: R(aVL), S(V1), R(V5), R(V5/V6)+S(V1)] ANTERIOR MYOCARDIAL INFARCTION , PROBABLY RECENT [40+ ms Q WAVE AND/OR ST/T ABNORMALITY IN V3/V4] ACUTE [place] Compared to ECG 01/01/2025 11:47:10 Left-axis deviation now present. Left anterior fascicular block no longer present. Myocardial infarct finding still present Electronically Signed On 01-01-2025 18:15:58 CDT by Harmony Weber M.D. [email or web address]
--- NOTE | 2025-01-01 15:25 | PM.HP ---
Providers/Chief Complaint Admitting Physician: Jaron Mohamud Primary Care Provider: Eliud Jenkins Chief Complaint: SOB History of Present Illness Luis E Mota is a 64 year old male with a history of laryngeal cancer, tracheostomy, bed-bound status with a large decubitus ulcer and sacral osteomyelitis, chronic indwelling urinary catheter, history of multidrug-resistant urinary tract infections, MRSA infection, COPD, MACIE, GERD, heart failure with preserved ejection fraction, hypertension, and hyperlipidemia. The patient initially presented for evaluation of shortness of breath and was found to be hypotensive (blood pressure down to 89/59 mmHg) with a low-grade fever (99.7?F). Laboratory findings included leukocytosis (14.27), urinalysis with >100 RBCs and >100 WBCs suggestive of urinary tract infection, and elevated troponin (up to 134). The patient is unable to speak due to tracheostomy and communicates by typing. The patient reported feeling very cold and requested a blanket, as well as suctioning and cleaning of the tracheostomy. The patient denied chest pain or pressure. There is a chronic wound on the sacrum, with dressing changes performed by the patient's and regular wound care clinic visits. CT abdomen pelvis in the ER with urinary bladder wall thickening suggestive of cystitis, mild bilateral hydronephrosis and pyelonephritis. Mild thickening of sigmoid colon and rectum suspicious for colitis. He does report having diarrhea. Denies ever having C. difficile. Review of Systems Const: Denies: fever(s), chills, body aches or malaise ENMT: Denies: throat pain Card: Denies: chest pain, edema, pre-syncope or dyspnea on exertion Resp: Reports: other (Needs tracheostomy cannula and stoma cleaned); Denies: dyspnea, productive cough, change in phlegm color or hemoptysis GI: Reports: diarrhea; Denies: abdominal pain, nausea, vomiting, constipation, hematochezia or melena : Denies: flank pain, difficulty urinating, urinary frequency or hematuria Musc: Denies: back pain, joint swelling or joint redness Skin/Breast: Denies: rash or new lesions Neuro: Denies: headache(s) or confusion Medications/Allergies Home Medications ?Medication ?Instructions ?Recorded ?Confirmed ?Last Taken ?Type acetaminophen 325 mg tablet 650 mg PO QID PRN Pain 11/09/24 01/01/25 11/13/24 History bisacodyl 10 mg rectal suppository 10 mg [place] DAILY PRN Constipation 11/09/24 01/01/25 11/13/24 History budesonide 0.5 mg/2 mL suspension 0.5 mg inhalation BID PRN Wheezing 11/09/24 01/01/25 11/13/24 History for nebulization chlorhexidine gluconate 0.12 % 15 ml buccal TID 11/09/24 01/01/25 12/31/24 History mouthwash cyclobenzaprine 10 mg tablet 10 mg PO Q8H PRN Muscle Spasm 11/09/24 01/01/25 12/31/24 History enoxaparin 40 mg/0.4 mL 40 mg SUBCUT DAILY 11/09/24 01/01/25 11/13/24 History subcutaneous syringe olopatadine 0.1 % eye drops 1 drp ophthalmic (eye) BID PRN 11/09/24 01/01/25 12/31/24 History allergic conjunctivitis polyethylene glycol 3350 17 17 g PO DAILY 11/09/24 01/01/25 11/13/24 History gram/dose oral powder (Miralax) polyvinyl alcohol-povidone (PF) 2 drp ophthalmic (eye) QID PRN Dry 11/09/24 01/01/25 12/31/24 History 1.4 %-0.6 % eye drops in a Eyes dropperette gabapentin 600 mg tablet 600 mg PO Q6H 11/13/24 01/01/25 12/31/24 History oxycodone 10 mg tablet 10 mg PO Q6H PRN Pain 11/13/24 01/01/25 12/31/24 History simethicone 40 mg/0.6 mL oral See Rx Instructions .Route .COMPLEX 11/13/24 01/01/25 12/31/24 History drops,suspension amino acids-protein 30 ea PO DAILY 01/01/25 01/01/25 12/31/24 History hydrolysate-fiber 15 gram-100 kcal/30 mL liquid (Pro-Stat Renal Care) multivitamin with minerals-folic 1 tab PO DAILY 01/01/25 01/01/25 12/31/24 History acid 400 mcg-lycopene 370 mcg tablet (One-A-Day Men's 50 Plus) nystatin 100,000 unit/gram topical 1 applic topical BID 01/01/25 01/01/25 12/31/24 History cream ondansetron HCl 4 mg tablet 4 mg PO Q6H PRN Nausea And Vomiting 01/01/25 01/01/25 12/31/24 12:30 History Allergies Allergy/AdvReac Type Severity Reaction Status Date / Time doxycycline Allergy Intermediate RASH/SWELLI Verified 03/28/24 09:31 NG adhesive tape Allergy ALGY-Bliste Verified 03/28/24 09:31 r clindamycin Allergy ALGY-Hives Verified 03/28/24 09:31 Influenza Virus Vaccines Allergy Unknown Verified 03/28/24 09:31 [email or web address] (From Myrbetriq) Allergy Unknown Verified 03/28/24 09:31 niacin Allergy Unknown Verified 03/28/24 09:31 PFSH Acute PFSH: Medical History Spinal cord injury After a fall Malignant neoplasm of supraglottis Cancer, epiglottis Gluteal pain COPD exacerbation Supraglottic lesion Epiglottic lesion Laryngeal cancer Leg swelling Asthma exacerbation in COPD Pressure ulcer Chronic hypertrophic rhinitis COVID-19 Malar rash Acute non-recurrent pansinusitis Orchitis and epididymitis Hypokalemia Urethral stricture Osteomyelitis Foot osteomyelitis with cellulitis treated with vancomycin GERD (gastroesophageal reflux disease) Obstructive sleep apnea COPD (chronic obstructive pulmonary disease) Cervical vertebral fusion Myocardial infarction Status post stent placement Foot drop Heart failure with preserved ejection fraction Lymphedema Dyslipidemia Hypertension Surgical History S/P cystourethroscopy with dilation of urethral stricture Previous back surgery H/O cardiac catheterization H/O shoulder surgery Family History Other Hypertension Social History Smoking and tobacco/nicotine status: former use of tobacco/nicotine Quit status (tobacco/nicotine): has quit using Year quit tobacco: 2020 - 1.5 PPD x 40 Years Second hand smoke exposure: No Alcohol intake: current Alcohol intake frequency: holidays/special occasions only Substance/Drug Use: never Caregiver/support person: Yes Lives independently: Yes Household members: spouse Housing: House Marital status: Current occupational status: disabled Do you think of yourself as: Straight/Heterosexual Current gender identity: Male Vitals/I&O/Wt Last Vital Signs Temp 99.7 F H 12/31/24 23:22 Pulse 101 H 01/01/25 15:04 Resp 18 12/31/24 23:42 BP 128/99 01/01/25 15:04 Pulse Ox 95 01/01/25 15:04 O2 Del Method Trach Collar 01/01/25 15:04 O2 Flow Rate 3 01/01/25 15:04 01/01/25 01/01/25 01/01/25 06:59 14:59 22:59 Intake Total 2176. / Balance / Weight last 48 hrs Weight 72.575 kg Physical Exam Const: COMMON NORMALS: alert GENERAL APPEARANCE: cooperative ORIENTATION/CONSCIOUSNESS: Yes awake HENMT: COMMON NORMALS: oropharynx normal OTHER: Tracheostomy Neck/C-Spine: COMMON NORMALS: no JVD Resp: COMMON NORMALS: normal respiratory effort and clear to auscultation bilaterally AUSCULTATION: clear to auscultation bilaterally Cardio: COMMON NORMALS: no JVD, regular rhythm, S1 normal heart sound present, S2 normal heart sound present and No murmurs present (Cardio) RHYTHM: regular rhythm HEART SOUNDS: S1 normal heart sound present and S2 normal heart sound present GI: COMMON NORMALS: Normal to inspection, nondistended, normoactive bowel sounds present, Soft to palpation and non-tender PALPATION: Yes Soft to palpation : OTHER: William catheter with sediment. No hematuria Extremity: COMMON NORMALS: no joint enlargement and no pedal edema Neuro: COMMON NORMALS: patient oriented x3; negative for moves all extremities SENSORIUM/ORIENTATION: Yes alert OTHER: Paraplegic Skin: COMMON NORMALS: no rashes or lesions noted GENERAL SKIN EXAM: no rashes or lesions noted OTHER: Deep large sacral decubitus ulcer down to bone without purulent discharge Quick SOFA Score: Respiratory Rate: 20 Blood Pressure: 105/69 [place] Coma Scale: 15 qSOFA Score: 0 If qSOFA score 2 or greater, continue: PaO2/FiO2 Ratio (mmHg): 225 Blood Pressure Mean: 81 Bilirubin (mg/dl): 0.5 Platelets (x10?/ml): 384 Creatinine (mg/dl): 1.1 SOFA Score: 2 Evaluation: Current stage of sepsis: sepsis Sepsis stage criteria used: [facility] Sep-1 and Sepsis-3 Focused Exam: Vital signs: Temp Pulse Resp BP Pulse Ox O2 Del Method O2 Flow Rate 01/01/25 16:00 HAG 01/01/25 16:00 98.3 F 102 H 20 H 105/69 97 HAG 3 01/01/25 15:04 101 H 128/99 95 Trach Collar 3 01/01/25 12:30 93 115/71 95 Room Air 01/01/25 10:03 87 89/59 95 Room Air 01/01/25 08:56 88 101/77 97 Trach Collar 5 01/01/25 08:00 91 105/59 97 Trach Collar 5 01/01/25 07:30 89 100/72 97 Trach Collar 5 01/01/25 07:01 93 95/66 97 Trach Collar 5 Details: He is awake and alert, keenly responsive. Without encephalopathy. Without mottling or cyanosis. Good capillary refill. Date exam was performed: 01/01/25 Time exam was performed: 15:30 Sepsis Screen No Definite Risk Today, 15:04 Respiratory Rate, (12 - 18) 20 breaths/min H Today, 16:00 Blood Pressure 105/69 mmHg Today, 16:00 [place] Coma Scale Score 15 Today, 16:00 Quick SOFA Score 0 Today, 15:04 SOFA Score: ABG PO2/FiO2 Ratio 225 Today, 09:32 [place] Coma Scale Score 15 Today, 16:00 Blood Pressure Mean 81 mmHg Today, 16:00 Total Bilirubin, (0.15-1.2) 0.5 mg/dL Today, 11:18 Platelet Count, (157-399) 384 10^3/cmm Today, 04:26 Creatinine, (0.7-1.2) 1.1 mg/dL Today, 11:18 Data 01/01/25 04:26 01/01/25 11:18 Micro: Microbiology 01/01/25 10:07 Blood Culture - Preliminary Blood SPECIMEN COLLECTED 01/01/25 09:59 Blood Culture - Preliminary Blood SPECIMEN COLLECTED A&P Assessment and plan (1) Hypotension: Patient was found to be hypotensive (BP 89/59 mmHg) on presentation. The provider noted that the heart may have been stressed, possibly due to low blood pressure. No chest pain or pressure was reported. Troponin was elevated (up to 134). Reviewed vitals, CBC, ABG, CMP, UA, influenza, COVID, RSV swab, chest x-ray, CT chest abdomen pelvis, ER provider note, discussed with ER provider. - Monitor blood pressure closely. - Evaluate for causes of hypotension, including infection and cardiac stress. Hold gabapentin for now. Possible hypovolemic hypotension, with diarrhea, hold Miralax and Dulcolax. If liquid diarrhea, assess C. difficile, requested. With leukocytosis 14.27, sinus tachycardia 102, low-grade temp 99.7, possible sepsis secondary to urinary tract infection with pyelonephritis. Complicated by hypotension, possible cardiac demand ischemia with troponin elevation. Reviewed CT, without nephrolithiasis, the source of obstruction. Possibly hydronephrosis due to sediment in the urine. Requested William to be exchanged. (2) Urinary tract infection: Suspected urinary tract infection, noted more than 100 RBC and WBC in urine. Diffuse urinary bladder wall thickening on CT. History of multidrug-resistant infections in the past. On review of prior cultures seem to be sensitive to cefepime as per discussion with ER provider. Started on cefepime. (3) Colitis: Possible colitis of sigmoid colon and rectum on CT. He reports some diarrhea although family not aware of it. Cefepime and Flagyl for now empirically. Requested C. difficile in case liquid stool. Consider colonoscopy after recovery in 4 to 6 weeks. (4) NSTEMI (non-ST elevated myocardial infarction): Troponin elevation, up to 134, about 2 hours without further rise, with decreased to 110. She denies chest pain or pressure. EKG reviewed, RBBB, I am not seeing a real Q wave in V3 V4, pending official read. Complete troponin EKG series. He is on anticoagulation with heparin, and risk of bleeding, monitor PTT. Start aspirin. Monitor on telemetry. Obtain TTE. Plan Tracheostomy care : Patient has a tracheostomy and is unable to speak. Requested suctioning and cleaning of the tracheostomy and stoma. Respiratory therapy or nursing staff to assist with tracheostomy care. - Request respiratory therapy or nursing staff to clean and suction tracheostomy as needed and daily. Sacral decubitus ulcer with osteomyelitis : Patient is bed-bound with a large sacral decubitus ulcer and underlying osteomyelitis. Dressing changes are performed by the patient's , and the patient attends wound care clinic regularly. - Continue regular wound care and dressing changes. Frequent repositioning. - Coordinate with wound care for ongoing management. Appreciate consultation. History of laryngeal cancer : History of laryngeal cancer with tracheostomy. Heart failure with preserved ejection fraction : History of heart failure with preserved ejection fraction. Troponin elevated, possibly due to cardiac stress from hypotension. No chest pain or pressure reported. - Monitor cardiac status and troponin levels. PDMP PDMP Reviewed: Not Reviewed Attestations Medical Necessity Statement*: Admission of over 2 midnights anticipated for assessment management of possible sepsis, UTI, pyelonephritis, with history of MDRO UTI, possible colitis, NSTEMI in a gentleman with spinal cord injury, paraplegia, large sacral ulcer with chronic osteomyelitis, tracheostomy with laryngeal cancer, additional comorbidities as above. and High MDM includes amount and/or complexity of data reviewed/ordered [ previous or external records, resulted lab(s)/test(s), ordered lab(s)/test(s), independent historian and other healthcare professional discussion] and described risk of complication, morbidity or mortality of management as documented Diagnoses Hypotension I95.9 Urinary tract infection T83.511S; N39.0 Encounter type: sequela Indwelling urinary catheter type: indwelling urethral catheter Urinary tract infection type: catheter-associated UTI Colitis K52.9 NSTEMI (non-ST elevated myocardial infarction) I21.4
--- NOTE | 2025-01-01 16:12 | USCV_ITS ---
Luis E Mota Age: 64 Gender: M : 1960 Exam Date: 01/01/2025 20:10 Ordering Phys: Jaron Mohamud MD Technologist: TAN [place] [facility] [place]: nstemi, hx MRSA, COPD, MACIE, HTN, HL, SOB, patient has tracheostomy and is basically unresponsive in 267-1 BP: 105 / 69 HR: 97 Rhythm: Sinus Technical Quality: Adequate MEASUREMENTS (Male / Female) Normal Values 2D ECHO LV Diastolic Diameter PLAX 4.5 cm 4.2 - 5.9 / 3.9 - 5.3 cm IVS Diastolic Thickness 1.5 cm 0.6 - 1.0 / 0.6 - 0.9 cm IVS Systolic Thickness 1.3 cm LVPW Diastolic Thickness 1.4 cm 0.6 - 1.0 / 0.6 - 0.9 cm LVPW Systolic Thickness 1.8 cm LVOT Diameter 2.2 cm LV Ejection Fraction 2D Teich 50.3 % LV Ejection Fraction MOD 4C 51.5 % LV Ejection Fraction MOD 2C 63.5 % LV Ejection Fraction 2C AL 62.0 % LA Diameter 3.0 cm Aorta at Sinotubular Diameter 2.7 cm IVC Diameter 1.4 cm M-MODE LA Ao Ratio MM 1.3 AV Cusp Separation MM 1.6 cm DOPPLER AV Peak Velocity 108.0 cm/s LVOT Peak Velocity 80.0 cm/s AV Area Cont Eq vti 3.0 cm squared AV Area Cont Eq pk 2.9 cm squared MV Peak Velocity 102.0 cm/s MV Area PHT 4.5 cm squared Mitral E to A Ratio 0.8 TV Peak E Velocity 39.0 cm/s PV Peak Velocity 101.0 cm/s FINDINGS Left Ventricle Mild left ventricular hypertrophy. Abnormal septal motion consistent with conduction abnormality. Mild hypokinesia of the basal inferolateral wall segment. Normal LV size with slightly diminished ejection fraction of 50% Right Ventricle Possibly normal size and ejection fraction Right Atrium Possibly of normal size Left Atrium Normal left atrial size. Mitral Valve No gross abnormalities noted Aortic Valve Thickened noncoronary cusp of the aortic valve Tricuspid Valve The tricuspid valve leaflets could not be visualized well. Pulmonic Valve Pulmonic valve not well visualized. Pericardium No pericardial effusion. Aorta Normal aortic annulus size. IVC Normal inferior vena cava. CONCLUSIONS Mild left ventricular hypertrophy. Abnormal septal motion consistent with conduction abnormality. Mild hypokinesia of the basal inferolateral wall segment. Normal LV size with slightly diminished ejection fraction of 50%. Thickened noncoronary cusp of the aortic valve. There is no pericardial effusion. Technically difficult study because of poor ultrasonic window Consider MIRACLE, if clinically indicated, to rule out any vegetations Dr Harmony Weber MD FACC (Electronically Signed) Final Date: 02 Jan 2025 09:10 S
--- NOTE | 2025-01-01 16:13 | PHA.VACGOAL ---
Vancomycin Goal - Goal Vancomycin Goal:: 15-20 mg/L Vancomycin Indication:: Osteo - Therapy Current therapy:: Cefepime Day of therpy:: Day []of [] . Actual body weight (kg): 155 lb 3 oz - Data Labs: WBC 14.27 10^3/uL (3.29-11.43) H 01/01/25 04:26 RBC 4.50 10^6/uL (3.85-5.65) 01/01/25 04:26 Hgb 12.80 g/dL (11.27-16.99) 01/01/25 04:26 Hct 40.7 % (37-53) 01/01/25 04:26 MCV 90.4 fl (82-101) 01/01/25 04:26 MCH 28.4 pg (27-33) 01/01/25 04:26 MCHC 31.4 g/dL (30-55) 01/01/25 04:26 RDW 15.9 % (12.1-15.1) H 01/01/25 04:26 Sodium 135 mmol/L (136-145) L 01/01/25 11:18 Potassium 4.4 mmol/L (3.5-5.1) 01/01/25 11:18 Chloride 96 mmol/L (98-107) L 01/01/25 11:18 Carbon Dioxide 30 mmol/L (22-29) H 01/01/25 11:18 Anion Gap 13.4 (5-19) 01/01/25 11:18 BUN 32 mg/dL (8-23) H 01/01/25 11:18 Creatinine 1.1 mg/dL (0.7-1.2) 01/01/25 11:18 GFR Calculation 67.0 mL/min (90-130) L 01/01/25 11:18 Treatment plan:: new consult Regimen:: 1000MG GIVEN IN ER EARLIER, GIVE 750 MG Q12H STARTING NOW
[2025-01-01] MEDS: aspirin 81 mg EC Tablet 162 MG PO (16:55)
[2025-01-01] MEDS: gabapentin 300 mg Capsule 600 MG PO ×2 (16:55→22:14)
[2025-01-01] MEDS: metroNIDAZOLE IV 500 MG/100 ML PREMIX 100 MG IV ×2 (16:57→23:48)
[2025-01-01] MEDS: VANCOMYCIN ADD-Vantage 750 MG in 0.9% NaCl ADD-Vantage 250 ML 250 MG IV (16:57)
[2025-01-01] MEDS: olopatadine 0.1% Op Soln 5 mL Btl 1 DROP EYE-BOTH (16:57)
[2025-01-01] MEDS: nystatin cream 30 gm 1 APPLIC TOPICAL (16:58)
--- NOTE | 2025-01-01 18:32 | PM.CONSULT ---
Providers/Reason For Consult Consulting Physician/Specialty*: KEMAR Weber MD/cardiology Reason for Consult*: Patient with elevated troponin T Requesting Physician: Dr. Mohamud Attending Physician: Jaron Mohamud Primary Care Provider: Eliud Jenkins History of Present Illness History of Present Illness Luis E Mota is a 64 year old male Medications/Allergies Home Medications ?Medication ?Instructions ?Recorded ?Confirmed ?Last Taken ?Type acetaminophen 325 mg tablet 650 mg PO QID PRN Pain 11/09/24 01/01/25 11/13/24 History bisacodyl 10 mg rectal suppository 10 mg [place] DAILY PRN Constipation 11/09/24 01/01/25 11/13/24 History budesonide 0.5 mg/2 mL suspension 0.5 mg inhalation BID PRN Wheezing 11/09/24 01/01/25 11/13/24 History for nebulization chlorhexidine gluconate 0.12 % 15 ml buccal TID 11/09/24 01/01/25 12/31/24 History mouthwash cyclobenzaprine 10 mg tablet 10 mg PO Q8H PRN Muscle Spasm 11/09/24 01/01/25 12/31/24 History enoxaparin 40 mg/0.4 mL 40 mg SUBCUT DAILY 11/09/24 01/01/25 11/13/24 History subcutaneous syringe olopatadine 0.1 % eye drops 1 drp ophthalmic (eye) BID PRN 11/09/24 01/01/25 12/31/24 History allergic conjunctivitis polyethylene glycol 3350 17 17 g PO DAILY 11/09/24 01/01/25 11/13/24 History gram/dose oral powder (Miralax) polyvinyl alcohol-povidone (PF) 2 drp ophthalmic (eye) QID PRN Dry 11/09/24 01/01/25 12/31/24 History 1.4 %-0.6 % eye drops in a Eyes dropperette gabapentin 600 mg tablet 600 mg PO Q6H 11/13/24 01/01/25 12/31/24 History oxycodone 10 mg tablet 10 mg PO Q6H PRN Pain 11/13/24 01/01/25 12/31/24 History simethicone 40 mg/0.6 mL oral See Rx Instructions .Route .COMPLEX 11/13/24 01/01/25 12/31/24 History drops,suspension amino acids-protein 30 ea PO DAILY 01/01/25 01/01/25 12/31/24 History hydrolysate-fiber 15 gram-100 kcal/30 mL liquid (Pro-Stat Renal Care) multivitamin with minerals-folic 1 tab PO DAILY 01/01/25 01/01/25 12/31/24 History acid 400 mcg-lycopene 370 mcg tablet (One-A-Day Men's 50 Plus) nystatin 100,000 unit/gram topical 1 applic topical BID 01/01/25 01/01/25 12/31/24 History cream ondansetron HCl 4 mg tablet 4 mg PO Q6H PRN Nausea And Vomiting 01/01/25 01/01/25 12/31/24 12:30 History Allergies Allergy/AdvReac Type Severity Reaction Status Date / Time doxycycline Allergy Intermediate RASH/SWELLI Verified 03/28/24 09:31 NG adhesive tape Allergy ALGY-Bliste Verified 03/28/24 09:31 r clindamycin Allergy ALGY-Hives Verified 03/28/24 09:31 Influenza Virus Vaccines Allergy Unknown Verified 03/28/24 09:31 [email or web address] (From Myrbetriq) Allergy Unknown Verified 03/28/24 09:31 niacin Allergy Unknown Verified 03/28/24 09:31 Current Medications Generic Name Dose Route Start Last Admin Trade Name Freq PRN Reason Stop Dose Admin Aspirin 162 mg 01/01/25 16:15 01/01/25 16:55 Aspirin 81 Mg Ec Tablet PO 162 mg DAILY RUPERT Administration Gabapentin 600 mg 01/01/25 16:15 01/01/25 16:55 Gabapentin 300 Mg Capsule PO 600 mg Q6H RUPERT Administration Heparin Sodium/Sodium Chloride 25,000 unit in 500 mls @ 0 mls/hr 01/01/25 11:00 01/01/25 12:07 Heparin Drip IV 14.47 unit/kg/hr CONT RUPERT 21 mls/hr Protocol Administration Per Protocol Metronidazole 500 mg in 100 mls @ 100 mls/hr 01/01/25 16:15 01/01/25 16:57 Flagyl Iv IV 100 mls/hr Q8H RUPERT Administration Protocol Vancomycin HCl 750 mg/ Sodium 250 mls @ 250 mls/hr 01/01/25 16:15 01/01/25 16:57 Chloride IV 250 mls/hr Q12H RUPERT Administration Nystatin 1 applic 01/01/25 18:00 01/01/25 16:58 Nystatin Cream 30 Gm TOPICAL 1 applic BID RUPERT Administration Olopatadine HCl 1 drop 01/01/25 15:59 01/01/25 16:57 Olopatadine 0.1% Op Soln 5 Ml Btl EYE-BOTH 1 drop BID PRN Administration allergic conjunctivitis Simethicone 80 mg 01/01/25 17:00 01/01/25 16:58 Simethicone 40 Mg/0.6 Ml Bottle 30ml PEG-TUBE Not Given QID RUPERT PFSH Acute PFSH: Medical History Spinal cord injury After a fall Malignant neoplasm of supraglottis Cancer, epiglottis Gluteal pain COPD exacerbation Supraglottic lesion Epiglottic lesion Laryngeal cancer Leg swelling Asthma exacerbation in COPD Pressure ulcer Chronic hypertrophic rhinitis COVID-19 Malar rash Acute non-recurrent pansinusitis Orchitis and epididymitis Hypokalemia Urethral stricture Osteomyelitis Foot osteomyelitis with cellulitis treated with vancomycin GERD (gastroesophageal reflux disease) Obstructive sleep apnea COPD (chronic obstructive pulmonary disease) Cervical vertebral fusion Myocardial infarction Status post stent placement Foot drop Heart failure with preserved ejection fraction Lymphedema Dyslipidemia Hypertension Surgical History S/P cystourethroscopy with dilation of urethral stricture Previous back surgery H/O cardiac catheterization H/O shoulder surgery Family History Other Hypertension Social History Smoking and tobacco/nicotine status: former use of tobacco/nicotine Quit status (tobacco/nicotine): has quit using Year quit tobacco: 2020 - 1.5 PPD x 40 Years Second hand smoke exposure: No Alcohol intake: current Alcohol intake frequency: holidays/special occasions only Substance/Drug Use: never Caregiver/support person: Yes Lives independently: Yes Household members: spouse Housing: House Marital status: Current occupational status: disabled Do you think of yourself as: Straight/Heterosexual Current gender identity: Male Vitals/I&O/Wt Last Vital Signs Temp 98.3 F 01/01/25 16:00 Pulse 102 H 01/01/25 16:00 Resp 20 H 01/01/25 16:00 BP 105/69 01/01/25 16:00 Pulse Ox 97 01/01/25 16:00 O2 Del Method HAG 01/01/25 16:00 O2 Flow Rate 3 01/01/25 16:00 01/01/25 01/01/25 01/01/25 06:59 14:59 22:59 Intake Total 2177.25 / 2177.25 Output Total 1000 / 1000 Balance 1177.25 / 1177.25 Weight last 48 hrs Weight 155 lb 3 oz Weight 160 lb Physical Exam Urinary Catheter Management: William: Cath Placed During This Visit: no Reason for Continuing Indwelling Catheter: Chronic Indwelling Urinary Catheter on Admission Data 01/01/25 04:26 01/01/25 11:18 Other Labs: Laboratory Last Values WBC 14.27 10^3/uL (3.29-11.43) H 01/01/25 04:26 RBC 4.50 10^6/uL (3.85-5.65) 01/01/25 04:26 Hgb 12.80 g/dL (11.27-16.99) 01/01/25 04:26 Hct 40.7 % (37-53) 01/01/25 04:26 MCV 90.4 fl (82-101) 01/01/25 04:26 MCH 28.4 pg (27-33) 01/01/25 04:26 MCHC 31.4 g/dL (30-55) 01/01/25 04:26 RDW 15.9 % (12.1-15.1) H 01/01/25 04:26 Plt Count 384 10^3/cmm (157-399) 01/01/25 04:26 MPV 9.9 fL (7.4-10.4) 01/01/25 04:26 Neut % (Auto) 82.9 % 01/01/25 04:26 Lymph % (Auto) 5.9 % 01/01/25 04:26 [place] % (Auto) 10.4 % 01/01/25 04:26 Eos % (Auto) 0.1 % 01/01/25 04:26 Baso % (Auto) 0.4 % 01/01/25 04: Neut # (Auto) 11.83 10^3/uL (1.8-7.7) H 01/01/25 04: Lymph # (Auto) 0.8 10^3/uL (0.8-4.8) 01/01/25 04: [place] # (Auto) 1.5 10^3/uL (0.2-0.9) H 01/01/25 04: Eos # (Auto) 0.0 10^3/uL (0.0-0.8) 01/01/25 04: Baso # (Auto) 0.1 10^3/uL (0.0-0.1) 01/01/25 04: Nucleated RBC % (auto) 0 % 01/01/25 04: Nucleated RBCs # 0.0 /100WBC 01/01/25 04: Specimen Type Arterial 01/01/25 09:32 Sample Site Brachial, left 01/01/25 09:32 ABG pH 7.41 (7.35-7.45) 01/01/25 09:32 ABG pCO2 51.0 mmHg (35-45) H 01/01/25 09:32 ABG pO2 81.1 mmHg (80.0-100.0) 01/01/25 09:32 ABG PO2/FiO2 Ratio 225 01/01/25 09:32 ABG HCO3 32.0 mmol/L (22-26) H 01/01/25 09:32 ABG O2 Saturation 95.9 01/01/25 09:32 ABG Base Excess 6.0 mmol/L (-2.0-2.0) H 01/01/25 09:32 [place] Test N/a 01/01/25 09:32 A-a O2 Gradient 14.8 mmHg (5-10) H 01/01/25 09:32 Hematocrit 39.9 % (42-52) L 01/01/25 09:32 Hgb O2 Saturation 94.7 % (95-100) L 01/01/25 09:32 Carboxyhemoglobin 1.2 %THgb (0.4-20.1) 01/01/25 09:32 Methemoglobin 0.0 % (0.4-1.5) L 01/01/25 09:32 Total Hemoglobin 13.0 g/dL (14-18) L 01/01/25 09:32 Sodium 138.0 mmol/L (131-143) 01/01/25 09:32 Potassium 4.9 mmol/L (3.5-5.0) 01/01/25 09:32 Glucose 113.0 mg/dL (70-115) 01/01/25 09:32 Ionized Calcium 1.2 mmol/L (1.1-1.4) 01/01/25 09:32 O2 Delivery Device Oxy mask 01/01/25 09:32 O2 Liters/Min 4.0 % 01/01/25 09:32 FiO2 36.0 % 01/01/25 09:32 [employer] ID glc 01/01/25 09:32 Sodium 135 mmol/L (136-145) L 01/01/25 11:18 Potassium 4.4 mmol/L (3.5-5.1) 01/01/25 11:18 Chloride 96 mmol/L (98-107) L 01/01/25 11:18 Carbon Dioxide 30 mmol/L (22-29) H 01/01/25 11:18 Anion Gap 13.4 (5-19) 01/01/25 11:18 BUN 32 mg/dL (8-23) H 01/01/25 11:18 Creatinine 1.1 mg/dL (0.7-1.2) 01/01/25 11:18 GFR Calculation 67.0 mL/min (90-130) L 01/01/25 11:18 Glucose 109 mg/dL (65-115) 01/01/25 11:18 Calculated Osmolality 287 mOsm/kg (285-295) 01/01/25 11:18 Lactic Acid 1.6 mmol/L (0.5-2.2) 01/01/25 09:59 Calcium 8.6 mg/dL (8.5-10.5) 01/01/25 11:18 Total Bilirubin 0.5 mg/dL (0.15-1.2) 01/01/25 11:18 AST 15 U/L (0-40) 01/01/25 11:18 ALT 14 U/L (0-41) 01/01/25 11:18 Alkaline Phosphatase 162 U/L (40-130) H 01/01/25 11:18 Creatine Kinase 29 U/L (39-308) L 01/01/25 09:59 Troponin T Baseline 134 ng/L (0-15) H* 01/01/25 09:59 Troponin T 120 Minute 110.4 ng/L (0-15) H 01/01/25 11:18 Delta Troponin T -23.6 ABS# (0-10) L 01/01/25 11:18 Total Protein 7.3 g/dL (6.6-8.7) 01/01/25 11:18 Albumin 2.8 g/dL (3.5-5.2) L 01/01/25 11:18 Globulin 4.5 g/dL (1.3-4.6) 01/01/25 11:18 Urine Color [place] (Yellow) A 01/01/25 09:55 Urine Appearance Turbid (CLEAR) A 01/01/25 09:55 Urine pH 7.5 (5-7) 01/01/25 09:55 Ur Specific [place] 1.020 (1.005-1.030) 01/01/25 09:55 Urine Protein 3+ (Negative) A 01/01/25 09:55 Urine Glucose (UA) Negative (Normal) 01/01/25 09:55 Urine Ketones Negative (Negative) 01/01/25 09:55 Urine Blood 3+ (Negative) A 01/01/25 09:55 Urine Nitrate Positive (Negative) A 01/01/25 09:55 Urine Bilirubin 1+ (Negative) H 01/01/25 09:55 Urine Urobilinogen 1.0 mg/dL (Negative) 01/01/25 09:55 Ur Leukocyte Esterase 3+ (Negative) A 01/01/25 09:55 Urine RBC >100 /hpf (0-2) H 01/01/25 09:55 Urine WBC >100 /hpf (0-5) H 01/01/25 09:55 Ur Squamous Epith Cells 11-20 /hpf (0-5) H 01/01/25 09:55 Amorphous Sediment Not Reportable 01/01/25 09:55 Urine Bacteria 4+ /hpf (NONE) H 01/01/25 09:55 Hyaline Casts 111.73 /lpf 01/01/25 09:55 Influenza A (PCR) Negative (Negative) 01/01/25 05:50 Influenza Type B (PCR) Negative (Negative) 01/01/25 05:50 RSV (PCR) Negative (Negative) 01/01/25 05:50 SARS-CoV-2 (PCR) Negative (Negative) 01/01/25 05:50 Micro: Microbiology 01/01/25 10:07 Blood Culture - Preliminary Blood SPECIMEN COLLECTED 01/01/25 09:59 Blood Culture - Preliminary Blood SPECIMEN COLLECTED A&P PDMP PDMP Reviewed: Not Reviewed Coding Level of Care Code Acute Code for Chg Stephanie
--- NOTE | 2025-01-01 18:35 | P.PCN_ITS ---
Procedure/Consent Consent: Consent for Procedure: Consent obtained from patient Additional Consent Information: Nurse present Procedure Narrative: After obtaining consent, the site of the previous gastrostomy tube was clean with Betadine. A 20 [place] gastrostomy tube was introduced easily. The balloon was insufflated using 10 cc of sterile water. I was able to draw back gastric contents. Tube is ready for immediate use.
--- NOTE | 2025-01-01 18:35 | PM.CONSULT ---
Providers/Reason For Consult Consulting Physician/Specialty*: Dr. Pulido general surgery Reason for Consult*: Gastrostomy tube replacement Attending Physician: Jaron Mohamud Primary Care Provider: Eliud Jenkins History of Present Illness History of Present Illness Luis E Mota is a 64 year old male whom surgery was consulted for gastrostomy tube replacement. Patient has had a gastrostomy tube for several months. It has had to be replaced a couple times. Today it was pulled. Medications/Allergies Home Medications ?Medication ?Instructions ?Recorded ?Confirmed ?Last Taken ?Type acetaminophen 325 mg tablet 650 mg PO QID PRN Pain 11/09/24 01/01/25 11/13/24 History bisacodyl 10 mg rectal suppository 10 mg [place] DAILY PRN Constipation 11/09/24 01/01/25 11/13/24 History budesonide 0.5 mg/2 mL suspension 0.5 mg inhalation BID PRN Wheezing 11/09/24 01/01/25 11/13/24 History for nebulization chlorhexidine gluconate 0.12 % 15 ml buccal TID 11/09/24 01/01/25 12/31/24 History mouthwash cyclobenzaprine 10 mg tablet 10 mg PO Q8H PRN Muscle Spasm 11/09/24 01/01/25 12/31/24 History enoxaparin 40 mg/0.4 mL 40 mg SUBCUT DAILY 11/09/24 01/01/25 11/13/24 History subcutaneous syringe olopatadine 0.1 % eye drops 1 drp ophthalmic (eye) BID PRN 11/09/24 01/01/25 12/31/24 History allergic conjunctivitis polyethylene glycol 3350 17 17 g PO DAILY 11/09/24 01/01/25 11/13/24 History gram/dose oral powder (Miralax) polyvinyl alcohol-povidone (PF) 2 drp ophthalmic (eye) QID PRN Dry 11/09/24 01/01/25 12/31/24 History 1.4 %-0.6 % eye drops in a Eyes dropperette gabapentin 600 mg tablet 600 mg PO Q6H 11/13/24 01/01/25 12/31/24 History oxycodone 10 mg tablet 10 mg PO Q6H PRN Pain 11/13/24 01/01/2525 History simethicone 40 mg/0.6 mL oral See Rx Instructions .Route .COMPLEX 11/13/24 01/01/25 12/31/24 History drops,suspension amino acids-protein 30 ea PO DAILY 01/01/25 01/01/25 12/31/24 History hydrolysate-fiber 15 gram-100 kcal/30 mL liquid (Pro-Stat Renal Care) multivitamin with minerals-folic 1 tab PO DAILY 01/01/25 01/01/25 12/31/24 History acid 400 mcg-lycopene 370 mcg tablet (One-A-Day Men's 50 Plus) nystatin 100,000 unit/gram topical 1 applic topical BID 01/01/25 01/01/25 12/31/24 History cream ondansetron HCl 4 mg tablet 4 mg PO Q6H PRN Nausea And Vomiting 01/01/25 01/01/25 12/31/24 12:30 History Allergies Allergy/AdvReac Type Severity Reaction Status Date / Time doxycycline Allergy Intermediate RASH/SWELLI Verified 03/28/24 09:31 NG adhesive tape Allergy ALGY-Bliste Verified 03/28/24 09:31 r clindamycin Allergy ALGY-Hives Verified 03/28/24 09:31 Influenza Virus Vaccines Allergy Unknown Verified 03/28/24 09:31 [email or web address] (From Myrbetriq) Allergy Unknown Verified 03/28/24 09:31 niacin Allergy Unknown Verified 03/28/24 09:31 Current Medications Generic Name Dose Route Start Last Admin Trade Name Freq PRN Reason Stop Dose Admin Aspirin 162 mg 01/01/25 16:15 01/01/25 16:55 Aspirin 81 Mg Ec Tablet PO 162 mg DAILY RUPERT Administration Gabapentin 600 mg 01/01/25 16:15 01/01/25 16:55 Gabapentin 300 Mg Capsule PO 600 mg Q6H RUPERT Administration Heparin Sodium/Sodium Chloride 25,000 unit in 500 mls @ 0 mls/hr 01/01/25 11:00 01/01/25 12:07 Heparin Drip IV 14.47 unit/kg/hr CONT RUPERT 21 mls/hr Protocol Administration Per Protocol Metronidazole 500 mg in 100 mls @ 100 mls/hr 01/01/25 16:15 01/01/25 16:57 Flagyl Iv IV 100 mls/hr Q8H RUPERT Administration Protocol Vancomycin HCl 750 mg/ Sodium 250 mls @ 250 mls/hr 01/01/25 16:15 01/01/25 16:57 Chloride IV 250 mls/hr Q12H RUPERT Administration Nystatin 1 applic 01/01/25 18:00 01/01/25 16:58 Nystatin Cream 30 Gm TOPICAL 1 applic BID RUPERT Administration Olopatadine HCl 1 drop 01/01/25 15:59 01/01/25 16:57 Olopatadine 0.1% Op Soln 5 Ml Btl EYE-BOTH 1 drop BID PRN Administration allergic conjunctivitis Simethicone 80 mg 01/01/25 17:00 01/01/25 16:58 Simethicone 40 Mg/0.6 Ml Bottle 30ml PEG-TUBE Not Given QID RUPERT PFSH Acute PFSH: Medical History Spinal cord injury After a fall Malignant neoplasm of supraglottis Cancer, epiglottis Gluteal pain COPD exacerbation Supraglottic lesion Epiglottic lesion Laryngeal cancer Leg swelling Asthma exacerbation in COPD Pressure ulcer Chronic hypertrophic rhinitis COVID-19 Malar rash Acute non-recurrent pansinusitis Orchitis and epididymitis Hypokalemia Urethral stricture Osteomyelitis Foot osteomyelitis with cellulitis treated with vancomycin GERD (gastroesophageal reflux disease) Obstructive sleep apnea COPD (chronic obstructive pulmonary disease) Cervical vertebral fusion Myocardial infarction Status post stent placement Foot drop Heart failure with preserved ejection fraction Lymphedema Dyslipidemia Hypertension Surgical History S/P cystourethroscopy with dilation of urethral stricture Previous back surgery H/O cardiac catheterization H/O shoulder surgery Family History Other Hypertension Social History Smoking and tobacco/nicotine status: former use of tobacco/nicotine Quit status (tobacco/nicotine): has quit using Year quit tobacco: 2020 - 1.5 PPD x 40 Years Second hand smoke exposure: No Alcohol intake: current Alcohol intake frequency: holidays/special occasions only Substance/Drug Use: never Caregiver/support person: Yes Lives independently: Yes Household members: spouse Housing: House Marital status: Current occupational status: disabled Do you think of yourself as: Straight/Heterosexual Current gender identity: Male Vitals/I&O/Wt Last Vital Signs Temp 98.3 F 01/01/25 16:00 Pulse 102 H 01/01/25 16:00 Resp 20 H 01/01/25 16:00 BP 105/69 01/01/25 16:00 Pulse Ox 97 01/01/25 16:00 O2 Del Method HAG 01/01/25 16:00 O2 Flow Rate 3 01/01/25 16:00 01/01/25 01/01/25 01/01/25 06:59 14:59 22:59 Intake Total 2177.25 / 2177.25 Output Total 1000 / 1000 Balance 1177.25 / 1177.25 Weight last 48 hrs Weight 155 lb 3 oz Weight 160 lb Physical Exam Narrative: Chest: Unlabored breathing on trach mask no lymphadenopathy. Heart: Regular rate and rhythm. Abdomen: Soft, nontender, nondistended. No masses or lymphadenopathy. Gastrostomy tube has been dislodged. Urinary Catheter Management: William: Cath Placed During This Visit: no Reason for Continuing Indwelling Catheter: Chronic Indwelling Urinary Catheter on Admission Data 01/03/25 01:48 01/03/25 01:48 Micro: Microbiology 01/01/25 10:07 Blood Culture - Preliminary Blood SPECIMEN COLLECTED 01/01/25 09:59 Blood Culture - Preliminary Blood SPECIMEN COLLECTED A&P Assessment and plan (1) Attention to gastrostomy tube: Plan 64-year-old male whom surgery was consulted for gastrostomy tube replacement. It was initially placed several months ago. Discussed risk and benefits and patient agreed to proceed with a gastrostomy tube replacement. PDMP PDMP Reviewed: Not Reviewed Coding Level of Care Code 58738 Diagnoses Attention to gastrostomy tube Z43.1
--- NOTE | 2025-01-01 18:40 | PC.NURSE ---
Patient arrived to the floor from the ER. Suction set up at bedside. Natalie DOBSON performed trach care. This nurse removed patient's dressings from wounds, measured, and placed new dressings. Patient's PEG came out at bedside. Dr. Mohamud notified. Dr. Pulido came and placed PEG back in. This nurse contacted Perla Steve and got correct diet orders. Patient currently resting comfortably in bed.
[2025-01-01 18:43] LABS: Troponin 5 6HR 73.06 ng/L (0-15); Troponin 5 6HR Delta -60.94 ng/L (0-12)
[2025-01-01 18:58] LABS: Partial Thromboplastin Time 46.3 SECONDS (23.9-36.7)
--- NOTE | 2025-01-01 21:08 | PC.RESP ---
missed tx, patient getting echo at time RT went to see patient. RT will check back.
[2025-01-01] MEDS: simethicone 40 mg/0.6 mL Bottle 30mL 80 MG PEG-TUBE (22:10)
[2025-01-02] VITALS (14 sets, daily range): BP systolic 93–120; BP diastolic 55–74; PULSE 81–100; RESP 14–18; TEMP 36.4–37.1; O2SAT 92–97
[2025-01-02] MEDS: cefepime 1,000 mg SDV 1000 MG IVP ×2 (01:34→14:34)
[2025-01-02 04:01] LABS: Basophils % 0.3 %; Eosinophils # 0.1 10^3/uL (0.0-0.8); Eosinophils % 0.5 %; Hematocrit 35.2 % (37-53); Lymphocytes # 0.5 10^3/uL (0.8-4.8); Mean Corpuscular HGB Conc 30.7 g/dL (30-55); Mean Corpuscular Hemoglobin 28.5 pg (27-33); Mean Corpuscular Volume 92.9 fl (82-101); Monocytes % 6.3 %; Neutrophils # 13.54 10^3/uL (1.8-7.7); Neutrophils % 89.5 %; Nucleated Red Blood Cells % 0 %; Platelet Count 339 10^3/cmm (157-399); Red Blood Count 3.79 10^6/uL (3.85-5.65); Red Cell Distribution Width 15.8 % (12.1-15.1); White Blood Count 15.13 10^3/uL (3.29-11.43)
[2025-01-02] MEDS: gabapentin 300 mg Capsule 600 MG PO ×4 (04:16→21:31)
[2025-01-02 04:17] LABS: Partial Thromboplastin Time 41.3 SECONDS (23.9-36.7)
[2025-01-02] MEDS: VANCOMYCIN ADD-Vantage 750 MG in 0.9% NaCl ADD-Vantage 250 ML 250 MG IV (04:18)
[2025-01-02] MEDS: heparin 5,000 unit/mL INJ 1 mL IVP ×3 (04:27→19:42)
[2025-01-02 04:28] LABS: Alanine Aminotransferase 14 U/L (0-41); Albumin Level 2.8 g/dL (3.5-5.2); Alkaline Phosphatase 165 U/L (40-130); Anion Gap 9.1 (5-19); Aspartate Amino Transferase 16 U/L (0-40); Blood Urea Nitrogen 22 mg/dL (8-23); Calcium 8.4 mg/dL (8.5-10.5); Carbon Dioxide 32 mmol/L (22-29); Chloride 98 mmol/L (98-107); Globulin 4.3 g/dL (1.3-4.6); Glomerular Filtration Rate 166.4 mL/min (90-130); Glucose 167 mg/dL (65-115); Osmolality Calculated 287 mOsm/kg (285-295); Potassium 4.1 mmol/L (3.5-5.1); Sodium 135 mmol/L (136-145); Total Bilirubin 0.3 mg/dL (0.15-1.2); Total Protein 7.1 g/dL (6.6-8.7)
[2025-01-02] MEDS: metroNIDAZOLE IV 500 MG/100 ML PREMIX 100 MG IV ×2 (07:44→16:21)
[2025-01-02] MEDS: budesonide 0.5 mg/2 mL Neb INHALATION ×2 (08:28→20:14)
--- NOTE | 2025-01-02 08:32 | PM.CONSULT ---
Providers/Reason For Consult Consulting Physician/Specialty*: Wound care Reason for Consult*: Open wound to sacrum Requesting Physician: Dr. Mohamud Attending Physician: Jaron Mohamud Primary Care Provider: Eliud Jenkins History of Present Illness History of Present Illness Luis E Mota is a 64 year old male who was sent to [facility] emergency room on January 01 for shortness of breath and decreased oxygen saturation from [facility]. He was subsequently admitted for UTI and possible colitis. He has a longstanding sacral ulcer being managed in [facility] by [facility] wound care. According to the LABEL DRIER at [facility] he has had a wound VAC on this ulceration since he was admitted to their facility in September. The LABEL DRIER states the wound has been showing progress and is unaware of chronic osteomyelitis being present in the sacrum. From reports from his neice and daughter he has been treated for this 2 separate times since last April once in [place] and once in [place]. The nurse reports he has regular debridements performed on this wound when indicated by [facility] wound provider. He has previously been treated at [facility] wound care. His last appointment was with Dr. Hernandez in October 2023. He did have a coccyx wound present, though at this time there was no record of sacral osteomyelitis. Upon talking to the LABEL DRIER, he also has a left neck wound which she reports is from a previous tumor removal. Matt has been using Medihoney and saline moistened gauze to this wound. His past medical history includes COPD, obstructive sleep apnea, GERD, heart failure with preserved ejection fracture, hypertension, hyperlipidemia, coronary artery disease, peripheral arterial disease, laryngeal cancer, tracheostomy, and lymphedema. He is bedbound due to a cervical injury which occurred in 2005. He has a history of osteomyelitis in his right foot which was treated with vancomycin per records. He is being medically managed by hospitalist service. Review of Systems Skin/Breast: Reports: sores (on bottom) Medications/Allergies Home Medications ?Medication ?Instructions ?Recorded ?Confirmed ?Last Taken ?Type acetaminophen 325 mg tablet 650 mg PO QID PRN Pain 11/09/24 01/01/25 11/13/24 History bisacodyl 10 mg rectal suppository 10 mg PA DAILY PRN Constipation 11/09/24 01/01/25 11/13/24 History budesonide 0.5 mg/2 mL suspension 0.5 mg inhalation BID PRN Wheezing 11/09/24 01/01/25 11/13/24 History for nebulization chlorhexidine gluconate 0.12 % 15 ml buccal TID 11/09/24 01/01/25 12/31/24 History mouthwash cyclobenzaprine 10 mg tablet 10 mg PO Q8H PRN Muscle Spasm 11/09/24 01/01/25 12/31/24 History enoxaparin 40 mg/0.4 mL 40 mg SUBCUT DAILY 11/09/24 01/01/25 11/13/24 History subcutaneous syringe olopatadine 0.1 % eye drops 1 drp ophthalmic (eye) BID PRN 11/09/24 01/01/25 12/31/24 History allergic conjunctivitis polyethylene glycol 3350 17 17 g PO DAILY 11/09/24 01/01/25 11/13/24 History gram/dose oral powder (Miralax) polyvinyl alcohol-povidone (PF) 2 drp ophthalmic (eye) QID PRN Dry 11/09/24 01/01/25 12/31/24 History 1.4 %-0.6 % eye drops in a Eyes dropperette gabapentin 600 mg tablet 600 mg PO Q6H 11/13/24 01/01/25 12/31/24 History oxycodone 10 mg tablet 10 mg PO Q6H PRN Pain 11/13/24 01/01/25 12/31/24 History simethicone 40 mg/0.6 mL oral See Rx Instructions .Route .COMPLEX 11/13/24 01/01/25 12/31/24 History drops,suspension amino acids-protein 30 ea PO DAILY 01/01/25 01/01/25 12/31/24 History hydrolysate-fiber 15 gram-100 kcal/30 mL liquid (Pro-Stat Renal Care) multivitamin with minerals-folic 1 tab PO DAILY 01/01/25 01/01/25 12/31/24 History acid 400 mcg-lycopene 370 mcg tablet (One-A-Day Men's 50 Plus) nystatin 100,000 unit/gram topical 1 applic topical BID 01/01/25 01/01/25 12/31/24 History cream ondansetron HCl 4 mg tablet 4 mg PO Q6H PRN Nausea And Vomiting 01/01/25 01/01/25 12/31/24 12:30 History Allergies Allergy/AdvReac Type Severity Reaction Status Date / Time doxycycline Allergy Intermediate RASH/SWELLI Verified 03/28/24 09:31 NG adhesive tape Allergy ALGY-Bliste Verified 03/28/24 09:31 r clindamycin Allergy ALGY-Hives Verified 03/28/24 09:31 Influenza Virus Vaccines Allergy Unknown Verified 03/28/24 09:31 [email or web address] (From Myrbetriq) Allergy Unknown Verified 03/28/24 09:31 niacin Allergy Unknown Verified 03/28/24 09:31 Current Medications Generic Name Dose Route Start Last Admin Trade Name Freq PRN Reason Stop Dose Admin Aspirin 162 mg 01/01/25 16:15 01/01/25 16:55 Aspirin 81 Mg Ec Tablet PO 162 mg DAILY RUPERT Administration Budesonide 0.5 mg 01/01/25 20:00 01/02/25 08:28 Budesonide 0.5 Mg/2 Ml Neb INHALATION 0.5 mg BID.RESPIRATORY RUPERT Administration Cefepime HCl 1,000 mg 01/02/25 02:00 01/02/25 01:34 Cefepime 1,000 Mg Sdv IVP 1,000 mg Q12H RUPERT Administration Protocol Chlorhexidine Gluconate 15 ml 01/01/25 21:00 01/01/25 22:09 Chlorhexidine Gluconate 0.12% Btl 473 Ml MUCOUS MEM Not Given TID RUPERT Gabapentin 600 mg 01/01/25 16:15 01/02/25 04:16 Gabapentin 300 Mg Capsule PO 600 mg Q6H RUPERT Administration Heparin Sodium (Porcine) 0 unit 01/01/25 10:46 01/02/25 04:27 Heparin 5,000 Unit/Ml Inj 1 Ml IVP 3,000 unit PRN PRN Administration Heparin Weight Based Protocol -Subsequent Bolus Protocol Heparin Sodium/Sodium Chloride 25,000 unit in 500 mls @ 0 mls/hr 01/01/25 11:00 01/02/25 04:26 Heparin Drip IV 17.22 unit/kg/hr CONT RUPRET 25 mls/hr Protocol Titration Per Protocol Metronidazole 500 mg in 100 mls @ 100 mls/hr 01/01/25 16:15 01/02/25 07:44 Flagyl Iv IV 100 mls/hr Q8H RUPERT Administration Protocol Nystatin 1 applic 01/01/25 18:00 01/01/25 16:58 Nystatin Cream 30 Gm TOPICAL 1 applic BID RUPERT Administration Olopatadine HCl 1 drop 01/01/25 15:59 01/01/25 16:57 Olopatadine 0.1% Op Soln 5 Ml Btl EYE-BOTH 1 drop BID PRN Administration allergic conjunctivitis Simethicone 80 mg 01/01/25 17:00 01/01/25 22:10 Simethicone 40 Mg/0.6 Ml Bottle 30ml PEG-TUBE 80 mg QID RUPERT Administration PFSH Acute PFSH: Medical History Spinal cord injury After a fall Malignant neoplasm of supraglottis Cancer, epiglottis Gluteal pain COPD exacerbation Supraglottic lesion Epiglottic lesion Laryngeal cancer Leg swelling Asthma exacerbation in COPD Pressure ulcer Chronic hypertrophic rhinitis COVID-19 Malar rash Acute non-recurrent pansinusitis Orchitis and epididymitis Hypokalemia Urethral stricture Osteomyelitis Foot osteomyelitis with cellulitis treated with vancomycin GERD (gastroesophageal reflux disease) Obstructive sleep apnea COPD (chronic obstructive pulmonary disease) Cervical vertebral fusion Myocardial infarction Status post stent placement Foot drop Heart failure with preserved ejection fraction Lymphedema Dyslipidemia Hypertension Surgical History S/P cystourethroscopy with dilation of urethral stricture Previous back surgery H/O cardiac catheterization H/O shoulder surgery Family History Other Hypertension Social History Smoking and tobacco/nicotine status: former use of tobacco/nicotine Quit status (tobacco/nicotine): has quit using Year quit tobacco: 2020 - 1.5 PPD x 40 Years Second hand smoke exposure: No Alcohol intake: current Alcohol intake frequency: holidays/special occasions only Substance/Drug Use: never Caregiver/support person: Yes Lives independently: Yes Household members: spouse Housing: House Marital status: Current occupational status: disabled Do you think of yourself as: Straight/Heterosexual Current gender identity: Male Vitals/I&O/Wt Last Vital Signs Temp 97.8 F 01/02/25 07:35 Pulse 93 01/02/25 08:27 Resp 16 01/02/25 08:27 BP 120/73 01/02/25 07:35 Pulse Ox 96 01/02/25 08:27 O2 Del Method HAG 01/02/25 08:27 O2 Flow Rate 3 01/01/25 16:00 FiO2 40 01/02/25 08:27 01/01/25 01/02/25 01/02/25 22:59 06:59 14:59 Intake Total 3440.80 / 3440.80 2332.2 / 5773.00 Output Total 1000 / 1000 1075 / 2075 Balance 2440.80 / 2440.80 1257.2 / 3698.00 Weight last 48 hrs Weight 75.705 kg Weight 70.392 kg Weight 72.575 kg Physical Exam Const: COMMON NORMALS: no acute distress and patient oriented x3 GENERAL APPEARANCE: cooperative and ill appearing ORIENTATION/CONSCIOUSNESS: Yes awake, Yes oriented to person, Yes oriented to place and Yes oriented to time Eye: GENERAL EYE: appearance normal, both eyes and all related structures Neck/C-Spine: GENERAL: Yes tracheostomy present OTHER: open wound to left neck under trach collar Chest: CHEST: Yes Symmetrical chest wall rise Resp: EFFORT & INSPECTION: Yes symmetric chest movement Cardio: COMMON NORMALS: regular rate RATE: regular rate Back/Pelvis: SACRUM: no erythema and no swelling OTHER: 2 open wounds see wound assessments Neuro: COMMON NORMALS: patient oriented x3 SENSORIUM/ORIENTATION: Yes oriented to person, Yes oriented to place and Yes oriented to time GAIT: Yes Unable to assess gait (Bedbound) Psych: ATTITUDE: Yes calm ACTIVITY/MOTOR BEHAVIOR: Yes appropriate eye contact OTHER: Communicates by typing Skin: WOUNDS: Yes wounds noted (See wound assessment) Data 01/02/25 03:19 01/02/25 03:19 Micro: Microbiology 01/01/25 09:55 Urine Culture - Preliminary Urine,Clean Catch Gram Negative Rods 01/01/25 10:07 Blood Culture - Preliminary Blood SPECIMEN COLLECTED 01/01/25 09:59 Blood Culture - Preliminary Blood SPECIMEN COLLECTED A&P Assessment and plan (1) Pressure ulcer of sacral region, stage 4: Wound does not appear to be actively infected. Has been previously treated with IV antibiotics for sacral osteomyelitis. Will recommend saline moistened gauze packed in the wound 2 times daily. Wound was cleansed and dressing was applied during visit. He should regularly change position to relieve pressure on the affected area, at minimum every 2 hours. Use pillows, foam cushions, mattress pads, or other aids to reduce pressure on vulnerable areas. Remove pressure from medical devices like catheters and oxygen tubing. He would benefit from a [id number] mattress while admitted. This has been relayed to his staff nurse. (2) Pressure ulcer of left lower back, stage 3: Wound does not appear acutely infected. Will recommend Hydrofera Blue to this wound daily secured with a 4 x 4 OPTi foam. Wound was cleansed and dressing was applied during visit. Again, it will be important for him to be turned frequently to expedite wound healing and prevent further decline. (3) Open wound of neck: Per LABEL DRIER at [facility], this wound is from a tumor removal performed at [facility]. Patient reports this was performed in May 2024. It is located under his trach collar. [place] wound care has been recommending Medihoney and saline moistened gauze to this wound at the detention. Patient denies ever being told there was malignancy in this wound. Does not appear acutely infected. Will recommend saline moistened gauze to this wound twice daily. This should be covered with dry gauze and secured under his collar. Wound was cleansed and dressing was applied during visit. He would benefit from having his trach collar changed out as it has dried exudative material on it. Any further wound care recommendations should be guided by hospitalist service. If patient is still admitted on Sunday, wound care will follow-up. PDMP PDMP Reviewed: Not Reviewed Consult Attestations Time Spent in Patient Care: Greater than 35 minutes Evaluation, discussion, chart review Coding Level of Care Code Acute Code for Chg Fwd Diagnoses Pressure ulcer of sacral region, stage 4 L89.154 Pressure ulcer of left lower back, stage 3 L89.143 Open wound of neck S11.90XA Wound Assessment Wound Assessment Wound Number 1 Sacrum: Primary Etiology: Pressure Ulcer Classification: Stage 4 Epithelialization: None Tunneling: No Undermining: Yes (1.3cm from 9-12 o'clock) Limited to Skin Breakdown: No Exudate Amount: Medium Drainage Type: Serosanguineous Foul Odor After Cleansing: No Slough/Fibrin?: Yes Granulation Amount: Large (67-100%) Granulation Quality: [place] Necrotic Amount: Small (1-33%) Necrotic Type: Adherent Slough Wound Number 2 Back: Descriptor: Left (lower) Primary Etiology: Pressure Ulcer Classification: Stage 3 Epithelialization: None Tunneling: No Undermining: No Limited to Skin Breakdown: No Exudate Amount: Medium Drainage Type: Serosanguineous Foul Odor After Cleansing: No Slough/Fibrin?: Yes Granulation Amount: None Necrotic Amount: Medium (34-66%) Necrotic Type: Adherent Slough Wound Number 3 Neck: Descriptor: Left and Anterior Primary Etiology: Malignant Wound Length (cm): 2 cm Width (cm): 2.5 cm Depth (cm): 1.8 cm Epithelialization: None Tunneling: No Undermining: No Exudate Amount: Medium Drainage Type: Serosanguineous Foul Odor After Cleansing: No Slough/Fibrin?: Yes Granulation Amount: Medium (34-66%) Granulation Quality: [place] Necrotic Amount: Small (1-33%) Necrotic Type: Adherent Slough Wound Orders Wound Number 1: sacrum Dressing change frequency: Twice Daily (once per shift and prn if soiled or dislodged) Wound Cleansing: Saline Primary Wound Care Dressing: saline moistened gauze packing Secondary Wound Care Dressing: Dry gauze and ABD pad secured with tape Off-Loading: Low air-loss mattress and Turn and reposition every 2 hours Wound Number 2: Left lower back Dressing change frequency: Daily Wound Cleansing: Saline Primary Wound Care Dressing: Hydrofera blue ready Secondary Wound Care Dressing: Optifoam Off-Loading: Low air-loss mattress and Turn and reposition every 2 hours Wound Number 3: left neck Dressing change frequency: Twice Daily Primary Wound Care Dressing: Saline moistened gauze Secondary Wound Care Dressing: Dry gauze
[2025-01-02] MEDS: chlorhexidine gluconate 0.12% Btl 473 mL 15 ML MUCOUS MEM ×3 (09:57→21:01)
[2025-01-02] MEDS: nystatin cream 30 gm 1 APPLIC TOPICAL ×2 (09:58→17:32)
[2025-01-02] MEDS: simethicone 40 mg/0.6 mL Bottle 30mL 80 MG PEG-TUBE ×4 (09:58→20:57)
[2025-01-02] MEDS: aspirin 81 mg Chew Tablet 162 MG PO (09:59)
[2025-01-02 11:25] LABS: Partial Thromboplastin Time 54.4 SECONDS (23.9-36.7)
[2025-01-02] MEDS: heparin drip 25,000 UNIT/500 ML PREMIX 25 UNIT IV (11:39)
--- NOTE | 2025-01-02 13:16 | PC.NUTR ---
Per Perla Steve, Pt is on Jevity 1.5 @100mls/hr from 22:00-8:00 with FWF 180mls Q4H. NH said during the day he pleasure feeds and doesn't want to have either continuous or bolus feeds. Family of Pt said he feels bloated a lot. Should Pt want to try bolus feeds, recommend Jevity 1.5, 5 cartons/day, with FWF 60mls before and after feeds. Possible regimen: 8am: 1 carton (240mls) Noon: 1 carton 4pm: 1 carton 8pm: 2 cartons (480mls) *60mls FWF before and after *Recommend consideration of separate water flush with Carmine or 1 scoop of Beneprotein mixed in for wound healing.
--- NOTE | 2025-01-02 14:20 | PC.SOCIAL ---
IMM Updated Updated pt on IMM. No questions voiced. Provided pt a copy. Initialed, dated, & timed a copy & placed in chart.
[2025-01-02] MEDS: VANCOMYCIN ADD-Vantage 1,000 MG in 0.9% NaCl ADD-Vantage 250 ML 250 MG IV (16:19)
[2025-01-02] MEDS: mupirocin oint 22 gm 1 APPLIC TOPICAL (17:32)
--- NOTE | 2025-01-02 17:42 | PM.PN ---
Subjective Subjective: Still having some secretions. Otherwise feels about the same. Without further new symptoms. Vitals/I&O/Wt Last Vital Signs Temp 98.3 F 01/02/25 15:41 Pulse 83 01/02/25 15:41 Resp 17 01/02/25 15:41 BP 93/55 01/02/25 15:41 Pulse Ox 95 01/02/25 15:41 O2 Del Method Trach Collar 01/02/25 15:41 O2 Flow Rate 3 01/01/25 16:00 FiO2 40 01/02/25 15:29 01/02/25 01/02/25 01/02/25 06:59 14:59 22:59 Intake Total 2332.2 / 5773.00 250.25 / 250.25 100 / 350.25 Output Total 1075 / 2075 1000 / 1000 Balance 1257.2 / 3698.00 -749.75 / -749.75 100 / -649.75 Weight last 48 hrs Weight 75.705 kg Weight 70.392 kg Weight 72.575 kg Physical Exam Narrative: Accompanied by his daughter and niece. Const: COMMON NORMALS: patient oriented x3 and alert GENERAL APPEARANCE: cooperative ORIENTATION/CONSCIOUSNESS: Yes awake HENMT: COMMON NORMALS: oropharynx normal OTHER: Tracheostomy Neck/C-Spine: COMMON NORMALS: no JVD Resp: COMMON NORMALS: normal respiratory effort AUSCULTATION: rhonchi Cardio: COMMON NORMALS: no JVD, regular rhythm, S1 normal heart sound present, S2 normal heart sound present and No murmurs present (Cardio) RHYTHM: regular rhythm HEART SOUNDS: S1 normal heart sound present and S2 normal heart sound present GI: COMMON NORMALS: Normal to inspection, nondistended, normoactive bowel sounds present, Soft to palpation and non-tender PALPATION: Yes Soft to palpation : OTHER: William catheter with sediment. No hematuria Extremity: COMMON NORMALS: no joint enlargement and no pedal edema Neuro: COMMON NORMALS: patient oriented x3; negative for moves all extremities SENSORIUM/ORIENTATION: Yes alert OTHER: Paraplegic Skin: COMMON NORMALS: no rashes or lesions noted GENERAL SKIN EXAM: no rashes or lesions noted OTHER: Deep large sacral decubitus ulcer down to bone without purulent discharge Urinary Catheter Management: William: Cath Placed During This Visit: no Reason for Continuing Indwelling Catheter: Chronic Indwelling Urinary Catheter on Admission Data 01/02/25 03:19 01/02/25 03:19 Micro: Microbiology 01/01/25 09:59 Blood Culture - Preliminary Blood NEGATIVE TO DATE 01/01/25 10:07 Blood Culture - Preliminary Blood NEGATIVE TO DATE 01/01/25 09:55 Urine Culture - Preliminary Urine,Clean Catch Gram Negative Rods A&P Assessment and plan (1) Urinary tract infection: Reviewed vitals, CBC, persistent leukocytosis 15.13. Complicated UTI with mild hydronephrosis bilaterally. From further information obtained, William catheter was exchanged at [facility] day prior to admission. Still having some sediment. Appears may have had obstruction due to heavy sediment preadmission. Continue treatment, follow-up culture. So far on review gram-negative rods follow-up ID and sensitivity. Continue empiric coverage with cefepime. Monitor for risk of encephalopathy, cytopenia, C. difficile. discussed with nursing, registered nurse hh case manager. More than 100 RBC and WBC in urine. Diffuse urinary bladder wall thickening on CT. History of multidrug-resistant infections in the past. On review of prior cultures seem to be sensitive to cefepime as per discussion with ER provider. Started on cefepime. (2) Hypotension: Improved. Reviewed CMP, without LESIA, shock liver. Reassess chemistry. Hypotensive (BP 89/59 mmHg) on presentation. The provider noted that the heart may have been stressed, possibly due to low blood pressure. Hold gabapentin for now. Possible hypovolemic hypotension, with diarrhea, hold Miralax and Dulcolax. If liquid diarrhea, assess C. difficile, requested. With leukocytosis 14.27, sinus tachycardia 102, low-grade temp 99.7, possible sepsis secondary to urinary tract infection with pyelonephritis. Complicated by hypotension, possible cardiac demand ischemia with troponin elevation. Reviewed CT, without nephrolithiasis, the source of obstruction. Possibly hydronephrosis due to sediment in the urine. Requested William to be exchanged. (3) Colitis: Possible colitis of sigmoid colon and rectum on CT. He reports some diarrhea although family not aware of it. Cefepime and Flagyl for now empirically. Requested C. difficile in case liquid stool. Consider colonoscopy after recovery in 4 to 6 weeks. (4) NSTEMI (non-ST elevated myocardial infarction): No chest pain or pressure was reported. Troponin was elevated initially with downtrend. Suspected demand ischemia secondary to hypotension. However, echocardiogram reviewed, noted focal mild hypokinesia of basal inferolateral wall segment, EF 50%. Completed 48 hours of heparin drip. Continue aspirin. Consider further assessment with stress test. Troponin elevation, up to 134, about 2 hours without further rise, with decreased to 110. She denies chest pain or pressure. EKG reviewed, RBBB, I am not seeing a real Q wave in V3 V4, pending official read. Complete troponin EKG series. He is on anticoagulation with heparin, and risk of bleeding, monitor PTT. Start aspirin. Monitor on telemetry. Obtain TTE. Plan COPD: Possibly mild exacerbation, with rhonchi, some phlegm production and some shortness of breath. Breathing treatments. Inhaled budesonide. Airway suctioning as needed. In case further difficulty with clearance consider chest vest. Tracheostomy care : Discussed with respiratory therapy, tracheostomy care, he normally has his cannula and stoma clean daily. Additionally collar to be replaced due to swelling from the neck wound to prevent infection per discussion with wound care. - Request respiratory therapy or nursing staff to clean and suction tracheostomy as needed and daily. Sacral decubitus ulcer with osteomyelitis : Appreciate wound care consultation. Continue wound care, dressing changes with wet-to-dry, Hydrofera Blue. Patient is bed-bound with a large sacral decubitus ulcer and underlying osteomyelitis. Dressing changes are performed by the patient's , and the patient attends wound care clinic regularly. - Continue regular wound care and dressing changes. Frequent repositioning. - Coordinate with wound care for ongoing management. Appreciate consultation. History of laryngeal cancer : History of laryngeal cancer with tracheostomy. PEG tube dislodged: Has been replaced by surgery. Discussed with surgeonjuno for use. Appreciate consultation. Heart failure with preserved ejection fraction : History of heart failure with preserved ejection fraction. Troponin elevated, possibly due to cardiac stress from hypotension. No chest pain or pressure reported. - Monitor cardiac status and troponin levels. PDMP PDMP Reviewed: Not Reviewed Attestations Medical Necessity Statement*: Continue hospitalization for assessment management of possible sepsis, UTI, pyelonephritis, with history of MDRO UTI, possible colitis, NSTEMI in a gentleman with spinal cord injury, paraplegia, large sacral ulcer with chronic osteomyelitis, tracheostomy with laryngeal cancer, additional comorbidities as above. and High MDM includes amount and/or complexity of data reviewed/ordered [ resulted lab(s)/test(s), ordered lab(s)/test(s) and other healthcare professional discussion] and described risk of complication, morbidity or mortality of management as documented Diagnoses Urinary tract infection T83.511S; N39.0 Encounter type: sequela Indwelling urinary catheter type: indwelling urethral catheter Urinary tract infection type: catheter-associated UTI Hypotension I95.9 Colitis K52.9 NSTEMI (non-ST elevated myocardial infarction) I21.4
--- NOTE | 2025-01-02 18:36 | PC.NURSE ---
Pt refused lab draw, this nurse spoke with pt and he agreed to allow lab to get PTT. Notified lab and they are sending another tech. PTT draw will be late for 6 hour order.
[2025-01-02 19:30] LABS: Partial Thromboplastin Time 53.6 SECONDS (23.9-36.7)
[2025-01-02] MEDS: ipratropium-albuterol 3 mL Neb INHALATION (20:14)
[2025-01-03] VITALS (12 sets, daily range): BP systolic 120–155; BP diastolic 68–84; PULSE 81–106; RESP 14–24; TEMP 36.6–37.8; O2SAT 92–99
[2025-01-03] MEDS: metroNIDAZOLE IV 500 MG/100 ML PREMIX 100 MG IV ×3 (00:14→17:17)
[2025-01-03 01:55] LABS: Basophils % 0.2 %; Eosinophils # 0.3 10^3/uL (0.0-0.8); Eosinophils % 3.6 %; Hematocrit 32.1 % (37-53); Lymphocytes # 0.4 10^3/uL (0.8-4.8); Lymphocytes % 4.5 %; Mean Corpuscular HGB Conc 30.8 g/dL (30-55); Mean Corpuscular Hemoglobin 28.4 pg (27-33); Mean Corpuscular Volume 92.2 fl (82-101); Mean Platelet Volume 9.8 fL (7.4-10.4); Monocytes # 0.7 10^3/uL (0.2-0.9); Monocytes % 8.6 %; Neutrophils # 7.09 10^3/uL (1.8-7.7); Neutrophils % 82.8 %; Nucleated Red Blood Cells % 0 %; Platelet Count 316 10^3/cmm (157-399); Red Blood Count 3.48 10^6/uL (3.85-5.65); Red Cell Distribution Width 15.8 % (12.1-15.1); White Blood Count 8.58 10^3/uL (3.29-11.43)
[2025-01-03 02:07] LABS: Partial Thromboplastin Time 54.3 SECONDS (23.9-36.7)
[2025-01-03 02:15] LABS: Alanine Aminotransferase 13 U/L (0-41); Albumin Level 2.7 g/dL (3.5-5.2); Alkaline Phosphatase 142 U/L (40-130); Anion Gap 8.8 (5-19); Aspartate Amino Transferase 12 U/L (0-40); Blood Urea Nitrogen 12 mg/dL (8-23); Calcium 8.4 mg/dL (8.5-10.5); Carbon Dioxide 34 mmol/L (22-29); Chloride 99 mmol/L (98-107); Glomerular Filtration Rate 166.4 mL/min (90-130); Glucose 153 mg/dL (65-115); Osmolality Calculated 289 mOsm/kg (285-295); Potassium 3.8 mmol/L (3.5-5.1); Sodium 138 mmol/L (136-145); Total Bilirubin 0.2 mg/dL (0.15-1.2); Total Protein 6.7 g/dL (6.6-8.7)
[2025-01-03] MEDS: ipratropium-albuterol 3 mL Neb INHALATION ×4 (02:31→20:53)
[2025-01-03] MEDS: heparin 5,000 unit/mL INJ 1 mL IVP (02:33)
[2025-01-03] MEDS: cefepime 1,000 mg SDV 1000 MG IVP ×2 (02:36→14:07)
[2025-01-03] MEDS: VANCOMYCIN ADD-Vantage 1,000 MG in 0.9% NaCl ADD-Vantage 250 ML 250 MG IV ×2 (04:16→15:58)
[2025-01-03] MEDS: gabapentin 300 mg Capsule 600 MG PO ×4 (04:16→21:29)
[2025-01-03] MEDS: heparin drip 25,000 UNIT/500 ML PREMIX 28 UNIT IV (06:21)
[2025-01-03] MEDS: budesonide 0.5 mg/2 mL Neb INHALATION ×2 (07:48→20:53)
[2025-01-03] MEDS: chlorhexidine gluconate 0.12% Btl 473 mL 15 ML MUCOUS MEM ×2 (09:18→21:29)
[2025-01-03] MEDS: simethicone 40 mg/0.6 mL Bottle 30mL 80 MG PEG-TUBE ×4 (09:18→21:29)
[2025-01-03] MEDS: nystatin cream 30 gm 1 APPLIC TOPICAL (09:18)
[2025-01-03] MEDS: mupirocin oint 22 gm 1 APPLIC TOPICAL ×2 (09:19→17:50)
[2025-01-03] MEDS: aspirin 81 mg Chew Tablet 162 MG PO (09:24)
[2025-01-03] MEDS: oxyCODONE 5 mg IR Tab/Cap 10 MG PO ×2 (11:58→17:47)
--- NOTE | 2025-01-03 13:39 | P.PN_ITS ---
Vitals/I&O/Wt Last Vital Signs Temp 99.3 F 01/03/25 11:38 Pulse 98 01/03/25 13:23 Resp 20 H 01/03/25 13:23 BP 155/80 01/03/25 11:38 Pulse Ox 96 01/03/25 13:23 O2 Del Method HAG 01/03/25 13:23 O2 Flow Rate 10 01/03/25 13:23 FiO2 35 01/03/25 13:23 01/02/25 01/03/25 01/03/25 22:59 06:59 14:59 Intake Total 551.667 / 801.917 640.9 / 1442.817 570 / 570 Output Total 750 / 1750 300 / 2050 2100 / 2100 Balance -198.333 / -948.083 340.9 / -607.183 -1530 / -1530 Weight last 48 hrs Weight 84.595 kg Weight 75.705 kg Weight 70.392 kg Physical Exam 2 Const: COMMON NORMALS: no acute distress ORIENTATION/CONSCIOUSNESS: Yes awake, Yes oriented to person and Yes oriented to place; not oriented to time Resp: COMMON NORMALS: normal respiratory effort, No retractions, No use of accessory muscles and clear to auscultation bilaterally AUSCULTATION: clear to auscultation bilaterally Cardio: COMMON NORMALS: regular rate, regular rhythm, S1 normal heart sound present and S2 normal heart sound present RATE: regular rate RHYTHM: r egular rhythm HEART SOUNDS: S1 normal heart sound present and S2 normal heart sound present GI: COMMON NORMALS: Normal to inspection, nondistended, normoactive bowel sounds present and non-tender Extremity: COMMON NORMALS: no pedal edema Neuro: SENSORIUM/ORIENTATION: Yes oriented to person, Yes oriented to place and No oriented to time Psych: COMMON NORMALS: mental status grossly normal Urinary Catheter Management: William: Cath Placed During This Visit: no Reason for Continuing Indwelling Catheter: Chronic Indwelling Urinary Catheter on Admission Data 01/03/25 01:48 01/03/25 01:48 Micro: Microbiology 01/01/25 09:55 Urine Culture - Final Urine,Clean Catch Proteus mirabilis 01/01/25 09:59 Blood Culture - Preliminary Blood NEGATIVE TO DATE 01/01/25 10:07 Blood Culture - Preliminary Blood NEGATIVE TO DATE A&P Assessment and plan (1) Urinary tract infection: CT scan abdomen pelvis 4. Diffuse bladder wall thickening with enhancement suspicious for cystitis. William catheter. 5. Mild bilateral hydronephrosis with pyelonephritis. Diffuse enhancement involving the renal pelvis and ureters bilaterally compatible with UTI/infection. -Urine culture showing Proteus Mirabella's Plan - Continue IV cefepime (2) Hypotension: Resolved (3) Colitis: - Seen on CT scan - Continue Flagyl - Continue cefepime (4) NSTEMI (non-ST elevated myocardial infarction): - Baseline troponin 134 - No chest pain complaints - Cardiac echocardiogram CONCLUSIONS Mild left ventricular hypertrophy. Abnormal septal motion consistent with conduction abnormality. Mild hypokinesia of the basal inferolateral wall segment. Normal LV size with slightly diminished ejection fraction of 50%. Thickened noncoronary cusp of the aortic valve. There is no pericardial effusion. Technically difficult study because of poor ultrasonic window Consider MIRACLE, if clinically indicated, to rule out any vegetations Plan -Continue aspirin, statin - Currently on heparin drip - Will consider stress testing based on clinical progress Plan COPD: - DuoNeb - Budesonide Tracheostomy care - Trach care Sacral decubitus ulcer with osteomyelitis : -Continue vancomycin, continue cefepime -wound care consultation. -Continue wound care, dressing changes with wet-to-dry, Hydrofera Blue. -Patient is bed-bound with a large sacral decubitus ulcer and underlying osteomyelitis - Frequent repositioning. History of laryngeal cancer : History of laryngeal cancer with tracheostomy. PEG tube dislodged: Has been replaced by surgery - Resume PEG tube feedings Heart failure with preserved ejection fraction : Monitor, appears euvolemic PDMP PDMP Reviewed: Not Reviewed Attestations 2 Medical Necessity Statement*: Patient requires hospitalization for UTI, NSTEMI, hypotension, sacral decubitus ulcer Diagnoses Urinary tract infection T83.511S; N39.0 Encounter type: sequela Indwelling urinary catheter type: indwelling urethral catheter Urinary tract infection type: catheter-associated UTI Hypotension I95.9 Colitis K52.9 NSTEMI (non-ST elevated myocardial infarction) I21.4
[2025-01-03] MEDS: cyclobenzaprine 10 mg Tablet PO (17:46)
[2025-01-03] MEDS: atorvastatin 40 mg Tablet PO (21:29)
[2025-01-03] MEDS: enoxaparin 80 mg/0.8 mL Syringe SUBCUT (23:03)
[2025-01-04] VITALS (11 sets, daily range): BP systolic 102–154; BP diastolic 68–96; PULSE 79–104; RESP 13–20; TEMP 36.3–37.6; O2SAT 90–96
[2025-01-04] MEDS: metroNIDAZOLE IV 500 MG/100 ML PREMIX 100 MG IV ×3 (00:14→16:28)
[2025-01-04] MEDS: ipratropium-albuterol 3 mL Neb INHALATION ×4 (01:44→19:21)
[2025-01-04] MEDS: cefepime 1,000 mg SDV 1000 MG IVP ×2 (01:50→13:50)
[2025-01-04 04:01] LABS: Basophils % 0.5 %; Eosinophils # 0.6 10^3/uL (0.0-0.8); Eosinophils % 10.2 %; Hematocrit 32.6 % (37-53); Lymphocytes # 0.6 10^3/uL (0.8-4.8); Lymphocytes % 10.2 %; Mean Corpuscular HGB Conc 30.7 g/dL (30-55); Mean Corpuscular Hemoglobin 28.7 pg (27-33); Mean Corpuscular Volume 93.7 fl (82-101); Mean Platelet Volume 10.1 fL (7.4-10.4); Monocytes # 0.8 10^3/uL (0.2-0.9); Monocytes % 13.6 %; Neutrophils # 3.88 10^3/uL (1.8-7.7); Neutrophils % 65.2 %; Nucleated Red Blood Cells % 0 %; Platelet Count 357 10^3/cmm (157-399); Red Blood Count 3.48 10^6/uL (3.85-5.65); Red Cell Distribution Width 15.7 % (12.1-15.1); White Blood Count 5.96 10^3/uL (3.29-11.43)
[2025-01-04 04:18] LABS: Alanine Aminotransferase 11 U/L (0-41); Albumin Level 2.8 g/dL (3.5-5.2); Alkaline Phosphatase 146 U/L (40-130); Aspartate Amino Transferase 13 U/L (0-40); Blood Urea Nitrogen 13 mg/dL (8-23); Calcium 8.4 mg/dL (8.5-10.5); Carbon Dioxide 33 mmol/L (22-29); Chloride 95 mmol/L (98-107); Creatinine Clr Calc Pharmacy 94.4245; Globulin 4.2 g/dL (1.3-4.6); Glomerular Filtration Rate 215.2 mL/min (90-130); Glucose 185 mg/dL (65-115); Osmolality Calculated 285 mOsm/kg (285-295); Sodium 135 mmol/L (136-145); Total Bilirubin 0.2 mg/dL (0.15-1.2)
[2025-01-04 04:19] LABS: Vancomycin Trough 14.4 ug/mL (10-15)
[2025-01-04] MEDS: VANCOMYCIN ADD-Vantage 1,000 MG in 0.9% NaCl ADD-Vantage 250 ML 250 MG IV ×2 (04:27→16:28)
[2025-01-04] MEDS: gabapentin 300 mg Capsule 600 MG PO ×4 (04:27→21:41)
[2025-01-04 04:29] LABS: C Reactive Protein 166.9 mg/L (0.0-4.9); NT Pro B Type Natriuretic Pept 553 pg/mL (0-125); Phosphorus 2.3 mg/dL (2.5-4.5)
[2025-01-04] MEDS: budesonide 0.5 mg/2 mL Neb INHALATION ×2 (07:57→19:21)
[2025-01-04] MEDS: aspirin 81 mg Chew Tablet 162 MG PO (09:27)
[2025-01-04] MEDS: chlorhexidine gluconate 0.12% Btl 473 mL 15 ML MUCOUS MEM (09:28)
[2025-01-04] MEDS: mupirocin oint 22 gm 1 APPLIC TOPICAL ×2 (09:31→16:29)
[2025-01-04] MEDS: simethicone 40 mg/0.6 mL Bottle 30mL 80 MG PEG-TUBE ×4 (09:31→21:43)
[2025-01-04] MEDS: nystatin cream 30 gm 1 APPLIC TOPICAL ×2 (11:01→16:32)
[2025-01-04] MEDS: enoxaparin 80 mg/0.8 mL Syringe SUBCUT ×2 (11:05→22:03)
[2025-01-04] MEDS: cyclobenzaprine 10 mg Tablet PO (16:29)
--- NOTE | 2025-01-04 17:49 | P.PN_ITS ---
Subjective 2 Subjective: Patient was seen this morning, Vitals/I&O/Wt Last Vital Signs Temp 98.4 F 01/04/25 16:42 Pulse 96 01/04/25 16:42 Resp 17 01/04/25 16:42 BP 154/79 01/04/25 16:42 Pulse Ox 93 01/04/25 16:42 O2 Del Method Trach Collar 01/04/25 16:42 O2 Flow Rate 10 01/04/25 13:49 FiO2 35 01/04/25 13:49 01/04/25 01/04/25 01/04/25 06:59 14:59 22:59 Intake Total 350 / 4454.2 580 / 580 Output Total 300 / 3800 1000 / 1000 Balance 50 / 654.2 -420 / -420 Weight last 48 hrs Weight 84.595 kg Weight 84.595 kg Physical Exam 2 Const: COMMON NORMALS: no acute distress ORIENTATION/CONSCIOUSNESS: Yes awake, Yes oriented to person and Yes oriented to place; not oriented to time Eye: COMMON NORMALS: Equal, round and reactive pupils present PUPIL: Yes Equal, round and reactive pupils present Resp: COMMON NORMALS: normal respiratory effort, No retractions and No use of accessory muscles AUSCULTATION: crackles Cardio: COMMON NORMALS: regular rate, regular rhythm, S1 normal heart sound present and S2 normal heart sound present RATE: regular rate RHYTHM: r egular rhythm HEART SOUNDS: S1 normal heart sound present and S2 normal heart sound present GI: COMMON NORMALS: Normal to inspection, nondistended, normoactive bowel sounds present and non-tender Extremity: COMMON NORMALS: no pedal edema Neuro: SENSORIUM/ORIENTATION: Yes oriented to person, Yes oriented to place and No oriented to time Urinary Catheter Management: William: Cath Placed During This Visit: no Reason for Continuing Indwelling Catheter: Chronic Indwelling Urinary Catheter on Admission Data 01/04/25 02:58 01/04/25 02:58 A&P Assessment and plan (1) Urinary tract infection: CT scan abdomen pelvis 4. Diffuse bladder wall thickening with enhancement suspicious for cystitis. William catheter. 5. Mild bilateral hydronephrosis with pyelonephritis. Diffuse enhancement involving the renal pelvis and ureters bilaterally compatible with UTI/infection. -Urine culture showing Proteus Mirabella's Plan - Continue IV cefepime (2) Hypotension: Resolved (3) Colitis: - Seen on CT scan - Continue Flagyl - Continue cefepime (4) NSTEMI (non-ST elevated myocardial infarction): - Baseline troponin 134 - No chest pain complaints - Cardiac echocardiogram CONCLUSIONS Mild left ventricular hypertrophy. Abnormal septal motion consistent with conduction abnormality. Mild hypokinesia of the basal inferolateral wall segment. Normal LV size with slightly diminished ejection fraction of 50%. Thickened noncoronary cusp of the aortic valve. There is no pericardial effusion. Technically difficult study because of poor ultrasonic window Consider MIRACLE, if clinically indicated, to rule out any vegetations Plan -Continue aspirin, statin - Currently on Lovenox - N.p.o. midnight, for cardiac stress test tomorrow morning Plan COPD: - DuoNeb - Budesonide Tracheostomy care - Trach care Sacral decubitus ulcer with chronic osteomyelitis : -Continue vancomycin, continue cefepime -wound care consultation. -Continue wound care, dressing changes with wet-to-dry, Hydrofera Blue. -Patient is bed-bound with a large sacral decubitus ulcer and underlying osteomyelitis - Frequent repositioning. History of laryngeal cancer : History of laryngeal cancer with tracheostomy. PEG tube dislodged: Has been replaced by surgery - Resume PEG tube feedings Heart failure with preserved ejection fraction : Monitor, appears euvolemic PDMP PDMP Reviewed: Not Reviewed Attestations 2 Medical Necessity Statement*: Patient requires hospitalization for UTI, sacral decubitus ulcer with chronic osteomyelitis, NSTEMI Diagnoses Urinary tract infection T83.511S; N39.0 Encounter type: sequela Indwelling urinary catheter type: indwelling urethral catheter Urinary tract infection type: catheter-associated UTI Hypotension I95.9 Colitis K52.9 NSTEMI (non-ST elevated myocardial infarction) I21.4
--- NOTE | 2025-01-04 17:51 | PC.NURSE ---
Patient requested to be taken off the [facility] bed with the fluctuating mattress and placed back on a regular bed. This nurse along with patient care nurse Aleja RN proceeded with this. Still turning patient Q2h.
[2025-01-04] MEDS: atorvastatin 40 mg Tablet PO (21:41)
[2025-01-05] VITALS (10 sets, daily range): BP systolic 105–155; BP diastolic 65–84; PULSE 75–101; RESP 16–18; TEMP 36.6–37; O2SAT 92–98
--- NOTE | 2025-01-05 00:01 | PC.NURSE ---
Pt NPO for stress test, this nurse asked pt if he wanted tube feedings until midnight. Pt declined tube feedings overnight. Pt understands risk of not having tube feedings, all questions answered from pt.
[2025-01-05] MEDS: metroNIDAZOLE IV 500 MG/100 ML PREMIX 100 MG IV ×3 (00:15→16:26)
[2025-01-05] MEDS: cefepime 1,000 mg SDV 1000 MG IVP ×2 (01:13→15:17)
[2025-01-05] MEDS: ipratropium-albuterol 3 mL Neb INHALATION ×4 (02:38→19:36)
[2025-01-05] MEDS: VANCOMYCIN ADD-Vantage 1,000 MG in 0.9% NaCl ADD-Vantage 250 ML 250 MG IV ×2 (03:21→16:25)
[2025-01-05 03:56] LABS: Basophils % 0.6 %; Eosinophils # 0.7 10^3/uL (0.0-0.8); Hematocrit 35.7 % (37-53); Lymphocytes # 0.9 10^3/uL (0.8-4.8); Lymphocytes % 13.4 %; Mean Corpuscular HGB Conc 30.3 g/dL (30-55); Mean Corpuscular Hemoglobin 28.1 pg (27-33); Mean Platelet Volume 10.2 fL (7.4-10.4); Monocytes # 1.1 10^3/uL (0.2-0.9); Monocytes % 15.3 %; Neutrophils # 4.15 10^3/uL (1.8-7.7); Neutrophils % 60.3 %; Nucleated Red Blood Cells % 0 %; Platelet Count 347 10^3/cmm (157-399); Red Blood Count 3.84 10^6/uL (3.85-5.65); Red Cell Distribution Width 15.9 % (12.1-15.1); White Blood Count 6.88 10^3/uL (3.29-11.43)
[2025-01-05 04:14] LABS: Alanine Aminotransferase 12 U/L (0-41); Albumin Level 2.9 g/dL (3.5-5.2); Alkaline Phosphatase 170 U/L (40-130); Anion Gap 14.9 (5-19); Aspartate Amino Transferase 17 U/L (0-40); Blood Urea Nitrogen 14 mg/dL (8-23); Calcium 9.1 mg/dL (8.5-10.5); Carbon Dioxide 31 mmol/L (22-29); Chloride 98 mmol/L (98-107); Creatinine Clr Calc Pharmacy 94.4245; Globulin 4.7 g/dL (1.3-4.6); Glomerular Filtration Rate 166.4 mL/min (90-130); Glucose 99 mg/dL (65-115); Osmolality Calculated 289 mOsm/kg (285-295); Phosphorus 3.3 mg/dL (2.5-4.5); Potassium 4.9 mmol/L (3.5-5.1); Sodium 139 mmol/L (136-145); Total Bilirubin 0.2 mg/dL (0.15-1.2); Total Protein 7.6 g/dL (6.6-8.7)
[2025-01-05 04:20] LABS: NT Pro B Type Natriuretic Pept 618 pg/mL (0-125)
--- NOTE | 2025-01-05 08:31 | PC.SOCIAL ---
IMM Update Pg. 2 of IMM updated. Copy provided at bedside.
[2025-01-05] MEDS: budesonide 0.5 mg/2 mL Neb INHALATION ×3 (08:46→19:36)
[2025-01-05] MEDS: aspirin 81 mg Chew Tablet 162 MG PO (09:32)
[2025-01-05] MEDS: mupirocin oint 22 gm 1 APPLIC TOPICAL ×2 (09:35→10:21)
[2025-01-05] MEDS: chlorhexidine gluconate 0.12% Btl 473 mL 15 ML MUCOUS MEM ×3 (09:36→21:10)
[2025-01-05] MEDS: nystatin cream 30 gm 1 APPLIC TOPICAL ×2 (10:20→16:28)
[2025-01-05] MEDS: simethicone 40 mg/0.6 mL Bottle 30mL 80 MG PEG-TUBE ×4 (10:21→21:10)
[2025-01-05] MEDS: gabapentin 300 mg Capsule 600 MG PO ×3 (10:22→21:15)
[2025-01-05] MEDS: enoxaparin 80 mg/0.8 mL Syringe SUBCUT ×2 (12:25→22:56)
--- NOTE | 2025-01-05 15:07 | P.PN_ITS ---
Subjective 2 Subjective: Patient was seen this morning, currently alert to person, to place, not to time, he follows all commands, does report leaking around PEG tube site that has some concern, no chest pain complaints, no shortness of breath, family members are at bedside Vitals/I&O/Wt Last Vital Signs Temp 98.0 F 01/05/25 08:00 Pulse 79 01/05/25 13:26 Resp 18 01/05/25 13:26 BP 155/84 01/05/25 08:00 Pulse Ox 95 01/05/25 13:26 O2 Del Method HAG 01/05/25 13:26 O2 Flow Rate 10 01/05/25 13:26 FiO2 35 01/05/25 13:26 01/05/25 01/05/25 01/05/25 06:59 14:59 22:59 Intake Total 350 / 1640 100 / 100 Output Total 3100 / 6100 1000 / 1000 Balance -2750 / -4460 -900 / -900 Weight last 48 hrs Weight 84.368 kg Weight 84.595 kg Physical Exam 2 Const: COMMON NORMALS: no acute distress ORIENTATION/CONSCIOUSNESS: Yes awake, Yes oriented to person and Yes oriented to place OTHER: Tracheostomy in place site looks clean and dry HENMT: COMMON NORMALS: normocephalic HEAD & SCALP: normocephalic Resp: COMMON NORMALS: normal respiratory effort, No retractions, No use of accessory muscles and clear to auscultation bilaterally AUSCULTATION: clear to auscultation bilaterally Cardio: COMMON NORMALS: regular rate, regular rhythm, S1 normal heart sound present and S2 normal heart sound present RATE: regular rate RHYTHM: r egular rhythm HEART SOUNDS: S1 normal heart sound present and S2 normal heart sound present GI: COMMON NORMALS: Normal to inspection, nondistended, normoactive bowel sounds present and non-tender OTHER: PEG tube in place, site looks clean and dry Extremity: COMMON NORMALS: no pedal edema Neuro: SENSORIUM/ORIENTATION: Yes oriented to person and Yes oriented to place Psych: COMMON NORMALS: mental status grossly normal Urinary Catheter Management: William: Cath Placed During This Visit: no Reason for Continuing Indwelling Catheter: Chronic Indwelling Urinary Catheter on Admission Data 01/05/25 03:07 01/05/25 03:07 A&P Assessment and plan (1) Urinary tract infection: CT scan abdomen pelvis 4. Diffuse bladder wall thickening with enhancement suspicious for cystitis. William catheter. 5. Mild bilateral hydronephrosis with pyelonephritis. Diffuse enhancement involving the renal pelvis and ureters bilaterally compatible with UTI/infection. -Urine culture showing Proteus Mirabella's Plan - Continue IV cefepime, will de-escalate to p.o. antibiotics tomorrow (2) Hypotension: Resolved (3) Colitis: - Seen on CT scan - Continue Flagyl - Continue cefepime (4) NSTEMI (non-ST elevated myocardial infarction): - Baseline troponin 134 - No chest pain complaints - Cardiac echocardiogram CONCLUSIONS Mild left ventricular hypertrophy. Abnormal septal motion consistent with conduction abnormality. Mild hypokinesia of the basal inferolateral wall segment. Normal LV size with slightly diminished ejection fraction of 50%. Thickened noncoronary cusp of the aortic valve. There is no pericardial effusion. Technically difficult study because of poor ultrasonic window Consider MIRACLE, if clinically indicated, to rule out any vegetations Plan -Continue aspirin, statin - Currently on Lovenox - Breast test cannot be done today will put n.p.o. over midnight stress test tomorrow morning Plan COPD: - DuoNeb - Budesonide Tracheostomy care - Trach care Sacral decubitus ulcer with chronic osteomyelitis : -Continue vancomycin, continue cefepime -wound care consultation. -Continue wound care, dressing changes with wet-to-dry, Hydrofera Blue. -Patient is bed-bound with a large sacral decubitus ulcer and underlying osteomyelitis - Frequent repositioning. History of laryngeal cancer : History of laryngeal cancer with tracheostomy. PEG tube dislodged: Has been replaced by surgery - Resume PEG tube feedings Heart failure with preserved ejection fraction : Monitor, appears euvolemic Feeding, patient does PEG tube feedings throughout the night and has pleasure feedings during the day, he receives pur?ed diet during the day PDMP PDMP Reviewed: Not Reviewed Attestations 2 Medical Necessity Statement*: Patient requires hospitalization for NSTEMI Diagnoses Urinary tract infection T83.511S; N39.0 Encounter type: sequela Indwelling urinary catheter type: indwelling urethral catheter Urinary tract infection type: catheter-associated UTI Hypotension I95.9 Colitis K52.9 NSTEMI (non-ST elevated myocardial infarction) I21.4
--- NOTE | 2025-01-05 15:07 | ECG_ITS ---
[facility] Test Date: 2025-01-06 Pat Name: Luis E Mota Department: Room: 267 Gender: Male [employer]: : 1960 Requested By: Erik Morgan Order Number: [id number] Chavez MD: HALLE MEAD Interpretive Statements [email or web address]
[2025-01-05 15:41] LABS: Vancomycin Trough 16.7 ug/mL (10-15)
[2025-01-05 20:54] LABS: Glucose Point of Care 140 mg/dL (70-110)
[2025-01-05] MEDS: atorvastatin 40 mg Tablet PO (21:08)
[2025-01-06] VITALS (14 sets, daily range): BP systolic 93–149; BP diastolic 57–80; PULSE 79–94; RESP 17–18; TEMP 36.3–36.6; O2SAT 91–97
--- NOTE | 2025-01-06 00:18 | PC.NURSE ---
Peg tube feedings were stopped at approximately 0000 01/06/25 for NPO status that is ordered for stress test today.
[2025-01-06] MEDS: metroNIDAZOLE IV 500 MG/100 ML PREMIX 100 MG IV ×2 (00:20→09:34)
[2025-01-06] MEDS: ipratropium-albuterol 3 mL Neb INHALATION ×3 (01:25→13:56)
[2025-01-06] MEDS: cefepime 1,000 mg SDV 1000 MG IVP ×2 (02:01→13:35)
[2025-01-06] MEDS: cyclobenzaprine 10 mg Tablet PO (02:02)
[2025-01-06] MEDS: oxyCODONE 5 mg IR Tab/Cap 10 MG PO ×2 (02:02→09:56)
[2025-01-06] MEDS: VANCOMYCIN ADD-Vantage 1,000 MG in 0.9% NaCl ADD-Vantage 250 ML 250 MG IV (03:20)
[2025-01-06] MEDS: gabapentin 300 mg Capsule 600 MG PO ×3 (03:20→16:32)
[2025-01-06 06:42] LABS: Basophils % 0.4 %; Eosinophils # 0.8 10^3/uL (0.0-0.8); Eosinophils % 11.9 %; Lymphocytes # 1.1 10^3/uL (0.8-4.8); Lymphocytes % 16.1 %; Mean Corpuscular HGB Conc 30.6 g/dL (30-55); Mean Corpuscular Hemoglobin 27.6 pg (27-33); Mean Corpuscular Volume 90.2 fl (82-101); Mean Platelet Volume 9.9 fL (7.4-10.4); Neutrophils # 3.92 10^3/uL (1.8-7.7); Nucleated Red Blood Cells % 0 %; Platelet Count 429 10^3/cmm (157-399); Red Blood Count 3.88 10^6/uL (3.85-5.65); Red Cell Distribution Width 15.9 % (12.1-15.1); White Blood Count 6.88 10^3/uL (3.29-11.43)
[2025-01-06 06:52] LABS: Alanine Aminotransferase 12 U/L (0-41); Albumin Level 2.8 g/dL (3.5-5.2); Alkaline Phosphatase 131 U/L (40-130); Aspartate Amino Transferase 19 U/L (0-40); Blood Urea Nitrogen 18 mg/dL (8-23); Calcium 8.8 mg/dL (8.5-10.5); Carbon Dioxide 31 mmol/L (22-29); Chloride 96 mmol/L (98-107); Creatinine Clr Calc Pharmacy 94.3372; Globulin 4.4 g/dL (1.3-4.6); Glomerular Filtration Rate 215.2 mL/min (90-130); Glucose 94 mg/dL (65-115); Magnesium 1.8 mg/dL (1.7-2.3); Osmolality Calculated 282 mOsm/kg (285-295); Phosphorus 3.3 mg/dL (2.5-4.5); Sodium 135 mmol/L (136-145); Total Bilirubin 0.2 mg/dL (0.15-1.2); Total Protein 7.2 g/dL (6.6-8.7)
[2025-01-06 06:59] LABS: NT Pro B Type Natriuretic Pept 225 pg/mL (0-125)
[2025-01-06] MEDS: regadenoson 0.4 Mg/5 ml Syringe IVP (07:47)
[2025-01-06] MEDS: budesonide 0.5 mg/2 mL Neb INHALATION (09:18)
[2025-01-06] MEDS: mupirocin oint 22 gm 1 APPLIC TOPICAL (09:37)
[2025-01-06] MEDS: aspirin 81 mg Chew Tablet 162 MG PO (09:37)
[2025-01-06] MEDS: nystatin cream 30 gm 1 APPLIC TOPICAL (09:38)
[2025-01-06] MEDS: chlorhexidine gluconate 0.12% Btl 473 mL 15 ML MUCOUS MEM ×2 (09:38→16:34)
[2025-01-06] MEDS: simethicone 40 mg/0.6 mL Bottle 30mL 80 MG PEG-TUBE ×2 (09:39→13:33)
[2025-01-06] MEDS: enoxaparin 80 mg/0.8 mL Syringe SUBCUT (11:15)
--- NOTE | 2025-01-06 12:54 | P.CONIM_ITS ---
<Statement entered by Jason Rivera M.D - 01/06/25 23:16> Patient was evaluated and cared for in conjunction with an advanced practice practitioner. I personally examined the patient and reviewed the chart and all pertinent data including imaging, telemetry, and laboratory results. I discussed the patient in detail with the advanced practice practitioner. Please see their note for complete consult note, results and agreed upon plan of care for the patient. Patient denies any chest pain. Stress test shows prior infarct without significant ischemia. Troponin downtrending. Likely elevated in the setting of infection. LV systolic function is borderline normal with EF of 50%. We will recommend medical therapy at this time. Can follow up with cardiology clinic as out patient. GENERAL: Patient is alert HEART: Regular S1 and S2 LUNGS: Clear to auscultation bilaterally EXTREMITIES: Lower extremities with no edema Providers/Reason For Consult 2 Consulting Physician/Specialty*: Dr Rivera, cardiology Reason for Consult*: elevated troponin Requesting Physician: Dr Morgan Attending Physician: Erik Mogran MD Primary Care Provider: Eliud Jenkins History of Present Illness History of Present Illness Luis E Mota is a 64 year old male with past medical history of laryngeal cancer, tracheostomy, decubitus ulcer with sacral osteomyelitis chronic urinary catheter, COPD, MACIE, heart failure preserved ejection fraction, hypertension, hyperlipidemia. He presented to the emergency room 01/01/2025 with shortness of breath, hypotension, fever, leukocytosis positive UTI. Troponin series 134-> 110-> 73. Echocardiogram LVEF 50%, decreased from 65% in 2022. He notes a history of previous AK. He has been treated for UTI and colitis this admission, chronic treatment of osteomyelitis/sacral decubitus. He has not had any chest pain or worsening shortness of breath while admitted. He appears euvolemic. Review of Systems 2 Const: Denies: diaphoresis Eyes: Denies: change in vision ENMT: Denies: epistaxis Card: Denies: chest pain, palpitations, irregular heart rhythm, edema, syncope, pre-syncope, dyspnea on exertion, orthopnea or leg pain with exertion Resp: Denies: dyspnea, productive cough or wheezing GI: Denies: nausea, vomiting, hematemesis, hematochezia or melena : Denies: hematuria Musc: Denies: extremity swelling Jose C/Lymph: Denies: easy bruising or easy bleeding Medications/Allergies Home Medications ?Medication ?Instructions ?Recorded ?Confirmed ?Last Taken ?Type acetaminophen 325 mg tablet 650 mg PO QID PRN Pain 01/01/25 11/13/24 History bisacodyl 10 mg rectal suppository 10 mg NE DAILY PRN Constipation 11/09/24 01/01/25 11/13/24 History budesonide 0.5 mg/2 mL suspension 0.5 mg inhalation BI D PRN Wheezing 11/09/24 01/01/25 11/13/24 History for nebulization chlorhexidine gluconate 0.12 % 15 ml buccal TID 01/01/25 12/31/24 History mouthwash cyclobenzaprine 10 mg tablet 10 mg PO Q8H PRN Muscle S pasm 11/09/24 01/01/25 12/31/24 History enoxaparin 40 mg/0.4 mL 40 mg SUBCUT DAILY 11/09/24 01/01/25 11/13/24 History subcutaneous syringe olopatadine 0.1 % eye drops 1 drp ophthalmic (eye) BID PRN 11/09/24 01/01/25 12/31/24 History allergic conjunctivitis polyethylene glycol 3350 17 17 g PO DAILY 11/09/2411/13/24 History gram/dose oral powder (Miralax) polyvinyl alcohol-povidone (PF) 2 drp ophthalmic (eye) QID PRN Dry 11/09/24 01/01/25 12/31/24 History 1.4 %-0.6 % eye drops in a Eyes dropperette gabapentin 600 mg tablet 600 mg PO Q6H 11/13/2401/0112/31/24 History oxycodone 10 mg tablet 10 mg PO Q6H PRN Pain 01/01/25 12/31/24 History simethicone 40 mg/0.6 mL oral See Rx Instructions .Rou te .COMPLEX 11/13/24 01/01/25 12/31/24 History drops,suspension amino acids-protein 30 ea PO DAILY 01/01/25 05/2 10/0712/31/24 History hydrolysate-fiber 15 gram-100 kcal/30 mL liquid (Pro-Stat Renal Care) multivitamin with minerals-folic 1 tab PO DAILY 01/01/25 12/31/24 History acid 400 mcg-lycopene 370 mcg tablet (One-A-Day Men's 50 Plus) nystatin 100,000 unit/gram topical 1 applic topical BI D 01/01/25 01/01/25 12/31/24 History cream ondansetron HCl 4 mg tablet 4 mg PO Q6H PRN Nausea And Vomiting 01/01/25 01/01/25 12/31/24 12:30 History Allergies Allergy/AdvReac Type Severity Reaction Status Date / Time doxycycline Allergy Intermediate RASH/SWELLI Verified 03/28/24 09:31 NG adhesive tape Allergy ALGY-Bliste Verified 03/28/24 09:31 r clindamycin Allergy ALGY-Hives Verified 03/28/24 09:31 Influenza Virus Vaccines Allergy Unknown Verified 03/28/24 09:31 [email or web address] (From Myrbetriq) Allergy Unknown Verified 03/28/24 09:31 niacin Allergy Unknown Verified 03/28/24 09:31 Current Medications Generic Name Dose Route Start Last Admin Trade Name Freq PRN Reason Stop Dose Admin Albuterol/Ipratropium 3 ml 01/02/25 20:00 01/06/25 09:18 Ipratropium-Albuterol 3 Ml Neb INHALATION 3 ml Q6H.RESP RUPERT Administration Aspirin 162 mg 01/02/25 10:00 01/06/25 09:37 Aspirin 81 Mg Chew Tablet PO 162 mg DAILY RUPERT Administration Atorvastatin Calcium 40 mg 01/03/25 21:00 01/05/25 21:08 Atorvastatin 40 Mg Tablet PO 40 mg BEDTIME RUPERT Administration Budesonide 0.5 mg 01/01/25 20:00 01/06/25 09:18 Budesonide 0.5 Mg/2 Ml Neb INHALATION 0.5 mg BID.RESPIRATORY RUPERT Administration Budesonide 0.5 mg 01/02/25 20:00 01/06/25 09:19 Budesonide 0.5 Mg/2 Ml Neb INHALATION Not Given BID.RESPIRATORY RUPERT Cefepime HCl 1,000 mg 01/02/25 02:00 01/06/25 02:01 Cefepime 1,000 Mg Sdv IVP 1,000 mg Q12H RUPERT Administration Protocol Chlorhexidine Gluconate 15 ml 01/01/25 21:00 01/06/25 09:38 Chlorhexidine Gluconate 0.12% Btl 473 Ml MUCOUS MEM 15 ml TID RUPERT Administration Cyclobenzaprine HCl 10 mg 01/01/25 15:59 01/06/25 02:02 Cyclobenzaprine 10 Mg Tablet PO 10 mg Q8H PRN Administration Muscle Spasm Enoxaparin Sodium 80 mg 01/03/25 23:00 01/06/25 11:15 Enoxaparin 80 Mg/0.8 Ml Syringe SUBCUT 80 mg Q12H RUPERT Administration Gabapentin 600 mg 01/01/25 16:15 01/06/25 09:54 Gabapentin 300 Mg Capsule PO 600 mg Q6H RUPERT Administration Metronidazole 500 mg in 100 mls @ 100 mls/hr 01/01/25 16:15 01/06/25 11:16 Flagyl Iv IV Infused Q8H RUPERT Infusion Protocol Vancomycin HCl 1,000 mg/ 250 mls @ 250 mls/hr 01/02/25 16:00 01/06/25 04:24 Sodium Chloride IV Infused Q12H RUPERT Infusion Mupirocin 1 applic 01/02/25 18:00 01/06/25 09:37 Mupirocin Oint 22 Gm TOPICAL 1 applic BID RUPERT Administration Nystatin 1 applic 01/01/25 18:00 01/06/25 09:38 Nystatin Cream 30 Gm TOPICAL 1 applic BID RUPERT Administration Olopatadine HCl 1 drop 01/01/25 15:59 01/01/25 16:57 Olopatadine 0.1% Op Soln 5 Ml Btl EYE-BOTH 1 drop BID PRN Administration allergic conjunctivitis Oxycodone HCl 10 mg 01/01/25 16:06 01/06/25 09:56 Oxycodone 5 Mg Ir Tab/Cap PO 10 mg Q6H PRN Administration PAIN Simethicone 80 mg 01/01/25 17:00 01/06/25 09:39 Simethicone 40 Mg/0.6 Ml Bottle 30ml PEG-TUBE 80 mg QID RUPERT Administration PFSH Acute 2 PFSH: Medical History (Updated 01/06/25 @ 13:41 by GRETA Deleon) Spinal cord injury After a fall Malignant neoplasm of supraglottis Cancer, epiglottis Gluteal pain COPD exacerbation Supraglottic lesion Epiglottic lesion Laryngeal cancer Leg swelling Asthma exacerbation in COPD Pressure ulcer Chronic hypertrophic rhinitis COVID-19 Malar rash Acute non-recurrent pansinusitis Orchitis and epididymitis Hypokalemia Urethral stricture Osteomyelitis Foot osteomyelitis with cellulitis treated with vancomycin GERD (gastroesophageal reflux disease) Obstructive sleep apnea COPD (chronic obstructive pulmonary disease) Cervical vertebral fusion Myocardial infarction Status post stent placement Foot drop Heart failure with preserved ejection fraction Lymphedema Dyslipidemia Hypertension Surgical History S/P cystourethroscopy with dilation of urethral stricture Previous back surgery H/O cardiac catheterization H/O shoulder surgery Family History Other Hypertension Social History Smoking and tobacco/nicotine status: former use of tobacco/nicotine Quit status (tobacco/nicotine): has quit using Year quit tobacco: 2020 - 1.5 PPD x 40 Years Second hand smoke exposure: No Alcohol intake: current Alcohol intake frequency: holidays/special occasions only Substance/Drug Use: never Caregiver/support person: Yes Lives independently: Yes Household members: spouse Housing: House Marital status: Current occupational status: disabled Do you think of yourself as: Straight/Heterosexual Current gender identity: Male Vitals/I&O/Wt Last Vital Signs Temp 97.4 F L 01/06/25 12:00 Pulse 86 01/06/25 12:00 Resp 17 01/06/25 12:00 BP 105/66 01/06/25 12:00 Pulse Ox 94 01/06/25 12:00 O2 Del Method Trach Collar 01/06/25 12:00 O2 Flow Rate 5 01/06/25 04:41 FiO2 35 01/06/25 09:20 01/05/25 01/06/25 01/06/25 22:59 06:59 14:59 Intake Total 830 / 1280 350 / 1280 100 / 100 Output Total 900 / 3900 2000 / 3900 Balance -70 / -2620 -1650 / -2620 100 / 100 Weight last 48 hrs Weight 186 lb 2 oz Weight 186 lb Physical Exam 2 Const: COMMON NORMALS: no acute distress EXAM LIMITATIONS: language barrier (he is able to mouth words, and can write if needed) GENERAL APPEARANCE: c ooperative and comfortable ORIENTATION/CONSCIOUSNESS: Yes awake, Yes oriented to person and Yes oriented to place Chest: COMMONS NORMALS: normal inspection of the chest and normal palpation of entire chest wall CHEST: Yes Symmetrical chest wall rise Resp: COMMON NORMALS: normal respiratory effort, No retractions, No use of accessory muscles and clear to auscultation bilaterally EFFORT & INSPECTION: Yes symmetric chest movement AUSCULTATION: clear to auscultation bilaterally Cardio: COMMON NORMALS: regular rate, regular rhythm, S1 normal heart sound present, S2 normal heart sound present, No gallops present (Cardio), No clicks present (Cardio), No murmurs present (Cardio) and No rub (Cardio) RATE: r egular rate RHYTHM: regular rhythm HEART SOUNDS: S1 normal heart sound present and S2 normal heart sound present PERIPHERAL PULSES: radial pulses present Extremity: COMMON NORMALS: no pedal edema Neuro: COMMON NORMALS: moves all extremities SENSORIUM/ORIENTATION: Yes oriented to person and Yes oriented to place Urinary Catheter Management: William: Cath Placed During This Visit: no Reason for Continuing Indwelling Catheter: Chronic Indwelling Urinary Catheter on Admission Data 01/06/25 06:25 01/06/25 06:25 Micro: Microbiology 01/01/25 09:59 Blood Culture - Final Blood NO GROWTH AFTER 5 DAYS 01/01/25 10:07 Blood Culture - Final Blood NO GROWTH AFTER 5 DAYS A&P Assessment and plan (1) Elevated troponin: (2) Colitis: (3) Osteomyelitis: (4) Pressure ulcer of sacral region, stage 4: (5) Hypotension: Plan Patient has not had any chest pain or anginal equivalent during this admission. Troponin elevation felt to be likely demand ischemia due to infectious sources. Discussed today's negative stress test with the patient and family. No invasive workup is recommended at this time. If he has chest pain or anginal equivalent in the future, he can be referred as an outpatient to cardiology. PDMP PDMP Reviewed: Not Reviewed Coding Level of Care Code Acute Code for [facility] Fwd Diagnoses Elevated troponin R79.89 Colitis K52.9 Osteomyelitis M86.9 Pressure ulcer of sacral region, stage 4 L89.154 Hypotension I95.9
--- NOTE | 2025-01-06 13:53 | PM.DCS ---
Discharge Providers Date of Admission: 01/01/25 13:55 Date of Discharge: January 06, 2025 Attending Provider at Admission: Jaron Mohamud Attending Provider at Discharge: Erik Morgan MD Primary Care Provider: Eliud Jenkins Diagnoses at Discharge Discharge Diagnosis (1) Elevated troponin: Status: Acute (2) Colitis: Status: Acute (3) Osteomyelitis: Status: Acute Permanent problem details: Foot osteomyelitis with cellulitis treated with vancomycin (4) Pressure ulcer of sacral region, stage 4: Status: Acute (5) Hypotension: Status: Acute Reason for Visit Reason for Visit: SOB Hospital Course Hospital Course Luis E Mota is a 64 year old male with a history of laryngeal cancer, tracheostomy, bed-bound status with a large decubitus ulcer and sacral osteomyelitis, chronic indwelling urinary catheter, history of multidrug-resistant urinary tract infections, MRSA infection, COPD, MACIE, GERD, heart failure with preserved ejection fraction, hypertension, and hyperlipidemia who presented to [facility] for shortness of breath and low blood pressure Patient presented to [facility] for recurrent complicated urinary tract infection, with bilateral pyelonephritis, mild bilateral hydronephrosis, urine culture showing Proteus Mirabilis, Bueno catheter was exchanged, overall clinical condition improved with IV antibiotics, remains afebrile, blood cultures so far no growth. Will be discharged with p.o. antibiotics, During his hospitalization of there was concern for colitis, he completed antibiotic therapy as inpatient During his hospitalization there was concerns for PEG tube being dislodged during his hospitalization, patient had a 20 Maori gastrostomy tube was replaced, there was concerns for leaking around gastrostomy tube during his hospitalization. Discussed with general surgery, recommended continued medical management, as there is worry about a developing fistula in that area, and that a larger PEG tube would only increase the size of patient's abdominal opening and worsening leaking. Patient would like a second opinion, referral sent to [facility] Surgery During his hospitalization he was found to have elevated baseline troponin 134, no chest pain complaints, - Cardiac echocardiogram CONCLUSIONS Mild left ventricular hypertrophy. Abnormal septal motion consistent with conduction abnormality. Mild hypokinesia of the basal inferolateral wall segment. Normal LV size with slightly diminished ejection fraction of 50%. Thickened noncoronary cusp of the aortic valve. There is no pericardial effusion. Technically difficult study because of poor ultrasonic window Consider MIRACLE, if clinically indicated, to rule out any vegetations Cardiac stress test IMPRESSIONS Large area of old myocardial infarction versus scarring noted in basal to distal inferior and 4 lateral wall suggestive of possible coronary artery disease and RCA or dominant circumflex territory. This study is negative for ischemia but shows old myocardial infarction. - Cardiology was consulted - Plan medical management, aspirin, statin, nitro as needed - Follow-up with cardiology as outpatient Physical Exam Const: COMMON NORMALS: no acute distress and patient oriented x3 Neck/C-Spine: OTHER: Tracheostomy in place, site looks clean and dry Resp: COMMON NORMALS: normal respiratory effort, No retractions, No use of accessory muscles and clear to auscultation bilaterally AUSCULTATION: clear to auscultation bilaterally Cardio: COMMON NORMALS: regular rate, regular rhythm, S1 normal heart sound present and S2 normal heart sound present RATE: regular rate RHYTHM: regular rhythm HEART SOUNDS: S1 normal heart sound present and S2 normal heart sound present GI: COMMON NORMALS: Normal to inspection, nondistended, normoactive bowel sounds present, Soft to palpation and non-tender PALPATION: Yes Soft to palpation OTHER: PEG tube in place, : OTHER: Bueno catheter in place Extremity: COMMON NORMALS: no calf tenderness and no pedal edema Neuro: COMMON NORMALS: patient oriented x3 Psych: COMMON NORMALS: mental status grossly normal Skin: NARRATIVE SKIN EXAM: Patient's sacral decubitus ulcer measuring 10 x 10 cm, wound base seen, good granulation tissue Patient has a lateral sacral decubitus ulcer over the right ischial tuberosity, which is healing Left anterior neck ulcer measuring 1 x 1 cm Urinary Catheter Management: Bueno: Cath Placed During This Visit: no Reason for Continuing Indwelling Catheter: Chronic Indwelling Urinary Catheter on Admission Discharge Data Studies Completed and Pending Completed Studies During Hospitalization Category Date Time Status CTA chest CT abdomen pelvis [CT Angio Chest + Abdomen Cat Scan 01/01/25 10:46 Completed Pelvis w/ contrast; [id number] + 01569] Stat XR chest 1V portable [id number] Stat Exams 12/31/24 23:32 Completed NM hollis perf SPECT r/s* [id number] Routine Nuc Med 01/06/25 15:07 Completed CV. echo complete* [id number] Routine Ultrasound 01/01/25 16:12 Completed Pending at discharge Category Date Time Status Sestamibi Stress Test Request Routine Exams 01/04/25 17:49 Ordered Sestamibi Stress Test Request Routine Exams 01/05/25 15:07 Ordered C.Diff PCR (Lab) Routine Lab 01/01/25 15:59 Uncollected Radiology Impressions Chest X-Ray 12/31/24 23:32 IMPRESSION: No acute cardiopulmonary findings. Chest/Abdomen/Pelvis CT 01/01/25 10:46 IMPRESSION: 1. No evidence of pulmonary embolus. 2. Tracheostomy. 3. Sacral decubitus ulcer with evidence of prior partial sacral and coccyx resection. Chronic osteomyelitis in the distal tip of the underlying sacrum with sclerosis. No drainable fluid collections. This is stable in appearance compared to previous. 4. Diffuse bladder wall thickening with enhancement suspicious for cystitis. Bueno catheter. 5. Mild bilateral hydronephrosis with pyelonephritis. Diffuse enhancement involving the renal pelvis and ureters bilaterally compatible with UTI/infection. 6. Mild thickening and enhancement of the sigmoid colon and rectum suspicious for colitis. 7. Trace pleural fluid. Laboratory Results WBC 6.88 10^3/uL (3.29-11.43) 01/06/25 06:25 RBC 3.88 10^6/uL (3.85-5.65) 01/06/25 06:25 Hgb 10.70 g/dL (11.27-16.99) L 01/06/25 06:25 Hct 35.0 % (37-53) L 01/06/25 06:25 MCV 90.2 fl (82-101) 01/06/25 06:25 MCH 27.6 pg (27-33) 01/06/25 06:25 MCHC 30.6 g/dL (30-55) 01/06/25 06:25 RDW 15.9 % (12.1-15.1) H 01/06/25 06:25 Plt Count 429 10^3/cmm (157-399) H 01/06/25 06:25 MPV 9.9 fL (7.4-10.4) 01/06/25 06:25 Neut % (Auto) 57.0 % 01/06/25 06:25 Lymph % (Auto) 16.1 % 01/06/25 06:25 [place] % (Auto) 14.0 % 01/06/25 06:25 Eos % (Auto) 11.9 % 01/06/25 06:25 Baso % (Auto) 0.4 % 01/06/25 06:25 Neut # (Auto) 3.92 10^3/uL (1.8-7.7) 01/06/25 06:25 Lymph # (Auto) 1.1 10^3/uL (0.8-4.8) 01/06/25 06:25 [place] # (Auto) 1.0 10^3/uL (0.2-0.9) H 01/06/25 06:25 Eos # (Auto) 0.8 10^3/uL (0.0-0.8) 01/06/25 06:25 Baso # (Auto) 0.0 10^3/uL (0.0-0.1) 01/06/25 06: Nucleated RBC % (auto) 0 % 01/06/25 06: Nucleated RBCs # 0.0 /100WBC 01/06/25 06:25 APTT 54.3 SECONDS (23.9-36.7) H 01/03/25 01:48 Specimen Type Arterial 01/01/25 09:32 Sample Site Brachial, left 01/01/25 09:32 ABG pH 7.41 (7.35-7.45) 01/01/25 09:32 ABG pCO2 51.0 mmHg (35-45) H 01/01/25 09:32 ABG pO2 81.1 mmHg (80.0-100.0) 01/01/25 09:32 ABG PO2/FiO2 Ratio 225 01/01/25 09:32 ABG HCO3 32.0 mmol/L (22-26) H 01/01/25 09:32 ABG O2 Saturation 95.9 01/01/25 09:32 ABG Base Excess 6.0 mmol/L (-2.0-2.0) H 01/01/25 09:32 Keon Test N/a 01/01/25 09:32 A-a O2 Gradient 14.8 mmHg (5-10) H 01/01/25 09:32 Hematocrit 39.9 % (42-52) L 01/01/25 09:32 Hgb O2 Saturation 94.7 % (95-100) L 01/01/25 09:32 Carboxyhemoglobin 1.2 %THgb (0.4-20.1) 01/01/25 09:32 Methemoglobin 0.0 % (0.4-1.5) L 01/01/25 09:32 Total Hemoglobin 13.0 g/dL (14-18) L 01/01/25 09:32 Sodium 138.0 mmol/L (131-143) 01/01/25 09:32 Potassium 4.9 mmol/L (3.5-5.0) 01/01/25 09:32 Glucose 113.0 mg/dL (70-115) 01/01/25 09:32 Ionized Calcium 1.2 mmol/L (1.1-1.4) 01/01/25 09:32 O2 Delivery Device Oxy mask 01/01/25 09:32 O2 Liters/Min 4.0 % 01/01/25 09:32 FiO2 36.0 % 01/01/25 09:32 Account Support Rep ID [id number] 01/01/25 09:32 Sodium 135 mmol/L (136-145) L 01/06/25 06:25 Potassium 5.0 mmol/L (3.5-5.1) 01/06/25 06:25 Chloride 96 mmol/L (98-107) L 01/06/25 06:25 Carbon Dioxide 31 mmol/L (22-29) H 01/06/25 06:25 Anion Gap 13.0 (5-19) 01/06/25 06:25 BUN 18 mg/dL (8-23) 01/06/25 06:25 Creatinine 0.4 mg/dL (0.7-1.2) L 01/06/25 06:25 GFR Calculation 215.2 mL/min (90-130) H 01/06/25 06:25 Glucose 94 mg/dL (65-115) 01/06/25 06:25 POC Glucose 140 mg/dL (70-110) H 01/05/25 20:49 Calculated Osmolality 282 mOsm/kg (285-295) L 01/06/25 06:25 Lactic Acid 1.6 mmol/L (0.5-2.2) 01/01/25 09:59 Calcium 8.8 mg/dL (8.5-10.5) 01/06/25 06:25 Phosphorus 3.3 mg/dL (2.5-4.5) 01/06/25 06:25 Magnesium 1.8 mg/dL (1.7-2.3) 01/06/25 06:25 Total Bilirubin 0.2 mg/dL (0.15-1.2) 01/06/25 06:25 AST 19 U/L (0-40) 01/06/25 06:25 ALT 12 U/L (0-41) 01/06/25 06:25 Alkaline Phosphatase 131 U/L (40-130) H 01/06/25 06:25 Creatine Kinase 29 U/L (39-308) L 01/01/25 09:59 Troponin T Baseline 134 ng/L (0-15) H* 01/01/25 09:59 Troponin T 120 Minute 110.4 ng/L (0-15) H 01/01/25 11:18 Delta Troponin T -23.6 ABS# (0-10) L 01/01/25 11:18 Troponin T Hi Sens 6Hr 73.06 ng/L (0-15) H 01/01/25 17:58 Troponin T Hi Sens 6Hr Delta -60.94 ng/L (0-12) L 01/01/25 17:58 C-Reactive Protein 78.0 mg/L (0.0-4.9) H 01/06/25 06:25 NT-Pro-B Natriuret Pep 225 pg/mL (0-125) H 01/06/25 06:25 Total Protein 7.2 g/dL (6.6-8.7) 01/06/25 06:25 Albumin 2.8 g/dL (3.5-5.2) L 01/06/25 06:25 Globulin 4.4 g/dL (1.3-4.6) 01/06/25 06:25 Urine Color [place] (Yellow) A 01/01/25 09:55 Urine Appearance Turbid (CLEAR) A 01/01/25 09:55 Urine pH 7.5 (5-7) 01/01/25 09:55 Ur Specific Isabella 1.020 (1.005-1.030) 01/01/25 09:55 Urine Protein 3+ (Negative) A 01/01/25 09:55 Urine Glucose (UA) Negative (Normal) 01/01/25 09:55 Urine Ketones Negative (Negative) 01/01/25 09:55 Urine Blood 3+ (Negative) A 01/01/25 09:55 Urine Nitrate Positive (Negative) A 01/01/25 09:55 Urine Bilirubin 1+ (Negative) H 01/01/25 09:55 Urine Urobilinogen 1.0 mg/dL (Negative) 01/01/25 09:55 Ur Leukocyte Esterase 3+ (Negative) A 01/01/25 09:55 Urine RBC >100 /hpf (0-2) H 01/01/25 09:55 Urine WBC >100 /hpf (0-5) H 01/01/25 09:55 Ur Squamous Epith Cells 11-20 /hpf (0-5) H 01/01/25 09:55 Amorphous Sediment Not Reportable 01/01/25 09:55 Urine Bacteria 4+ /hpf (NONE) H 01/01/25 09:55 Hyaline Casts 111.73 /lpf 01/01/25 09:55 Vancomycin Trough 16.7 ug/mL (10-15) H 01/05/25 14:57 Influenza A (PCR) Negative (Negative) 01/01/25 05:50 Influenza Type B (PCR) Negative (Negative) 01/01/25 05:50 RSV (PCR) Negative (Negative) 01/01/25 05:50 SARS-CoV-2 (PCR) Negative (Negative) 01/01/25 05:50 Vitals Last Vital Signs Temp 97.4 F L 01/06/25 12:00 Pulse 86 01/06/25 12:00 Resp 17 01/06/25 12:00 BP 105/66 01/06/25 12:00 Pulse Ox 94 01/06/25 12:00 O2 Del Method Trach Collar 01/06/25 12:00 O2 Flow Rate 5 01/06/25 04:41 FiO2 35 01/06/25 09:20 Discharge Plan Discharge Patient Disposition: Xfer SNF Condition: Stable Prescriptions: New atorvastatin 40 mg Tablet 40 mg PO BEDTIME 30 Days Qty: 30 0RF nitroglycerin 0.4 mg Tablet, Sublingual 0.4 mg sublingual Q5M PRN (Reason: Chest Pain) 30 Days Qty: 30 0RF aspirin 81 mg Tablet,Chewable 81 mg PO DAILY 30 Days Qty: 30 0RF cefdinir 300 mg capsule 300 mg PO BID 5 Days Qty: 10 0RF Continued gabapentin 600 mg tablet 600 mg PO Q6H simethicone 40 mg/0.6 mL Drops,Suspension See Rx Instructions .ROUTE .COMPLEX Rx Instructions: TAKE 1.2 ML BY MOUTH 4 TIMES DAILY FOR GAS oxycodone 10 mg Tablet 10 mg PO Q6H PRN (Reason: Pain) ondansetron HCl 4 mg Tablet 4 mg PO Q6H PRN (Reason: Nausea And Vomiting) nystatin 100,000 unit/gram Cream 1 applic TOPICAL BID Pro-Stat Renal Care 15-100 gram-kcal/30 mL Liquid 30 ea PO DAILY One-A-Day Men's 50 Plus 400-370 mcg Tablet 1 tab PO DAILY cyclobenzaprine 10 mg tablet 10 mg PO Q8H PRN (Reason: Muscle Spasm) acetaminophen 325 mg Tablet 650 mg PO QID PRN (Reason: Pain) bisacodyl 10 mg Suppository 10 mg OR DAILY PRN (Reason: Constipation) olopatadine 0.1 % drops 1 drp ophthalmic (eye) BID PRN (Reason: allergic conjunctivitis) budesonide 0.5 mg/2 mL suspension for nebulization 0.5 mg inhalation BID PRN (Reason: Wheezing) polyethylene glycol 3350 [Miralax] 17 gram/dose Powder 17 g PO DAILY polyvinyl alcohol-povidon(PF) 1.4-0.6 % Dropperette 2 drp OPHTHALMIC (EYE) QID PRN (Reason: Dry Eyes) chlorhexidine gluconate 0.12 % Mouthwash 15 ml BUCCAL TID Discontinued enoxaparin 40 mg/0.4 mL Syringe 40 mg SUBCUT DAILY Discharge Orders: Discharge Order (Routine); Ordered 01/06/25 Ordered By: Erik Morgan Referrals: [facility] [Outside] Jason Rivera M.D [Physician, Cardiology] - 01/13/25 3:00 pm Zane Christiansen MD [Referring, Urology] - 1 month Referral Note: recurrent uti, with bueno We have notified your physician's clinic of the need for a follow-up appointment to be scheduled. If you have not heard from them within the next 2 business days, please call them directly. Michael Syed M.D. [Referring, General Surgery] - 1 week Referral Note: peg tube malfunction We have notified your physician's clinic of the need for a follow-up appointment to be scheduled. If you have not heard from them within the next 2 business days, please call them directly. Discharge Diet: Advance as tolerated Discharge Activity: Resume usual activity Patient Instructions: Aspirin (By mouth), Nitroglycerin, Rapid Release (By mouth), Atorvastatin (By mouth), Cefdinir (By mouth), Opioid Safety, Pain Management Activity Restrictions/Additional Instructions: - Continue wound care for sacral ulcer - For urinary tract infection continue antibiotics - Recurrent UTIs, Bueno catheter has been exchanged during his hospitalization, - For patient's PEG tube malfunction, reports of leaking, follow-up with general surgery in [place] - Follow-up with cardiology Discharge Attestations Time Spent in Discharge Care*: greater than 30 min Quality Metrics Clinical Quality Measures [ No reported AMI, CVA or VTE this stay] Coding Level of Care Code 18852 Total time (in minutes) for Discharge: 45 Diagnoses Elevated troponin R79.89 Colitis K52.9 Osteomyelitis M86.9 Pressure ulcer of sacral region, stage 4 L89.154 Hypotension I95.9
--- NOTE | 2025-01-06 15:07 | NMCV_ITS ---
NM hollis perf SPECT r/s* [id number] Luis E Mota Age: 64 Gender: M : 1960 Exam Date: 01/06/2025 06:41 Ordering Phys: Erik Morgan MD Technologist: ZOE Brasher Exam Location: [facility] Indications: cp STRESS TEST Please see separate stress test report in [facility] for full findings IMAGE PROTOCOL Rest/Stress 1 Lexiscan Day Radiopharmaceutical Dose (mCi) Administration Site Administered by Rest: Tc-99m 10.9 IV ZOE Brasher Sestamibi Stress:Tc-99m 32.8 IV ZOE Fierro Sestamibi Rest: 06-Jan-2025 60 Discovery 630 Stress: 06-Jan-2025 30 Discovery 630 0.4mg Lexiscan. Supine position only as patient was unable to lay prone. SPECT RESULTS Technical Quality: Good Raw Data Analysis: Normal Image Corrections: No attenuation or motion correction applied Summed Stress Score: 12 Summed Rest Score: 21 Summed Difference Score: 0 PERFUSION FINDINGS Large area of fixed perfusion defect noted in basal to distal inferior and inferolateral wall suggestive of old myocardial infarction without cyndy-infarct ischemia. FUNCTIONAL RESULTS (calculated via Gated SPECT) Stress Image LV EF (%): 75 Stress EDV (mL):81 TID: 1.05 Stress ESV (mL):20 FUNCTIONAL FINDINGS: There appeared to be inferior wall akinesis IMPRESSIONS Large area of old myocardial infarction versus scarring noted in basal to distal inferior and 4 lateral wall suggestive of possible coronary artery disease and RCA or dominant circumflex territory. This study is negative for ischemia but shows old myocardial infarction. Jens Capps MD (Electronically Signed) Final Date: 06 Jan 2025 10:35 S
== END 2025-01-06 17:45 | disposition intermediate care facility (04) | DRG 689 ==
LOC: ER 01-01 12:37 → MEDSURG 01-01 13:56
PROVIDERS: General Practice; Internal Medicine; Admitting Provider Internal Medicine; Emergency Provider Family Medicine; PCP Nurse Practitioner Family; Visit Provider Family Medicine
DX: N12 Tubulo-interstitial nephritis, not specified as acute or chronic (principal); L89.143 Pressure ulcer of left lower back, stage 3; L89.154 Pressure ulcer of sacral region, stage 4; M46.28 Osteomyelitis of vertebra, sacral and sacrococcygeal region; I24.89 Other forms of acute ischemic heart disease; I50.30 Unspecified diastolic (congestive) heart failure; G82.20 Paraplegia, unspecified; K52.9 Noninfective gastroenteritis and colitis, unspecified; I95.9 Hypotension, unspecified; J44.9 Chronic obstructive pulmonary disease, unspecified; G47.33 Obstructive sleep apnea (adult) (pediatric); B96.4 Proteus (mirabilis) (morganii) as the cause of diseases classified elsewhere; T14.8XXS Other injury of unspecified body region, sequela; W19.XXXS Unspecified fall, sequela; I25.2 Old myocardial infarction; Z85.01 Personal history of malignant neoplasm of esophagus; Z87.440 Personal history of urinary (tract) infections; Z86.14 Personal history of Methicillin resistant Staphylococcus aureus infection; Z93.0 Tracheostomy status; Z74.01 Bed confinement status; Z96.0 Presence of urogenital implants; Z87.891 Personal history of nicotine dependence
CPT/HCPCS: 36415; 36416; 36600; 71045; 71275; 74177; 78452; 80051; 80053; 80202; 81001; 82330; 82550; 82805; 82962; 83605; 83735; 83880; 84100; 84484; 85025; 85730; 86140; 87040; 87077; 87086; 87186; 87637; 92523; 92610; 93005; 93017; 93306; 94640; 94762; 94799; 96365; 96367; 96372; 96375; 96376; 99285; A9500; J0692; J1644; J1650; J2785; J3370; J3490; J7030; J7050; J7626; J9999

== ENCOUNTER 2025-02-18 15:17 | Emergency (ER) | payer MEDICARE, MEDICAID, SELFPAY ==
--- OUTSIDE RECORDS SUMMARY | 2025-02-18 15:26 | XMS_ITS | Encounter Summary ---
Author Organization [facility] Address [address] [place] [address] Care Team Providers Care Fire Engine Operator Name Role Phone Carole Siu MD Primary Care Provider Encounter Details Date Type Department Care Team (Late st Contact Info) Description 01/28/2001 Outpatient Historical [facility] Cardiology [facility] [address] [place] [address] Bernardo Keen MD [address] [facility] [address] [place] [address] Acute myocardial infarction of other inferior wall, initial episode of care ([facility]) (Primary Dx) Social History Tobacco Use Types Packs/Day Years Used Date Smoking Tobacco: Never Assessed Sex and Gender Information Value Date Recorded Sex Assigned at Not on file 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 [facility] [facility] [address] [place] [address] PCP - General Family Practice 10/27/16 documented as of this encounter
--- OUTSIDE RECORDS SUMMARY | 2025-02-18 15:26 | XMS_ITS | Encounter Summary ---
Author Organization [facility] Address [address] [place] [address] Care Team Providers Care Weaving Loom Operator Name Role Phone Carole Siu MD Primary Care Provider Encounter Details Date Type Department Care Team (Latest Contact Info) Description 05/12/2014 Ancillary Orders [facility] Centralized Scheduling [address] [facility] [address] [place] [address] Gregory Lama, GRETA Hooker [address] [place] [address] Osteomyelitis (CMS/HCC) (Primary Dx) Social History Tobacco Use Types Packs/Day Years Used Date Smoking Tobacco: Every Day Cigarettes 1 40 Smokeless Tobacco: Never Alcohol Use Standard Drinks/Week Comments No 0 (1 standard drink = 0.6 oz pur e alcohol) Sex and Gender Information Value Date Recorded Sex Assigned at Not on file 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
--- OUTSIDE RECORDS SUMMARY | 2025-02-18 15:26 | XMS_ITS | Encounter Summary ---
Author Organization [facility] Address [address] [place] [address] Care Team Providers Care Shrimp Trawler Name Role Phone Carole Siu MD Primary Care Provider Encounter Details Date Type Department Care Team (Latest Contact Info) Description 10/17/2001 Outpatient Historical [facility] KeenBernardo quezada MD [address] [facility] [address] [place] [address] CORON ATHEROSCL TETLIN CORON VESSEL (Primary Dx); [place] INFER SUBSEQNT EPISD CARE ([facility]); Benign hypertension; Pure hypercholesterolem Social History Tobacco Use Types Packs/Day Years Used Date Smoking Tobacco: Never Assessed Sex and Gender Information Value Date Recorded Sex Assigned at Not on file 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 Gender Identity Not on file Sexual Orientation Not on file documented as of this encounter Plan of Treatment Not on file documented as of this encounter Visit Diagnoses Diagnosis Coronary atherosclerosis of [place] coronary artery- Primary Acute myocardial infarction of other inferior wall, subsequent episode of care Benign hypertension Essential hypertension, benign Pure hypercholesterolem Pure hypercholesterolemia documented in this encounter Care Teams Shrimp Trawler Relationship Specialty Start Date End Date Carole Siu MD [address] [place] [address] PCP - General Family Practice 10/27/16 documented as of this encounter
--- OUTSIDE RECORDS SUMMARY | 2025-02-18 15:26 | XMS_ITS | Encounter Summary ---
Author Organization [facility] Address [address] [place] [address] Care Team Providers Care Team Psychologist Name Role Phone Seth May MD Primary Care Provider [phone] Encounter Details Date Type Department Care Team (Late st Contact Info) Description 02/17/2025 External Device Data [facility] ABSTRACTION Provider, Abstract NO ADDRESS ON FILE Social History Tobacco Use Types Packs/Day Years Used Date Smoking Tobacco: Every Day Cigarettes Smokeless Tobacco: Never Alcohol Use Standard Drinks/Week Comments Yes 0 (1 standard drink = 0.6 oz pur e alcohol) rare Feeling Safe Answer Date Recorded Within the last year, have y ou been afraid of your partner or ex-partner? No 09/08/2019 Within the last year, have y ou been humiliated or emotionally abused in other ways by your partner or ex-partner? No Within the last year, have y ou been kicked, hit, slapped, or otherwise physically hurt by your partner or ex-partner? No 09/08/2019 Within the last year, have y ou been raped or forced to have any kind of sexual activity by your partner or ex-partner? No 09/08/2019 Social Connections Answer Date Recorded Frequency of Communication with Friends and Fami ly Not on file 05/26/2020 Frequency of Social Gatherings with Friends and Family Not on file 05/26/2020 Attends Anglican Services Not on file 05/26 Do you belong to any clubs o r organizations such as anabaptist groups, unions, fraternal or athletic groups, or school groups? Yes 05/26/2020 Attends Club or Organization Meetings Not on savita e 05/26/2020 Marital Status Not on file 05/26/2020 Financial Resource Strain Answer Date R ecorded How hard is it for you to pa y for the very basics like food, housing, medical care, and heating? Somewhat hard 05/27/2021 Food Insecurity Answer Date Recorded In the past 12 months, have you worried that your food would run out before you had money to buy more? Sometimes true 2020 In the past 12 months, did y ou run out of food and didn't have money to buy more? Sometimes true 05/27/2021 Transportation Needs Answer Date Record ed In the past 12 months, has l ack of transportation kept you from medical appointments or from getting medications? No 05/27/2021 Lack of Transportation (Non-Medical) Not on file 05/27/2021 Feeling Safe Answer Date Recorded Are you in a relationship wi th someone who hurts you emotionally and/or physically? No 02/27/2024 Food Insecurity Answer Date Recorded Patient needs follow up regardin 12/17/2024 Transportation Needs Answer Date Record ed Patient needs follow up regardin 12/17/2024 Housing Stability Answer Date Recorded Social/Environmental Concerns No concerns Utility Needs Answer Date Recorded Patient needs follow up regardin 12/17/2024 Sex and Gender Information Value Date Recorded Sex Assigned at Not on file Legal Sex Male 12:44 PM SUPERVISOR GARAGE Gender Identity Not on file Sexual Orientation Not on file documented as of this encounter Plan of Treatment Not on file documented as of this encounter Visit Diagnoses Not on filedocumented in this encounter Additional Health Concerns Assessment Noted Time PHQ-9 Depression Total Score: 1 09/12/19 24 11:15 AM SUPERVISOR GARAGE documented as of this encounter Care Teams Team Psychologist Relationship Specialty Start Date End Date Seth May MD [address] [facility] [address] [place] [id number] PCP - General Family Practice 01/31/24 documented as of this encounter
--- OUTSIDE RECORDS SUMMARY | 2025-02-18 15:26 | XMS_ITS | Encounter Summary ---
Author Organization [facility] Address [address] [facility] Attn: [place] [address] Care Team Providers Care Blurb Writer Name Role Phone Seth May MD Primary Care Provider [phone] Encounter Details Date Type Department Care Team (Latest Contact Info) Description 11/14/2024 Hospital Encounter Kezia Moss MD [address] [place] [address] Social History Tobacco Use Types Packs/Day Years [...] and Family Not on file 05/26/2020 Attends Rastafari Services Not on file 05/26 Do you belong to any clubs o r organizations such as hoahaoism groups, unions, fraternal or athletic groups, or [...] on file 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
--- OUTSIDE RECORDS SUMMARY | 2025-02-18 15:26 | XMS_ITS | Encounter Summary ---
Author Organization [facility] Address [address] [place] [address] Care Team Providers Care Hospital Technician Name Role Phone Seth May MD Primary Care Provider [phone] Encounter Details Date Type Department Care Team (Late st Contact Info) Description 01/17/2024 Lab Requisition [facility] Laboratory Services [facility] [address] [place] [address] Corinna Marks, [facility] [address] [facility] [address] [place] [address] Osteomyelitis, unspecified (CMS/HCC) Social History Tobacco Use Types Packs/Day Years [...] and Family Not on file 05/26/2020 Attends [employer] Services Not on file 05/26 Do you belong to any clubs o r organizations such as voodoo groups, unions, fraternal or athletic groups, or [...] who hurts you emotionally and/or physically? 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 Gender Identity Not on file Sexual Orientation Not on file documented as of this encounter Plan of Treatment Not on file documented as of this encounter Procedures Procedure Name Priority Date/Time Associated Diagnosis Comments CBC WITH DIFFERENTIAL Stat 01/17/2024 1:45 PM CDT Osteomyelitis, unspecified COMPREHENSIVE METABOLIC PANEL Stat 01/17/2024 1:45 PM CDT Osteomyelitis, unspecified documented in this encounter Results * (ABNORMAL) COMPREHENSIVE METABOLIC PANEL (01/17/2024 1:45 PM CDT) SODIUM 138 136 - 145 mmol/L 01/17/2024 2:30 PM [facility] POTASSIUM 3.9 3.5 - 5.1 mmol/L 01/17/2024 2:30 PM [facility] CHLORIDE 99 98 - 107 mmol/L 01/17/2024 2:30 PM [facility] CO2 30(H) 22 - 29 mmol/L 01/17/2024 2:30 PM [facility] CALCIUM 9.3 8.8 - 10.2 mg/dL 01/17/2024 2:30 PM [facility] BUN 17 8 - 23 mg/dL 01/17/2024 2:30 PM [facility] CREATININE 0.76 0.67 - 1.17 mg/dL 01/17/2024 2:30 PM [facility] GLUCOSE 164(H) 74 - 99 mg/dL 01/17/2024 2:30 PM [facility] TOTAL PROTEIN 7.1 6.6 - 8.7 g/dL 01/17/2024 2:30 PM [facility] ALBUMIN 3.4(L) 3.5 - 5.2 g/dL 01/17/2024 2:30 PM [facility] BILIRUBIN TOTAL 0.3 <=1.2 mg/dL 01/17/2024 2:30 PM [facility] ALKALINE PHOSPHATASE 181(H) 40 - 129 U/L 01/17/2024 2:30 PM [facility] AST 25 10 - 50 U/L 01/17/2024 2:30 PM [facility] ALT 37 10 - 50 U/L 01/17/2024 2:30 PM [facility] GFR >60 >=60 mL/min/1.7 3 sq meter 01/17/2024 2:30 PM [facility] Comment:eGFR calculated with 2020 CKD-EPI equation. Vegetarian diet, extremely high or low muscle mass, and may affect results. Cystatin C with Glomerular Filtration Rate is a suitable alternative for these patients. ANION GAP 9(L) 12 - 20 mmol/L 01/17/2024 2:30 PM [facility] Blood Collection / Unknown 01/17/2024 1:45 PM CDT 01/17/2024 1:58 PM CDT us Corinna Marks DNP CHEMISTRY ORDERABLES Final Result [facility] CLIA # [id number] [address] [place] [id number] * (ABNORMAL) CBC WITH DIFFERENTIAL (01/17/2024 1:45 PM CDT) WBC 4.9 4.2 - 9.1 K/uL 01/17/2024 2:06 PM [facility] RBC 3.92(L) 4.63 - 6.08 M/uL 01/17/2024 2:06 PM [facility] HEMOGLOBIN 11.8(L) 13.7 - 17.5 g/dL 01/17/2024 2:06 PM [facility] HEMATOCRIT 36.0(L) 40.1 - 51.0 % 01/17/2024 2:06 PM [facility] MCV 91.8 79.0 - 92.2 fL 01/17/2024 2:06 PM [facility] MCH 30.1 25.7 - 32.2 pg 01/17/2024 2:06 PM [facility] MCHC 32.8 32.3 - 36.5 g/dL 01/17/2024 2:06 PM [facility] RDW 15.2(H) 11.0 - 14.5 % 01/17/2024 2:06 PM [facility] RDW-STDEV 49.9 36.9 - 56.9 fL 01/17/2024 2:06 PM [facility] PLATELETS 244 130 - 400 K/uL 01/17/2024 2:06 PM [facility] MPV 9.5(L) 10.0 - 14.8 fL 01/17/2024 2:06 PM [facility] NEUTROPHILS 65 34 - 68 % 01/17/2024 2:06 PM [facility] LYMPHOCYTES 14(L) 22 - 53 % 01/17/2024 2:06 PM [facility] MONOCYTES 14(H) 5 - 12 % 01/17/2024 2:06 PM [facility] EOSINOPHILS 7 1 - 7 % 01/17/2024 2:06 PM [facility] BASOPHILS 0 0 - 1 % 01/17/2024 2:06 PM [facility] IMMATURE GRANULOCYTES 0 % 01/17/2024 2:06 PM [facility] NEUTROPHIL ABSOLUTE 3.15 1.78 - 5.38 K/uL 01/17/2024 2:06 PM [facility] LYMPHOCYTE ABSOLUTE 0.70(L) 1.20 - 3.40 K/uL 01/17/2024 2:06 PM [facility] MONOCYTE ABSOLUTE 0.66 0.30 - 0.82 K/uL 01/17/2024 2:06 PM [facility] EOSINOPHIL ABSOLUTE 0.33 0.04 - 0.54 K/uL 01/17/2024 2:06 PM [facility] BASOPHILS ABSOLUTE 0.02 0.01 - 0.08 K/uL 01/17/2024 2:06 PM [facility] IMMATURE GRANULOCYTES ABSOLUTE 0.01 K/uL 01/17/2024 2:06 PM [facility] Blood Collection / Unknown 01/17/2024 1:45 PM CDT 01/17/2024 1:58 PM CDT us Corinna Marks DNP HEMATOLOGY ORDERABLES Kemi yoder Result [facility] CLIA # [id number] [address] [place] [id number] documented in this encounter Visit Diagnoses Diagnosis Osteomyelitis, unspecified (CMS/HCC) documented in this encounter Additional Health Concerns Infection Onset Date Last Indicated Resolved Time MRSA Comment:Resolved per Type and Duration of Precautions Recommended for Selected Infections and Conditions document 2023 update 12/26/2023 12/26/2023 04/28/20 11:37 AM CDT Assessment Noted Time PHQ-9 Depression Total Score: 1 09/12/19 11:15 AM 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
--- OUTSIDE RECORDS SUMMARY | 2025-02-18 15:26 | XMS_ITS | Clinical Summary ---
Author Organization [facility] Address [address] [facility] [address] [place] [address] Phone Care Team Providers Care Inside Sales Director Name Role Phone Seth May MD Primary Care Provider [phone] Allergies Active Allergy Reactions Criticality Noted Date Comments Adhesive Tape-Silicones Other (See Comments) blisters Amoxicillin-Pot Clavulanate Rash Low 05/02/2022 Clindamycin Rash Low 03/14/2023 Doxycycline Rash High 06/05/2023 Flu Vaccine 2010 (36 Mos+)(Pf) Dizziness Low 11/14/2016 Influenza Virus Vaccines Rash,Other (See Comments) Low 05/27/2021 illness Mirabegron Rash Low 01/20/2019 Niacin Other (See Comments) 12/22/2016 I turn red and speckly Sulfamethoxazole-Trimet hoprim Rash Low 05/02/2022 Medications Nebulizer Accessories Kit Use to administer Albuterol Solution. 1 Kit 11 019 Active portable oxygenIndications :COPD with hypoxia (CMS/HCC) Home fill oxygen system with concentrator 2 L per nasal cannula 1 Each PRN 020 Active power wheelchairIndicat ions:Cervical cord compression with myelopathy (CMS/HCC),Injury of cervical spinal cord, subsequent encounter ([facility]) Order is for Roho power wheelchair seat cushion. 1 Each 018 Active Catheter 16 FrIndications:Jer rogenic bladder,Chronic indwelling Bueno catheter Change bueno catheter monthly.. 1 Each Active OTHERIndications: Lymphedema of both lower extremities Stockinette, unbleached, 4in X 25 YDS quantity of 1Hydrogel, skintegrity, 1oz, Niraj BTL quantity of 1Padding band, 5.9inX3.3 YD quantity of 1Bandage, Shortstretch, 8CMX5M, 3.15 X 5.47 YD quantity of 4Bandage, Shortstretch, 10CYC2W, 3.94 X 5.47 YD quantity of 4Bandage, Shortstretch, 20DWG2Q, 4.72X5.47YD quantity of 4Stockinette Bias cut, [id number], sterile quantity of 1Tape, surgical, transpore, [id number] quantity of 1. 1 Each Active Drainage Bag 2,000 mLIndications:Jer rogenic bladder,Chronic indwelling Bueno catheter Urine drainage bag, change once to twice monthly.. 2 Each Active Blood-Glucose Meter Kit Use as directed daily to check blood sugars. Dx: E11.98, #100 lancets, #100 test strips. Brand covered by patient's insurance. 1 Kit 0 Active OTHERIndications: Injury of cervical spinal cord, sequela,Wheelchai r confinement Wheelchair repair and replacement of parts as needed required. 1 Each 0 Active albuterol (PROVENTIL,VENTOL IN) 2.5 mg /3 mL (0.083 %) Solution for Nebulization Take 3 mL (2.5 mg) by inhalation every 4 hours as needed for Shortness of Breath. 360 mL Active OTHERIndications: COPD with hypoxia (CMS/HCC),Chronic obstructive pulmonary disease, unspecified COPD type (CMS/HCC) Large Oxygen mask with tubing. 2 Each Active Miscellaneous Medical SupplyIndications :COPD with hypoxia (CMS/HCC),Chronic respiratory failure with hypoxia (CMS/HCC) Oxy mask to be used at 2 L a minute per nasal cannula 2 Each 021 Active lancets DX:code E11.9 NPI# [id number] check blood sugar 1 time daily 33 g. 100 Each 5 017 Active Nebulizer & Compressor For Neb Device Use as directed four times daily. Dx J44.9, COPD. Length of need: 99. 1 Each 0 017 Active naphazoline-pheni ramine (VISINE-A) 0.025-0.3 % solutionIndicatio ns:Allergic conjunctivitis of both eyes Administer 1 Drop in both eyes 3 times daily as needed for Allergies or Rash or Redness. 15 mL 018 Active blood sugar diagnostic Strip DX:code E11.9 check blood sugar 1 time daily NPI# [id number]. 50 Strip 5 017 Active fluticasone propionate (Xhance) 93 mcg/actuation Aerosol Breath Activated Administer in each nostril 2 times daily. Active Miscellaneous Medical SupplyIndications :Wheelchair bound Repairs as needed for dysfunctional or broken components of wheelchair. DX:Z99.3 1 Each 022 Active diclofenac sodium (VOLTAREN) 1 % gel APPLY 2 GRAMS TOPICALLY 4 TIMES DAILY TO AREAS OF TENDERNESS ON NECK Active OTHERIndications: Cervical cord compression with myelopathy (CMS/HCC),Injury of cervical spinal cord, sequela,Dependenc e on wheelchair Air mattress wheelchair cushion 1 Each 023 Active Diabetic Supplies, Miscellan.Indicat ions:Type 2 diabetes mellitus with diabetic peripheral angiopathy without gangrene, without long-term current use of insulin (CMS/HCC) One touch glucometer or other approved machine x 1 DX: code E11.9 check blood sugar one time daily. Dispense: 1 Kit, Refills: 0 ordered Test strips 100 each, lancets 100 each 1 Each 3 023 Active albuterol sulfate HFA 90 mcg/actuation aerosol inhalerIndication s:Chronic obstructive pulmonary disease with acute exacerbation (CMS/HCC) Take 2 Puffs by inhalation every 6 hours as needed for Shortness of Breath. 8.5 Gram 3 023 Active ipratropium bromide (ATROVENT) 0.02 % SolutionIndicatio ns:Chronic obstructive pulmonary disease with acute exacerbation ([facility]) Take 2.5 mL (0.5 mg) by inhalation every 12 hours as needed for Shortness of Breath. 100 mL 3 023 Active OTHERIndications: Spinal cord injury, cervical region, subsequent encounter ([facility]) Wheelchair repair: Wheel Chair repair and cushion and back replacement. Motor repair as needed 1 Each 023 Active OneTouch Delica Plus Lancet 33 gauge USE 1 LANCET TO CHECK GLUCOSE ONCE DAILY 100 Each 024 Active traMADoL (ULTRAM) 50 mg tabletIndications :Cervical stenosis of spinal canal,Cervical cord compression with myelopathy ([facility]),Lumbar disc herniation Take 1 Tablet (50 mg) by mouth 2 times daily as needed for Pain, Severe. 60 Tablet 024 Active ascorbic acid, vitamin C, (VITAMIN C) 1,000 mg Tablet 2 tablet 2 TIMES DAILY (route: oral) 024 Active diclofenac sodium (VOLTAREN) 75 mg Tablet, Delayed Release (E.C.) 1 tablet 2 TIMES DAILY (route: oral) 024 Active oxyCODONE (ROXICODONE) 5 mg tablet 024 Active furosemide (LASIX) 40 mg tablet 1.5 tablet 2 TIMES DAILY (route: oral) 024 Active gabapentin (NEURONTIN) 300 mg capsule TAKE 1 CAPSULE BY MOUTH TWICE DAILY FOR NEUROPATHY PAIN, MAX DAILY DOSE OF 900 MG 024 Active Lidocaine 5 % Cream APPLY ONCE DAILY NEEDED FOR PAIN 024 Active ondansetron (ZOFRAN ODT) 4 mg Tablet, Rapid DissolveIndicatio ns:MRSA infection,Osteomy elitis, unspecified site, unspecified type ([facility]),High risk medication use DISSOLVE 1 TABLET ON TOP OF TONGUE, THEN SWALLOW WITH SALIVA EVERY 8 HOURS NEEDED FOR NAUSEA/EMESIS 30 Tablet 024 Active ondansetron (ZOFRAN) 4 mg TabletIndications :Nausea TAKE 1 TABLET BY MOUTH EVERY 8 HOURS NEEDED FOR NAUSEA/EMESIS 30 Tablet 024 Active Trelegy Ellipta 100-62.5-25 mcg Disk with Device Inhale 1 puff by mouth once daily 60 Each 025 Active nystatin-triamcin olone (MYCOLOG) 100,000-0.1 unit/gram-% Ointment APPLY OINTMENT TOPICALLY TO AFFECTED AREA TWICE DAILY 30 Gram 1 021 2020 Discontinued Active Problems Problem Noted Date Diagnosed Date Peripheral arterial disease with history of revascularization 03/03/2024 DM type 2, goal HbA1c < 7% 03/03/2024 Smoker unmotivated to quit 03/03/2024 Acute cystitis with hematuria 02/27/2024 Respiratory failure, unspeci fied chronicity, unspecified whether with hypoxia or hypercapnia 07/30/2023 Dyslipidemia, goal LDL below 70 12/02/2021 HTN, goal below 130/80 12/02/2021 Dependence on wheelchair 08/23/2020 Peripheral vascular disease 06/09/2020 Overview (12/10/2020): ADDED PER PVQ RESPONSE DOS 10.14.2019 Calcified granuloma of lung 06/09/2020 Overview (12/10/2020): ADDED PER PVQ RESPONSE DOS 10.14.2019 Primary osteoarthritis of right foot 10/09/2019 Elevated troponin 09/08/2019 Puncture wound of left foot 06/30/2019 Deviated nasal septum 10/05/2017 Hypertrophy of nasal turbinates 10/05/2017 Type 2 diabetes mellitus wit h diabetic peripheral angiopathy without gangrene, without long-term current use of insulin 01/01/2017 Overview (12/09/2020): ADDED PER PVQ RESPONSE DOS 10.14.2019 Chronic obstructive pulmonary disease 12/22/2016 Atherosclerosis of nikolai coronary artery of fantasma esdras heart 12/22/2016 Lymphedema of both lower extremities 12/22/2016 History of DE (myocardial infarction) 12/22/2016 Overview (12/09/2020): Age 41 Obstructive sleep apnea 12/22/2016 Overview (12/09/2020): With home orders for BiPAP Rhinitis medicamentosa 10/29/2016 Pilonidal cyst without infection 09/13/2016 Perirectal abscess 09/13/2016 Cervical stenosis of spinal canal 01/26/2016 Lumbar disc herniation 01/26/2016 DDD (degenerative disc disease), cervical 2015 Spinal cord injury, cervical region, subsequent encounter 01/26/2016 Overview (12/01/2021): incomplete, h/o C6-7 ACDF CHANGED PER PVQ RESPONSE DOS 10 incomplete, h/o C6-7 ACDF CHANGED PER PVQ RESPONSE DOS 10..2019 Lumbar facet arthropathy 01/26/2016 Cervical cord compression with myelopathy 2015 Cigarette dependence 06/11/2015 Resolved Problems Problem Noted Date Diagnosed Date Resolved Date Pulmonary emphysema 08/23/2020 04/02/20 23 Controlled type 2 diabetes m ellitus without complication, without long-term current use of insulin 06/09/2020 04/02/2023 Overview (12/10/2020): ADDED PER PVQ RESPONSE DOS 10..2019 Type 2 diabetes mellitus with hyperglycemia 09/26/2019 04/02/2023 Acute respiratory failure wi th hypoxia and hypercapnia 09/09/2019 09/12/2019 Chest pain 09/08/2019 09/12/2019 Encounters Date Type Department Care Team Description 02/17/2025 External Device Data [facility] ABSTRACTION Provider, Abstract 02/17/2025 External Device Data [facility]CTION Provider, Abstract 01/01/2025 External Device Data [facility] Provider, Abstract 12/16/2024 External Device Data [facility]CTION Provider, Abstract from Last 3 Months Immunizations Immunization Administration Dates Next Due (TENIVAC)(7 YRS UP) TETANUS AND DIPHTHERIA TOXOIDS, ADSORBED (5 LF OF TETANUS TOXOID AND 2 LF OF DIPHTHERIA TOXOID), 0.5ML (PF), IM 06/30/2019 Influenza Seasonal Unspecified Formulation IM Family History Medical History Relation Name Comments Heart Disease Father Colon Cancer Mother Cancer Sister Relation Name Status Comments Father Mother Sister Social History Tobacco Use Types Packs/Day Years Used Date Smoking Tobacco: Every Day Cigarettes Smokeless Tobacco: Never Tobacco Cessation:Ready to Q uit: Not Asked; Counseling Given: Not Answered Alcohol Use Standard Drinks/Week Comments Yes 0 [...] and Family Not on file 05/26/2020 Attends [employer] Services Not on file 05/26 Do you belong to any clubs o r organizations such as anglican groups, unions, fraternal or athletic groups, or [...] on file Legal Sex 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 Gender Identity Not on file Sexual Orientation Not on file Last Filed Vital Signs Vital Sign Reading Time Taken Comments Blood Pressure 100/50 04/10/2024 1:54 PM CDT Pulse 83 03/03/2024 1:30 PM CDT Temperature 36.8 C (98.2 F) 02/27/2024 2:52 PM CDT Respiratory Rate 18 02/27/2024 4:30 PM CDT Oxygen Saturation 91% 03/03/2024 1:30 PM CDT Inhaled Oxygen Concentration - - Weight 79.4 kg (175 lb) 04/10/2024 1:54 PM CDT Height 170.2 cm (5' 7 ) 04/10/2024 1:54 PM CDT Body Mass Index 27.41 04/10/2024 1:54 PM CDT Plan of Treatment Health Maintenance Due Date Last Done Comments PNEUMOCOCCAL VACCINE 50+ YEA RS (1 of 2 - PCV) 1977 FIT-DNA Q 3 years 2003 FIT/FOBT Q 1 year 2003 Flex Sig/CT Colonography Q 5 years 2003 ZOSTER VACCINE (1 of 2) 2008 RSV VACCINE (60+ or ) (1 - Risk 60-74 years 1-dose series) 2018 DTAP/TDAP/TD VACCINES (1 - Tdap) 07/01/2019 06/30/20 19 COLORECTAL SCREENING 04/13/2021 04/13/2011, 04/13/20 11 Colorectal Cancer Screening 04/13/2021 DIABETES ANNUAL FOOT EXAM 08/18/2021 08/18/2020, DIABETES ANNUAL RETINAL EXAM 07/20/2022 07/20/2021 LDL CHOLESTEROL ANNUAL 04/18/2023 2, 05/27/2021, 05/27/2021, Additional history exists Abdominal Aortic Aneurysm (A AA) Screening 2023 DIABETES MICROALBUMIN ANNUAL SCREEN 07/30/2024 07/30/2023, 01/02/2023, 02/24/2022, Additional history exists DIABETES HBA1C Q 6 MONTHS 11/12/20242023, 05/13/2024, 01/17/2024, Additional history exists INFLUENZA VACCINE (#1) 2025 , 06/13/2023, 05/02/2022, Additional history exists Medical Devices Implanted Type Area Esthetician Spa Device Identifier Shelf Expiration Date Model / Serial / Lot Sealant Mynx Intervention Specialist 6-7fr [id number] - [id number] Implanted:Qty: 1 on 12/26/2023 by Neil Kiser MD at [facility] Closure Device N/A: Groin CORDIS [id number] 04/12/2025 [id number] / / [id number] Sealant Mynx Intervention Specialist 6-7fr [id number] - [id number] Implanted:Qty: 1 on 12/26/2023 by Neil Kiser MD at [facility] Closure Device N/A: Groin CORDIS [id number] 04/12/2025 [id number] / / [id number] Stent Viabahn Vbx 7fr 9x39mm 135cm Bx2 [id number] - [id number] Implanted:Qty: 1 on 12/26/2023 by Neil Kiser MD at [facility] Stent N/A: Iliac Artery [employer] [id number] 09/16/2026 [id number] / [id number] / Stent Viabahn Vbx 7fr 9x39mm 135cm Bx2 [id number] - [id number] Implanted:Qty: 1 on 12/26/2023 by Neil Kiser MD at [facility] Stent N/A: Iliac Artery [employer] [id number] 09/16/2026 [id number] 2A / [id number] / Procedures Procedure Name Priority Date/Time Associated Diagnosis Comments HEMOGLOBIN A1C Routine 01/17/2024 1:45 PM CDT Type 2 diabetes mellitus with diabetic peripheral angiopathy without gangrene, without long-term current use of insulin ([facility]) MICROALBUMIN/CREATI NINE RATIO, RANDOM UR Routine 07/30/2023 3:22 PM PUBLIC SERVICE REPRESENTATIVE Controlled type 2 diabetes mellitus without complication, unspecified whether [facility] insulin use (CMS/HCC) LIPID PANEL Routine 04/18/2022 8:44 AM CDT Controlled type 2 diabetes mellitus without complication, unspecified whether field administrative assistant insulin use (CMS/[facility]) HM DIABETES EYE EXAM Routine 07/20/2021 ENDOSCOPY, COLON, SCREENING 04/13/2011 12:00 AM CDT from Last 3 Months or Most Recently Relevant to Health Maintenance Results * (ABNORMAL) HEMOGLOBIN A1C (01/17/2024 1:45 PM CDT) HEMOGLOBIN A1C 6.3(H) <5.7 % of total Hgb [facility] Comment: For someone without known diabetes, a hemoglobin A1c value between 5.7% and 6.4% is consistent with prediabetes and should be confirmed with a follow-up test. For someone with known diabetes, a value <7% indicates that their diabetes is well controlled. A1c targets should be individualized based on duration of diabetes, age, comorbid conditions, and other considerations. This assay result is consistent with an increased risk of diabetes. Currently, no consensus exists regarding use of hemoglobin A1c for diagnosis of diabetes for children. ESTIMATED AVERAGE GLUCOSE (MG/DL) 134 mg/dL [facility] ESTIMATED AVERAGE GLUCOSE (MMOL/L) 7.4 mmol/L [facility] Comment: This test was performed on the Manny donald c503 platform. Effective 10/29/23, a change in test platforms from the Parrish Kidney Puller to the Manny donald c503 may have shifted HbA1c results compared to historical results. Based on laboratory validation testing conducted at [facility], the Manny platform relative to the Parrish platform had an average increase in HbA1c value of < or = 0.3%. This difference is within accepted variability established by the National Glycohemoglobin Standardization Program. Note that not all individuals will have had a shift in their results and direct comparisons between historical and current results for testing conducted on different platforms is not recommended. Test Performed at: [facility] [address] [place] [address] Tatiana Eid MD Blood 01/17/2024 1:45 PM CDT 01/18/2024 4:33 AM CDT us Corinna Marks DNP CHEMISTRY ORDERABLES Final Result Performing Organization Address [facility]/ZIP Co de Phone Number [facility] [phone] [facility] [place] [address] [facility] [place] [address] * MICROALBUMIN/CREATININE RATIO, RANDOM UR (07/30/2023 3:22 PM PUBLIC SERVICE REPRESENTATIVE) Creatinine, Urine 73 20 - 320 mg/dL [facility] MICROALBUMIN, URINE 1.1 See Note: mg/dL [facility] Comment: Reference Range: Reference Range Not established MICROALBUMIN/CREAT RATIO, UR 15 <30 mcg/mg creat [facility] Comment: The ADA defines abnormalities in albumin excretion as follows: Albuminuria Category Result (mcg/mg creatinine) Normal to Mildly increased <30 Moderately increased 30-299 Severely increased > OR = 300 The ADA recommends that at least two of three specimens collected within a 3-6 month period be abnormal before considering a patient to be within a diagnostic category. Test Performed at: [email or web address] [address] [facility] [place] [address] Tatiana Eid MD Urine URINE SPECIMEN OBTAINED BY CLEAN CATCH PROCEDURE / Unknown 07/30/2023 3:22 PM PUBLIC SERVICE REPRESENTATIVE 07/31/2023 4:18 AM PUBLIC SERVICE REPRESENTATIVE us Carole Siu MD URINE ORDERABLES Final Resu lt [facility] [phone] [email or web address] [address] [facility] [place] [address] * (ABNORMAL) LIPID PANEL (04/18/2022 8:44 AM CDT) CHOLESTEROL 222(H) <200 mg/dL [facility] HDL 27(L) > OR = 40 mg/dL [facility] TRIGLYCERIDE 182(H) <150 mg/dL [facility] LDL CALCULATED 161(H) mg/dL (calc) [facility] Comment: Reference range: <100 Desirable range <100 mg/dL for primary prevention; <70 mg/dL for patients with CHD or diabetic patients with > or = 2 CHD risk factors. LDL-C is now calculated using the Jennie calculation, which is a validated novel method providing better accuracy than the Friedewald equation in the estimation of LDL-C. Waqas SS et al. MAC. 2013;310(19): 7557-6519 (http://education.StreamBase Systems/faq/STU509) CHOL/HDL RATIO 8.2(H) <5.0 (calc) [facility] TOTAL NON-HDL CHOL(LDL+VLDL) 195(H) <130 mg/dL (calc) [facility] Comment: For patients with diabetes plus 1 major ASCVD risk factor, treating to a non-HDL-C goal of <100 mg/dL (LDL-C of <70 mg/dL) is considered a therapeutic option. Test Performed at: [email or web address] [address] [place] [address] Michael Barrera D.O., MPH Blood 04/18/2022 8:44 AM CDT 04/19/2022 4:47 AM CDT Carole Siu MD CHEMISTRY ORDERABLES Final Result [facility] [phone] [facility] [address] [place] [address] * HM DIABETES EYE EXAM (07/20/2021) us Abstract Provider HEALTH MAINTENANCE Final Resul t * ENDOSCOPY, COLON, SCREENING (04/13/2011 12:00 AM CDT) us [facility] GI PROCEDURE ORDERABLES Final Re sult from Last 3 Months or Most Recently Relevant to Health Maintenance Insurance MEDICAID [place] MEDICARE HMO RX [facility] Medicare Part D RX [employer] Medicaid Care Teams Inside Sales Director Relationship Specialty Start Date End Date Seth May MD [address] [address] PCP - General Family Practice 01/31/24
--- OUTSIDE RECORDS SUMMARY | 2025-02-18 15:26 | XMS_ITS | Encounter Summary ---
Author Organization [facility] Address [address] [place] [address] Care Team Providers Care Chemical Plant Worker Name Role Phone Carole Siu MD Primary Care Provider Reason for Referral * Outpatient Services (Routine) - Closed Specialty Diagnoses / Procedures Referred By Contac t Referred To Contact Radiology Diagnoses Osteomyelitis ([facility]/HCC) Procedures CT FOOT WO CONTRAST RIGHT Eliud Jenkins Sr., FNP [address] [place] [address] Phone: tel: fax: [facility] CT Scan [place] [address] [place] [address] Phone: tel: fax: Referral ID Status Reason Start Date Expiration Date V isits Requested Visits Authorized [id number] Closed [facility] View CTS to Schedule (SGF) 05/15/2014 06/15/2015 1 1 Encounter Details Date Type Department Care Team (Latest Contact Info) Description 05/15/2014 Ancillary Orders [facility] Centralized Scheduling [address] [place] [id number] Eliud Jenkins Sr., FNP [address] [place] [address] Osteomyelitis (CMS/[facility]) (Primary Dx) Social History Tobacco Use Types Packs/Day Years Used Date Smoking Tobacco: Every Day Cigarettes 1 40 Smokeless Tobacco: Never Alcohol Use Standard Drinks/Week Comments No 0 (1 standard drink = 0.6 oz pur e alcohol) Sex and Gender Information Value Date Recorded Sex Assigned at Not on file 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 Sagittal and coronal reconstructions and soft tissue reconstruction are also obtained. DESCRIPTION The study shows limitation due to inability of patient to tolerate positioning. There is extensive soft tissue induration compatible with cellulitis, without evidence of focal abscess appreciated at this time. The dorsum of the foot is primarily affected, although there is some circumferential involvement of the soft tissues at the ankle. There are mild arthritic changes at the great toe metatarsal phalangeal joint, although no bony erosion is seen of the great toe or first metatarsal. IMPRESSION 1. extensive cellulitis as described 2. no focal abscess or soft tissue gas seen 3. no osteomyelitis appreciated by CT Procedure Note Miguel Ángel Almonte MD - 05/15/[address] RIGHT FOOT, 15 May [address] TECH[address] helical axial CT was obtained from above the ankle through the toes at 0.5 mm increments increments for 485 axial images. Sagittal and coronal reconstructions and soft tissue reconstruction are also obtained. DESCRIPTION The study shows limitation due to inability of patient to tolerate positioning. There is extensive soft tissue induration compatible with cellulitis, without evidence of focal abscess appreciated at this time. The dorsum of the foot is primarily affected, although there is some circumferential involvement of the soft tissues at the ankle. There are mild arthritic changes at the great toe metatarsal phalangeal joint, although no bony erosion is seen of the great toe or first metatarsal. IMPRESSION 1. extensive cellulitis as described 2. no focal abscess or soft tissue gas seen 3. no osteomyelitis appreciated by CT us Eliud Jenkins Sr., THREAD CUTTER TENDER CT ORDERABLES F inal Result documented in this encounter Visit Diagnoses Diagnosis Osteomyelitis (CMS/[facility]) Unspecified osteomyelitis, site unspecified Osteomyelitis (CMS/[facility])- Primary Unspecified osteomyelitis, site unspecified documented in this encounter Care Teams Chemical Plant Worker Relationship Specialty Start Date End Date Carole Siu MD [address] [address] PCP - General Family Practice 10/27/16 documented as of this encounter
--- OUTSIDE RECORDS SUMMARY | 2025-02-18 15:26 | XMS_ITS | Encounter Summary ---
Author Organization [facility] Address [address] [place] [address] Care Team Providers Care Auditing Manager Name Role Phone Carole Siu MD Primary Care Provider Encounter Details Date Type Department Care Team (Latest Contact Info) Description 08/27/2005 Outpatient Historical [facility] [address] [place] [address] AMBULANCE, [facility] [place] SKIN SENSATION DISTURB (Primary Dx) Social History Tobacco Use Types Packs/Day Years Used Date Smoking Tobacco: Never Assessed Sex and Gender Information Value Date Recorded Sex Assigned at Not on file 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
--- OUTSIDE RECORDS SUMMARY | 2025-02-18 15:26 | XMS_ITS | Encounter Summary ---
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 Gender Identity Not on file Sexual Orientation Not on file documented as of this encounter Plan of Treatment Not on file documented as of this encounter Procedures Procedure Name Priority Date/Time Associated Diagnosis Comments CT CERVICAL SPINE WO CONTRAST Routine 08/27/2005 2:22 PM SLEEPING BAG FILLER documented in this encounter Results * CT CERVICAL SPINE WO CONTRAST (08/27/2005 2:22 PM SLEEPING BAG FILLER) Anatomical Region Laterality Modality Spine Other 08/27/2005 2:22 PM SLEEPING BAG FILLER Narrative 08/27/2005 2:[address] CERVICAL SPINE HISTORY: Trauma and lower extremity numbness. Axial images have been obtained from the skull base to the upper thoracic spine. Sagittal and coronal reformations extend from the C1 to the C6 level. No fracture or subluxation. C2-3: Very small bilateral uncinate hypertrophic spurs. C3-4: Mild endplate hypertrophic spur formation. A right uncinate spur contributes to mild right neural foraminal narrowing. C4-5: Bilateral facet hypertrophic degenerative changes and mild bilateral neural foraminal narrowing. C5-6: Unremarkable. C6-7: Moderate bilateral bony encroachment on the neural foramina. C7-T1: Unremarkable. 1. No fracture or subluxation. 2. Multilevel bony encroachment on the neural foramina, greatest at C6-7. 1447 T: gb 08/27/2005 1515 Dictated By: Cathleen Ordoñez M.D. Electronically Signed By: Cathleen Ordoñez M.D. Date Signed: 08/30/05 GRB Procedure Note 07/01/2009 CT CERVICAL SPINE HISTORY: Trauma and lower extremity numbness. Axial images have been obtained from the skull base to the upper thoracicspine. Sagittal and coronal reformations extend from the C1 to the C6 level. No fracture or subluxation. C2-3: Very small bilateral uncinate hypertrophic spurs. C3-4: Mild endplate hypertrophic spur formation. A right uncinate spurcontributes to mild right neural foraminal narrowing. C4-5: Bilateral facet hypertrophic degenerative changes and mild bilateralneural foraminal narrowing. C5-6: Unremarkable. C6-7: Moderate bilateral bony encroachment on the neural foramina. C7-T1: Unremarkable. 1. No fracture or subluxation. 2. Multilevel bony encroachment on the neural foramina, greatest at C6-7. 1447 T: gb 08/27/2005 1515 Dictated By: Cathleen Ordoñez M.D. Electronically Signed By: Cathleen Ordoñez M.D. Date Signed: 08/30/05 GRB Nam Mendoza MD CT ORDERABLES Edited documented in this encounter Visit Diagnoses Not on filedocumented in this encounter Care Teams Extraction Supervisor Relationship Specialty Start Date End Date Carole Siu MD [address] [phone] PCP - General Family Practice 10/27/16 documented as of this encounter
--- OUTSIDE RECORDS SUMMARY | 2025-02-18 15:26 | XMS_ITS | Encounter Summary ---
Author Organization [facility] Address [address] [place] [address] Care Team Providers Care Oral Pathologist Name Role Phone Carole Siu MD Primary Care Provider Encounter Details Date Type Department Care Team (Latest Contact Info) Description 08/14/2002 Outpatient Historical [facility] KeenBernardo quezada MD [address] [facility] [address] [place] [address] CORON ATHEROSCL [place] CORON VESSEL (Primary Dx); Benign hypertension; Pure hypercholesterolem Social History Tobacco Use Types Packs/Day Years Used Date Smoking Tobacco: Never Assessed Sex and Gender Information Value Date Recorded Sex Assigned at Not on file 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
--- OUTSIDE RECORDS SUMMARY | 2025-02-18 15:26 | XMS_ITS | Encounter Summary ---
Author Organization [email or web address] Address [address] [place] [address] Care Team Providers Care Residential Program Director Name Role Phone Seth May MD Primary Care Provider [phone] Encounter Details Date Type Department Care Team [...] and Family Not on file 05/26/2020 Attends [employer] Services Not on file 05/26 Do you belong to any clubs o r organizations such as jew groups, unions, fraternal or athletic groups, or [...] on file Legal Sex Male 12:44 PM GLOBAL PROCESS OWNER Gender Identity Not on file Sexual Orientation Not on file documented as of this encounter Plan of Treatment Not on file documented as of this encounter Visit Diagnoses Not on filedocumented in this encounter Additional Health Concerns Assessment Noted Time PHQ-9 Depression Total Score: 1 09/12/19 24 11:15 AM GLOBAL PROCESS OWNER documented as of this encounter Care Teams Residential Program Director Relationship Specialty Start Date End Date Seth May MD [address] [facility] [address] [place] [phone] PCP - General Family Practice 01/31/24 documented as of this encounter
--- OUTSIDE RECORDS SUMMARY | 2025-02-18 15:26 | XMS_ITS | Encounter Summary ---
Author Organization [facility] Address [address] [place] [address] Care Team Providers Care Trim Die Maker Name Role Phone Seth May MD Primary Care Provider [phone] Encounter Details Date Type Department Care Team (Latest Contact Info) Description 01/11/2024 Lab Requisition [facility] General Laboratory Services [place] [address] [place] [address] Corinna Marks, [facility] [address] [facility] [address] [place] [address] Peripheral vascular disease, unspecified; Type 2 diabetes mellitus with diabetic peripheral angiopathy without gangrene ([facility]/HCC); Methicillin resistant Staphylococcus aureus infection, unspecified site; Osteomyelitis, unspecified ([facility]) Social History Tobacco Use Types Packs/Day Years [...] and Family Not on file 05/26/2020 Attends Islam Services Not on file 05/26 Do you belong to any clubs o r organizations such as muslim groups, unions, fraternal or athletic groups, or [...] on file Legal Sex Male 12:44 PM VESSEL LINER Gender Identity Not on file Sexual Orientation Not on file documented as of this encounter Plan of Treatment Not on file documented as of this encounter Procedures Procedure Name Priority Date/Time Associated Diagnosis Comments CBC WITH DIFFERENTIAL Routine 01/11/2024 12:54 PM CDT Peripheral vascular disease, unspecified Type 2 diabetes mellitus with diabetic peripheral angiopathy without gangrene Methicillin resistant Staphylococcus aureus infection, unspecified site Osteomyelitis, unspecified COMPREHENSIVE METABOLIC PANEL Routine 01/11/2024 12:54 PM CDT Peripheral vascular disease, unspecified Type 2 diabetes mellitus with diabetic peripheral angiopathy without gangrene Methicillin resistant Staphylococcus aureus infection, unspecified site Osteomyelitis, unspecified documented in this encounter Results * (ABNORMAL) COMPREHENSIVE METABOLIC PANEL (01/11/2024 12:54 PM CDT) SODIUM 136 136 - 145 mmol/L 01/11/2024 1:11 PM [facility] POTASSIUM 3.9 3.5 - 5.1 mmol/L 01/11/2024 1:11 PM [facility] CHLORIDE 97(L) 98 - 107 mmol/L 01/11/2024 1:11 PM [facility] CO2 31(H) 22 - 29 mmol/L 01/11/2024 1:11 PM [facility] CALCIUM 9.4 8.8 - 10.2 mg/dL 01/11/2024 1:11 PM [facility] BUN 15 8 - 23 mg/dL 01/11/2024 1:11 PM [facility] CREATININE 0.59(L) 0.67 - 1.17 mg/dL 01/11/2024 1:11 PM [facility] GLUCOSE 149(H) 74 - 99 mg/dL 01/11/2024 1:11 PM [facility] TOTAL PROTEIN 7.2 6.6 - 8.7 g/dL 01/11/2024 1:11 PM [facility] ALBUMIN 3.5 3.5 - 5.2 g/dL 01/11/2024 1:11 PM [facility] BILIRUBIN TOTAL 0.2 <=1.2 mg/dL 01/11/2024 1:11 PM [facility] ALKALINE PHOSPHATASE 161(H) 40 - 129 U/L 01/11/2024 1:11 PM [facility] AST 17 10 - 50 U/L 01/11/2024 1:11 PM [facility] ALT 17 10 - 50 U/L 01/11/2024 1:11 PM [facility] GFR >60 >=60 mL/min/1.7 3 sq meter 01/11/2024 1:11 PM [facility] Comment:eGFR calculated with 2020 CKD-EPI equation. Vegetarian diet, extremely high or low muscle mass, and may affect results. Cystatin C with Glomerular Filtration Rate is a suitable alternative for these patients. ANION GAP 8(L) 12 - 20 mmol/L 01/11/2024 1:11 PM [facility] Blood 01/11/2024 12:5 4 PM CDT 01/11/2024 12:54 PM CDT Corinna Marks DNP CHEMISTRY ORDERABLES Final Result [facility] CLIA # [id number] [address] [place] [address] * (ABNORMAL) CBC WITH DIFFERENTIAL (01/11/2024 12:54 PM CDT) WBC 6.6 4.2 - 9.1 K/uL 01/11/2024 12:59 PM [facility] RBC 4.21(L) 4.63 - 6.08 M/uL 01/11/2024 12:59 PM [facility] HEMOGLOBIN 12.6(L) 13.7 - 17.5 g/dL 01/11/2024 12:59 PM [facility] HEMATOCRIT 38.9(L) 40.1 - 51.0 % 01/11/2024 12:59 PM [facility] MCV 92.4(H) 79.0 - 92.2 fL 01/11/2024 12:59 PM [facility] MCH 29.9 25.7 - 32.2 pg 01/11/2024 12:59 PM [facility] MCHC 32.4 32.3 - 36.5 g/dL 01/11/2024 12:59 PM [facility] RDW 14.6(H) 11.0 - 14.5 % 01/11/2024 12:59 PM [facility] RDW-STDEV 49.1 36.9 - 56.9 fL 01/11/2024 12:59 PM [facility] PLATELETS 270 130 - 400 K/uL 01/11/2024 12:59 PM [facility] MPV 9.2(L) 10.0 - 14.8 fL 01/11/2024 12:59 PM [facility] NEUTROPHILS 65 34 - 68 % 01/11/2024 12:59 PM [facility] LYMPHOCYTES 13(L) 22 - 53 % 01/11/2024 12:59 PM [facility] MONOCYTES 12 5 - 12 % 01/11/2024 12:59 PM [facility] EOSINOPHILS 9(H) 1 - 7 % 01/11/2024 12:59 PM [facility] BASOPHILS 1 0 - 1 % 01/11/2024 12:59 PM [facility] IMMATURE GRANULOCYTES 0 % 01/11/2024 12:59 PM [facility] NEUTROPHIL ABSOLUTE 4.29 1.78 - 5.38 K/uL 01/11/2024 12:59 PM [facility] LYMPHOCYTE ABSOLUTE 0.88(L) 1.20 - 3.40 K/uL 01/11/2024 12:59 PM [facility] MONOCYTE ABSOLUTE 0.77 0.30 - 0.82 K/uL 01/11/2024 12:59 PM [facility] EOSINOPHIL ABSOLUTE 0.58(H) 0.04 - 0.54 K/uL 01/11/2024 12:59 PM [facility] BASOPHILS ABSOLUTE 0.03 0.01 - 0.08 K/uL 01/11/2024 12:59 PM [facility] IMMATURE GRANULOCYTES ABSOLUTE 0.02 K/uL 01/11/2024 12:59 PM CDT [facility] Blood 01/11/2024 12:5 4 PM CDT 01/11/2024 12:54 PM CDT us Corinna Beattyjay Marks DNP HEMATOLOGY ORDERABLES Kemi yoder Result [facility] CLIA # [id number] [address] [place] [id number] documented in this encounter Visit Diagnoses Diagnosis Peripheral vascular disease, unspecified Type 2 diabetes mellitus with diabetic peripheral angiopathy without gangrene (CMS/HCC) Type II or unspecified type diabetes mellitus with peripheral circulatory disorders, not stated as uncontrolled Methicillin resistant Staphylococcus aureus infection, unspecified site Osteomyelitis, unspecified (CMS/HCC) documented in this encounter Additional Health Concerns Infection Onset Date Last Indicated Resolved Time MRSA Comment:Resolved per Type and Duration of Precautions Recommended for Selected Infections and Conditions document 2023 update 12/26/2023 12/26/2023 04/28/20 11:37 AM CDT Assessment Noted Time PHQ-9 Depression Total Score: 1 09/12/19 11:15 AM VESSEL LINER documented as of this encounter Care Teams Trim Die Maker Relationship Specialty Start Date End Date Seth May MD [address] [phone] PCP - General Family Practice 01/31/24 documented as of this encounter
--- OUTSIDE RECORDS SUMMARY | 2025-02-18 15:26 | XMS_ITS | Encounter Summary ---
Author Organization [facility] Address [address] [place] [address] Care Team Providers Care Power Distributor Name Role Phone Carole Siu MD Primary Care Provider Encounter Details Date Type Department Care Team (Latest Contact Info) Description 08/27/2005 Outpatient Historical [facility] Ambulance [address] [place] [address] AMBULANCE, [facility] [place] SKIN SENSATION DISTURB (Primary Dx) Social History Tobacco Use Types Packs/Day Years Used Date Smoking Tobacco: Never Assessed Sex and Gender Information Value Date Recorded Sex Assigned at Not on file Legal Sex 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
--- OUTSIDE RECORDS SUMMARY | 2025-02-18 15:26 | XMS_ITS | Encounter Summary ---
Author Organization [facility] Address [address] [place] [address] Care Team Providers Care Janitor Custodian Name Role Phone Carloe Siu MD Primary Care Provider Encounter Details Date Type Department Care Team (Latest Contact Info) Description 01/28/2001 Outpatient Historical [facility] [place] [address] [place] [address] Bernardo Keen MD [address] [facility] [address] [place] [address] Coronary atherosclerosis of [place] coronary artery (Primary Dx); Pure hypercholesterolem Social History Tobacco Use Types Packs/Day Years Used Date Smoking Tobacco: Never Assessed Sex and Gender Information Value Date Recorded Sex Assigned at Not on file 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
--- OUTSIDE RECORDS SUMMARY | 2025-02-18 15:26 | XMS_ITS | Encounter Summary ---
Author Organization [facility] Address [address] [place] [address] Care Team Providers Care Appeals Court Associate Justice Name Role Phone Carole Siu MD Primary Care Provider Reason for Referral * Outpatient Services (Routine) - Closed Specialty Diagnoses / Procedures Referred By Kirk t Referred To Contact Radiology Diagnoses Chronic back pain Procedures MRI LUMBAR WO CONTRAST Eliud Jenkins Sr., FNP [address] [place] [address] Phone: tel: fax: [facility] MRI [place] [address] [place] [address] Phone: tel: fax: Referral ID Status Reason Start Date Expiration Date V isits Requested Visits Authorized [id number] Closed [facility] View CTS to Schedule (SGF) 07/07/2015 08/06/2016 1 1 MOBILE INSPECTOR Encounter Details Date Type Department Care Team (Latest Contact Info) Description 07/07/2015 Ancillary Orders [facility] Scheduling [address] [place] [phone] Eliud Jenkins Sr., FNP [address] [place] [address] Chronic back pain (Primary Dx) Social History Tobacco Use Types Packs/Day Years Used Date Smoking Tobacco: Every Day Cigarettes 1 40 Smokeless Tobacco: Never Alcohol Use Standard Drinks/Week Comments Not Asked 1 (1 standard drink = 0.6 oz pur e alcohol) occasional (every 3-6 months) Sex and Gender Information Value Date Recorded Sex Assigned at Not on file Legal Sex Male 3:53 AM AUTOMOBILE INSPECTOR Gender Identity Not on file Sexual Orientation Not on file documented as of this encounter Plan of Treatment Not on file documented as of this encounter Results * MRI LUMBAR WO CONTRAST (07/13/2015 1:44 PM AUTOMOBILE INSPECTOR) Anatomical Region Laterality Modality Spine Magnetic Resonan ce 07/13/2015 12:5 5 PM AUTOMOBILE INSPECTOR Impressions 07/13/2015 1:57 PM AUTOMOBILE INSPECTOR IMPRESSION: See report below. Exam: MRI LUMBAR WO CONTRAST Date/Time of Exam: Jul 13, 2015 01:44:18 PM Reason For Exam: Chronic back pain,Chronic back pain. Technique: MRI of the lumbar spine was performed without the administration of intravenous contrast. The lumbar spine is normal in sagittal alignment. The cauda equina and conus medullaris appear normal and no intradural disease is present. The paraspinal tissues are unremarkable. STIR images show moderate type ii changes around the L5-S1 and mild type I changes around L4-L5. L1-L2: Normal. L2-L3: Normal. L3-L4: A moderate diffuse bulge of the disc is present. Small disc herniation is present in the left subarticular and foraminal zones. L4-L5: Moderate facet arthrosis is present. A mild diffuse bulge of the disc is present with small central extrusion. Mild left foraminal stenosis is present largely secondary to facet arthrosis. Mild spinal stenosis is present. L5-S1: A large disc extrusion with spondylosis effaces the right neural foramen and lateral recess. Impression: 1. Disc extrusion on the right at L5-S1 apparently compresses the right L5 and S1 nerves. Surrounding bony inflammatory response and spondylosis are present. 2. Mild spinal stenosis is present at L4-L5. Narrative Procedure Note Gurjit Milian MD - 07/13/2015 IMPRESSION IMPRESSION: See report below. Exam: MRI LUMBAR WO CONTRAST Date/Time of Exam: Jul 13, 2015 01:44:18 PM Reason For Exam: Chronic back pain,Chronic back pain. Technique: MRI of the lumbar spine was performed without the administration of intravenous contrast. The lumbar spine is normal in sagittal alignment. The cauda equina and conus medullaris appear normal and no intradural disease is present. The paraspinal tissues are unremarkable. STIR images show moderate type ii changes around the L5-S1 and mild type I changes around L4-L5. L1-L2: Normal. L2-L3: Normal. L3-L4: A moderate diffuse bulge of the disc is present. Small disc herniation is present in the left subarticular and foraminal zones. L4-L5: Moderate facet arthrosis is present. A mild diffuse bulge of the disc is present with small central extrusion. Mild left foraminal stenosis is present largely secondary to facet arthrosis. Mild spinal stenosis is present. L5-S1: A large disc extrusion with spondylosis effaces the right neural foramen and lateral recess. Impression: 1. Disc extrusion on the right at L5-S1 apparently compresses the right L5 and S1 nerves. Surrounding bony inflammatory response and spondylosis are present. 2. Mild spinal stenosis is present at L4-L5. Eliud Jenkins Sr., SOLAR PROJECT COORDINATION SPECIALIST MR ORDERABLES F inal Result documented in this encounter Visit Diagnoses Diagnosis Chronic back pain- Primary Backache, unspecified Chronic back pain Backache, unspecified documented in this encounter Care Teams Appeals Court Associate Justice Relationship Specialty Start Date End Date Carole Siu MD [address] [phone] PCP - General Family Practice 10/27/16 documented as of this encounter
--- OUTSIDE RECORDS SUMMARY | 2025-02-18 15:26 | XMS_ITS | Encounter Summary ---
Author Organization [facility] Address [address] [place] [address] Care Team Providers Care Ethanol Operator Name Role Phone Carole Siu MD Primary Care Provider Encounter Details Date Type Department Care Team (Late st Contact Info) Description 03/02/2005 Outpatient Historical [facility]- [place] [address] [place] [address] Bernardo Keen MD [address] [facility] [address] [place] [address] Old myocardial infarct (Primary Dx); CORON ATHEROSCL [place] CORON VESSEL; Pure hypercholesterolem; TOBACCO USE DISORDER Social History Tobacco Use Types Packs/Day Years Used Date Smoking Tobacco: Never Assessed Sex and Gender Information Value Date Recorded Sex Assigned at Not on file 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
--- OUTSIDE RECORDS SUMMARY | 2025-02-18 15:26 | XMS_ITS | Encounter Summary ---
Author Organization [facility] Address [address] [place] [address] Care Team Providers Care Weaver Dobby Loom Name Role Phone Carole Siu MD Primary Care Provider Encounter Details Date Type Department Care Team (Latest Contact Info) Description 10/19/2003 Outpatient Historical [facility] Cardiology Ancillary Services-[facility] [address] [place] [address] Giorgi Laboy MD NO ADDRESS ON FILE CORON ATHEROSCL [place] CORON VESSEL (Primary Dx) Social History Tobacco Use Types Packs/Day Years Used Date Smoking Tobacco: Never Assessed Sex and Gender Information Value Date Recorded Sex Assigned at Not on file Legal Sex Male 3:53 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
--- OUTSIDE RECORDS SUMMARY | 2025-02-18 15:26 | XMS_ITS | Encounter Summary ---
Author Organization [facility] Address [address] [place] [address] Care Team Providers Care Compilation Clerk Name Role Phone Carole Siu MD Primary Care Provider Encounter Details Date Type Department Care Team (Late st Contact Info) Description 09/28/2003 Outpatient Historical [facility] Cardiology- [place] [address] [place] [address] Bernardo Keen MD [address] [facility] [address] [place] [address] CORON ATHEROSCL NISQUALLY CORON VESSEL (Primary Dx); ANGINA PECTORIS NEC/NOS; Pure hypercholesterolem; TOBACCO USE DISORDER Social History Tobacco Use Types Packs/Day Years Used Date Smoking Tobacco: Never Assessed Sex and Gender Information Value Date Recorded Sex Assigned at Not on file 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 Male 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 Gender Identity Not on file Sexual Orientation Not on file documented as of this encounter Plan of Treatment Not on file documented as of this encounter Visit Diagnoses Diagnosis Coronary atherosclerosis of jam[place] coronary artery- Primary Other and unspecified angina pectoris Pure hypercholesterolem Pure hypercholesterolemia Tobacco use disorder documented in this encounter Care Teams Compilation Clerk Relationship Specialty Start Date End Date Carole Siu MD [address] [facility] [address] [place] [address] PCP - General Family Practice 10/27/16 documented as of this encounter
--- OUTSIDE RECORDS SUMMARY | 2025-02-18 15:26 | XMS_ITS | Encounter Summary ---
Author Organization [facility] Address [address] Dominguez: [place] [address] Care Team Providers Care Math And Physics Instructor Name Role Phone Carole Siu MD Primary Care Provider Encounter Details Date Type Department Care Team (Late st Contact Info) Description 12/27/2000 Inpatient Historical Bernardo Keen MD [address] [facility] [address] [place] [address] Social History Tobacco Use Types Packs/Day Years Used Date Smoking Tobacco: Never Assessed Sex and Gender Information Value Date Recorded Sex Assigned at Not on file Legal Sex Male 3:53 AM ISSUER Gender Identity Not on file Sexual Orientation Not on file documented as of this encounter Plan of Treatment Not on file documented as of this encounter Visit Diagnoses Not on filedocumented in this encounter Care Teams Math And Physics Instructor Relationship Specialty Start Date End Date Carole Siu MD [address] [place] [address] PCP - General Family Practice 10/27/16 documented as of this encounter
--- OUTSIDE RECORDS SUMMARY | 2025-02-18 15:26 | XMS_ITS | Clinical Summary ---
Author Organization [facility] [facility] Address [address] [address] [place] [address] Phone Care Team Providers Care Rubber Attacher Name Role Phone Carole Siu MD Primary Care Provider Allergies Active Allergy Reactions Criticality Noted Date Comments Flu Vaccine 2010 (36 Mos+)(Pf) Dizziness Low 11/14/2016 Mirabegron Rash Low 01/20/2019 Niacin Other (See Comments) 12/22/2016 I turn red and speckly Medications aspirin (ECOTRIN EC) 81 mg Tablet, Delayed Release (E.C.) Take 81 mg by mouth daily. Active Nebulizer & Compressor For Neb Device Use as directed four times daily. Dx J44.9, COPD. Length of need: 99. 1 Each 12/24/19 Active Diabetic Supplies, Miscellan. Kit One touch glucometer DX: code E11.9 npi#[id number] check blood sugar one time daily. 1 Kit 01/02/20 Active blood sugar diagnostic Strip DX:code E11.9 check blood sugar 1 time daily NPI# [id number]. 50 Strip 5 01/02/20 Active lancets DX:code E11.9 NPI# [id number] check blood sugar 1 time daily 33 g. 100 Each 5 01/02/20 17 Active bipap svIndications:Cent ral sleep apnea ASV BiLevel of EPAP 8/ Max PS 5/ Min PS 17 cwp, 5 BPM Length Of Need: 99 mo full face, with headgear 1 per 6 month, mask only1 per 3 mo,2 cushions per mo. Tubing heated 1 per 3 mo, water chamber 1 per 6 months, chin strap 1 per 6 months, filters disposable 2 per month, reusable 1 per 6 months.. 1 Each 09/21/19 18 Active naphazoline-phenir amine (VISINE-A) 0.025-0.3 % solutionIndication s:Allergic conjunctivitis of both eyes Administer 1 Drop in both eyes 3 times daily as needed for Allergies or Rash or Redness. 15 mL 10/13/19 18 Active power wheelchairIndicati ons:Cervical cord compression with myelopathy ([facility]),Injury of cervical spinal cord, subsequent encounter ([facility]) Order is for Roho power wheelchair seat cushion. 1 Each 1 05/09/20 18 Active Catheter (BARDEX ALL-SILICONE GRAVES CATH) 16 FrIndications:Neur ogenic bladder,Chronic indwelling Graves catheter Change graves catheter monthly.. 1 Each 06/13/20 18 Active Drainage Bag 2,000 mLIndications:Neur ogenic bladder,Chronic indwelling Graves catheter Urine drainage bag, change once to twice monthly.. 2 Each 06/13/20 18 Active OTHERIndications:L ymphedema of both lower extremities [place], unbleached, 4in X 25 YDS quantity of 1 Hydrogel, skintegrity, 1oz, Niraj BTL quantity of 1 Padding band, 5.9inX3.3 YD quantity of 1 Bandage, Shortstretch, 8CMX5M, 3.15 X 5.47 YD quantity of 4 Bandage, Shortstretch, 30MUS2A, 3.94 X 5.47 YD quantity of 4 Bandage, Shortstretch, 26SLA7K, 4.72X5.47YD quantity of 4 [place] Bias cut, 1VGN1JFS, sterile quantity of 1 Tape, surgical, transpore, 4OBD60RH quantity of 1. 1 Each 11 06/14/20 18 Active oxymetazoline (AFRIN SINUS, OXYMETAZOLINE,) 0.05 % [place], Non-Aerosol Administer 2 Sprays in each nostril 1 time daily as needed for Congestion Up to 3 days . Active Nebulizer Accessories Kit Use to administer Albuterol Solution. 1 Kit 11 08/22/19 Active power wheelchairIndicati ons:Impaired physical mobility,Injury of cervical spinal cord, subsequent encounter ([facility]),Cervical cord compression with myelopathy ([facility]),Cervical stenosis of spinal canal,Lumbar disc herniation,DDD (degenerative disc disease), cervical,Edema, unspecified type,Pressure injury of skin of ankle, unspecified injury stage, unspecified laterality Face to Face completed within 6 months: yes Length of Need: 99 months. 1 Each 09/12/19 19 Active docusate sodium (COLACE CLEAR) 50 mg capsule Take 1 Capsule (50 mg) by mouth 2 times daily. 60 Capsule 5 12/19/19 19 Active mupirocin (BACTROBAN) 2 % Ointment APPLY OINTMENT TOPICALLY TO AFFECTED AREA TWICE DAILY. 22 Gram 1 12/23/19 20 Active olopatadine (Pataday) 0.2 % solutionIndication s:Acute allergic conjunctivitis of both eyes Administer 1 Drop in both eyes daily. 2.5 mL 5 02/17/20 20 Active mupirocin calcium (BACTROBAN) 2 % Cream APPLY CREAM TO AFFECTED AREA TWICE DAILY 15 Gram 2 03/01/20 20 Active portable oxygenIndications: COPD with hypoxia ([facility]) Home fill oxygen system with concentrator 2 L per nasal cannula 1 Each 05/26/20 Active tiotropium (SPIRIVA) 18 mcg capsule Take 18 mcg by inhalation daily. Active fluticasone propionate (FLONASE) 50 mcg/spray [place], Suspension nasal inhalerIndications :Allergic rhinitis, unspecified seasonality, unspecified trigger Administer 2 Sprays in each nostril daily. 16 Gram 1 06/11/20 Active Additional Information Patient taking differently:2 [place] Both NostrilsDAILY PRN, Reported on 09/10/2020 cetirizine (ZyrTEC) 10 mg tabletIndications: Allergic rhinitis, unspecified seasonality, unspecified trigger Take 1 Tablet (10 mg) by mouth daily. 30 Tablet 1 06/11/20 Active metFORMIN (GLUCOPHAGE XR) 500 mg Extended Release 24 hour tablet TAKE 2 TABLETS BY MOUTH IN THE MORNING AND AT BEDTIME 360 Tablet 2 07/05/20 20 Active fluticasone-umecli dinium-vilanterol (TRELEGY ELLIPTA) 100-62.5-25 mcg Disk with Device Take 1 Puff by inhalation daily. 1 Each 6 08/09/20 20 Active nystatin-triamcino lone (MYCOLOG) 100,000-0.1 unit/gram-% Ointment APPLY OINTMENT TOPICALLY TO AFFECTED AREA TWICE DAILY 30 Gram 1 08/16/19 21 Active neomycin-polymyxin -hydrocortisone (CORTISPORIN) 3.5-10,000-1 mg/mL-unit/mL-% otic solution Administer 3 Drops in both ears 4 times daily. 10 mL 08/18/19 21 Active triamcinolone acetonide (KENALOG) 0.1 % Cream Apply to affected area 2 times daily. 30 Gram 1 08/18/19 21 Active simvastatin (ZOCOR) 40 mg tablet TAKE 1 TABLET BY MOUTH AT BEDTIME 90 Tablet 09/01/19 21 Active Dulera 100-5 mcg/actuation inhaler INHALE 2 PUFFS BY MOUTH TWICE DAILY 13 Gram 10 09/01/19 21 Active Additional Information Patient taking differently: TWO TIMES DAILY PRN, Reported on 09/10/2020 power wheelchairIndicati ons:Impaired physical mobility Face to Face completed within 6 months: yes Length of Need: 99 months. This is an order for repair of his power wheelchair controlled it is malfunctioning and he is running into things 1 Each 10/06/19 21 Active spironolactone (ALDACTONE) 25 mg tablet Take 1 tablet by mouth once daily 90 Tablet 10/27/19 21 Active OTHERIndications:I njury of cervical spinal cord, sequela,Wheelchair confinement Wheelchair repair and replacement of parts as needed required. 1 Each 11/25/19 21 Active furosemide (LASIX) 40 mg tablet TAKE 1 AND 1/2 TABLETS BY MOUTH EVERY MORNING AND AT BEDTIME 90 Tablet 10 12/02/19 21 Active albuterol (PROVENTIL,VENTOLI N) 2.5 mg /3 mL (0.083 %) Solution for Nebulization NEBULIZE ONE VIAL FOUR TIMES A DAY NEEDED 360 mL 10 12/04/19 21 Active Blood-Glucose Meter (Blood Glucose Monitoring) Kit Use as directed daily to check blood sugars. Dx: E11.98, #100 lancets, #100 test strips. Brand covered by patient's insurance. 1 Kit 12/21/19 Active ipratropium bromide (ATROVENT) 0.02 % Solution Take 2.5 mL (0.5 mg) by inhalation 4 times daily as needed for Shortness of Breath. Add to Albuterol solution. 300 mL 1 12/30/19 Active ezetimibe (ZETIA) 10 mg tablet TAKE 1 TABLET BY MOUTH EVERY NIGHT AT BEDTIME 90 Tablet 1 01/06/20 Active traMADoL (ULTRAM) 50 mg tabletIndications: Cervical cord compression with myelopathy (CMS/HCC),Cervical stenosis of spinal canal,Lumbar disc herniation Take 1 tablet by mouth twice daily as needed for pain 60 Tablet 01/25/20 Active Active Problems Problem Noted Date Diagnosed Date Dependence on wheelchair 08/23/2020 Pulmonary emphysema 08/23/2020 Peripheral vascular disease 06/09/2020 Overview (06/09/2020): ADDED PER PVQ RESPONSE DOS 05.26.2020 Type 2 diabetes mellitus with diabetic polyneuro massiel 06/09/2020 Overview (06/09/2020): ADDED PER PVQ RESPONSE DOS 05.26.2020 Calcified granuloma of lung 06/09/2020 Overview (06/09/2020): ADDED PER PVQ RESPONSE DOS 05.26.2020 Primary osteoarthritis of right foot 10/09/2019 Type 2 diabetes mellitus with hyperglycemia 09/13 Elevated troponin 09/08/2019 Puncture wound of left foot 06/30/2019 Deviated nasal septum 10/05/2017 Hypertrophy of nasal turbinates 10/05/2017 Type 2 diabetes mellitus wit h diabetic peripheral angiopathy without gangrene, without long-term current use of insulin 01/01/2017 Overview (06/09/2020): ADDED PER PVQ RESPONSE DOS 05.26.2020 COPD with exacerbation 12/22/2016 Lymphedema of both lower extremities 12/22/2016 Atherosclerosis of [place] coronary artery of [place] heart 12/22/2016 History of [place] (myocardial infarction) 12/22/2016 Overview (12/22/2016): Age 41 Obstructive sleep apnea 12/22/2016 Overview (12/22/2016): With home orders for BiPAP Rhinitis medicamentosa 10/29/2016 Pilonidal cyst without infection 09/13/2016 Perirectal abscess 09/13/2016 Lumbar disc herniation 01/26/2016 Spinal cord injury, cervical region, subsequent encounter 01/26/2016 Overview (06/09/2020): incomplete, h/o C6-7 ACDF CHANGED PER PVQ RESPONSE DOS 05.26.2020 Cervical stenosis of spinal canal 01/26/2016 DDD (degenerative disc disease), cervical 2015 Lumbar facet arthropathy 01/26/2016 Cervical cord compression with myelopathy 2015 Cigarette dependence 06/11/2015 Resolved Problems Problem Noted Date Diagnosed Date Resolved Date Acute respiratory failure wi th hypoxia and hypercapnia 09/09/2019 09/12/2019 Chest pain 09/08/2019 09/12/2019 Immunizations Immunization Administration Dates Next Due ([facility])(7 YRS UP) TETANUS AND DIPHTHERIA TOXOIDS, ADSORBED (5 LF OF TETANUS TOXOID AND 2 LF OF DIPHTHERIA TOXOID), 0.5ML (PF), IM 06/30/2019 Influenza Seasonal Unspecified Formulation IM Family History Medical History Relation Name Comments Heart Disease Father Colon Cancer Mother Cancer Sister Relation Name Status Comments Father Mother Sister Social History Tobacco Use Types Packs/Day Years Used Date Smoking Tobacco: Every Day Cigarettes 0.5 40 Smokeless Tobacco: Never Tobacco Cessation:Ready to Q uit: Yes; Counseling Given: Yes Alcohol Use Standard Drinks/Week Comments Yes 0 (1 standard drink = 0.6 oz pur e alcohol) occasional (every 3-6 months) Feeling Safe Answer Date Recorded Within the [...] and Family Not on file 05/26/2020 Attends [employer] Not on file 05/26 Do you belong to any clubs o r organizations such as adventist groups, unions, fraternal or athletic groups, or school groups? Yes 05/26/2020 Attends Club or Organization Meetings Not on saivta e 05/26/2020 Marital Status Not on file 05/26/2020 Financial Resource Strain Answer Date R ecorded How hard is it for you to pa y for the very basics like food, housing, medical care, and heating? Very hard 05/26/2020 Food Insecurity Answer Date Recorded Within the past 12 months, y ou worried that your food would run out before you got the money to buy more. Never true 09/08/19 20 Within the past 12 months, t he food you bought just didn't last and you didn't have money to get more. Never true 09/08/2019 Transportation Needs Answer Date Record ed In the past 12 months, has l ack of transportation kept you from medical appointments or from getting medications? Yes 05/13 In the past 12 months, has l ack of transportation kept you from meetings, work, or from getting things needed for daily living? Yes 05/26/2020 Education Answer Date Recorded What is the highest level of school you have completed or the highest degree you have received? 12th grade 05/26/2020 Sex and Gender Information Value Date Recorded Sex Assigned at Not on file Legal Sex Male 3:53 AM TEACHER OF THE VISUALLY IMPAIRED Gender Identity Not on file Sexual Orientation Not on file Last Filed Vital Signs Vital Sign Reading Time Taken Comments Blood Pressure 122/69 09/10/2020 1:30 PM TEACHER OF THE VISUALLY IMPAIRED Pulse 86 09/10/2020 11:56 AM TEACHER OF THE VISUALLY IMPAIRED Temperature 36.4 C (97.5 F) 09/10/2020 1:30 PM TEACHER OF THE VISUALLY IMPAIRED Respiratory Rate 20 09/10/2020 1:30 PM TEACHER OF THE VISUALLY IMPAIRED Oxygen Saturation 95% 09/10/2020 1:30 PM TEACHER OF THE VISUALLY IMPAIRED Inhaled Oxygen Concentration - - Weight 104.6 kg (230 lb 11.2 oz) 2020 11:16 AM TEACHER OF THE VISUALLY IMPAIRED Height 170.2 cm (5' 7 ) 09/10/2020 11:1 6 AM TEACHER OF THE VISUALLY IMPAIRED Body Mass Index 36.13 09/10/2020 11:16 AM TEACHER OF THE VISUALLY IMPAIRED Plan of Treatment Health Maintenance Due Date Last Done Comments FIT/ DNA Q 3 YEARS (AUTO ORDER) 1976 FIT/FOBT Q 1 YEAR (AUTO ORDER) 1976 FLEX SIG/CT COLONOGRAPHY Q 5 YEARS (AUTO ORDER) 1976 PNEUMOCOCCAL VACCINE 50+ YEA RS (1 of 2 - PCV) 1977 FIT-DNA Q 3 years 2003 FIT/FOBT Q 1 year 2003 Flex Sig/CT Colonography Q 5 years 2003 ZOSTER VACCINE (1 of 2) 2008 RSV VACCINE (60+ or ) (1 - Risk 60-74 years 1-dose series) 2018 DTAP/TDAP/TD VACCINES (1 - Tdap) 07/01/2019 06/30/20 19 DIABETES MICROALBUMIN ANNUAL SCREEN 06/30/2020 06/30/2019 COLORECTAL CANCER SCREENING (AUTO ORDER) 04/13/2021 04/13/2011 COLORECTAL SCREENING 04/13/2021 04/13/2011 Colorectal Cancer Screening (AUTO ORDER) 04/13/2021 Colorectal Cancer Screening 04/13/2021 LDL CHOLESTEROL ANNUAL 05/26/2021 0, 06/30/2019, 08/26/2018, Additional history exists DIABETES ANNUAL FOOT EXAM 08/18/20212020, 07/31/2019, 07/31/2019 DIABETES ANNUAL RETINAL EXAM 07/20/2022 07/20/2021, 06/30/2019 Medicare [place]) Preventative Visit/Annual Wellness Visit 08/13/2024 05/26/2020 DIABETES HBA1C Q 6 MONTHS 11/12/20242023, 05/13/2024, 05/26/2020, Additional history exists INFLUENZA VACCINE (#1) 2025 , 08/18/2020, 05/26/2020, Additional history exists Procedures Procedure Name Priority Date/Time Associated Diagnosis Comments LDL CHOLESTEROL, DIRECT Routine 05/26/2020 11:16 AM CDT Type 2 diabetes mellitus with hyperglycemia, without long-term current use of insulin ([facility]) HEMOGLOBIN A1C Routine 05/26/2020 11:16 AM CDT Type 2 diabetes mellitus with hyperglycemia, without long-term current use of insulin ([facility]) MICROALBUMIN/CREATIN INE RATIO, RANDOM UR Routine 06/30/2019 11:36 AM TEACHER OF THE VISUALLY IMPAIRED Type 2 diabetes mellitus without complication, without long-term current use of insulin ([facility]/HCC) ENDOSCOPY, COLON, SCREENING Routine 04/13/2011 from Last 3 Months or Most Recently Relevant to Health Maintenance Results * LDL CHOLESTEROL, DIRECT (05/26/2020 11:16 AM CDT) LDL CHOLESTEROL, DIRECT 67 <100 mg/dL 05/26/2020 9:06 PM CDT [facility] Blood Collection / Unknown 05/26/2020 11:16 AM CDT 05/26/2020 7:45 PM CDT Narrative [facility] - 05/26/2020 9:06 PM CDT LDL CHOLESTEROL mg/dL LDL <70, OPTIMAL if have Atherosclerotic cardiovascular disease (ASCVD) or intermediate or higher (>7.5%) 10 year risk of ASCVD including most adults with diabetes. LDL <100, Optimal in adult patients with low (<7.5%) 10 year ASCVD risk LDL 100-160, Suboptimal LDL >160, High LDL >190, Very high Based on AHA/NCEP guidelines Eliud GARLAND CHEMISTRY ORDERABLES Final Re sult [facility] CLIA# [id number] [facility] [place] [address] * (ABNORMAL) HEMOGLOBIN A1C (05/26/2020 11:16 AM CDT) HEMOGLOBIN A1C 7.2(H) See Comment % 05/26/2020 8:18 PM CDT [facility] EST. AVG GLUCOSE, A1C 160 mg/dL 05/26/2020 8:18 PM CDT [facility] Blood Collection / Unknown 05/26/2020 11:16 AM CDT 05/26/2020 7:44 PM CDT Narrative [facility] - 05/26/2020 8:18 PM CDT HGB A1C INTERPRETATION NORMAL: <5.7% PRE-DIABETES: 5.7 - 6.4% DIABETES: 6.5% OR GREATER Falsely low A1C measurements can occur when: 1. Anemia and/or hemolytic anemia is present. 2. Hemoglobin variants present. 3. Renal failure. 4. Transfusion of blood product in the last 120 days. We recommend ordering a fructosamine test([id number]) to more accurately assess glycemic status if any of the above conditions are present. us Eliud GARLAND CHEMISTRY ORDERABLES Final Re sult [facility] CLIA# [id number] [address] [place] [address] * (ABNORMAL) MICROALBUMIN/CREATININE RATIO, RANDOM UR (06/30/2019 11:36 AM TEACHER OF THE VISUALLY IMPAIRED) MICROALBUMIN, URINE 22.2 No Reference Range mg/dL 06/30/2019 9:34 PM [facility] CREATININE, URINE 162.8 40.0 - 278.0 mg/dL 06/30/2019 9:34 PM [facility] Comment:Reference Range vari es with fluid intake and diet. MICROALBUMIN/ CREAT RATIO, UR 136.4(H) <17.0 mg/g 06/30/2019 9:34 PM [facility] Urine URINE SPECIMEN OBTAINED BY CLEAN CATCH PROCEDURE / Unknown Collection / Unknown 06/30/2019 11:36 AM TEACHER OF THE VISUALLY IMPAIRED 06/30/2019 7:43 PM TEACHER OF THE VISUALLY IMPAIRED Narrative [facility] - 06/30/2019 9:34 PM TEACHER OF THE VISUALLY IMPAIRED Condition Microalbumin/Creat ratio Normal Males <17 Normal Females <25 Microalbuminuria Males 17-299 Microalbuminuria Females 25-299 Overt proteinuria >=300 Eliud GARLAND URINE ORDERABLES Final Result [facility] RICCO# [id number] [address] [place] [address] * ENDOSCOPY, COLON, SCREENING (04/13/2011) Abstract Spg Provider GI PROCEDURE ORDERABLES Fi nal Result from Last 3 Months or Most Recently Relevant to Health Maintenance Insurance [address] [place], [place] [address] [place] Member Subscriber Plan / Payer (Ef fective 2016-Present) Name:Luis E Mota Relation to Subscriber:Self Name:Luis E Mota Payer ID:[id number] Group ID:Not on file Type:Medicaid Address: [address] Advance Directives For more information, please contact: [phone] * Full Code (Latest Code Status on File) Date Activated Date Inactivated Comments 09/08/2019 7:42 AM 09/12/2019 5:30 PM * Full Code Date Activated Date Inactivated Comments 10/05/2017 12:30 PM 10/05/2017 2:48 PM * Full Code Date Activated Date Inactivated Comments 01/02/2017 11:25 AM 01/02/2017 4:34 PM * Full Code Date Activated Date Inactivated Comments 01/02/2017 8:20 AM 01/02/2017 11:25 AM * Full Code Date Activated Date Inactivated Comments 12/22/2016 12:42 PM 12/23/2016 3:30 PM Care Teams Rubber Attacher Relationship Specialty Start Date End Date Carole Siu MD [address] [id number] PCP - General Family Practice 10/27/16
--- OUTSIDE RECORDS SUMMARY | 2025-02-18 15:26 | XMS_ITS | Patient Health Record ---
Author Organization [facility] Address [address], [place] [id number] Care Team Providers Care Clinical Sciences Professor Name Role Phone Khoa LAUREANO, David Primary Care Provider Fredi Anne MD, Juan Unavailable [phone] Reason For Referral No Information Medications Medication SIG (Take, Route, Frequency, Duration) Notes Start Date End Date Status cyclobenzaprine 10 mg 1 tab(s) orally TI D, prn for 5 day(s) Active aspirin 81 mg 1 tab(s) orally once a day for 30 day(s) Active hydroCHLOROthiazide 25 mg 1 tab(s) orall y once a day for 30 day(s) Active raNITIdine 150 mg 1 tab(s) orally once a day (at bedtime) for 30 day(s) Activ e gabapentin 300 mg 3 cap(s) orally @ hs for 30 day(s) Active Zetia 10 mg 1 tab(s) orally once a day for 30 day(s) Active simvastatin 80 mg 1 tab(s) orally once a day (at bedtime) for 30 day(s) Activ e [place] 325 mg-5 mg 1 tab(s) orally Q6H, prn for 5 day(s) Active Plan Of Treatment No Information Insurance Providers Payer Name Payer Address Payer Phone Subscriber Number Group Number Insured Name Patient Relationship to Insured Coverage Start Date Coverage End Date S Medicare Part B Claims Department [address] [address] [place] [address] [id number] NakulAnne lubinall Self - patient is the insured [place] [address] [place] [address] [id number] Luis E Mota Self - patient is the insured Medical (General) History Medical History History ICD Code Chronic pain syndrome Gastroesophageal disease Coronary artery disease Angina Hypercholesterolemia Hypertension Myocardial infarction Neck pain Low back pain Surgical History Surgery Date(Month/Year) Angioplasty with stent placement 2000 Left shoulder surgery 1977 Neck surgery 10/2005 Low back 1997 Hospitalization History Reason Date(Month/Year) Myocardial infarction 2000
[2025-02-18 15:41] VITALS: BP 130/83; PULSE 90; RESP 18; TEMP 36.9; O2SAT 100
--- NOTE | 2025-02-18 17:32 | PC.NURSE ---
pt refused ultrasound PIV.
--- NOTE | 2025-02-18 17:55 | W.ED.GENADLT ---
HPI - General Adult General: Chief complaint: General Medical Stated complaint: Needs Picc Time Seen by Provider: 02/18/25 15:40 History of Present Illness: Patient is a 64-year-old male who presents from the long term with a request for PICC line placement. The patient has been diagnosed with a urinary tract infection based on urinalysis results, and IV Zosyn was ordered for treatment. The long term staff attempted peripheral IV access but were unsuccessful, prompting the request for PICC line placement. Prior to transfer, the long term had contacted the PICC line nurse at [facility] but were informed that placement could not be done today due to scheduling constraints. Despite being told that PICC line placement could be scheduled for tomorrow, the patient was still sent to the Emergency Department. The patient has aphasia secondary to a previous CVA. He denies any acute pain or discomfort and is reported to be at his baseline neurological status. Related Data Home Medications ?Medication ?Instructions ?Recorded ?Confirmed acetaminophen 325 mg tablet 650 mg PO QID PRN Pain 11/09/24 01/01/25 bisacodyl 10 mg rectal suppository 10 mg NH DAILY PRN Constipation 11/09/24 01/01/25 budesonide 0.5 mg/2 mL suspension 0.5 mg inhalation BID PRN Wheezing 11/09/24 01/01/25 for nebulization chlorhexidine gluconate 0.12 % 15 ml buccal TID 11/09/24 01/01/25 mouthwash cyclobenzaprine 10 mg tablet 10 mg PO Q8H PRN Muscle Spasm 11/09/24 01/01/25 olopatadine 0.1 % eye drops 1 drp ophthalmic (eye) BID PRN 11/09/24 01/01/25 allergic conjunctivitis polyethylene glycol 3350 17 17 g PO DAILY 11/09/24 01/01/25 gram/dose oral powder (Miralax) polyvinyl alcohol-povidone (PF) 2 drp ophthalmic (eye) QID PRN Dry 11/09/24 01/01/25 1.4 %-0.6 % eye drops in a Eyes dropperette gabapentin 600 mg tablet 600 mg PO Q6H 11/13/24 01/01/25 oxycodone 10 mg tablet 10 mg PO Q6H PRN Pain 04/03/25 05/22/25 simethicone 40 mg/0.6 mL oral See Rx Instructions .Route .COMPLEX 11/13/24 01/01/25 drops,suspension amino acids-protein 30 ea PO DAILY 01/01/25 01/01/25 hydrolysate-fiber 15 gram-100 kcal/30 mL liquid (Pro-Stat Renal Care) multivitamin with minerals-folic 1 tab PO DAILY 01/01/25 01/01/25 acid 400 mcg-lycopene 370 mcg tablet (One-A-Day Men's 50 Plus) nystatin 100,000 unit/gram topical 1 applic topical BID 01/01/25 01/01/25 cream ondansetron HCl 4 mg tablet 4 mg PO Q6H PRN Nausea And Vomiting 01/01/25 01/01/25 Allergies Allergy/AdvReac Type Severity Reaction Status Date / Time doxycycline Allergy Intermediate RASH/SWELLI Verified 03/28/24 09:31 NG adhesive tape Allergy ALGY-Bliste Verified 03/28/24 09:31 r clindamycin Allergy ALGY-Hives Verified 03/28/24 09:31 Influenza Virus Vaccines Allergy Unknown Verified 03/28/24 09:31 mirabegron (From Myrbetriq) Allergy Unknown Verified 03/28/24 09:31 niacin Allergy Unknown Verified 03/28/24 09:31 PFS ED PFSH: Medical History (Updated 02/18/25 @ 18:10 by Juan Price MD) Spinal cord injury After a fall Malignant neoplasm of supraglottis Cancer, epiglottis Gluteal pain COPD exacerbation Supraglottic lesion Epiglottic lesion Laryngeal cancer Leg swelling Asthma exacerbation in COPD Pressure ulcer Chronic hypertrophic rhinitis COVID-19 Malar rash Acute non-recurrent pansinusitis Orchitis and epididymitis Hypokalemia Urethral stricture Osteomyelitis Foot osteomyelitis with cellulitis treated with vancomycin GERD (gastroesophageal reflux disease) Obstructive sleep apnea COPD (chronic obstructive pulmonary disease) Cervical vertebral fusion Myocardial infarction Status post stent placement Foot drop Heart failure with preserved ejection fraction Lymphedema Dyslipidemia Hypertension Surgical History S/P cystourethroscopy with dilation of urethral stricture Previous back surgery H/O cardiac catheterization H/O shoulder surgery Family History Other Hypertension Social History Smoking and tobacco/nicotine status: former use of tobacco/nicotine Quit status (tobacco/nicotine): has quit using Year quit tobacco: 2020 - 1.5 PPD x 40 Years Second hand smoke exposure: No Alcohol intake: current Alcohol intake frequency: holidays/special occasions only Substance/Drug Use: never Caregiver/support person: Yes Lives independently: Yes Household members: spouse Housing: House Marital status: Current occupational status: disabled Do you think of yourself as: Straight/Heterosexual Current gender identity: Male Course Vital Signs: Vital signs: Vital Signs Temperature 98.5 F 02/18/25 15:41 Pulse Rate 90 02/18/25 15:41 Respiratory Rate 18 02/18/25 15:41 Blood Pressure 130/83 02/18/25 15:41 Pulse Oximetry 100 02/18/25 15:41 MDM - General Adult Medical Decision Making ROS: Constitutional: No fever, chills, or malaise reported. Genitourinary: History of urinary tract infection per long term records. Neurological: Baseline aphasia from previous CVA. All other systems: Patient denies any acute complaints or discomfort. MEDICATIONS AND ALLERGIES: - Meds: IV Zosyn (ordered for UTI) - Allergies: None reported PAST HISTORICAL DATA: - PMH: History of cerebrovascular accident (CVA) with residual aphasia, urinary tract infection - Social: Chronic long term resident PHYSICAL EXAM: General: Alert, chronically ill appearing, in no distress HEENT: Head normocephalic and atraumatic. Respiratory: No increased work of breathing, no wheezing Cardiac: Regular rate and rhythm, 2+ pulses in all extremities Abdomen: Soft, non-distended, no rebound or guarding Neuro: Aphasia present, consistent with baseline per long term report. INITIAL IMPRESSION AND PLAN: Given the history and presentation, the primary working diagnosis is urinary tract infection requiring IV antibiotic therapy. Additional considerations include the need for vascular access for medication administration. Based on this initial impression I will order placement of a peripheral IV to allow for administration of the prescribed IV Zosyn at the long term. Will communicate with the long term regarding scheduling of PICC line placement for tomorrow as originally discussed with the PICC line nurse. PROCEDURES: Peripheral IV placement performed to facilitate administration of IV antibiotics at long term. CONSIDERED BUT NOT PERFORMED: PICC line placement CONSIDERED but NOT DONE due to unavailability of PICC line nurse and prior arrangement for placement tomorrow. Peripheral IV was placed as an alternative for immediate antibiotic administration needs. FINAL IMPRESSION: Based on all the above, my clinical impression is most compatible with urinary tract infection requiring IV antibiotic therapy, with unsuccessful peripheral IV access at long term necessitating ED visit for vascular access. The clinical picture is not currently suggestive of sepsis, acute stroke, or other acute medical conditions requiring emergency intervention. Although other conditions were also considered, they were deemed unlikely based on the clinical information available. CLINICAL DISPOSITION: The patient's current condition is stable in my estimation and the most appropriate and indicated disposition at this time is return to long term with peripheral IV access for administration of prescribed IV antibiotics. The patient is appropriate for return to the long term as he is at his baseline neurological status with no acute distress or new symptoms. The primary issue of vascular access has been addressed with peripheral IV placement. The long term can administer the prescribed IV Zosyn as originally ordered, and arrangements for PICC line placement tomorrow can proceed as previously discussed with the PICC line nurse. RISK STRATIFICATION AND CLINICAL DECISION RULES APPLIED: No formal clinical decision rules were applied in this case as the presentation was straightforward regarding the need for vascular access for antibiotic administration. CASE SUMMARY: 64-year-old male long term resident with history of CVA and aphasia presented to ED for PICC line placement after long term was unable to establish peripheral IV access for administration of IV Zosyn for diagnosed UTI. Prior to transfer, long term had contacted [facility] PICC line nurse who indicated placement could be scheduled for tomorrow but was not available today. Despite this, patient was sent to ED. Examination revealed patient at baseline with no acute distress or new symptoms. Peripheral IV was successfully placed in the ED to allow for antibiotic administration at the long term. Patient was returned to long term with instructions to proceed with scheduled PICC line placement tomorrow as originally arranged. Communication with long term staff regarding plan of care was completed. No radiology studies performed this visit Discharge Plan Discharge Patient Disposition: Home Clinical Impression: Encounter for intravenous line placement Condition: Stable Prescriptions: No Action gabapentin 600 mg tablet 600 mg PO Q6H simethicone 40 mg/0.6 mL Drops,Suspension See Rx Instructions .ROUTE .COMPLEX Rx Instructions: TAKE 1.2 ML BY MOUTH 4 TIMES DAILY FOR GAS oxycodone 10 mg Tablet 10 mg PO Q6H PRN (Reason: Pain) ondansetron HCl 4 mg Tablet 4 mg PO Q6H PRN (Reason: Nausea And Vomiting) nystatin 100,000 unit/gram Cream 1 applic TOPICAL BID Pro-Stat Renal Care 15-100 gram-kcal/30 mL Liquid 30 ea PO DAILY One-A-Day Men's 50 Plus 400-370 mcg Tablet 1 tab PO DAILY cyclobenzaprine 10 mg tablet 10 mg PO Q8H PRN (Reason: Muscle Spasm) acetaminophen 325 mg Tablet 650 mg PO QID PRN (Reason: Pain) bisacodyl 10 mg Suppository 10 mg NH DAILY PRN (Reason: Constipation) olopatadine 0.1 % drops 1 drp ophthalmic (eye) BID PRN (Reason: allergic conjunctivitis) budesonide 0.5 mg/2 mL suspension for nebulization 0.5 mg inhalation BID PRN (Reason: Wheezing) polyethylene glycol 3350 [Miralax] 17 gram/dose Powder 17 g PO DAILY polyvinyl alcohol-povidon(PF) 1.4-0.6 % Dropperette 2 drp OPHTHALMIC (EYE) QID PRN (Reason: Dry Eyes) chlorhexidine gluconate 0.12 % Mouthwash 15 ml BUCCAL TID Discharge Orders: Discharge ED (Routine); Ordered 02/18/25 Ordered By: Juan Price Referrals: Eliud Jenkins FNP [Primary Care Provider, Family Practice] Patient Instructions: Opioid Safety, Pain Management, Patient Portal & [facility] Instructions Activity Restrictions/Additional Instructions: DISCHARGE INSTRUCTIONS: DIAGNOSIS: Urinary tract infection requiring IV antibiotics INSTRUCTIONS: 1. Return to long term with peripheral IV in place 2. Continue with IV Zosyn as prescribed for urinary tract infection 3. Proceed with scheduling PICC line placement tomorrow as previously discussed. 4. Maintain adequate hydration 5. Monitor for signs of worsening infection RETURN TO ER IMMEDIATELY IF: - Fever greater than 101.5?F (38.6?C) - Increased confusion or change in mental status - Severe pain or discomfort - Difficulty breathing - Inability to take fluids - Any other concerning symptoms Print Language: Citizen Of [place] Coding Level of Care Code ED Diesel Truck 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
[2025-02-18] MEDS: oxyCODONE-APAP 5-325 mg Tablet 1 TAB PO (20:14)
[2025-02-18 21:47] VITALS: BP 130/78; PULSE 78; RESP 16; O2SAT 98
== END 2025-02-18 21:49 | disposition home or self-care (01) ==
PROVIDERS: Emergency Provider Student in an Organized Health Care Education/Training Program; PCP Nurse Practitioner Family
DX: Z45.2 Encounter for adjustment and management of vascular access device (principal); Z87.891 Personal history of nicotine dependence; J44.9 Chronic obstructive pulmonary disease, unspecified; E78.5 Hyperlipidemia, unspecified; I10 Essential (primary) hypertension
CPT/HCPCS: 99283; J9999

== ENCOUNTER 2025-05-30 01:39 | Emergency (ER) | payer MEDICARE, MEDICAID, SELFPAY ==
[2025-05-30] VITALS (7 sets, daily range): BP systolic 93–113; BP diastolic 63–75; PULSE 79–98; RESP 16–20; TEMP 36.9; O2SAT 91–99; BMI 24.6
--- OUTSIDE RECORDS SUMMARY | 2025-05-30 01:57 | XMS_ITS | Encounter Summary ---
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 Gender Identity Not on file Sexual Orientation Not on file documented as of this encounter Plan of Treatment Not on file documented as of this encounter Procedures Procedure Name Priority Date/Time Associated Diagnosis Comments CT CERVICAL SPINE WO CONTRAST Routine 08/27/2005 2:22 PM GLASS SMOOTHER documented in this encounter Results * CT CERVICAL SPINE WO CONTRAST (08/27/2005 2:22 PM GLASS SMOOTHER) Anatomical Region Laterality Modality Spine Other 08/27/2005 2:22 PM GLASS SMOOTHER Narrative 08/27/2005 2:[address] CERVICAL SPINE HISTORY: Trauma and lower [...] on filedocumented in this encounter Care Teams Manager Income Tax Relationship Specialty Start Date End Date Carole Siu MD [address] [phone] PCP - General Family Practice 10/27/16 documented as of this encounter
--- OUTSIDE RECORDS SUMMARY | 2025-05-30 01:57 | XMS_ITS | Encounter Summary ---
Author Organization [facility] Address [address] 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
--- OUTSIDE RECORDS SUMMARY | 2025-05-30 01:57 | XMS_ITS | Encounter Summary ---
Author Organization 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
--- OUTSIDE RECORDS SUMMARY | 2025-05-30 01:57 | XMS_ITS | Encounter Summary ---
Author Organization [facility] Address [address] [place] [address] Care Team Providers Care Level Vial Marker Name Role Phone Carole Siu MD Primary Care Provider Encounter Details Date Type Department Care Team (Late st Contact Info) Description 01/28/2001 Outpatient Historical [facility] [address] [place] [address] Bernardo Keen MD [address] [facility] [address] [place] [address] Acute myocardial infarction of other inferior wall, initial episode of care (Primary Dx) Social History Tobacco Use Types Packs/Day Years Used Date Smoking Tobacco: Never Assessed Sex and Gender Information Value Date Recorded Sex Assigned at Not on file Legal Sex 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 [address] [place] [address] PCP - General Family Practice 10/27/16 documented as of this encounter
--- OUTSIDE RECORDS SUMMARY | 2025-05-30 01:57 | XMS_ITS | Encounter Summary ---
Author Organization [facility] Address [address] [place] [address] Care Team Providers Care It Systems Analyst Name Role Phone Seth May MD Primary Care Provider [phone] Encounter Details Date Type Department Care Team (Latest Contact Info) Description 01/11/[address] [facility] General Laboratory Services [place] [address] [place] [address] Corinna Marks, [facility] [address] [facility] [address] [place] [address] Peripheral vascular disease, unspecified; Type 2 diabetes mellitus with diabetic peripheral angiopathy without gangrene (CMS/HCC); Methicillin resistant Staphylococcus aureus infection, unspecified site; Osteomyelitis, unspecified ([facility]) Social History Tobacco Use Types [...] and Family Not on file 05/26/2020 Attends [employer] Not on file 05/26 Do you [...] on file Legal Sex Male 12:44 PM 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 Gender Identity Not on file Sexual [...] 136 - 145 mmol/L 01/11/2024 1:11 PM [facility] POTASSIUM 3.9 3.5 - 5.1 mmol/L 01/11/2024 1:11 PM [facility] CHLORIDE 97(L) 98 - 107 mmol/L 01/11/2024 1:11 PM [facility] CO2 31(H) 22 - 29 mmol/L 01/11/2024 1:11 PM [facility] CALCIUM 9.4 8.8 - 10.2 mg/dL 01/11/2024 1:11 PM [facility] BUN 15 8 - 23 mg/dL 01/11/2024 1:11 PM [facility] CREATININE 0.59(L) 0.67 - 1.17 mg/dL 01/11/2024 1:11 PM [facility] GLUCOSE 149(H) 74 - 99 mg/dL 01/11/2024 1:11 PM [facility] TOTAL PROTEIN 7.2 6.6 - 8.7 g/dL 01/11/2024 1:11 PM [facility] ALBUMIN 3.5 3.5 - 5.2 g/dL 01/11/2024 1:11 PM [facility] BILIRUBIN TOTAL 0.2 <=1.2 mg/dL 01/11/2024 1:11 PM [facility] ALKALINE PHOSPHATASE 161(H) 40 - 129 U/L 01/11/2024 1:11 PM [facility] AST 17 10 - 50 U/L 01/11/2024 1:11 PM [facility] ALT 17 10 - 50 U/L 01/11/2024 1:11 PM [facility] GFR >60 >=60 mL/min/1.7 3 sq meter 01/11/2024 1:11 PM [facility] Comment:eGFR calculated with 2020 CKD-EPI equation. Vegetarian diet, extremely high or low muscle mass, and may affect results. Cystatin C with Glomerular Filtration Rate is a suitable alternative for these patients. ANION GAP 8(L) 12 - 20 mmol/L 01/11/2024 1:11 PM [facility] Blood 01/11/2024 12:5 4 PM CDT 01/11/2024 12:54 PM CDT Corinna Marks DNP CHEMISTRY ORDERABLES Final Result [facility] CLIA # [id number] [address] [place] [address] * (ABNORMAL) CBC WITH DIFFERENTIAL (01/11/2024 12:54 PM CDT) WBC 6.6 4.2 - 9.1 K/uL 01/11/2024 12:59 PM [facility] RBC 4.21(L) 4.63 - 6.08 M/uL 01/11/2024 12:59 PM [facility] HEMOGLOBIN 12.6(L) 13.7 - 17.5 g/dL 01/11/2024 12:59 PM [facility] HEMATOCRIT 38.9(L) 40.1 - 51.0 % 01/11/2024 12:59 PM [facility] MCV 92.4(H) 79.0 - 92.2 fL 01/11/2024 12:59 PM [facility] MCH 29.9 25.7 - 32.2 pg 01/11/2024 12:59 PM [facility] MCHC 32.4 32.3 - 36.5 g/dL 01/11/2024 12:59 PM [facility] RDW 14.6(H) 11.0 - 14.5 % 01/11/2024 12:59 PM [facility] RDW-STDEV 49.1 36.9 - 56.9 fL 01/11/2024 12:59 PM [facility] PLATELETS 270 130 - 400 K/uL 01/11/2024 12:59 PM [facility] MPV 9.2(L) 10.0 - 14.8 fL 01/11/2024 12:59 PM [facility] NEUTROPHILS 65 34 - 68 % 01/11/2024 12:59 PM [facility] LYMPHOCYTES 13(L) 22 - 53 % 01/11/2024 12:59 PM [facility] MONOCYTES 12 5 - 12 % 01/11/2024 12:59 PM [facility] EOSINOPHILS 9(H) 1 - 7 % 01/11/2024 12:59 PM [facility] BASOPHILS 1 0 - 1 % 01/11/2024 12:59 PM [facility] IMMATURE GRANULOCYTES 0 % 01/11/2024 12:59 PM [facility] NEUTROPHIL ABSOLUTE 4.29 1.78 - 5.38 K/uL 01/11/2024 12:59 PM [facility] LYMPHOCYTE ABSOLUTE 0.88(L) 1.20 - 3.40 K/uL 01/11/2024 12:59 PM [facility] MONOCYTE ABSOLUTE 0.77 0.30 - 0.82 K/uL 01/11/2024 12:59 PM [facility] EOSINOPHIL ABSOLUTE 0.58(H) 0.04 - 0.54 K/uL 01/11/2024 12:59 PM [facility] BASOPHILS ABSOLUTE 0.03 0.01 - 0.08 K/uL 01/11/2024 12:59 PM [facility] IMMATURE GRANULOCYTES ABSOLUTE 0.02 K/uL 01/11/2024 12:59 PM CDT [facility] Blood 01/11/2024 12:5 4 PM CDT 01/11/2024 12:54 PM CDT us Corinna Mancuso Marks DNP HEMATOLOGY ORDERABLES Kemi beba Result [facility] CLIA # [id number] [address] [place] [id number] documented in this encounter Visit Diagnoses Diagnosis Peripheral vascular disease, unspecified Type 2 diabetes mellitus with diabetic peripheral angiopathy without gangrene Type II or unspecified type diabetes mellitus with peripheral circulatory disorders, not stated as uncontrolled Methicillin resistant Staphylococcus aureus infection, unspecified site Osteomyelitis, unspecified documented in this encounter Additional Health Concerns Infection Onset Date Last Indicated Resolved Time MRSA Comment:Resolved per Type and Duration of Precautions Recommended for Selected Infections and Conditions document 2023 update 12/26/2023 12/26/2023 04/28/20 11:37 AM CDT Assessment Noted Time PHQ-9 Depression Total Score: 1 09/12/19 11:15 AM 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
--- OUTSIDE RECORDS SUMMARY | 2025-05-30 01:57 | XMS_ITS | Encounter Summary ---
Author Organization [facility] Address [address] [place] [address] Care Team Providers Care Deicer Inspector Pneumatic Name Role Phone Carole Siu MD Primary Care Provider [phone] Encounter Details Date Type Department Care Team (Latest Contact Info) Description 01/28/2001 Outpatient Historical [facility] Cardiology- [place] [address] [place] [address] Bernardo Keen MD [address] [facility] [address] [place] [address] Coronary atherosclerosis of [place] coronary artery (Primary Dx); Pure hypercholesterolem Social History Tobacco Use Types Packs/Day Years Used Date Smoking Tobacco: Never Assessed Sex and Gender Information Value Date Recorded Sex Assigned at Not on file Legal Sex Male 3:53 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
--- OUTSIDE RECORDS SUMMARY | 2025-05-30 01:57 | XMS_ITS | Clinical Summary ---
Author Organization [facility] Address [address] [facility] [address] [place] [address] Phone Care Team Providers Care Heel Coverer Name Role Phone Seth May MD Primary Care Provider [phone] Allergies Active Allergy Reactions Criticality Noted Date [...] (CMS/HCC),Injury of cervical spinal cord, subsequent encounter Order is for Roho power wheelchair seat cushion. 1 Each 018 Active Catheter 16 FrIndications:Jre rogenic bladder,Chronic indwelling Bueno catheter Change bueno catheter monthly.. 1 Each Active OTHERIndications: Lymphedema of both lower extremities Stockinette, unbleached, 4in X 25 YDS quantity of 1Hydrogel, skintegrity, 1oz, Niraj BTL quantity of 1Padding band, 5.9inX3.3 YD quantity of 1Bandage, Shortstretch, 8CMX5M, 3.15 X 5.47 YD quantity of 4Bandage, Shortstretch, 56NJM8P, 3.94 X 5.47 YD quantity of 4Bandage, Shortstretch, 81LOK4B, 4.72X5.47YD quantity of 4Stockinette Bias cut, 1UOA1TLH, sterile quantity of 1Tape, surgical, transpore, [id number] quantity of 1. 1 Each Active Drainage [...] needed for Shortness of Breath. 360 mL 10 Active OTHERIndications: COPD with hypoxia (CMS/HCC),Chronic obstructive pulmonary disease, unspecified COPD type (CMS/HCC) Large Oxygen mask with tubing. 2 Each Active Miscellaneous Medical SupplyIndications :COPD with hypoxia (CMS/HCC),Chronic respiratory failure with hypoxia (CMS/HCC) Oxy mask to be used at 2 L a minute per nasal cannula 2 Each 021 Active lancets DX:code E11.9 NPI# [id number] check blood sugar 1 time daily 33 [...] check blood sugar 1 time daily NPI# [id number]. 50 Strip 5 Active fluticasone propionate (Xhance) 93 mcg/actuation Aerosol [...] gangrene, without long-term current use of insulin One touch glucometer or other approved machine [...] ns:Chronic obstructive pulmonary disease with acute exacerbation ([facility]/HCC) Take 2.5 mL (0.5 mg) by inhalation every 12 hours as needed for Shortness of Breath. 100 mL 3 023 Active OTHERIndications: Spinal cord injury, cervical region, subsequent encounter Wheelchair repair: Wheel Chair repair and cushion and back replacement. Motor repair as needed 1 Each 023 Active OneTouch Delica Plus Lancet 33 gauge USE 1 LANCET TO CHECK GLUCOSE ONCE DAILY 100 Each 024 Active traMADoL (ULTRAM) 50 mg tabletIndications :Cervical stenosis of spinal canal,Cervical cord compression with myelopathy ([facility]/HCC),Lumbar disc herniation Take 1 Tablet (50 mg) [...] ns:MRSA infection,Osteomy elitis, unspecified site, unspecified type ([facility]),High risk medication use DISSOLVE 1 TABLET ON [...] Chronic obstructive pulmonary disease 12/22/2016 Atherosclerosis of [place] coronary artery of fantasma esdras heart 12/22/2016 Lymphedema of both lower extremities 12/22/2016 History of PA (myocardial infarction) 12/22/2016 Overview (12/09/2020): Age 41 [...] ACDF CHANGED PER PVQ RESPONSE DOS 05.26.2020 incomplete, h/o C6-7 ACDF CHANGED PER PVQ RESPONSE DOS 10 Lumbar facet arthropathy 01/26/2016 Cervical cord compression with myelopathy 2015 Cigarette dependence 06/11/2015 Resolved Problems Problem Noted Date Diagnosed Date Resolved Date Pulmonary emphysema 08/23/2020 04/02/20 23 Controlled type 2 diabetes m ellitus without complication, without long-term current use of insulin 06/09/2020 04/02/2023 Overview (12/10/2020): ADDED PER PVQ RESPONSE DOS 05.26.2020 Type 2 diabetes mellitus with hyperglycemia 09/26/2019 04/02/2023 Acute respiratory failure wi th hypoxia and hypercapnia 09/09/2019 09/12/2019 Chest pain 09/08/2019 09/12/2019 Encounters Date Type Department Care Team Description 04/29/2025 External Device Data STL ABSTRACTION Provider, Abstract 04/08/2025 Telephone [facility] Vascular Surgery [address] [phone] Fer Luque NP Appointment Notification 04/08/2025 Orders Only [facility] Vascular Surgery [address] [phone] Fer Luque NP Peripheral arterial disease (Primary Dx) 03/18/2025 External Device Data STL ABSTRACTION Provider, Abstract from Last 3 Months Immunizations Immunization Administration Dates Next Due ([facility]7 Y[facility] UP) TETANUS AND DIPHTHERIA TOXOIDS, ADSORBED [...] and Family Not on file 05/26/2020 Attends Orthodoxy Services Not on file 05/26 Do you belong to any clubs o r organizations such as anabaptism groups, unions, fraternal or athletic groups, or [...] on file Legal Sex Male 12:44 PM INVESTIGATOR NARCOTICS Gender Identity Not on file Sexual Orientation [...] 04/18/2023 2, 05/27/2021, 05/27/2021, Additional history exists DIABETES MICROALBUMIN ANNUAL SCREEN 07/30/2024 07/30/2023, 01/02/2023, 02/24/2022, Additional history exists DIABETES HBA1C Q 6 MONTHS 11/12/20242023, 05/13/2024, 01/17/2024, Additional history exists INFLUENZA VACCINE (#1) 2025 , 05/02/2022, 08/18/2020, Additional history exists Medical Devices Implanted Type Area Steam Press Tender Device Identifier Shelf Expiration Date Model / Serial / Lot Sealant Mynx Stone Finisher 6-7fr [id number] - [id number] Implanted:Qty: 1 on 12/26/2023 by Neil Kiser MD at [facility] Closure Device N/A: Groin CORDIS [id number] 04/12/2025 [id number] / / [id number] Sealant Mynx Stone Finisher 6-7fr [id number] - [id number] Implanted:Qty: 1 on 12/26/2023 by Neil Kiser MD at [facility] Closure Device N/A: Groin CORDIS [id number] 04/12/2025 [id number] / / [id number] Stent Viabahn Vbx 7fr 9x39mm 135cm Bx2 [id number] - [id number] Implanted:Qty: 1 on 12/26/2023 by Neil Kiser MD at [facility] Stent N/A: Iliac Artery [employer] [id number] 09/16/2026 [id number] / [id number] / Stent Viabahn Vbx 7fr 9x39mm 135cm Bx2 [id number] - [id number] Implanted:Qty: 1 on 12/26/2023 by Neil Kiser MD at [facility] Stent N/A: Iliac Artery [employer] [id number] 09/16/2026 [id number] / [id number] / Procedures Procedure Name Priority Date/Time Associated Diagnosis Comments HEMOGLOBIN A1C Routine 01/17/2024 1:45 PM CDT Type 2 diabetes mellitus with diabetic peripheral angiopathy without gangrene, without long-term current use of insulin (CMS/HCC) MICROALBUMIN/CREATI NINE RATIO, RANDOM UR Routine 07/30/2023 3:22 PM INVESTIGATOR NARCOTICS Controlled type 2 diabetes mellitus without complication, unspecified whether oil heaterman insulin use (CMS/[facility]) LIPID PANEL Routine 04/18/2022 8:44 AM CDT Controlled type 2 diabetes mellitus without complication, unspecified whether half-way insulin use (CMS/[facility]) HM DIABETES EYE EXAM Routine 07/20/2021 ENDOSCOPY, COLON, SCREENING 04/13/2011 12:00 AM CDT from Last 3 Months or Most Recently Relevant to Health Maintenance Results * (ABNORMAL) HEMOGLOBIN A1C (01/17/2024 1:45 PM CDT) HEMOGLOBIN A1C 6.3(H) <5.7 % of total Hgb [facility] Comment: For someone without known diabetes, [...] children. ESTIMATED AVERAGE GLUCOSE (MG/DL) 134 mg/dL [facility] ESTIMATED AVERAGE GLUCOSE (MMOL/L) 7.4 mmol/L [facility] Comment: This test was performed on the Manny donald c503 platform. Effective 10/29/23, a change in test platforms from the Parrish Dietary Cook to the Manny donald c503 may have shifted HbA1c results compared to historical results. Based on laboratory validation testing conducted at [facility], the Manny platform relative to the Parrish [...] platforms is not recommended. Test Performed at: [facility] [address] Tatiana Eid MD Blood 01/17/2024 1:45 PM CDT 01/18/2024 4:33 AM CDT us Corinna Marks DNP CHEMISTRY ORDERABLES Final Result Performing Organization Address City/[facility]/ZIP Co de Phone Number [facility] [phone] [facility] [place] [address] * MICROALBUMIN/CREATININE RATIO, RANDOM UR (07/30/2023 3:22 PM INVESTIGATOR NARCOTICS) Creatinine, Urine 73 20 - 320 mg/dL [facility] MICROALBUMIN, URINE 1.1 See Note: mg/dL [facility] Comment: Reference Range: Reference Range [...] within a diagnostic category. Test Performed at: [facility] [address] Tatiana Eid MD Urine URINE SPECIMEN OBTAINED BY CLEAN CATCH PROCEDURE / Unknown 07/30/2023 3:22 PM INVESTIGATOR NARCOTICS 07/31/2023 4:18 AM INVESTIGATOR NARCOTICS us Carole Siu MD URINE ORDERABLES Final Resu lt Performing Organization Address City/[facility]/ZIP Co de Phone Number [facility] [phone] [facility] [place] [address] * (ABNORMAL) LIPID PANEL (04/18/2022 8:44 AM CDT) Pathologist [facility] CHOLESTEROL 222(H) <200 mg/dL [facility] HDL 27(L) > OR = 40 mg/dL [facility] TRIGLYCERIDE 182(H) <150 mg/dL [facility] [...] of LDL-C. Waqas SS et al. MAC. 2013;310(23): 9644-5431 (http://education.Panther Express/faq/FTE033) CHOL/HDL RATIO 8.2(H) <5.0 (calc) [facility] TOTAL NON-HDL CHOL(LDL+VLDL) 195(H) <130 mg/dL (calc) [facility] Comment: For patients with diabetes plus 1 major ASCVD risk factor, treating to a non-HDL-C goal of <100 mg/dL (LDL-C of <70 mg/dL) is considered a therapeutic option. Test Performed at: [facility] [id number] [place] [address] Michael Barrera D.O., MPH Blood 04/18/2022 8:44 AM CDT 04/19/2022 4:47 AM CDT Carole Siu MD CHEMISTRY ORDERABLES Final Result [facility] [phone] [facility] [address] [place] [address] * DIABETES EYE EXAM (07/20/2021) us Abstract Provider HEALTH MAINTENANCE Final Resul t * ENDOSCOPY, COLON, SCREENING (04/13/2011 12:00 AM CDT) us Sgf Scanning GI PROCEDURE ORDERABLES Final Re sult from Last 3 Months or Most Recently Relevant to Health Maintenance Insurance [place] Member Subscriber Plan / Payer (Ef fective 2021-Present) Name:Luis E Mota Relation to Subscriber:Self Name:Luis E Mota Payer ID:Not on file Group ID:Not on file Type:Medicaid Address: [address] [id number] BCBS MEDICARE HMO [facility] DUAL ADVANTAGE O [facility] RX [facility] Medicare Part D RX [employer] Medicaid Care Teams Heel Coverer Relationship Specialty Start Date End Date Seth May MD [address] [phone] PCP - General Family Practice 01/31/24
--- OUTSIDE RECORDS SUMMARY | 2025-05-30 01:57 | XMS_ITS | Encounter Summary ---
Author Organization [facility] Address [address] [place] [address] Care Team Providers Care Mechanic/Welder Name Role Phone Carole Siu MD Primary Care Provider Reason for Referral * Outpatient Services (Routine) - Closed Specialty Diagnoses / Procedures Referred By Kirk t Referred To Contact Radiology Diagnoses Chronic back pain Procedures MRI LUMBAR WO CONTRAST Eliud Jenkins Sr., FNP [address] [place] [address] Phone: tel: fax: [facility] [address] [place] [address] Phone: tel: fax: Referral ID Status Reason Start Date Expiration Date V isits Requested Visits Authorized [id number] Closed [facility] View CTS to Schedule (SGF) 07/07/2015 08/06/2016 1 1 IESEL PLANT MANAGER Encounter Details Date Type Department Care Team (Latest Contact Info) Description 07/07/2015 Ancillary Orders [facility] Scheduling [address] [place] [phone] Eliud Jenkins Sr., FNP [address] [place] [address] Chronic back pain (Primary Dx) [...] on file Legal Sex Male 3:53 AM BIODIESEL PLANT MANAGER Gender Identity Not on file Sexual Orientation Not on file documented as of this encounter Plan of Treatment Not on file documented as of this encounter Results * MRI LUMBAR WO CONTRAST (07/13/2015 1:44 PM BIODIESEL PLANT MANAGER) Anatomical Region Laterality Modality Spine Magnetic Resonan ce 07/13/2015 12:5 5 PM BIODIESEL PLANT MANAGER Impressions 07/13/2015 1:57 PM BIODIESEL PLANT MANAGER IMPRESSION: See report below. Exam: MRI LUMBAR [...] is present at L4-L5. Eliud Jenkins Sr., SHODDY MILL WORKER MR ORDERABLES F inal Result documented in this encounter Visit Diagnoses Diagnosis Chronic back pain- Primary Backache, unspecified Chronic back pain Backache, unspecified documented in this encounter Care Teams Mechanic/Welder Relationship Specialty Start Date End Date Carole Siu MD [address] [phone] PCP - General Family Practice 10/27/16 documented as of this encounter
--- OUTSIDE RECORDS SUMMARY | 2025-05-30 01:57 | XMS_ITS | Encounter Summary ---
Author Organization [facility] Address [address] [place] [address] Care Team Providers Care Oracle Applications Analyst Name Role Phone Carole Siu MD Primary Care Provider [phone] Encounter Details Date Type Department Care Team (Latest Contact Info) Description 10/17/2001 Outpatient Historical [facility] CARDIOVASCULAR KeenBernardo quezada MD [address] [facility] [address] [place] [address] CORON ATHEROSCL [place] CORON VESSEL (Primary Dx); [place] INFER SUBSEQNT EPISD CARE ([facility]); Benign hypertension; Pure hypercholesterolem Social History Tobacco Use Types Packs/Day Years Used Date Smoking Tobacco: Never Assessed Sex and Gender Information Value Date Recorded Sex Assigned at Not on file Legal Sex Male 3:53 AM PRODUCT OPERATIONS ASSOCIATE Gender Identity Not on file Sexual Orientation Not on file documented as of this encounter Plan of Treatment Not on file documented as of this encounter Visit Diagnoses Diagnosis Coronary atherosclerosis of [place] coronary artery- Primary Acute myocardial infarction of other inferior wall, subsequent episode of care Benign hypertension Essential hypertension, benign Pure hypercholesterolem Pure hypercholesterolemia documented in this encounter Care Teams Oracle Applications Analyst Relationship Specialty Start Date End Date Carole Siu MD [address] [place] [address] PCP - General Family Practice 10/27/16 documented as of this encounter
--- OUTSIDE RECORDS SUMMARY | 2025-05-30 01:57 | XMS_ITS | Encounter Summary ---
Author Organization [facility] Address [address] [place] [address] Care Team Providers Care President And Chief Executive Officer Name Role Phone Carole Siu MD Primary Care Provider Reason for Referral * Outpatient Services (Routine) - Closed Specialty Diagnoses / Procedures Referred By Kirk t Referred To Contact Radiology Diagnoses Osteomyelitis Procedures CT FOOT WO CONTRAST RIGHT Eliud Jenkins Sr., FNP [address] [place] [address] Phone: tel: fax: [facility] CT [facility] [place] [address] [place] [address] Phone: tel: fax: Referral ID Status Reason Start Date Expiration Date V isits Requested Visits Authorized [id number] Closed [facility] View CTS to Schedule (SGF) 05/15/2014 06/15/2015 1 1 Encounter Details Date Type Department Care Team (Latest Contact Info) Description 05/15/2014 Ancillary Orders [facility] Centralized Scheduling [address] [place] [phone] Eliud Jenkins Sr., FNP [address] [place] [address] Osteomyelitis ([facility]) (Primary Dx) Social History Tobacco Use Types Packs/Day Years Used Date Smoking Tobacco: Every Day Cigarettes 1 40 Smokeless Tobacco: Never Alcohol Use Standard Drinks/Week Comments No 0 (1 standard drink = 0.6 oz pur e alcohol) Sex and Gender Information Value Date Recorded Sex Assigned at Not on file Legal Sex Male 3:53 AM RESOURCE TEACHER Gender Identity Not on file Sexual Orientation [...] no osteomyelitis appreciated by CT us Eliud Jeknins Sr., FOOD SAFETY FIELD SPECIALIST CT ORDERABLES F inal Result documented in this encounter Visit Diagnoses Diagnosis Osteomyelitis Unspecified osteomyelitis, site unspecified Osteomyelitis- Primary Unspecified osteomyelitis, site unspecified documented in this encounter Care Teams President And Chief Executive Officer Relationship Specialty Start Date End Date Carole Siu MD [address] [address] PCP - General Family Practice 10/27/16 documented as of this encounter
--- OUTSIDE RECORDS SUMMARY | 2025-05-30 01:57 | XMS_ITS | Encounter Summary ---
Author Organization [facility] Address [address] [place] [address] Care Team Providers Care Global Transportation Manager Name Role Phone Carole Siu MD Primary Care Provider Encounter Details Date Type Department Care Team (Latest Contact Info) Description 08/27/2005 Outpatient Historical [facility] [address] [place] [address] AMBULANCE, [facility] VIEW SKIN SENSATION DISTURB (Primary Dx) Social History Tobacco Use Types Packs/Day Years Used Date Smoking Tobacco: Never Assessed Sex and Gender Information Value Date Recorded Sex Assigned at Not on file Legal Sex Male 3:53 AM LEASING PROPERTY MANAGER Gender Identity Not on file Sexual Orientation Not on file documented as of this encounter Plan of Treatment Not on file documented as of this encounter Visit Diagnoses Diagnosis Disturbance of skin sensation- Primary documented in this encounter Care Teams Global Transportation Manager Relationship Specialty Start Date End Date Carole Siu MD [address] [place] [address] PCP - General Family Practice 10/27/16 documented as of this encounter
--- OUTSIDE RECORDS SUMMARY | 2025-05-30 01:57 | XMS_ITS | Encounter Summary ---
Author Organization [facility] Address [address] [place] [address] Care Team Providers Care Real Estate Rental Agent Name Role Phone Carole Siu MD Primary Care Provider Encounter Details Date Type Department Care Team (Latest Contact Info) Description 10/19/2003 Outpatient Historical [facility] Cardiology Ancillary Services-[place] [address] [place] [address] Giorgi Laboy MD NO ADDRESS ON FILE CORON ATHEROSCL [place] CORON VESSEL (Primary Dx) Social History Tobacco Use Types Packs/Day Years Used Date Smoking Tobacco: Never Assessed Sex and Gender Information Value Date Recorded Sex Assigned at Not on file Legal Sex Male 3:53 AM THEATRICAL AGENT Gender Identity Not on file Sexual Orientation Not on file documented as of this encounter Plan of Treatment Not on file documented as of this encounter Visit Diagnoses Diagnosis Coronary atherosclerosis of [place] coronary artery- Primary documented in this encounter Care Teams Real Estate Rental Agent Relationship Specialty Start Date End Date Carole Siu MD [address] [facility] [address] [place] [address] PCP - General Family Practice 10/27/16 documented as of this encounter
--- OUTSIDE RECORDS SUMMARY | 2025-05-30 01:57 | XMS_ITS | Encounter Summary ---
Author Organization [facility] Address [address] [place] [address] Care Team Providers Care Front End Developer Designer Name Role Phone Carole Siu MD Primary Care Provider Encounter Details Date Type Department Care Team (Late st Contact Info) Description 09/28/2003 Outpatient Historical [facility] Cardiology- [place] [address] [place] [address] Bernardo Keen MD [address] [facility] [address] [place] [address] CORON ATHEROSCL [place] CORON VESSEL (Primary Dx); ANGINA PECTORIS NEC/NOS; Pure hypercholesterolem; TOBACCO USE DISORDER Social History Tobacco Use Types Packs/Day Years Used Date Smoking Tobacco: Never Assessed Sex and Gender Information Value Date Recorded Sex Assigned at Not on file Legal Sex Male 3:53 AM DIRECTOR OF CATEGORY MANAGEMENT Gender Identity Not on file Sexual Orientation Not on file documented as of this encounter Plan of Treatment Not on file documented as of this encounter Visit Diagnoses Diagnosis Coronary atherosclerosis of [place] coronary artery- Primary Other and unspecified angina pectoris Pure hypercholesterolem Pure hypercholesterolemia Tobacco use disorder documented in this encounter Care Teams Front End Developer Designer Relationship Specialty Start Date End Date Carole Siu MD [address] [address] [place] [address] PCP - General Family Practice 10/27/16 documented as of this encounter
--- OUTSIDE RECORDS SUMMARY | 2025-05-30 01:57 | XMS_ITS | Clinical Summary ---
Author Organization [employer] iew Address [address] [place] [address] Phone Care Team Providers Care Balance Truer Name Role Phone Carole Siu MD Primary [...] Kit One touch glucometer DX: code E11.9 npi#[id number] check blood sugar one time daily. 1 Kit 01/02/20 Active blood sugar diagnostic Strip DX:code E11.9 check blood sugar 1 time daily NPI# [id number]. 50 Strip 5 01/02/20 Active lancets DX:code E11.9 NPI# [id number] check blood sugar 1 time daily 33 [...] power wheelchairIndicati ons:Cervical cord compression with myelopathy (CMS/HCC),Injury of cervical spinal cord, subsequent encounter Order is for [facility] power wheelchair seat cushion. 1 Each 1 [...] 5.47 YD quantity of 4 Bandage, Shortstretch, [id number], 3.94 X 5.47 YD quantity of 4 Bandage, Shortstretch, [id number], 4.72X5.47YD quantity of 4 Stockinette Bias cut, [id number], sterile quantity of 1 Tape, surgical, transpore, [id number] quantity of 1. 1 Each 06/14/20 18 Active oxymetazoline (AFRIN SINUS, OXYMETAZOLINE,) 0.05 % Acton, Non-Aerosol Administer 2 Sprays in each nostril 1 time daily as needed for Congestion Up to 3 days . Active Nebulizer Accessories Kit Use to administer Albuterol Solution. 1 Kit 11 08/22/19 Active power wheelchairIndicati ons:Impaired physical mobility,Injury of cervical spinal cord, subsequent encounter,Cervical cord compression with myelopathy (CMS/HCC),Cervical stenosis of spinal canal,Lumbar disc herniation,DDD (degenerative [...] AREA TWICE DAILY. 22 Gram 1 12/23/19 Active olopatadine (Pataday) 0.2 % solutionIndication s:Acute allergic conjunctivitis of both eyes Administer 1 Drop in both eyes daily. 2.5 mL 5 02/17/20 20 Active mupirocin calcium (BACTROBAN) 2 % Cream APPLY CREAM TO AFFECTED AREA TWICE DAILY 15 Gram 2 03/01/20 Active portable oxygenIndications: COPD with hypoxia (CMS/HCC) Home fill oxygen system with concentrator 2 L per nasal cannula 1 Each 05/26/20 20 Active tiotropium (SPIRIVA) 18 mcg capsule Take 18 mcg by inhalation daily. Active fluticasone propionate (FLONASE) 50 mcg/spray Acton, Suspension nasal inhalerIndications :Allergic rhinitis, unspecified seasonality, unspecified trigger Administer 2 Sprays in each nostril daily. 16 Gram 1 06/11/20 Active Additional Information Patient taking differently:2 Acton Both NostrilsDAILY PRN, Reported on 09/10/2020 cetirizine [...] BY MOUTH AT BEDTIME 90 Tablet 09/01/19 Active Dulera 100-5 mcg/actuation inhaler INHALE 2 PUFFS BY MOUTH TWICE DAILY 13 Gram 10 09/01/19 Active Additional Information Patient taking differently: TWO TIMES DAILY PRN, Reported on 09/10/2020 power wheelchairIndicati ons:Impaired physical mobility Face to Face completed within 6 months: yes Length of Need: 99 months. This is an order for repair of his power wheelchair controlled it is malfunctioning and he is running into things 1 Each 10/06/19 Active spironolactone (ALDACTONE) 25 mg tablet Take 1 tablet by mouth once daily 90 Tablet 10/27/19 Active OTHERIndications:I njury of cervical spinal cord, sequela,Wheelchair confinement Wheelchair repair and replacement of parts as needed required. 1 Each 11/25/19 Active furosemide (LASIX) 40 mg tablet TAKE 1 AND 1/2 TABLETS BY MOUTH EVERY MORNING AND AT BEDTIME 90 Tablet 10 12/02/19 Active albuterol (PROVENTIL,VENTOLI N) 2.5 mg /3 mL (0.083 %) Solution for Nebulization NEBULIZE ONE VIAL FOUR TIMES A DAY NEEDED 360 mL 10 12/04/19 Active Blood-Glucose Meter (Blood Glucose Monitoring) Kit [...] as needed for pain 60 Tablet 01/25/20 21 Active Active Problems Problem Noted Date Diagnosed Date Dependence on wheelchair 08/23/2020 Pulmonary emphysema 08/23/2020 Peripheral vascular disease 06/09/2020 Overview (06/09/2020): ADDED PER PVQ RESPONSE DOS 05.26.2019 Type 2 diabetes mellitus with diabetic polyneuro massiel 06/09/2020 Overview (06/09/2020): ADDED PER PVQ RESPONSE DOS 05.26.2020 Calcified granuloma of lung 06/09/2020 Overview (06/09/2020): ADDED PER PVQ RESPONSE DOS ..2019 Primary osteoarthritis of right foot 10/09/2019 Type 2 diabetes mellitus with hyperglycemia 09/13 Elevated troponin 09/08/2019 Puncture wound of left foot 06/30/2019 Deviated nasal septum 10/05/2017 Hypertrophy of nasal turbinates 10/05/2017 Type 2 diabetes mellitus wit h diabetic peripheral angiopathy without gangrene, without long-term current use of insulin 01/01/2017 Overview (06/09/2020): ADDED PER PVQ RESPONSE DOS 10..2019 COPD with exacerbation 12/22/2016 Lymphedema of both lower extremities 12/22/2016 Atherosclerosis of [place] coronary artery of [place] heart 12/22/2016 History of IN (myocardial infarction) 12/22/2016 Overview (12/22/2016): Age 41 Obstructive sleep apnea 12/22/2016 Overview (12/22/2016): With home orders for BiPAP Rhinitis medicamentosa 10/29/2016 Pilonidal cyst without infection 09/13/2016 Perirectal abscess 09/13/2016 Lumbar disc herniation 01/26/2016 Spinal cord injury, cervical region, subsequent encounter 01/26/2016 Overview (06/09/2020): incomplete, h/o C6-7 ACDF CHANGED PER PVQ RESPONSE DOS 10.14.2019 Cervical stenosis of spinal canal 01/26/2016 DDD (degenerative disc disease), cervical 2015 Lumbar facet arthropathy 01/26/2016 Cervical cord compression with myelopathy 2015 Cigarette dependence 06/11/2015 Resolved Problems Problem Noted Date Diagnosed Date Resolved Date Acute respiratory failure wi th hypoxia and hypercapnia 09/09/2019 09/12/2019 Chest pain 09/08/2019 09/12/2019 Immunizations Immunization Administration Dates Next Due ([facility])(7 YRS UP) TETANUS AND DIPHTHERIA TOXOIDS, [...] and Family Not on file 05/26/2020 Attends [facility] [facility] Not on file 05/26 Do you belong to any clubs o r organizations such as caodaism groups, unions, fraternal or athletic groups, or [...] on file Legal Sex Male 3:53 AM WAREHOUSE HAND Gender Identity Not on file Sexual Orientation Not on file Last Filed Vital Signs Vital Sign Reading Time Taken Comments Blood Pressure 122/69 09/10/2020 1:30 PM WAREHOUSE HAND Pulse 86 09/10/2020 11:56 AM WAREHOUSE HAND Temperature 36.4 C (97.5 F) 09/10/2020 1:30 PM WAREHOUSE HAND Respiratory Rate 20 09/10/2020 1:30 PM WAREHOUSE HAND Oxygen Saturation 95% 09/10/2020 1:30 PM WAREHOUSE HAND Inhaled Oxygen Concentration - - Weight 104.6 kg (230 lb 11.2 oz) 2020 11:16 AM WAREHOUSE HAND Height 170.2 cm (5' 7 ) 09/10/2020 11:1 6 AM WAREHOUSE HAND Body Mass Index 36.13 09/10/2020 11:16 AM WAREHOUSE HAND Plan of Treatment Health Maintenance Due Date [...] Cancer Screening 04/13/2021 LDL CHOLESTEROL ANNUAL 05/26/2021 , 06/30/2019, 08/26/2018, Additional history exists DIABETES ANNUAL FOOT EXAM 08/18/20212020, 07/31/2019, 07/31/2019 DIABETES ANNUAL RETINAL EXAM 07/20/2022 07/20/2021, 06/30/2019 [place] ([place]) Preventative Visit/Annual Wellness Visit 08/13/2024 05/26/2020 DIABETES HBA1C Q 6 MONTHS 11/12/20242023, 05/13/2024, 05/26/2020, Additional history exists INFLUENZA VACCINE (#1) 2025 , 05/26/2020, 08/26/2018, Additional history exists Procedures Procedure Name Priority Date/Time Associated Diagnosis Comments LDL CHOLESTEROL, DIRECT Routine 05/26/2020 11:16 AM CDT Type 2 diabetes mellitus with hyperglycemia, without long-term current use of insulin ([facility]) HEMOGLOBIN A1C Routine 05/26/2020 11:16 AM CDT Type 2 diabetes mellitus with hyperglycemia, without long-term current use of insulin ([facility]/HCC) MICROALBUMIN/CREATIN INE RATIO, RANDOM UR Routine 06/30/2019 11:36 AM WAREHOUSE HAND Type 2 diabetes mellitus without complication, without long-term current use of insulin (CMS/HCC) ENDOSCOPY, COLON, SCREENING Routine 04/13/2011 from Last 3 Months or Most Recently Relevant to Health Maintenance Results * LDL CHOLESTEROL, DIRECT (05/26/2020 11:16 AM CDT) LDL CHOLESTEROL, DIRECT 67 <100 mg/dL 05/26/2020 9:06 PM CDT [facility] Blood Collection / Unknown 05/26/2020 11:16 AM CDT 05/26/2020 7:45 PM CDT Narrative [facility] - 05/26/2020 9:06 PM CDT LDL CHOLESTEROL mg/dL LDL <70, OPTIMAL if have Atherosclerotic cardiovascular disease (ASCVD) or intermediate or higher (>7.5%) 10 year risk of ASCVD including most adults with diabetes. LDL <100, Optimal in adult patients with low (<7.5%) 10 year ASCVD risk LDL 100-160, Suboptimal LDL >160, High LDL >190, Very high Based on AHA/NCEP guidelines us Eliud GARLAND CHEMISTRY ORDERABLES Final Re sult [facility] CLIA# [id number] [facility] [place] [address] * (ABNORMAL) HEMOGLOBIN A1C (05/26/2020 11:16 AM CDT) HEMOGLOBIN A1C 7.2(H) See Comment % 05/26/2020 8:18 PM CDT [facility] EST. AVG GLUCOSE, A1C 160 mg/dL 05/26/2020 8:18 PM CDT [facility] Blood Collection / Unknown 05/26/2020 11:16 AM CDT 05/26/2020 7:44 PM CDT Narrative [facility] - 05/26/2020 8:18 PM CDT HGB A1C INTERPRETATION NORMAL: <5.7% PRE-DIABETES: 5.7 - 6.4% DIABETES: 6.5% OR GREATER Falsely low A1C measurements can occur when: 1. Anemia and/or hemolytic anemia is present. 2. Hemoglobin variants present. 3. Renal failure. 4. Transfusion of blood product in the last 120 days. We recommend ordering a fructosamine test([id number]) to more accurately assess glycemic status if any of the above conditions are present. us Eliud GARLAND CHEMISTRY ORDERABLES Final Re sult [facility] CLIA# [id number] [facility] [place] [address] * (ABNORMAL) MICROALBUMIN/CREATININE RATIO, RANDOM UR (06/30/2019 11:36 AM WAREHOUSE HAND) MICROALBUMIN, URINE 22.2 No Reference Range mg/dL 06/30/2019 9:34 PM [facility] CREATININE, URINE 162.8 40.0 - 278.0 mg/dL 06/30/2019 9:34 PM [facility] Comment:Reference Range vari es with fluid intake and diet. MICROALBUMIN/ CREAT RATIO, UR 136.4(H) <17.0 mg/g 06/30/2019 9:34 PM [facility] Urine URINE SPECIMEN OBTAINED BY CLEAN CATCH PROCEDURE / Unknown Collection / Unknown 06/30/2019 11:36 AM WAREHOUSE HAND 06/30/2019 7:43 PM WAREHOUSE HAND Narrative [facility] - 06/30/2019 9:34 PM WAREHOUSE HAND Condition Microalbumin/Creat ratio Normal Males <17 Normal Females <25 Microalbuminuria Males 17-299 Microalbuminuria Females 25-299 Overt proteinuria >=300 Elidu GARLAND URINE ORDERABLES Final Result [facility]# [id number] [address] [place] [address] * ENDOSCOPY, COLON, SCREENING (04/13/2011) Abstract Spg Provider GI PROCEDURE ORDERABLES Fi nal Result from Last 3 Months or Most Recently Relevant to Health Maintenance Insurance [id number] [place], [place] [address] MEDICAID [place] Advance Directives For more information, please contact: [phone] * Full Code (Latest Code Status on [...] 12:42 PM 12/23/2016 3:30 PM Care Teams Balance Truer Relationship Specialty Start Date End Date Carole Siu MD [address] [id number] PCP - General Family Practice 10/27/16
--- OUTSIDE RECORDS SUMMARY | 2025-05-30 01:57 | XMS_ITS | Encounter Summary ---
Author Organization [facility] Address [address] [place] [address] Care Team Providers Care Supervisor Conditioning Yard Name Role Phone Carole Siu MD Primary Care Provider Encounter Details Date Type Department Care Team (Latest Contact Info) Description 08/14/2002 Outpatient Historical HIS [facility] KeenBernardo quezada MD [address] [place] [address] CORON ATHEROSCL [place] CORON VESSEL (Primary Dx); Benign hypertension; Pure hypercholesterolem Social History Tobacco Use Types Packs/Day Years Used Date Smoking Tobacco: Never Assessed Sex and Gender Information Value Date Recorded Sex Assigned at Not on file Legal Sex Male 3:53 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 Gender Identity Not on file Sexual Orientation Not on file documented as of this encounter Plan of Treatment Not on file documented as of this encounter Visit Diagnoses Diagnosis Coronary atherosclerosis of [place] coronary artery- Primary Benign hypertension Essential hypertension, benign Pure hypercholesterolem Pure hypercholesterolemia documented in this encounter Care Teams Supervisor Conditioning Yard Relationship Specialty Start Date End Date Carole Siu MD [address] [place] [phone] PCP - General Family Practice 10/27/16 documented as of this encounter
--- OUTSIDE RECORDS SUMMARY | 2025-05-30 01:57 | XMS_ITS | Encounter Summary ---
Author Organization [facility] Address [address] [place] [address] Care Team Providers Care Software Controls Engineer Name Role Phone Carole Siu MD Primary Care Provider Encounter Details Date Type Department Care Team (Latest Contact Info) Description 05/12/2014 Ancillary Orders [facility] Centralized Scheduling [address] [address] [address] [place] [address] Gregory Lama, GRETA Hooker [address] [place] [address] Osteomyelitis (CMS/HCC) (Primary Dx) Social History Tobacco Use Types Packs/Day Years Used Date Smoking Tobacco: Every Day Cigarettes 1 40 Smokeless Tobacco: Never Alcohol Use Standard Drinks/Week Comments No 0 (1 standard drink = 0.6 oz pur e alcohol) Sex and Gender Information Value Date Recorded Sex Assigned at Not on file Legal Sex Male 3:53 AM 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
--- OUTSIDE RECORDS SUMMARY | 2025-05-30 01:57 | XMS_ITS ---
Author Organization [facility] Virtual Care Address [facility] [place] [address] Phone Care Team Providers Care Swatch Paster Name Role Phone Kyleigh Banerjee NP Primary Care Provider [phone] Del Johnston MD Unavailable [phone] Active Problems Problem Noted Date Diagnosed Date Redness of both eyes 08/11/2024 Assessment & Plan (08/13/2024 6:04 AM MACHINE CLOTH EXAMINER): c/o both eyes itchy and watery , has been rubbing them with tissue and eyes are red with swollen eyelids, no purulent discharge Started about 2 weeks ago, prescribed PRN refresh eye drops, preservatives free and did not feel much improvement and therefore without letting the medical team and the nurses know they started using home eyedrops 2-3 times a day for past 2 weeks #1 neomycin-polymyxin and dexamethasone opht suspension and #2 Alaway ophth solution ( Ketotifen, antihistamine opht).These are now not helping. Eyes itchy, red, swollen eyelids,they requested Benadryl to help with itching ,also c/o blurry vision, but able to read with corrective lenses Consult for Ophthalmology placed , discussed with weekend csm consultant provider,who has reviewed pictures.They rec that patient stops taking home eye drops and use scheduled Patanol 0.1% ophthalmic solution 1 drop each eye twice a day, refresh Preservative free scheduled 4 times a day both eyes, refresh p.m. ointment both eyes 2 times a day for possible allergic conjunctivitis. They will not see the patient today and ask we cancel the consult but if there is no improvement with this regimen , team should be called again and consulted to see the patient Discussed with patient and family, p.r.n. Benadryl added to avoid that he rubs his eyes. Monitor: 08/11 some improvement. Much Improved on 08/12. Goals of care, counseling/discussion 07/30/2024 Assessment & Plan (09/10/2024 2:30 PM MACHINE CLOTH EXAMINER): Palliative Care following Patient and son reiterating that they wish to continue care to see if patient can improve condition from previous surgery. Started discussion 07/30am about code status. They are discussing but don't think patient would want CPR/mechanical ventilation. Readdressed 07/31. DNR/DNI. Initial plan DC to home after 08/13/2024 per CC. Family feels complex care will be difficult for them at home. Per HH, home IV infusion is not a safe plan. Now family wanting transfer to a facility near home, referrals have been made. Accepting facility-family visiting. No DC date yet. Per CC Family requesting Facility in [facility] to facilitate transport to f/up visits. Updates on 09-05 per CC: currently ECF near pt's home. Plan transfer 09/15/24. Anemia 07/25/2024 Assessment & Plan (09/15/2024 8:58 AM MACHINE CLOTH EXAMINER): Hgb drop to 6.4 on 07/24 evening from Hgb 9.0 without any sign of bleeding (stable exam per ENT and no bleeding from carotid seen), 1 unit RBC given and responded well with Hgb in 10 range afterwards. Appears to have happened in the ED once as well on 07/20 with Hgb 5.9 but no mentioning of any bleeding at that time. Unclear if 2/2 alteplase in PICC line catheter care vs iatrogenic. Monitor CBC-stable. Decrease labs to 2x/week. Hgb 10.2 on 08/07, Hgb 10.5 on 08/11. Hgb=10.7 on 08/18 Hgb 11 on 08/21 , hgb 11.2 on 08-25 Hgb 11.7 on 09-04, Hgb 11.8 on 09-06, hgb 11.7 on 09-08, stable. 09/15 Hgb=12.0 Carotid artery narrowing 07/23/2024 Assessment & Plan (07/23/2024 6:56 PM MACHINE CLOTH EXAMINER): See under laryngeal cancer section. Facial swelling 07/22/2024 Assessment & Plan (09/06/2024 3:36 PM MACHINE CLOTH EXAMINER): Left facial swelling, per patient it has been present since the surgery last admission. See under laryngeal cancer section. Esophagitis 07/22/2024 Assessment & Plan (09/05/2024 11:22 PM MACHINE CLOTH EXAMINER): Mild esophagitis noted on CT on admission. CT neck on 09-02 with esophagitis, continue PPI Decubitus ulcer of ischial a azar, right, unspecified pressure ulcer stage 07/22/2024 Assessment & Plan (09/06/2024 3:35 PM MACHINE CLOTH EXAMINER): See under sepsis. Wound consult placed wound vac 07/31. Seen 3x week by wound team. We will need to continue at transfer to facility and arrange follow-up care with Surgery. Left lower lobe pneumonia 07/21/2024 Assessment & Plan (07/22/2024 7:49 PM MACHINE CLOTH EXAMINER): Work-up -RVP negative PLAN -see plan under sepsis Urinary tract infection without hematuria 2023 Assessment & Plan (08/28/2024 12:20 PM MACHINE CLOTH EXAMINER): See under sepsis. Change chronic bueno 08/28. Hypotension, unspecified hypotension type 2023 Assessment & Plan (07/20/2024 9:42 PM MACHINE CLOTH EXAMINER): See sepsis Sepsis 07/20/2024 Assessment & Plan (09/13/2024 10:28 AM MACHINE CLOTH EXAMINER): Sepsis secondary to pneumonia/proteus UTI/new osteomyelitis of Right ischium. Possibly also cellulitis of the left face as well. Transfer from OSH, for hypotension. OSH Lab work notable for elevated WBC count 20.8 with neutrophilic predominance, normal sepsis lactate, CRP 261, elevated ESR >145, UA concerning for bacterial infection, more than 50 WBCs more than 50 RBCs, 4+ bacteria, 3+ leukocyte esterase and Urine cx+proteus UTI CT chest abdomen pelvis revealed left lower lobe pneumonia, ureteritis, new site of Osteomyelitis (right ischial decubitus ulcer). -recurrent soft BP systolic 80-90 on 07/22 afternoon, s/p 1 L fluid bolus and improved Work-up -CT C/A/P 07/20/2024: IMPRESSION: 1. Consolidation within the dependent portions of the left lower lobe with heterogenous attenuation, likely representing pneumonia which is superimposed on atelectasis and scarring. 2. Redemonstrated large sacral decubitus ulcer, which extends to the distal sacrum and coccyx where there is sclerosis and erosion, compatible with chronic osteomyelitis. 3. Mild urothelial enhancement of the ureters bilaterally, which may represent ureteritis. Recommend correlation with symptomatology and urinalysis. 4. Mild fat stranding surrounding the cervical esophagus, which may represent mild esophagitis. ADDENDUM - This addendum is being placed on the report for a non-time dependent finding on a patient who is admitted to the hospital (2C). There is a new partially imaged right ischial decubitus ulcer, which extends to the right ischial tuberosity where there is osseous erosion and sclerosis. This is compatible with a new site of osteomyelitis. -final blood culture 07/20 negative -final urine culture: proteus mirabilis -culture from the mass near the L carotid artery: prelim MSSA and proteus mirabilis -access: new PICC line placed 07/25 Plan: -see plan under laryngeal cancer as well -ACCS surgery consulted for sacral ulcer/R ischial tuberosity: - No acute surgical intervention - Overall clinical picture does not suggest right ischial decubitus ulcer as main source of sepsis - S/p bedside debridement of fibrinous exudate (see photos in media tab for before and after). Bone biopsy was deferred given lack of sterility. -ID consulted, appreciate rec -Unasyn 3 gram q6h (will cover MSSA, proteus mirabilis, usual organisms seen in ischial osteomyelitis as well---since we don't have any bone debridement culture fro the R ischium) - rec bone biopsy of the R ischial tuberosity however ACCS team unable to do it and [facility] radiology team on 07/23 unable to do it (must be prone and currently not stable enough to do it prone). Patient not stable for anesthesia guided bone biopsy at this time. -If any further debridement planned for neck area or sacral wounds, please send bacterial and mycology cultures. -He will require 6 weeks of antibiotic treatment for the new R ischial osteomyelitis, which will also cover the facial and neck infection. -08/03: ID started on IV micafungin for elmer parapsilosis in wound culture- -Initial plan complete IV unasyn/micafungin 09/07 per ID. Check repeat CT 09/01 to help form ongoing abx plan with ID - repeat CT neck done 09-03: Slight interval improvement in extensive cellulitis and edema involving bilateral deep neck spaces and left base of tongue with encasement and narrowing of the left internal carotid artery and right internal jugular vein, as described above. There is evolving asymmetric fatty atrophy of the left base of tongue, which remains concerning for malignant hypoglossal nerve involvement or sequela of infection. Increased conspicuity of skin thickening and enhancing soft tissue along the left lateral neck and larynx, which remains concerning for residual disease. No high attenuation material within the left maxillary sinus, which may represent inspissated secretions versus a fungal infection. - New drainage from left lateral neck wound 09-04, contacted ENT. - reassessed by ID 09/05, c/f Left neck wound with minimal improvement on CT, ENT input requested, if any further drainage or cx of the neck possible to tailor abx and rec continue abx (IV vs PO) after 09/07 - 09-06 ENT evaluation appreciated: team removed overlying crusting of left neck open wound, no purulence or drainage to take for culture, relatively well healing and clinically does not appear to be grossly infected this time, recs BID wet to dry dressings over left neck wound and cont to monitor right neck wound. -ID recs augmentin/diflucan x 2 weeks and then stop. Switched to oral abx 09/10- 09/23. Neurogenic bladder 05/22/2024 Assessment & Plan (09/06/2024 3:52 PM MACHINE CLOTH EXAMINER): Patient has chronic indwelling Bueno present on admission. Bueno was exchanged in ED 07/20-new bueno 08/28 - continue Bueno care for paraplegia- Family knows how to change at home per son. Assessment & Plan (05/30/2024 4:05 PM CDT): Patient has chronic indwelling Bueno present on admission. - patient without acute urinary symptoms and good urine output - continue Bueno care Paraplegia 05/22/2024 Assessment & Plan (09/06/2024 3:53 PM MACHINE CLOTH EXAMINER): Chronic paraplegia complicated by neurogenic bowel and bladder with chronic indwelling Bueno and chronic sacral wounds. Bueno was exchanged in ED 07/20 - PT/OT recommended SNF during last admission but patient declined and was discharged home - this time, PT rec correction acute care [facility]. Son at bedside 07/29 stated family unable to care for patient at home with current wounds/abx and looking for placement - not able to be accepted at LTAC, discussing care required to take patient home. Family agreeable to working towards home goal. Need training for patient care/equipment. Unlikely to happen until after 08/14/2024 per CC. Start training. Family expressing concern about being able to care for patient at home. Planning placement in ECF -Changed chronic bueno 08/28. Assessment & Plan (05/31/2024 12:14 PM CDT): Chronic paraplegia complicated by neurogenic bowel and bladder with chronic indwelling Bueno and chronic sacral wounds - PT/OT recommended SNF but patient declined - plan to discharge home when optimized Dysphagia 05/22/2024 Assessment & Plan (05/31/2024 12:17 PM CDT): Patient apparently developed dysphagia after tracheostomy and a PEG tube was placed prior to admission. Patient was seen by speech pathology and his swallow was deemed appropriate. He is therefore now on a regular diet with tube feed supplementation for malnutrition - PEG tube in place with abdominal binder - continue regular diet given normal swallowing function per MBS - continue supplemental tube feeds given need for wound healing and upcoming surgery, RD following COPD (chronic obstructive pulmonary disease) 05/2024 Assessment & Plan (05/31/2024 12:17 PM CDT): History of COPD. Uses Trelegy? and albuterol at home. He does not like trelegy because it hurts his throat, stopped. 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 S/p XRT August-November 2023. On 04/15 ENT noted large mass in the larynx and performed a tracheostomy. Patient admitted to [facility]. Sent to [facility] for ENT evaluation for salvage total laryngectomy for recurrent SCC. - PET-CT with hypermetabolic left supraglottic lesion, hypermetabolic conglomerate of necrotic left level 2 cervical lymph nodes representing metastatic disease - Per ENT, Total laryngectomy scheduled for 06/05, will keep inpatient for surgery, patient will transfer to ENT floor post-op - continue current cuffless trach and trach care, exchanged from a cuffed trach on 05/20 - possible Rad Onc involvement after ENT surgical procedure Chronic pain syndrome 05/22/2024 Assessment & Plan (09/14/2024 10:34 AM MACHINE CLOTH EXAMINER): Patient with ongoing pain 2/2 wounds from cancer surgery. On scheduled tyleol, gabapentin 300mg TID, oxycodone 15mg q4 PRN and IV dilaudid 0.2mg IV q12 PRN. 08/17 add oxycontin 20mg BID and monitor, close monitoring for side effects. Tolerating, encourage use of bowel regimen. More sleepy 2/1-hold oxycontin. Resume per patient request 2/2. Assessment & Plan (05/31/2024 12:17 PM CDT): Patient with acute on chronic left-sided neck and sacral wound pain. - scheduled Tylenol 1 g Q8, oxycodone 10mg TID PRN, dilaudid 0.5 Q4 PRN for breakthrough, flexeril TID PRN Moderate protein-calorie malnutrition 05/14/2024 Assessment & Plan (09/09/2024 1:54 AM MACHINE CLOTH EXAMINER): Continue tube feed RD consulted Loose stools making keeping wound vac more difficult . Change TF to Jevity 1.5 and add PRN imodium, no further loose stools -Also on p.o. diet Dysphagia 1 -Continue Prosource and Carmine to promote wound healing Refusing some tube feedings, drinking home supplements, taking some po Assessment & Plan (05/31/2024 12:15 PM CDT): - followed by nutrition - getting regular diet with supplemental tube feeds Osteomyelitis 05/13/2024 Assessment & Plan (09/06/2024 4:29 PM MACHINE CLOTH EXAMINER): Large chronic stage IV sacral wound with chronic osteomyelitis but imaging on admission now with concern for acute osteomyelitis of the R ischial decubitus ulcer. Patient was seen by ID during last admission 05/14 and completed antibiotics/Unasyn on 05/18. Patient is status post debridement by ACCS 05/19 and was further managed by wound care. Plastics were consulted during last admission for flap however he is not a candidate for flap given he would need a colostomy that patient declined. Plastics recommended to follow up in Wound Care Clinic on discharge. However 05/19 sacral wound cultures from OR grew Klebsiella/Proteus and ID recommended to complete short course of ertapenem 05/19-06/01. At that time, per ID, antibiotics will not be curative for underlying osteomyelitis without healing/flap coverage Work-up -CT C/A/P 07/21/24 with: new partially imaged right ischial decubitus ulcer, which extends to the right ischial tuberosity where there is osseous erosion and sclerosis. This is compatible with a new site of osteomyelitis PLAN -see plan under sepsis, -ACCS surgery consulted for sacral ulcer/R ischial tuberosity: - No acute surgical intervention - Overall clinical picture does not suggest right ischial decubitus ulcer as main source of sepsis - S/p bedside debridement of fibrinous exudate (see photos in media tab for before and after). Bone biopsy was deferred given lack of sterility. -wound consulted-wound vac placed 07/31. Wound care reassessment 09/05: per notes wounds improving Assessment & Plan (06/02/2024 1:05 PM CDT): Patient with stage 4 sacral wound with exposed bone POA complicated by osteomyelitis. Seen by ID on 05/14 and completed planned course of Unasyn on 05/18. - s/p ACCS debridement 05/19 - wound care recs per Surgery: Dakins half percent soaked kerlix BID to sacral wound x5 days, followed by vashe soaked kerlix BID until wound heals - plastic surgery was consulted for flap given you can see sacral bone in sacral wound. He is not a candidate for flap at this time given he would need a colostomy to receive the flap but he does not want a colostomy. Plastics recommended to follow up in wound care clinic on discharge - 05/19 sacral wound cx from OR grew klebsiella, proteus - ID recs: ertapenem 1g IV q24h to complete short course (05/19 - 06/01) given he had already received 6 wk course of abx. Abx will not be curative of underlying osteomyelitis without healing/flap coverage - PICC line in place Assessment & Plan (05/26/2024 2:36 PM CDT): The patient is a 63 y.o. male with PMHx of newly diagnosed OP SCC s/p trach/PEG 04/16 and partial paraplegia c/b stage 4 sacral decub x1 year who was transferred to [facility] from [facility] on 05/14 for further evaluation of SCC. Large sacral decub with exposed bone and findings c/w chronic OM on MRI. No estefany abscess on MRI. On abx since 04/28. Amp/sulbactam covers all organisms based on available susceptibilities. Continues ertapenem for 6 weeks total from 04/28- 05/18. Pt went to the OR for debridement on 05/19. Wound has mostly healthy, red, moist tissue throughout-some areas of yellow slough, and minimal areas of dark necrotic tissue. He does have exposed bone, so would benefit from PRS consult to determine if he would be a candidate for a flap in the future. Recommendations: - Continue ertapenem 1g IV q24h. - Duration will be short course of 2 weeks from 05/19-06/01 as pt just received 6 week course of antibiotics and longer duration of antibiotics will not be curative of underlying osteomyelitis without wound healing/flap coverage. - Continue excellent wound care. - ID will sign off. Please reach out with questions/concerns. Laryngeal cancer 04/30/2024 Assessment & Plan (09/10/2024 2:34 PM MACHINE CLOTH EXAMINER): Patient has history of supraglottic SCC s/p XRT 09/05-12/04 now w/ recurrent SCC status post total laryngectomy, partial pharyngectomy, radical neck dissection, left forearm free flap on 06/05 by ENT, On POD3, patient received an electrolarynx to use for communication with the assistance of speech therapy, tracheostomy was transitioned to manuela tube 06/07 and patient was discharged with high humidity trach collar and portable suction at home. Work-up -CT head/neck 07/22 done for concern for L facial swelling---various findings: 1. Findings compatible with extensive cellulitis/edema involving bilateral deep neck spaces, also base of tongue and left cheek. 2. There are extensive scattered air pockets in the phlegmonous soft tissue concerning for air forming bacteria versus air from fistulous tracts to an ulcerated left neck skin. There is associated skin breakthrough at the superior aspect of tracheostomy extending towards the left ear and additional area of skin breakthrough at the right aspect of the neck adjacent to a surgical clip. Areas of underlying necrotic squamous cell carcinoma cannot be excluded. 3. Left internal carotid artery is encased by phlegmonous/edematous soft tissue causing long segment moderate stenosis of left ICA approximately 4.4 cm. Left internal jugular vein is not opacified, right internal jugular vein is partially encased by phlegmonous soft tissue causing a long segment narrowing. 4. 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 5. Bibasilar atelectasis and left lower lobe consolidation is again noted and are better evaluated on prior CT chest. PLAN -Trach collar per protocol, 4L currently (weaned from 10 L on admit)---patient states that at baseline previously , he had been on 2 L at home since April 2024 -ENT consulted for the CT head/neck findin) they are suspicious about recurrent tumor and feel like possibly the tumor is causing the carotid artery narrowing 2) they do think he would be at some risk of carotid blow out 3) they think the swelling/air seen in the CT may be 2/2 wound breakdown and lymphedema. No concern for necrotizing fasciitis from ENT team at this time. The tumor itself could still be infected, however. 4) they did bedside biopsy of the mass near the carotid artery for diagnosis 5) ENT team cannot do any surgical intervention for relieving the mass around the carotid artery, and recommend oncology/radiation oncology consult (who also said they do not recommend any inpatient treatment at this time). -called vascular team and over the phone, they said nothing to intervene on from vascular team standpoint at this time but felt like carotid blowout precaution is appropriate. They said that the carotid findings, though vascular in nature, are part of his ongoing disease process/extra carotid neoplasm and rec oncology/rad onc discussion and prognosis discussion. -final surgical pathology from mass near carotid: negative for malignancy---however ENT still suspicious for recurrent malignancy,nothing to do about it inpatient (from ENT, rad onc, and med onc perspective). No need for repeat PET until after infections resolve. immunotherapy may be an option for him but it would be palliative. ENT said Unfortunately, Mr. Mota's laryngectomy was a salvage laryngectomy, prior XRT failure. There are no reasonable surgical options at present, nor radiation options. Rad onc agrees and recommends palliative consult and goals of care discussion. Patient may be a good candidate for palliative immunotherapy. However, no inpatient cancer workup is recommended at this time. May consider PET scan in the future once his other medical problems and infections resolve, if patient and family desire. However, overall prognosis is not promising and at this time, our team strongly recommends pursuing hospice care. -rad-onc consulted, no inpatient treatment -oncology consulted who said Pt is not eligible for systemic cancer treatments due to poor PS, active infection, no bsx indicating recurrence.> patient/ family understood. ACP note below. Pt/ family educated about hospice transition> not amenable at this time. We do not recommend PET or repeat bsx at this time. -patient does NOT want palliative care or hospice at this time after discussion with ENT and oncology---his goal is to improve from infection standpoint and then outpatient follow up with oncology to discuss next step -follow up fungal and aerobic/anaerobic culture result from the mass-MSSA and proteus -continuous pulse ox - follow up Speech consult (to obtain bedside electrolarynx for inpt use (his at home). Patient can communicate by using his smartphone to text - Larytube sign above bed. - initial neck wound care per ENT instruction: BID wet to dry kerlix dressings of neck and arm; strip gauze packing of site at R neck, recommend changing or wetting BID to ensure it does not become too dry-per patient request, will change to daily -ok per ENT for oral diet for pleasure-pureed diet started 07/31. Do not recommend trach instead of Manuela tube. -08/11 ENT: Overall wounds continuing to improve with granulation tissue. 08/16 in packing removed. Wet to dry placed. -08-21, slow to heal wound, ENT asked to reassess: updated wound care recs appreciated: BID wet to dry kerlix dressings of neck vaseline to volar forearm incision for moisture , vaseline regularly to laceration on left forearm to prevent drying Routine laryngectomy care including trach mask collar for humidification, suctioning, emergency supplies Wound appears to be healing slowly but does not appear infected. Given patient history and appearance of other wounds, anticipate very slow healing process for left neck wound and possibility that wound will fail to fully heal - Please do not wet dressings before removal as removal while dry helps gently debride the wound bed and promote healing 09-06- ENT reassessed wound, removed overlying crusting of open left neck wound, no purulence or drainage to take for culture, relatively well healing and clinically does not appear to be grossly infected this time - recs BID wet to dry dressings over left neck wound and cont to monitor right neck wound - per ENT, only tx available would be per Med Onc-immunotherapy as outpatient Current Treatment and Therapy Plans No current plan information found. Past Treatment and Therapy Plans No past plan information found. Lifetime Dose Tracking * Chemical Lifetime Dose Automatic Entry Manual Entr y Fluoro Time 4.7 minutes 4.7 minutes 0 minutes Air kerma at the reference point (Ka,r) 37.8 mGy 3 7.8 mGy 0 mGy DLP 2,447 mGycm 2,447 mGycm 0 mGycm
--- OUTSIDE RECORDS SUMMARY | 2025-05-30 01:57 | XMS_ITS | Encounter Summary ---
Author Organization [facility] Address [address] [place] [address] Care Team Providers Care Railroad Baggage Porter Name Role Phone Seth May MD Primary Care Provider [phone] Encounter Details Date Type Department Care Team (Late st Contact Info) Description 01/17/2024 Lab Requisition [facility] General Laboratory Services [place] [address] [place] [address] Corinna Marks, [facility] [address] [facility] [address] [place] [address] Osteomyelitis, unspecified (CMS/HCC) Social History [...] and Family Not on file 05/26/2020 Attends Congregation Services Not on file 05/26 Do you belong to any clubs o r organizations such as cheondoism groups, unions, fraternal or athletic groups, or [...] on file 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 POTASSIUM 3.9 3.5 - 5.1 mmol/L 01/17/2024 2:[address] [facility] CHLORIDE 99 98 - 107 mmol/L 01/17/2024 2:[address] [facility] CO2 30(H) 22 - 29 mmol/L 01/17/2024 2:[address] [facility] CALCIUM 9.3 8.8 - 10.2 mg/dL 01/17/2024 2:[address] [facility] BUN 17 8 - 23 mg/dL 01/17/2024 2:[address] [facility] CREATININE 0.76 0.67 - 1.17 mg/dL 01/17/2024 2:[address] [facility] GLUCOSE 164(H) 74 - 99 mg/dL 01/17/2024 2:[address] [facility] TOTAL PROTEIN 7.1 6.6 - 8.7 g/dL 01/17/2024 2:[address] [facility] ALBUMIN 3.4(L) 3.5 - 5.2 g/dL 01/17/2024 2:[address] [facility] BILIRUBIN TOTAL 0.3 <=1.2 mg/dL 01/17/2024 2:[address] [facility] ALKALINE PHOSPHATASE 181(H) 40 - 129 U/L 01/17/2024 2:[address] [facility] AST 25 10 - 50 U/L 01/17/2024 2:[address] [facility] ALT 37 10 - 50 U/L 01/17/2024 2:[address] [facility] GFR >60 >=60 mL/min/1.7 3 sq meter 01/17/2024 2:[address] [facility] Comment:eGFR calculated with 2020 CKD-EPI equation. Vegetarian diet, extremely high or low muscle mass, and may affect results. Cystatin C with Glomerular Filtration Rate is a suitable alternative for these patients. ANION GAP 9(L) 12 - 20 mmol/L 01/17/2024 2:[address] [facility] Blood Collection / Unknown 01/17/2024 1:45 PM CDT 01/17/2024 1:58 PM CDT us Corinna Marks DNP CHEMISTRY ORDERABLES Final Result [facility] CLIA # [id number] [address] [place] [id number] * (ABNORMAL) CBC WITH DIFFERENTIAL (01/17/2024 1:45 PM CDT) WBC 4.9 4.2 - 9.1 K/uL 01/17/2024 2:[address] [facility] RBC 3.92(L) 4.63 - 6.08 M/uL 01/17/2024 2:[address] [facility] HEMOGLOBIN 11.8(L) 13.7 - 17.5 g/dL 01/17/2024 2:[address] [facility] HEMATOCRIT 36.0(L) 40.1 - 51.0 % 01/17/2024 2:[address] [facility] MCV 91.8 79.0 - 92.2 fL 01/17/2024 2:[address] [facility] MCH 30.1 25.7 - 32.2 pg 01/17/2024 2:[address] [facility] MCHC 32.8 32.3 - 36.5 g/dL 01/17/2024 2:[address] [facility] RDW 15.2(H) 11.0 - 14.5 % 01/17/2024 2:[address] [facility] RDW-STDEV 49.9 36.9 - 56.9 fL 01/17/2024 2:[address] [facility] PLATELETS 244 130 - 400 K/uL 01/17/2024 2:[address] [facility] MPV 9.5(L) 10.0 - 14.8 fL 01/17/2024 2:[address] [facility] NEUTROPHILS 65 34 - 68 % 01/17/2024 2:[address] [facility] LYMPHOCYTES 14(L) 22 - 53 % 01/17/2024 2:[address] [facility] MONOCYTES 14(H) 5 - 12 % 01/17/2024 2:[address] [facility] EOSINOPHILS 7 1 - 7 % 01/17/2024 2:[address] [facility] BASOPHILS 0 0 - 1 % 01/17/2024 2:[address] [facility] IMMATURE GRANULOCYTES 0 % 01/17/2024 2:[address] [facility] NEUTROPHIL ABSOLUTE 3.15 1.78 - 5.38 K/uL 01/17/2024 2:[address] [facility] LYMPHOCYTE ABSOLUTE 0.70(L) 1.20 - 3.40 K/uL 01/17/2024 2:[address] [facility] MONOCYTE ABSOLUTE 0.66 0.30 - 0.82 K/uL 01/17/2024 2:[address] [facility] EOSINOPHIL ABSOLUTE 0.33 0.04 - 0.54 K/uL 01/17/2024 2:[address] [facility] BASOPHILS ABSOLUTE 0.02 0.01 - 0.08 K/uL 01/17/2024 2:[address] [facility] IMMATURE GRANULOCYTES ABSOLUTE 0.01 K/uL 01/17/2024 2:[address] [facility] Blood Collection / Unknown 01/17/2024 1:45 PM CDT 01/17/2024 1:58 PM CDT Corinna Marks DNP HEMATOLOGY ORDERABLES Kemi yoder Result [facility] CLIA # [id number] [address] [place] [id number] documented in this encounter Visit Diagnoses Diagnosis Osteomyelitis, unspecified documented in this encounter Additional Health Concerns Infection Onset Date Last Indicated Resolved Time MRSA Comment:Resolved per Type and Duration of Precautions Recommended for Selected Infections and Conditions document 2023 update 12/26/2023 12/26/2023 04/28/20 11:37 AM CDT Assessment Noted Time PHQ-9 Depression Total Score: 1 09/12/19 11:15 AM LINE ORDERING CLINICIAN documented as of this encounter Care Teams Railroad Baggage Porter Relationship Specialty Start Date End Date Seth May MD [address] [phone] PCP - General Family Practice 01/31/24 documented as of this encounter
--- OUTSIDE RECORDS SUMMARY | 2025-05-30 01:57 | XMS_ITS | Encounter Summary ---
Author Organization [facility] Address [address] Attn: [place] [address] Care Team Providers Care Base Filler Name Role Phone Seth May MD Primary Care Provider [phone] Encounter Details Date Type Department Care Team (Latest Contact Info) Description 11/14/2024 Hospital Encounter Kezia Moss MD [address] [place] [address] Social History Tobacco Use Types [...] and Family Not on file 05/26/2020 Attends Sabianism Services Not on file 05/26 Do you belong to any clubs o r organizations such as zoroastrianism groups, unions, fraternal or athletic groups, or [...] on file Legal Sex Male 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
--- OUTSIDE RECORDS SUMMARY | 2025-05-30 01:57 | XMS_ITS | Encounter Summary ---
Author Organization [facility] Address [address] [place] [address] Care Team Providers Care Forming Press Operator Name Role Phone Carole Siu MD Primary Care Provider Encounter Details Date Type Department Care Team (Late st Contact Info) Description 03/02/2005 Outpatient Historical [facility] Cardiology- [place] [address] [place] [address] Bernardo Keen MD [address] 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
--- OUTSIDE RECORDS SUMMARY | 2025-05-30 01:57 | XMS_ITS | Clinical Summary ---
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 Do not swallow. 06/11/20 24 Active ipratropium-albute roL (DUO-NEB) 0.5-2.5 mg/3 mL nebulizer solutionIndication s:Chronic Obstructive Pulmonary Disease with Bronchospasms Take 3 mL by nebulization every 6 (six) hours as needed for wheezing or shortness of breath 06/11/20 24 Active gabapentin (NEURONTIN) solution 250 mg/5 mL Administer per tube 6 mL (300 mg total) every 8 (eight) hours 06/11/20 24 10/30/2 025 Active simethicone (MYLICON) drops 40 mg/0.6 mL Administer per tube 1.2 mL (80 mg total) 3 (three) times a day as needed for flatulence 06/16/20 24 Active acetaminophen (TYLENOL) 325 mg tablet Administer per tube 2 tablets (650 mg total) every 6 (six) hours 06/16/20 24 Active bisacodyL (DULCOLAX) 10 mg suppositoryIndicat ions:constipation Insert 1 suppository (10 mg total) into the rectum daily 09/13/19 25 Active enoxaparin (LOVENOX) 40 mg/0.4 mL syringeIndications :Deep Vein Thrombosis Prevention Inject 0.4 mL (40 mg total) under the skin daily 09/12/19 25 Active olopatadine (PATANOL) 0.1 % ophthalmic solutionIndication s:Allergic Conjunctivitis Administer 1 drop into both eyes 2 (two) times a day 09/12/19 25 Active ondansetron ODT (ZOFRAN-ODT) 4 mg disintegrating tabletIndications: Nausea and Vomiting Take 1 tablet (4 mg total) by mouth every 6 (six) hours as needed for nausea or vomiting 09/12/[address] (PROTONIX) 40 mg EC tabletIndications: Stress Ulcer Prophylaxis Take 1 tablet (40 mg total) by mouth daily 09/13/19 25 026 Active polyethylene glycol (MIRALAX) 17 gram packetIndications: constipation Administer per tube 1 packet (17 g total) daily as needed for constipation 09/12/19 25 Active polyvinyl alcohol-povidone (REFRESH CLASSIC) 1.4-0.6 % dropperetteIndicat ions:Dry Eye Administer 2 drops into both eyes 4 (four) times a day before meals and nightly 09/12/19 25 Active white petrolatum-mineral oil (REFRESH PM) ointmentIndication s:allergic conjunctivitis Apply 1 Application to both eyes 2 (two) times a day 09/12/19 25 Active diphenhydrAMINE (BENADRYL) elixir 12.5 mg/5 mL Administer per tube 5 mL (12.5 mg total) every 8 (eight) hours as needed for itching 09/14/19 25 Active oxyCODONE (ROXICODONE) solution 5 mg/5 mLIndications:Pain Administer per tube 15 mL (15 mg total) every 4 (four) hours as needed for pain 270 mL 09/15/19 25 Active oxyCODONE ER (OxyCONTIN) 20 mg 12 hr abuse-deterrent tabletIndications: severe chronic pain requiring long-term opioid treatment Take 1 tablet (20 mg total) by mouth every 12 (twelve) hours 60 tablet 09/15/19 25 Active Active Problems Problem Noted Date Diagnosed Date Redness of both eyes 08/11/2024 Assessment & Plan (08/13/2024 6:04 AM TINT [facility]ER): c/o both eyes itchy and watery , [...] for Ophthalmology placed , discussed with weekend logistics operations manager provider,who has reviewed pictures.They rec that patient [...] 07/30/2024 Assessment & Plan (09/10/2024 2:30 PM TINT [facility]ER): Palliative Care following Patient and son reiterating [...] yet. Per CC Family requesting Facility in [facility] to facilitate transport to f/up visits. Updates on 09-05 per CC: currently ECF near pt's home. Plan transfer 09/15/24. Anemia 07/25/2024 Assessment & Plan (09/15/2024 8:58 AM T[facility]ER): Hgb drop to 6.4 on 07/24 evening [...] 07/23/2024 Assessment & Plan (07/23/2024 6:56 PM TINT [facility]ER): See under laryngeal cancer section. Facial swelling 07/22/2024 Assessment & Plan (09/06/2024 3:36 PM TINT [facility]ER): Left facial swelling, per patient it has been present since the surgery last admission. See under laryngeal cancer section. Esophagitis 07/22/2024 Assessment & Plan (09/05/2024 11:22 PM TINT [facility]ER): Mild esophagitis noted on CT on admission. CT neck on 09-02 with esophagitis, continue PPI Decubitus ulcer of ischial a azar, right, unspecified pressure ulcer stage 07/22/2024 Assessment & Plan (09/06/2024 3:35 PM TINT [facility]ER): See under sepsis. Wound consult placed wound vac 07/31. Seen 3x week by wound team. We will need to continue at transfer to facility and arrange follow-up care with Surgery. Left lower lobe pneumonia 07/21/2024 Assessment & Plan (07/22/2024 7:49 PM [facility]ER): Work-up -RVP negative PLAN -see plan under sepsis Urinary tract infection without hematuria 2023 Assessment & Plan (08/28/2024 12:20 PM TINT [facility]ER): See under sepsis. Change chronic bueno 08/28. Hypotension, unspecified hypotension type 2023 Assessment & Plan (07/20/2024 9:42 PM TINT LAYER): See sepsis Sepsis 07/20/2024 Assessment & Plan (09/13/2024 10:28 AM TINT [facility]ER): Sepsis secondary to pneumonia/proteus UTI/new osteomyelitis of [...] ACCS team unable to do it and [facility] radiology team on 07/23 unable to do [...] 05/22/2024 Assessment & Plan (09/06/2024 3:52 PM TINT LAYER): Patient has chronic indwelling Bueno present on [...] 05/22/2024 Assessment & Plan (09/06/2024 3:53 PM TINT [facility]ER): Chronic paraplegia complicated by neurogenic bowel and bladder with chronic indwelling Bueno and chronic sacral wounds. Bueno was exchanged in ED 07/20 - PT/OT recommended SNF during last admission but patient declined and was discharged home - this time, PT rec residential acute care hospital. Son at bedside 07/29 stated family [...] and performed a tracheostomy. Patient admitted to [facility]. Sent to [facility] for ENT evaluation for salvage total [...] 05/22/2024 Assessment & Plan (09/14/2024 10:34 AM TINT [facility]ER): Patient with ongoing pain 2/2 wounds from cancer surgery. On scheduled tyleol, gabapentin 300mg TID, oxycodone 15mg q4 PRN and IV dilaudid 0.2mg IV q12 PRN. / add oxycontin 20mg BID and monitor, close monitoring for side effects. Tolerating, encourage use of bowel regimen. More sleepy 2/-hold oxycontin. Resume per patient request 2/. Assessment & Plan (05/31/2024 12:17 PM CDT): Patient with acute on chronic left-sided neck and sacral wound pain. 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 - initial neck wound [...] 07/31. Do not recommend trach instead of Ileana tube. -08/11 ENT: Overall wounds continuing to improve with granulation tissue. 08/16 in packing removed. Wet to dry placed. --, slow to heal wound, ENT asked to [...] would be per Med Onc-immunotherapy as outpatient Surgical History Surgery Date Site/Laterality Comments CARDIAC STENT PLACEMENT 08/13/2003 - 08/12/2004 mRCA ILIAC ARTERY STENT 12/26/2023 Bilateral kissing common iliac artery stent placement, Hailey VBX 9x39 mm stents x 2 (one stent in each common iliac artery) Right popliteal artery balloon angioplasty (P1-4), 4x60, 4x150 Armadas; 5x150 mm Bard Lutonix drug coated balloon SHOULDER SURGERY 08/13/1977 - 08/12/1978 Left reconstructed NECK SURGERY 08/13/2005 - 08/12/2006 cervical discectomy distress and fusion from C6-C7 TRACHEOSTOMY 05/15/2024 PEG TUBE PLACEMENT 08/13/2023 - 08/12/2024 NASAL SEPTOPLASTY W/ TURBINOPLASTY 08/13/2017 - 08/12/2018 NECK SURGERY x 3 total LUMBAR SPINE SURGERY x 2-3 CHANGE G TUBE 06/11/2024 N/A EXCHANGE PICC LINE 07/25/2024 Left CONTRAST INJECTION EVALUATION CENTRAL VENOUS ACCESS DEVICE 07/31/2024 N/A Medical History Medical History Date Comments Sleep apnea Coronary artery disease COPD (chronic obstructive pulmonary disease) History of head and neck cancer Family History Medical History Relation Name Comments Anesthesia problems Neg Hx Social History Tobacco Use Types Packs/Day Years Used Date Smoking Tobacco: Former Cigarettes 1 53.8 S tarted: 1971 Smokeless Tobacco: Never Tobacco Cessation:Counseling Given: Yes [facility] Utilities Answer Date Recorded In the past 12 months has th e electric, gas, oil, or water company threatened to shut off services in your home? No 07/24/2024 Social Connection and Isolation Panel Answer Date Recorded In a typical week, how many times do you talk on the phone with family, friends, or neighbors? More than three times a week 07/24/2024 How often do you get togethe r with friends or relatives? More than three times a week 07/24/2024 How often do you attend chur ch or mandaen services? Never 07/24/2024 Do you belong to any clubs o r organizations such as pentecostalism groups, unions, fraternal or athletic groups, or school groups? No 07/24/2024 How often do you attend meet ings of the clubs or organizations you belong to? Never 07/24/2024 Are you , , di vorced, , never , or living with a partner? 07/24/2024 AUDIT-C Answer Date Recorded Q1: How often do you have a drink containing alc ohol? Monthly or less 05/16/2024 Q2: How many drinks containi ng alcohol do you have on a typical day when you are drinking? 1 or 2 05/16/2024 Q3: How often do you have si x or more drinks on one occasion? Never 05/16/2024 Overall Financial Resource Strain (CARDIA) Answe r Date Recorded How hard is it for you to pa y for the very basics like food, housing, medical care, and heating? Not hard at all 07/24/2024 PHQ-2 Answer Date Recorded PHQ-2 Total Score (If total score is 3 or more points, staff should administer the PHQ-9) 0 07/24/2024 Hunger Vital Sign Answer Date Recorded Within the past 12 months, y ou worried that your food would run out before you got the money to buy more. Never true 07/24/20 24 Within the past 12 months, t he food you bought just didn't last and you didn't have money to get more. Never true 07/24/2024 PRAPARE - Transportation Answer Date Re corded In the past 12 months, has l ack of transportation kept you from medical appointments or from getting medications? No 07/13 In the past 12 months, has l ack of transportation kept you from meetings, work, or from getting things needed for daily living? No 07/24/2024 Housing Stability Vital Sign Answer Yusuf e Recorded In the last 12 months, was t here a time when you were not able to pay the mortgage or rent on time? No 07/24/2024 In the past 12 months, how m any times have you moved where you were living? 0 07/24/2024 At any time in the past 12 m [facility], were you homeless or living in a jail (including now)? No 07/24/2024 Personal Safety Answer Date Recorded Have you ever been in or are you currently in a harmful physical or emotional relationship or is someone making you feel afraid or unsafe? Denies 07/20/2024 Sex and Gender Information Value Date Recorded Sex Assigned at Not on file Legal Sex Male 7:39 AM CDT Gender Identity Not on file Sexual Orientation Not on file Obstetrics History Last Filed Vital Signs Vital Sign Reading Time Taken Comments Blood Pressure 117/68 09/15/2024 9:30 AM TINT L[facility]ER Pulse 69 09/15/2024 9:30 AM TINT LAYER Temperature 36.6 C (97.9 F) 09/15/2024 9:30 AM TINT LAYER Respiratory Rate 18 09/15/2024 9:30 AM TINT LAYER Oxygen Saturation 90% 09/15/2024 9:30 AM TINT LAYER Inhaled Oxygen Concentration - - Weight 72.2 kg (159 lb 2.8 oz) 09/11/2024 4:20 A M [facility]INT [facility]ER Height 182.9 cm (6') 07/23/2024 12:12 AM TINT LAYER Body Mass Index 21.59 07/23/2024 12:12 AM TINT LAYER Plan of Treatment Health Maintenance Due Date Last Done Comments Colon Cancer Screening-Colonoscopy 1958 Prostate Cancer Screening-PSA 1958 Hepatitis B Screening 1976 Pneumococcal vaccine 65+ (1 of 2 - PCV) 1977 Zoster Vaccine (1 of 2) 1977 DTaP/Tdap/Td Vaccine (1 - Tdap) 07/01/2019 9 Well Visit 65+ 2023 Influenza Vaccine (#1) 2025 06/02/1996 Depression Screening 07/20/2025 07/20/2024 Fall Risk Assessment 09/15/2025 09/15/2024 Hepatitis C Screening Completed 06/05/2024 Abdominal Aortic Aneurysm (AAA) Screen Completed Medical Devices Implanted Type Area Park Warden Device Identifier Shelf Expiration Date Model / Serial / Lot [employer] Cage Cashier Anastomotic Microvascular Gold Stainless Steel Sparks Gaming Cage Cashier 3.0mm [id number] - [id number] Implanted:Qty: 1 on 06/05/2024 by Doug Aj MD at [facility] Other - see comments Right: Neck [employer] Tori [id number] 04/29/2028 [id number] / / [id number] Acera [employer] Restrata Mini Matrix 100mg Micronized Powder Rmini-100 - [id number] Implanted:Qty: 1 on 06/05/2024 by Del Johnston MD at [facility] Left: Forearm [employer] 05/15/2025 RMINI-10 0 / / [id number] [employer] Probe Doppler 17.4cm Standard Cuff Implantable 20mhz Latex Free Sterile Microvascular Anastomoses [place] [id number] - [id number] Implanted:Qty: 1 on 06/05/2024 by Doug Aj MD at [facility] Right: Neck [employer] [id number] 02/09/2027 [id number] / / [id number] Description:Doppler wire cut and secured with Tegaderm prior to discharge. To be removed at follow-up by the attending. [employer] Geraldoian Gaming Cage Cashier Anastomotic Microvascular Gold Stainless Steel Sparks Gaming Cage Cashier 3.0mm [id number] - [id number] Implanted:Qty: 1 on 06/05/2024 by Doug Aj MD at [facility] Right: Neck Electric [employer] [id number] 07/29/2028 [id number] / / [id number]- [id number] Procedures Procedure Name Priority Date/Time Associated Diagnosis Comments CT CHEST ABDOMEN PELVIS W CONTRAST ED Urgent/IP Urgent 07/20/2024 5:17 AM T[facility]ER HEPATITIS C ANTIBODY Routine 06/05/2024 10:30 AM CDT Employee exposure to blood from Last 3 Months or Most Recently Relevant to Health Maintenance Results * CT Chest Abdomen Pelvis W Contrast (07/20/2024 5:17 AM TINT LAYER) Anatomical Region Laterality Modality Body N/A Computed Tomogra phy 07/20/2024 6:16 AM TINT L[facility]ER Impressions 07/20/2024 9:49 AM TINT LAYER 1. Consolidation within the dependent portions of [...] compatible with a new site of osteomyelitis. These findings were communicated to Dr. Reid by Dr. Cam Wan at 07/20/2024 and 9:14 AM.. Dictated by: Cam Wan MD The radiology attending physician has personally reviewed this study, and had reviewed and/or edited this written report and agrees with it. Electronically signed by: Joanie Srinivasan M.D. Narrative 07/20/2024 9:49 AM [facility] EXAMINATION: Computed tomography of the chest, abdomen and pelvis with intravenous contrast HISTORY: 64-year-old male with a history of paraplegia, chronic sacral ulcer, supraglottic squamous cell carcinoma. This exam was requested to evaluate for sepsis workup. TECHNIQUE: Transaxial computed tomographic images of the chest, abdomen and pelvis were obtained with intravenous contrast according to the standard protocol after the uneventful administration of 90 mL Opti-Ray 350 intravenous contrast. COMPARISON: FDG PET 05/19/2024 FINDINGS: Chest: There are postsurgical changes of a tracheostomy tube placement. There is consolidation within the dependent portions of the left lower lobe with heterogenous attenuation. This is superimposed on bibasilar atelectasis and scarring. No pleural effusion or pneumothorax. There are scattered calcified pulmonary granulomas. There are scattered sub 4mm pulmonary nodules. There is partially imaged multiple thyroid nodules bilaterally. The heart size is moderately enlarged with a trace amount of pericardial fluid. There is mild coronary artery calcification. There is a coronary stent in place. There is possibly aortic valve calcification. The caliber of the thoracic aorta is within normal limits. The caliber of the main pulmonary artery is within normal limits. There is moderate calcified and noncalcified atherosclerotic plaque within the thoracic aorta and its proximal branches. There are multiple borderline enlarged mediastinal lymph nodes, which are likely reactive. There is mild fat stranding surrounding the cervical esophagus, which may represent mild esophagitis. Abdomen/Pelvis: No suspicious hepatic lesions. The main portal vein, splenic vein, and superior mesenteric vein are patent. The gallbladder is decompressed. The intrahepatic and extrahepatic biliary ducts are at the upper limits of normal in size. Normal pancreas. There is a small hypoattenuating lesion within the spleen, which are too small to characterize. Normal adrenal glands. The kidneys enhance symmetrically without hydronephrosis. There are multiple hypoattenuating lesions within the kidneys, which are too small to characterize. There is a right renal cyst. There is mild urothelial enhancement of the ureters bilaterally. The urinary bladder is decompressed with a Bueno catheter. There is a small amount gas within the Bueno catheter, likely due to bladder manipulation. The prostate is present. There is a gastrostomy tube with tip and balloon in the gastric body. The caliber of the small bowel and colon is within normal limits. No bowel obstruction, pneumoperitoneum, or free fluid within the pelvis. There is dense material within the appendix, which may represent inspissated stool. There are bilateral iliac stents in place. The stents are patent. The caliber of the abdominal aorta is at the upper limits of normal. There is moderate calcified and noncalcified atherosclerotic plaque of the abdominal aorta and its branches. No enlarged lymph nodes within the abdomen or pelvis. Again seen is a large sacral decubitus ulcer, which extends to the distal sacrum and coccyx where there is sclerosis and erosion, which is compatible with osteomyelitis. There is increased sclerosis suggestive of the sacrum and coccyx. There is osseous demineralization. There is moderate body wall edema with atrophy of the pelvic girdle musculature. No drainable fluid collection. Procedure Note Joanie Srinivasan MD - 07/20/2024 EXAMINATION: Computed tomography of the chest, abdomen and pelvis with intravenous contrast HISTORY: 64-year-old male with a history of paraplegia, chronic sacral ulcer, supraglottic squamous cell carcinoma. This exam was requested to evaluate for sepsis workup. TECHNIQUE: Transaxial computed tomographic images of the chest, abdomen and pelvis were obtained with intravenous contrast according to the standard protocol after the uneventful administration of 90 mL Opti-Ray 350 intravenous contrast. COMPARISON: FDG PET 05/19/2024 FINDINGS: Chest: There are postsurgical changes of a tracheostomy tube placement. There is consolidation within the dependent portions of the left lower lobe with heterogenous attenuation. This is superimposed on bibasilar atelectasis and scarring. No pleural effusion or pneumothorax. There are scattered calcified pulmonary granulomas. There are scattered sub 4mm pulmonary nodules. There is partially imaged multiple thyroid nodules bilaterally. The heart size is moderately enlarged with a trace amount of pericardial fluid. There is mild coronary artery calcification. There is a coronary stent in place. There is possibly aortic valve calcification. The caliber of the thoracic aorta is within normal limits. The caliber of the main pulmonary artery is within normal limits. There is moderate calcified and noncalcified atherosclerotic plaque within the thoracic aorta and its proximal branches. There are multiple borderline enlarged mediastinal lymph nodes, which are likely reactive. There is mild fat stranding surrounding the cervical esophagus, which may represent mild esophagitis. Abdomen/Pelvis: No suspicious hepatic lesions. The main portal vein, splenic vein, and superior mesenteric vein are patent. The gallbladder is decompressed. The intrahepatic and extrahepatic biliary ducts are at the upper limits of normal in size. Normal pancreas. There is a small hypoattenuating lesion within the spleen, which are too small to characterize. Normal adrenal glands. The kidneys enhance symmetrically without hydronephrosis. There are multiple hypoattenuating lesions within the kidneys, which are too small to characterize. There is a right renal cyst. There is mild urothelial enhancement of the ureters bilaterally. The urinary bladder is decompressed with a Bueno catheter. There is a small amount gas within the Bueno catheter, likely due to bladder manipulation. The prostate is present. There is a gastrostomy tube with tip and balloon in the gastric body. The caliber of the small bowel and colon is within normal limits. No bowel obstruction, pneumoperitoneum, or free fluid within the pelvis. There is dense material within the appendix, which may represent inspissated stool. There are bilateral iliac stents in place. The stents are patent. The caliber of the abdominal aorta is at the upper limits of normal. There is moderate calcified and noncalcified atherosclerotic plaque of the abdominal aorta and its branches. No enlarged lymph nodes within the abdomen or pelvis. Again seen is a large sacral decubitus ulcer, which extends to the distal sacrum and coccyx where there is sclerosis and erosion, which is compatible with osteomyelitis. There is increased sclerosis suggestive of the sacrum and coccyx. There is osseous demineralization. There is moderate body wall edema with atrophy of the pelvic girdle musculature. No drainable fluid collection. IMPRESSION: 1. Consolidation within the dependent portions [...] compatible with a new site of osteomyelitis. These findings were communicated to Dr. Reid by Dr. Cam Wan at 07/20/2024 and 9:14 AM.. Dictated by: Cam Wan MD The radiology attending physician has personally reviewed this study, and had reviewed and/or edited this written report and agrees with it. Electronically signed by: Joanie Srinivasan M.D. us Karine Patel MD IMG CT PROCEDURES Final Re sult * Hepatitis C antibody Blood (06/05/2024 10:30 AM CDT) Hep C Ab Nonreactive Nonreactive Comment:Antibodies to HCV no t detected. Does NOT exclude the possibility of recent exposure to HCV. Current interpretive data was last revised on 22 Blood 06/05/2024 10:3 0 AM CDT 06/05/2024 11:51 AM CDT [facility]ative [facility] - 06/05/2024 1:49 PM CDT Bill to [facility] [employer] 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 Special protocols are implemented when working with a patient testing positive for C. Auris. Isolation is life long Please contact Infection Prevention when patient admitted. 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
--- NOTE | 2025-05-30 02:09 | CTR_ITS ---
PROCEDURE INFORMATION: Exam: CT Head Without Contrast Exam date and time: 05/30/2025 2:44 AM Age: 64 years old Clinical indication: EMS arrival from senior living for general weakness. TECHNIQUE: Imaging protocol: Computed tomography of the head without contrast. Radiation optimization: All CT scans at this facility use at least one of these dose optimization techniques: automated exposure control; mA and/or kV adjustment per patient size (includes targeted exams where dose is matched to clinical indication); or iterative reconstruction. COMPARISON: CT neck w con* [id number] 03/21/2024 1:06 PM RADIATION DOSE METRICS: Total DLP (mGy-cm): 1750.01 FINDINGS: Brain: No acute infarction, hemorrhage, mass, or extra-axial fluid collection is identified. No midline shift. Cerebral ventricles: No hydrocephalus. Paranasal sinuses: Paranasal sinuses are grossly clear. Mastoid air cells: Mastoid air cells are opacified bilaterally. Bones: Calvarium appears intact. Soft tissues: Unremarkable. CT/CT head wo con* [id number] IMPRESSION: 1. No acute intracranial abnormality. 2. Severe bilateral mastoid effusions.
--- NOTE | 2025-05-30 02:09 | XRR_ITS ---
PROCEDURE INFORMATION: Exam: XR Chest Exam date and time: 05/30/2025 2:24 AM Age: 64 years old Clinical indication: Prior surgery; Surgery date: 6+ months; Surgery type: Cervical fusion. Tracheostomy; EMS arrival from senior living for general weakness TECHNIQUE: Imaging protocol: Radiologic exam of the chest. Views: 1 view. COMPARISON: CT angio chest w abd pel w con 01/01/2025 11:24 AM FINDINGS: Airway: Tracheostomy is noted. Lungs: Chronic granulomatous changes. No acute consolidation. No overt pulmonary edema. Pleural spaces: Unremarkable. No pleural effusion. No pneumothorax. Heart/Mediastinum: Unremarkable. No cardiomegaly. Bones/joints: Postsurgical changes of the cervical spine. XR/XR chest 1V portable [id number] IMPRESSION: No acute cardiopulmonary findings.
--- NOTE | 2025-05-30 02:10 | W.ED.WEAKNES ---
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 Patient's long-term patient that is bedbound per long-term they went to give him his pain meds tonight he seemed more lethargic than usual. Patient here is awake follows commands states he has not felt well the last 2 days has been afebrile denies any vomiting diarrhea. Related Data Home Medications ?Medication ?Instructions ?Recorded ?Confirmed acetaminophen 325 mg tablet 650 mg PO QID PRN Pain 11/09/24 01/01/25 bisacodyl 10 mg rectal suppository 10 mg MS DAILY PRN Constipation 11/09/24 01/01/25 budesonide 0.5 mg/2 mL suspension 0.5 mg inhalation BID PRN Wheezing 11/09/24 01/01/25 for nebulization chlorhexidine gluconate 0.12 % 15 ml buccal TID 11/09/24 01/01/25 mouthwash cyclobenzaprine 10 mg tablet 10 mg PO Q8H PRN Muscle Spasm 11/09/24 01/01/25 olopatadine 0.1 % eye drops 1 drp ophthalmic (eye) BID PRN 11/09/24 01/01/25 allergic conjunctivitis polyethylene glycol 3350 17 17 g PO DAILY 11/09/24 01/01/25 gram/dose oral powder (Miralax) polyvinyl alcohol-povidone (PF) 2 drp ophthalmic (eye) QID PRN Dry 11/09/24 01/01/25 1.4 %-0.6 % eye drops in a Eyes dropperette gabapentin 600 mg tablet 600 mg PO Q6H 11/13/24 01/01/25 oxycodone 10 mg tablet 10 mg PO Q6H PRN Pain 11/13/24 01/01/25 simethicone 40 mg/0.6 mL oral See Rx Instructions .Route .COMPLEX 11/13/24 01/01/25 drops,suspension amino acids-protein 30 ea PO DAILY 01/01/25 01/01/25 hydrolysate-fiber 15 gram-100 kcal/30 mL liquid (Pro-Stat Renal Care) multivitamin with minerals-folic 1 tab PO DAILY 01/01/25 01/01/25 acid 400 mcg-lycopene 370 mcg tablet (One-A-Day Men's 50 Plus) nystatin 100,000 unit/gram topical 1 applic topical BID 01/01/25 01/01/25 cream ondansetron HCl 4 mg tablet 4 mg PO Q6H PRN Nausea And Vomiting 01/01/25 01/01/25 Previous Rx's ?Medication ?Instructions ?Recorded cephalexin 500 mg capsule 500 mg PO TID 7 days #21 caps 05/30/25 Allergies Allergy/AdvReac Type Severity Reaction Status Date / Time doxycycline Allergy Intermediate RASH/SWELLI Verified 03/28/24 09:31 NG adhesive tape Allergy ALGY-Bliste Verified 03/28/24 09:31 r clindamycin Allergy ALGY-Hives Verified 03/28/24 09:31 Influenza Virus Vaccines Allergy Unknown Verified 03/28/24 09:31 [email or web address] (From Myrbetriq) Allergy Unknown Verified 03/28/24 09:31 niacin Allergy Unknown Verified 03/28/24 09:31 [facility] PFSH: Medical History (Updated 05/30/25 @ 03:53 by Shila Babin MD) Spinal cord injury After a fall Malignant neoplasm of supraglottis Cancer, epiglottis Gluteal pain COPD exacerbation Supraglottic lesion Epiglottic lesion Laryngeal cancer Leg swelling Asthma exacerbation in COPD Pressure ulcer Chronic hypertrophic rhinitis COVID-19 Malar rash Acute non-recurrent pansinusitis Orchitis and epididymitis Hypokalemia Urethral stricture Osteomyelitis Foot osteomyelitis with cellulitis treated with vancomycin GERD (gastroesophageal reflux disease) Obstructive sleep apnea COPD (chronic obstructive pulmonary disease) Cervical vertebral fusion Myocardial infarction Status post stent placement Foot drop Heart failure with preserved ejection fraction Lymphedema Dyslipidemia Hypertension Surgical History S/P cystourethroscopy with dilation of urethral stricture Previous back surgery H/O cardiac catheterization H/O shoulder surgery Family History Other Hypertension Social History Smoking and tobacco/nicotine status: former use of tobacco/nicotine Quit status (tobacco/nicotine): has quit using Year quit tobacco: 2020 - 1.5 PPD x 40 Years Second hand smoke exposure: No Alcohol intake: current Alcohol intake frequency: holidays/special occasions only Substance/Drug Use: never Caregiver/support person: Yes Lives independently: Yes Household members: spouse Housing: House Marital status: Current occupational status: disabled Do you think of yourself as: Straight/Heterosexual Current gender identity: Male Physical Exam Const: COMMON NORMALS: patient oriented x3 HENMT: COMMON NORMALS: normocephalic and atraumatic HEAD & SCALP: normocephalic and atraumatic Eye: COMMON NORMALS: Equal, round and reactive pupils present and EOMs intact bilaterally PUPIL: Yes Equal, round and reactive pupils present Neck/C-Spine: COMMON NORMALS: full ROM and supple Chest: COMMONS NORMALS: normal inspection of the chest and normal palpation of entire chest wall Resp: COMMON NORMALS: normal respiratory effort, No retractions, No use of accessory muscles and clear to auscultation bilaterally AUSCULTATION: clear to auscultation bilaterally Cardio: COMMON NORMALS: regular rate, regular rhythm and No murmurs present (Cardio) RATE: regular rate RHYTHM: regular rhythm GI: COMMON NORMALS: Normal to inspection, nondistended, normoactive bowel sounds present, Soft to palpation, non-tender and no masses PALPATION: Yes Soft to palpation Extremity: COMMON NORMALS: normal to inspection and full ROM Neuro: COMMON NORMALS: patient oriented x3, moves all extremities and no focal motor deficits Psych: COMMON NORMALS: mental status grossly normal, Normal thought process present and cooperative THOUGHT PROCESS: Normal thought process present Skin: COMMON NORMALS: no rashes or lesions noted and no wounds GENERAL SKIN EXAM: no rashes or lesions noted Course Vital Signs: Vital signs: Vital Signs Temperature 98.4 F 05/30/25 02:03 Pulse Rate 80 05/30/25 03:37 Respiratory Rate 20 H 05/30/25 02:03 Blood Pressure 102/72 05/30/25 03:37 Pulse Oximetry 98 05/30/25 03:37 Oxygen Delivery Me thod Trach Collar 05/30/25 03:37 Oxygen Flow Rate 4 05/30/25 03:37 MDM - Weakness Medical Decision Making Patient presents for generalized weakness from long-term. Patient states she just feels fatigued he is at his baseline here. His vital signs here have all been normal he does have acute cystitis. He has a normal white count normal electrolytes no signs of sepsis here. Patient has no altered mental status imaging is normal EKG was interpreted by me and showed no acute abnormalities. Will give him IM Rocephin he is stable for discharge back to the long-term I did go over his labs and imaging he understands agrees to plan. Medical Records I reviewed the patient's medical records. Lab Data I reviewed the patient's lab results. 05/30/25 02:25 05/30/25 02:25 Radiology Impressions Chest X-Ray 05/30/25 02:09 IMPRESSION: No acute cardiopulmonary findings. Head CT 05/30/25 02:09 IMPRESSION: 1. No acute intracranial abnormality. 2. Severe bilateral mastoid effusions. Laboratory Results WBC 10.98 10^3/uL (3.29-11.43) 05/30/25 02:25 RBC 4.22 10^6/uL (3.85-5.65) 05/30/25 02:25 Hgb 11.80 g/dL (11.27-16.99) 05/30/25 02:25 Hct 37.6 % (37-53) 05/30/25 02:25 MCV 89.1 fl (82-101) 05/30/25 02:25 MCH 28.0 pg (27-33) 05/30/25 02:25 MCHC 31.4 g/dL (30-55) 05/30/25 02:25 RDW 15.1 % (12.1-15.1) 05/30/25 02:25 Plt Count 339 10^3/cmm (157-399) 05/30/25 02:25 MPV 10.1 fL (7.4-10.4) 05/30/25 02:25 Neut % (Auto) 78.0 % 05/30/25 02:25 Lymph % (Auto) 8.5 % 05/30/25 02:25 Early % (Auto) 9.4 % 05/30/25 02:25 Eos % (Auto) 3.3 % 05/30/25 02:25 Baso % (Auto) 0.5 % 05/30/25 02:25 Neut # (Auto) 8.57 10^3/uL (1.8-7.7) H 05/30/25 02:25 Lymph # (Auto) 0.9 10^3/uL (0.8-4.8) 05/30/25 02:25 Early # (Auto) 1.0 10^3/uL (0.2-0.9) H 05/30/25 02:25 Eos # (Auto) 0.4 10^3/uL (0.0-0.8) 05/30/25 02:25 Baso # (Auto) 0.1 10^3/uL (0.0-0.1) 05/30/25 02:25 Nucleated RBC % (auto) 0 % 05/30/25 02:25 Nucleated RBCs # 0.0 /100WBC 05/30/25 02:25 Sodium 133 mmol/L (136-145) L 05/30/25 02:25 Potassium 4.0 mmol/L (3.5-5.1) 05/30/25 02:25 Chloride 95 mmol/L (98-107) L 05/30/25 02:25 Carbon Dioxide 25 mmol/L (22-29) 05/30/25 02:25 Anion Gap 17.0 (5-19) 05/30/25 02:25 BUN 24 mg/dL (8-23) H 05/30/25 02:25 Creatinine 0.9 mg/dL (0.7-1.2) 05/30/25 02:25 GFR Calculation 84.4 mL/min (90-130) L 05/30/25 02:25 Glucose 120 mg/dL (65-115) H 05/30/25 02:25 Calculated Osmolality 281 mOsm/kg (285-295) L 05/30/25 02:25 Calcium 9.1 mg/dL (8.5-10.5) 05/30/25 02:25 Total Bilirubin 0.3 mg/dL (0.15-1.2) 05/30/25 02:25 AST 23 U/L (0-40) 05/30/25 02:25 ALT 22 U/L (0-41) 05/30/25 02:25 Alkaline Phosphatase 142 U/L (40-130) H 05/30/25 02:25 Total Protein 8.4 g/dL (6.6-8.7) 05/30/25 02:25 Albumin 2.3 g/dL (3.5-5.2) L 05/30/25 02:25 Globulin 6.1 g/dL (1.3-4.6) H 05/30/25 02:25 TSH 1.08 uIU/mL (0.27-4.20) 05/30/25 02:25 Urine Color Yellow (Yellow) 05/30/25 02:36 Urine Appearance Turbid (CLEAR) A 05/30/25 02:36 Urine pH 8.5 (5-7) A 05/30/25 02:36 Ur Specific [place] 1.014 (1.005-1.030) 05/30/25 02:36 Urine Protein 3+ (Negative) A 05/30/25 02:36 Urine Glucose (UA) Negative (Normal) 05/30/25 02:36 Urine Ketones Negative (Negative) 05/30/25 02:36 Urine Blood 2+ (Negative) A 05/30/25 02:36 Urine Nitrate Negative (Negative) 05/30/25 02:36 Urine Bilirubin Negative (Negative) 05/30/25 02:36 Urine Urobilinogen 0.2 mg/dL (Negative) 05/30/25 02:36 Ur Leukocyte Esterase 3+ (Negative) A 05/30/25 02:36 Urine RBC 11-20 /hpf (0-2) H 05/30/25 02:36 Urine WBC >100 /hpf (0-5) H 05/30/25 02:36 Ur Squamous Epith Cells 51-100 /hpf (0-5) 05/30/25 02:36 Triple Phos Crystals 0-4 /hpf H 05/30/25 02:36 Amorphous Sediment Not Reportable 05/30/25 02:36 Urine Bacteria 4+ /hpf (NONE) H 05/30/25 02:36 Hyaline Casts 345.85 /lpf 05/30/25 02:36 Influenza A (PCR) Negative (Negative) 05/30/25 02:36 Influenza Type B (PCR) Negative (Negative) 05/30/25 02:36 RSV (PCR) Negative (Negative) 05/30/25 02:36 SARS-CoV-2 (PCR) Negative (Negative) 05/30/25 02:36 All radiology interpretation(s) finalized by discharge EKG Data EKG 1: I personally reviewed and interpreted this EKG as follows: EKG interpretation date: 05/30/25 EKG interpretation time: 02:03 Interpretation: nsr hr [address] elevation qrs 87 qtc 409 Discharge Plan Discharge Patient Disposition: Home Clinical Impression: Catheter-associated urinary tract infection Qualifiers: Indwelling urinary catheter type: indwelling urethral catheter Encounter type: initial encounter Qualified Code(s): T83.511A - Infection and inflammatory reaction due to indwelling urethral catheter, initial encounter Condition: Stable Prescriptions: New cephalexin 500 mg capsule 500 mg PO TID 7 Days Qty: 21 0RF No Action gabapentin 600 mg tablet 600 mg PO Q6H simethicone 40 mg/0.6 mL Drops,Suspension See Rx Instructions .ROUTE .COMPLEX Rx Instructions: TAKE 1.2 ML BY MOUTH 4 TIMES DAILY FOR GAS oxycodone 10 mg Tablet 10 mg PO Q6H PRN (Reason: Pain) ondansetron HCl 4 mg Tablet 4 mg PO Q6H PRN (Reason: Nausea And Vomiting) nystatin 100,000 unit/gram Cream 1 applic TOPICAL BID Pro-Stat Renal Care 15-100 gram-kcal/30 mL Liquid 30 ea PO DAILY One-A-Day Men's 50 Plus 400-370 mcg Tablet 1 tab PO DAILY cyclobenzaprine 10 mg tablet 10 mg PO Q8H PRN (Reason: Muscle Spasm) acetaminophen 325 mg Tablet 650 mg PO QID PRN (Reason: Pain) bisacodyl 10 mg Suppository 10 mg MS DAILY PRN (Reason: Constipation) olopatadine 0.1 % drops 1 drp ophthalmic (eye) BID PRN (Reason: allergic conjunctivitis) budesonide 0.5 mg/2 mL suspension for nebulization 0.5 mg inhalation BID PRN (Reason: Wheezing) polyethylene glycol 3350 [Miralax] 17 gram/dose Powder 17 g PO DAILY polyvinyl alcohol-povidone(PF) 1.4-0.6 % Dropperette 2 drp OPHTHALMIC (EYE) QID PRN (Reason: Dry Eyes) chlorhexidine gluconate 0.12 % Mouthwash 15 ml BUCCAL TID Discharge Orders: Discharge ED (Routine); Ordered 05/30/25 Ordered By: Shila Babin Referrals: Eliud Jenkins FNP [Primary Care Provider, Family Practice] Discharge Diet: Advance as tolerated Discharge Activity: Resume usual activity Patient Instructions: Urinary Tract Infection in Men (ED) Print Language: Hebrew Coding Level of Care Code ED Solar Panel 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
--- NOTE | 2025-05-30 02:29 | ECG_ITS ---
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 Measurements Intervals [place] Rate: 91 P: 70 MT: 173 QRS: -71 QRSD: 138 T: 50 QT: 383 QTc: 473 Interpretive Statements SINUS RHYTHM RIGHT BUNDLE BRANCH BLOCK [120+ ms QRS DURATION, UPRIGHT V1, 40+ ms S IN I/aVL/V4/V5/V6] LEFT ANTERIOR FASCICULAR BLOCK [QRS AXIS <= -45, QR IN I, RS IN II] MODERATE VOLTAGE CRITERIA FOR LVH, CONSIDER NORMAL VARIANT [MEETS CRITERIA IN ONE OF: R(aVL), S(V1), R(V5), R(V5/V6)+S(V1)] POSSIBLE ANTERIOR MYOCARDIAL INFARCTION , PROBABLY OLD [30 ms Q WAVE IN V3/V4, OR R < 0.2 mV IN V4] Compared to ECG 01/01/2025 15:12:54 Left anterior fascicular block now present Left-axis deviation no longer present Myocardial infarct finding still present Electronically Signed On 05-30-2025 11:57:03 CDT by Jason Rivera M.D. [email or web address]
[2025-05-30 02:30] LABS: Hematocrit 37.6 % (37-53); Hemoglobin 11.80 g/dL (11.27-16.99); Mean Corpuscular HGB Conc 31.4 g/dL (30-55); Mean Corpuscular Hemoglobin 28.0 pg (27-33); Mean Corpuscular Volume 89.1 fl (82-101); Nucleated Red Blood Cells % 0 %; Platelet Count 339 10^3/cmm (157-399); Red Blood Count 4.22 10^6/uL (3.85-5.65); White Blood Count 10.98 10^3/uL (3.29-11.43)
[2025-05-30 03:25] LABS: Glucose Urine UA Negative (Normal); Nitrate Urine Negative (Negative); Specific Gravity, Urine 1.014 (1.005-1.030)
[2025-05-30 03:27] LABS: Respiratory Syncytial Virus Ce NEGATIVE (Negative); SARS-CoV-2 PCR NEGATIVE (Negative)
[2025-05-30 03:28] LABS: Alanine Aminotransferase 22 U/L (0-41); Albumin Level 2.3 g/dL (3.5-5.2); Alkaline Phosphatase 142 U/L (40-130); Aspartate Amino Transferase 23 U/L (0-40); Blood Urea Nitrogen 24 mg/dL (8-23); Calcium 9.1 mg/dL (8.5-10.5); Carbon Dioxide 25 mmol/L (22-29); Chloride 95 mmol/L (98-107); Creatinine Clr Calc Pharmacy 77.9033; Globulin 6.1 g/dL (1.3-4.6); Glucose 120 mg/dL (65-115); Osmolality Calculated 281 mOsm/kg (285-295); Sodium 133 mmol/L (136-145); Thyroid Stimulating Hormone 1.08 uIU/mL (0.27-4.20); Total Protein 8.4 g/dL (6.6-8.7)
[2025-05-30 03:29] LABS: Anion Gap 17.0 (5-19); Potassium 4.0 mmol/L (3.5-5.1)
[2025-05-30 03:30] LABS: Add Urine Microscopic? YES
[2025-05-30 03:49] LABS: UA Slide Review UA Slide Review Perf
[2025-05-30] MEDS: cefTRIAXone 1,000 mg SDV 1000 MG IVP (04:07)
== END 2025-05-30 13:08 | disposition home or self-care (01) ==
PROVIDERS: Emergency Provider Emergency Medicine; PCP Nurse Practitioner Family
DX: T83.511A Infection and inflammatory reaction due to indwelling urethral catheter, initial encounter (principal); Z11.52 Encounter for screening for COVID-19; Z87.891 Personal history of nicotine dependence; E78.5 Hyperlipidemia, unspecified; J44.9 Chronic obstructive pulmonary disease, unspecified; I11.0 Hypertensive heart disease with heart failure; I50.30 Unspecified diastolic (congestive) heart failure; C32.1 Malignant neoplasm of supraglottis; Z85.21 Personal history of malignant neoplasm of larynx; X58.XXXA Exposure to other specified factors, initial encounter
CPT/HCPCS: 36415; 70450; 71045; 80053; 81001; 84443; 85025; 87086; 87637; 93005; 96374; 99285; J0696